=== PATIENT | male | born 1955 | race Caucasian/White ===

== ENCOUNTER 2018-03-01 10:09 | Inpatient (IN) | payer OTHER ==
[2018-03-01] MEDS ORDERED: OCTREOTIDE ACETATE 50 MCG/1 ML - 1 ML VIAL IVPUSH ONE (10:20)
[2018-03-01] MEDS ORDERED: PANTOPRAZOLE SODIUM 40 MG VIAL IVPUSH ONE (10:20)
[2018-03-01] MEDS ORDERED: SODIUM CHLORIDE 0.9% 500 ML INFUS.BAG IV ONE (10:21)
[2018-03-01] MEDS ORDERED: CEFTRIAXONE 1,000 MG in DEXTROSE 5%-WATER - 50 ML IVPB ONE (10:28)
[2018-03-01] MEDS ORDERED: OCTREOTIDE ACETATE 1,200 MCG in DEXTROSE 5%-WATER - 488 ML IVPB SCH (10:30)
--- NOTE | 2018-03-01 10:34 | PDOC ---
History of Present Illness - General Chief Complaint: Vomiting Blood Stated Complaint: VOMITING BLOOD Time Seen by Provider: 03/01/18 10:12 - History of Present Illness Initial Comments: 03/01/18 10:42 62yo lithuanian speaking M hx emphysema, etoh cirrhosis, depression presents to the ED from [facility] with BRB hematemesis x2 since 8am today a/w epigastric abd pain x 2 days. Pain is sharp, does not radiate. Also endorses bleeding in stool, brb in nature x2 since yesterday. +generalized weakness. Denies headache , CP, SOB, fevers/chills, focal weakness/numbness, rash, LE edema, urinary sxs. Pt was admitted to [facility] for etoh cirrhosis and discharged to [place] on 02/13. Not on blood thinners. No etoh intake since 01/15/18. Past History - Past Medical History Allergies/Adverse Reactions: Allergies Allergy/AdvReac Type Severity Reaction Status Date / Time No Known Allergies Allergy Unverified 03/01/18 10:30 Home Medications: Ambulatory Orders Folic Acid - 1 mg PO DAILY 03/01/18 Furosemide 40 mg PO DAILY 03/01/18 Lactulose 20 gm PO TID 03/01/18 Magnesium 800 mg PO TID 03/01/18 Multivitamins [Tab-A-Vit -] 1 tab PO DAILY 03/01/18 Pantoprazole Sodium [Protonix] 40 mg PO DAILY 03/01/18 Pentoxifylline 400 mg PO TID 03/01/18 Potassium Chloride 20 meq PO DAILY 03/01/18 Spironolactone 6 tab PO DAILY 03/01/18 Thiamine HCl 100 mg PO DAILY 03/01/18 Vit B Comp/C/Folic/Iron/Vit E [Vitamin B Complex Tablet] 1 each PO DAILY COPD: No Liver Disease: Yes (cirrhosis of liver) Lung CA: (emphysema) Other medical history: muscle weakness, alcohol abuse - Suicide/Smoking/Psychosocial Hx Smoking History: Unknown if ever smoked Information on smoking cessation initiated: No Hx Alcohol Use: Yes (hx) Drug/Substance Use Hx: No Review of Systems - Review of Systems Comments:: 03/01/18 11:09 GENERAL/CONSTITUTIONAL: No fever or chills. +weakness. HEAD, EYES, EARS, NOSE AND THROAT: No change in vision. No ear pain or discharge. No sore throat. GASTROINTESTINAL: +nausea, vomiting blood, +bloody stool, no diarrhea or constipation. GENITOURINARY: No dysuria, frequency, or change in urination. CARDIOVASCULAR: No chest pain or shortness of breath. RESPIRATORY: No cough, wheezing, or hemoptysis. MUSCULOSKELETAL: No joint or muscle swelling or pain. No neck or back pain. SKIN: No rash NEUROLOGIC: No headache, vertigo, loss of consciousness, or change in strength/ sensation. ENDOCRINE: No increased thirst. No abnormal weight change. HEMATOLOGIC/LYMPHATIC: No anemia, easy bleeding, or history of blood clots. ALLERGIC/IMMUNOLOGIC: No hives or skin allergy. *Physical Exam - Vital Signs Last Vital Signs Temp Pulse Resp BP Pulse Ox 97.9 F 85 17 134/64 100 03/01/18 10:27 03/01/18 10:27 03/01/18 10:27 03/01/18 10:27 03/01/18 10:27 - Physical Exam Comments: 03/01/18 11:10 GENERAL: Awake, alert, and fully oriented to name, date, in no acute distress. Jaundiced, thin, chronically ill appearing HEAD: No signs of trauma EYES: PERRLA, EOMI, +scleral icterus ENT: Oropharynx clear without exudates. Moist mucosa LUNGS: Breath sounds equal, clear to auscultation bilaterally. No wheezes, and no crackles HEART: Regular rate and rhythm, normal S1 and S2, no murmurs, rubs or gallops ABDOMEN: +epigastric ttp, +dullness to percussion No guarding, no rebound. No masses EXTREMITIES: Normal range of motion, no edema. No cords, erythema, or tenderness NEUROLOGICAL: Normal speech, cranial nerves intact, normal strength and sensation b/l SKIN: +jaundice Moderate Sedation - Procedure Monitoring Vital Signs: Procedure Monitoring Vital Signs Temperature 97.9 F 03/01/18 10:27 Pulse Rate 85 03/01/18 10:27 Respiratory Rate 17 03/01/18 10:27 Blood Pressure 134/64 03/01/18 10:27 O2 Sat by Pulse Oximetry (%) 100 03/01/18 10:27 Heart Score/ECG Review #1 03/01/18 11:07 Twelve-lead EKG was performed and reviewed by me. Normal sinus rhythm, rate 79. Normal axis and intervals. No ST elevations or T-wave inversions. ED Treatment Course - LABORATORY CBC & Chemistry Diagram: 03/01/18 14:30 03/01/18 14:30 - RADIOLOGY Radiology Studies Ordered: Category Date Time Status CHEST X-RAY PORTABLE* [RAD] Stat Radiology 03/01/18 10:19 Ordered Medical Decision Making - Critical Care Time Total Critical Care Time (minutes): 90 Critical Care Statement: The care of this patient involved high complexity decision making to prevent further life threatening deterioration of the patient 's condition and/or to evaluate & treat vital organ system(s) failure or risk of failure. - Medical Decision Making 03/01/18 10:32 62yo M with MMP including etoh cirrhosis presents to the ED with bright red hematemesis since 8am this morning. Vitals stable thus far on monitor. Presumed variceal bleed. Pt has 2 IVs, ordered for PPI bolus/gtt, octreotide bolus/gtt, ceftriaxone. Case discussed with Dr. Alanis, pt likely to need endoscopy. Anticipate ICU admission, if rebleed, likely intubate for airway protection. 03/01/18 11:[address] Alanis at the bedside. Guaic done by Dr. Alanis at bedside, guaic positive 03/01/18 11:[address] Alanis for endoscopy. 03/01/18 11:40 INR 2.3, FFP ordered Hgb [address] Chase/Alex to ICU Pt next for endoscopy per Dr. Alanis 03/01/18 11:45 Bili 6, hospitalist paged for admission 03/01/18 12:00 Dr. Kuo/Dr. Pedro accept pt Pt to be transported to endoscopy suite/ICU soon Stable for now, no further hematemesis in ED. *DC/Admit/Observation/Transfer Diagnosis at time of Disposition: Hematemesis, Alcoholic cirrhosis of liver, Hematochezia - Discharge Dispostion Condition at time of disposition: Critical Decision to Admit order: Yes - Referrals - Patient Instructions - Post Discharge Activity - Attestations Physician Attestion: 03/01/18 11:54 I, Dr. Carl Mcfadden MD, attest that this document has been prepared under my direction and personally reviewed by me in its entirety. I further attest, that it accurately reflects all work, treatment, procedures and medical decision -making performed by me.
[2018-03-01] MEDS ORDERED: PANTOPRAZOLE SODIUM 40 MG VIAL ONE ×2 (10:43→10:45)
[2018-03-01] MEDS ORDERED: CEFTRIAXONE 1 GM/50 ML BAG ONE (10:43)
[2018-03-01] MEDS ORDERED: OCTREOTIDE ACETATE 100 MCG/1 ML ONE (10:45)
[2018-03-01] MEDS: PANTOPRAZOLE SODIUM 80 MG in SODIUM CHLORIDE 100 ML IVPB SCH ×2 (11:01→21:22)
[2018-03-01 11:10] LABS: INR 2.32 (0.83-1.09); PROTHROMBIN TIME (PATIENT) 27.6 SEC (9.7-13.0)
[2018-03-01 11:11] LABS: BASO % 0.2 % (0-2.0); EOS % 0.3 % (0-4.5); HEMATOCRIT 27.6 % (35.4-49); HEMOGLOBIN 9.3 GM/dL (11.7-16.9); LYMPH % 15.2 % (8-40); MCH 35.3 pg (25.7-33.7); MCHC 33.7 g/dl (32.0-35.9); MEAN CELL VOLUME 104.8 fl (80-96); MEAN PLT VOLUME 8.3 fl (7.5-11.1); MONO % 12.2 % (3.8-10.2); NEUT % 72.1 % (42.8-82.8); PLATELET COUNT 64 K/MM3 (134-434); RBC 2.63 M/mm3 (4.00-5.60); RDW 18.6 % (11.9-15.9); WHITE BLOOD COUNT 5.4 K/mm3 (4.0-10.0)
[2018-03-01 11:13] LABS: MAGNESIUM 1.9 mg/dL (1.8-2.4)
--- NOTE | 2018-03-01 11:26 | CON.GI ---
Consult Consult Specialty:: Gastroenterology ( covering Dr Saravia) Referred by:: Carl Mcfadden MD Reason for Consultation:: Hematemesis - History of Present Illness Chief Complaint: Vomiting of blood History of Present Illness: 62M developed hematemesis and melena today. He describes seeing hematochezia yesterday. He has alcoholic cirrhosis and was hopsitalized at [facility] after he last drank alcohol in January. He has been at [facility] since then. He denies ever having had any endoscopy or previous GI bleeding. He denies any other medical problems. His nurse and a medical student assigned to the ER served as Pashto interpreters. I informed him on the need for interventional endoscopy to include cautery and rubber band ligation of varices. 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 Place of : Other ([facility]) Home Medications - Allergies Allergies/Adverse Reactions: Allergies Allergy/AdvReac Type Severity Reaction Status Date / Time No Known Allergies Allergy Unverified 03/01/18 10:30 - Home Medications Home Medications: Ambulatory Orders Folic Acid - 1 mg PO DAILY 03/01/18 Furosemide 40 mg PO DAILY 03/01/18 Lactulose 20 gm PO TID 03/01/18 Magnesium 800 mg PO TID 03/01/18 Multivitamins [Tab-A-Vit -] 1 tab PO DAILY 03/01/18 Pantoprazole Sodium [Protonix] 40 mg PO DAILY 03/01/18 Pentoxifylline 400 mg PO TID 03/01/18 Potassium Chloride 20 meq PO DAILY 03/01/18 Spironolactone 6 tab PO DAILY 03/01/18 Thiamine HCl 100 mg PO DAILY 03/01/18 Vit B Comp/C/Folic/Iron/Vit E [Vitamin B Complex Tablet] 1 each PO DAILY Family Disease History - Family Disease History Family Disease History: Other: Father ( of alcoholism) Physical Exam-GI Vital Signs: Vital Signs Temperature 97.9 F 03/01/18 10:27 Pulse Rate 85 03/01/18 10:27 Respiratory Rate 17 03/01/18 10:27 Blood Pressure 134/64 03/01/18 10:27 O2 Sat by Pulse Oximetry (%) 100 03/01/18 10:27 Current Medications Generic Name Dose Route Start Last Admin Trade Name Freq PRN Reason Stop Dose Admin Pantoprazole Sodium 80 mg/ 100 mls @ 10 mls/hr 03/01/18 10:30 03/01/18 11:01 Sodium Chloride IVPB 10 mls/hr Q10H ALINA Administration 8 MG/HR Octreotide Acetate 1,200 mcg/ 500 mls @ 20.83 mls/hr 03/01/18 10:30 Dextrose IVPB ASDIR ALINA 50 MCG/HR Current Medications Generic Name Dose Route Start Last Admin Trade Name Freq PRN Reason Stop Dose Admin Pantoprazole Sodium 80 mg/ 100 mls @ 10 mls/hr 03/01/18 10:30 03/01/18 11:01 Sodium Chloride IVPB 10 mls/hr Q10H ALINA Administration 8 MG/HR Octreotide Acetate 1,200 mcg/ 500 mls @ 20.83 mls/hr 03/01/18 10:30 Dextrose IVPB ASDIR ALINA 50 MCG/HR Constitutional: Yes: Anxious Eyes: Yes: Sclera Icterus HENT: Yes: Normocephalic Neck: Yes: Trachea Midline Cardiovascular: Yes: Tachycardia Respiratory: Yes: CTA Bilaterally Gastrointestinal Inspection: Yes: Distention ...Auscultate: Yes: Normoactive Bowel Sounds, Other (nontender) ...Palpate: Yes: Soft, Other (nontender) ...Rectal Exam: Yes: Guaiac Positive (brown/black strongly guaiac positive stool ) Edema: No Integumentary: Yes: Tattoos (left chest) Neurological: Yes: Alert, Oriented Labs: INR, PTT INR 2.32 (0.83-1.09) H 03/01/18 10:30 Laboratory Tests 03/01/18 03/01/18 10:30 10:30 Hgb 9.3 L Hct 27.6 L Plt Count Pending PT with INR 27.60 H Problem List - Problems (1) Hematemesis Assessment/Plan: Although this consultation was started before his procedure I was not able to complete it until now. After informed consent was obtained using his nurse as my timber treatment plant operator and EGD was performed while intubated. Four large distal esophageal varices with stigmata of recent bleeding were found and all were banded. I explained the findings to Rayray and the need to abstain from any more alcohol intake. I also explained the need to have EGD repeated to band any residual varices. He can followup with me or Dr. Saravia. He expressed that he may want to do at [facility] where my partner, Dr Fang attends the GI clinic. I discussed the case with Dr Chase. Will continue Octreotide and PPI drip. Reglan will be given to manage his postprocedure vomiting. The Hb should be kept around no higher than 8. He will ultimately need a nonselectibe beta ayla to keep portal pressures and the risk of resiodual varices and portal gastropathy bleeding minimal. Code(s): K92.0 - HEMATEMESIS (2) Alcoholic cirrhosis of liver Assessment/Plan: Will order sonogram and AFP to screen for hepatoma and ascites. Given that he was not allowed alcohol for the several weeks that he has been at [facility] DTs should no longer be an issue but he should be watched for agitation and other signs. Code(s): K70.30 - ALCOHOLIC CIRRHOSIS OF LIVER WITHOUT ASCITES (3) COPD (chronic obstructive pulmonary disease) Code(s): J44.9 - CHRONIC OBSTRUCTIVE PULMONARY DISEASE, UNSPECIFIED (4) Hematochezia Code(s): K92.1 - MELENA (5) Alcoholism /alcohol abuse Code(s): F10.20 - ALCOHOL DEPENDENCE, UNCOMPLICATED Assessment/Plan Octreotide and PPI drips FFP Serial CBCs Sonogram and AFP If bleeding persists he will need to be transferred to a tertiary care center for TIPS
[2018-03-01 11:42] LABS: ALBUMIN 2.3 g/dl (3.4-5.0); ALK PHOS 135 U/L (45-117); ANION GAP 10 MMOL/L (8-16); BLOOD UREA NITROGEN 5 mg/dL (7-18); CHLORIDE 98 mmol/L (98-107); CO2 24 mmol/L (21-32); CREATININE 0.7 mg/dL (0.55-1.3); GLUCOSE,RANDOM 110 mg/dL (74-106); POTASSIUM 3.5 mmol/L (3.5-5.1); SGOT/AST 45 U/L (15-37); SGPT/ALT 22 U/L (13-61); SODIUM 132 mmol/L (136-145); TOT PROT 7.3 g/dl (6.4-8.2)
[2018-03-01 12:41] LABS: URINE APPEARANCE CLEAR; URINE BILIRUBIN NEGATIVE (<2.0 mg/dL); URINE COLOR DKYELLOW; URINE GLUCOSE (UA) NEGATIVE (NEGATIVE); URINE KETONE NEGATIVE (NEGATIVE); URINE LEUK ESTERASE NEGATIVE (NEGATIVE); URINE NITRITE NEGATIVE (NEGATIVE); URINE PROTEIN NEGATIVE (NEGATIVE); URINE UROBILINOGEN NEGATIVE mg/dL (0.2-1.0)
--- NOTE | 2018-03-01 12:45 | CONSULT ---
Consultation: REQUESTING PROVIDER: Carl Mcfadden MD CONSULT REQUEST: We have been asked to medically evaluate this patient for GIB. HISTORY OF PRESENT ILLNESS: Patient is a 62 y/o M w/ PMHx EtOH abuse, cirrhosis, emphysema, depression, was admitted to [facility] for alcoholic cirrhosis and discharged to [place] on 02/13, p /w 2 episodes hematemesis since 8am, additionally complains of abdominal pain, generalized weakness, hematochezia since yesterday. Admitted for endoscopic evaluation/therapy of GI bleeding and medical management. REVIEW OF SYSTEMS: As per HPI PHYSICAL EXAMINATION Vital Signs - 24 hr 03/01/18 03/01/18 03/01/18 10:27 12:14 12:17 Temperature 97.9 F 98 F Pulse Rate 85 Pulse Rate [ 79 Apical] Respiratory 17 17 Rate Blood Pressure 134/64 Blood Pressure 151/78 [Right Arm] O2 Sat by Pulse 100 98 97 Oximetry (%) GENERAL: A&Ox3, tremulous, cachectic, diffusely jaundiced, in pain and discomfort HEAD: NC/AT, temporal wasting EYES: PERRLA, EOMI, +scleral icterus EARS, NOSE, THROAT: Ears normal, nares patent, oropharynx clear without exudates. Moist mucous membranes. NECK: +jvd, supple, full ROM LUNGS: CTA b/l HEART: RRR no m/r/g ABDOMEN: bowel sounds distant, distended, firm but not rigid, gross hepatomegaly , no shifting dullness UPPER EXTREMITIES: 2+ pulses, warm, well-perfused. No cyanosis. No clubbing. Cap refill <2 seconds. No peripheral edema. LOWER EXTREMITIES: 2+ pulses, warm, well-perfused. No calf tenderness. No peripheral edema. 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 low-grade asterixis PSYCHIATRIC: Hesitant, withdrawn RECTAL: Pt refused having had multiple rectal exams to this point; refer to GI consult note for findings on presentation Laboratory Results - last 24 hr 03/01/18 03/01/18 03/01/18 10:30 10:30 10:30 RBC 2.63 L Hgb 9.3 L Hct 27.6 L MCV 104.8 H MCH 35.3 H MCHC 33.7 RDW 18.6 H Absolute Neuts (auto) 3.9 Neutrophils % 72.1 Lymphocytes % 15.2 Monocytes % 12.2 H Eosinophils % 0.3 Basophils % 0.2 Nucleated RBC % 0 PT with INR 27.60 H INR 2.32 H PTT (Actin FS) 44.0 H Sodium 132 L Potassium 3.5 Chloride 98 Carbon Dioxide 24 Anion Gap 10 BUN 5 L Creatinine 0.7 Creat Clearance w eGFR > 60 Random Glucose 110 H Calcium 8.0 L Magnesium Total Bilirubin 6.0 H AST 45 H ALT 22 Alkaline Phosphatase 135 H Total Protein 7.3 Albumin 2.3 L Lipase Blood Type Antibody Screen 03/01/18 03/01/18 10:30 10:30 RBC Hgb Hct MCV MCH MCHC RDW Absolute Neuts (auto) Neutrophils % Lymphocytes % Monocytes % Eosinophils % Basophils % Nucleated RBC % PT with INR INR PTT (Actin FS) Sodium Potassium Chloride Carbon Dioxide Anion Gap BUN Creatinine Creat Clearance w eGFR Random Glucose Calcium Magnesium 1.9 Total Bilirubin AST ALT Alkaline Phosphatase Total Protein Albumin Lipase 273 Blood Type O POSITIVE Antibody Screen Negative Active Medications Generic Name Dose Route Start Last Admin Trade Name Freq PRN Reason Stop Dose Admin Pantoprazole Sodium 80 mg/ 100 mls @ 10 mls/hr 03/01/18 10:30 03/01/18 11:01 Sodium Chloride IVPB 10 mls/hr Q10H ALINA Administration 8 MG/HR Octreotide Acetate 1,200 mcg/ 500 mls @ 20.83 mls/hr 03/01/18 10:30 03/01/18 12:00 Dextrose IVPB 20.83 mls/hr ASDIR ALINA Administration 50 MCG/HR ASSESSMENT/PLAN: 62 y/o M w/ PMHx alcoholic cirrhosis, emphysema p/w hematemesis and hematochezia #GIB -H/H 9.3/27.6 on presentation -PT 27.6, PTT 44, INR 2.3 -for urgent endoscopy -on Protonix and Octreotide gtt -1 unit FFP ordered -NPO -trend CBC -remainder as per GI #FEN -no IVF at this time -monitor and replete electrolytes -NPO #PPx -DVT: SCDs, no pharmacologic AC -GI: Protonix #code -full #Dispo: We will continue to follow the patient in the ICU. Thank you for this consultative opportunity. Visit type - Emergency Visit Emergency Visit: Yes Care time: The patient presented to the Emergency Department on the above date and was hospitalized for further evaluation of their emergent condition. - New Patient This patient is new to me today: Yes Date on this admission: 03/01/18 - Critical Care Critical Care patient: Yes Total Critical Care Time (in minutes): 40 Critical Care Statement: The care of this patient involved high complexity decision making to prevent further life threatening deterioration of the patient 's condition and/or to evaluate & treat vital organ system(s) failure or risk of failure.
--- NOTE | 2018-03-01 13:56 | HP ---
CHIEF COMPLAINT:hemetemesis PCP: none, pt says he hasn't been seen by a physician in 4 years HISTORY OF PRESENT ILLNESS: 62 yr old kuwaiti speaking man with ETOH abuse(everday drinker of beer, last drink 4wks ago for past 40yrs), smoker (everday for 40 days) sent directly from [facility] for evaluation of hematemesis. pt says he has been vomiting blood since yesterday afternoon. He was in [facility] for past 4 weeks and was seen at [facility] for hematochezia and hemetemesis several weeks ago. c/o feeling thirsty denies chest pain, abdominal pain, cough, shortness of breath, weight loss, fevers, headache, palpitations, hematuria, hematochezia or melena ER course was notable for: (1) GI evaluation (2) protonix + octreotride drip (3)admitted to ICU Recent Travel: denies PAST MEDICAL HISTORY: chronic substance use of etoh and smoking PAST SURGICAL HISTORY: Social History: [place] hx of smoking Alcohol: 40yr everyday use of etoh Drugs: denies Family History: unknown hx of his parents and siblings. has an 14yr old son, healthy Allergies No Known Allergies Allergy (Unverified 03/01/18 10:30) HOME MEDICATIONS: Home Medications Medication Instructions Recorded Folic Acid - 1 mg PO DAILY 03/01/18 Furosemide 40 mg PO DAILY 03/01/18 Lactulose 20 gm PO TID 03/01/18 Magnesium 800 mg PO TID 03/01/18 Multivitamins [Tab-A-Vit -] 1 tab PO DAILY 03/01/18 Pantoprazole Sodium [Protonix] 40 mg PO DAILY 03/01/18 Pentoxifylline 400 mg PO TID 03/01/18 Potassium Chloride 20 meq PO DAILY 03/01/18 Spironolactone 6 tab PO DAILY 03/01/18 Thiamine HCl 100 mg PO DAILY 03/01/18 Vit B Comp/C/Folic/Iron/Vit E 1 each PO DAILY 03/01/18 [Vitamin B Complex Tablet] REVIEW OF SYSTEMS CONSTITUTIONAL: Absent: fever, chills, diaphoresis, generalized weakness, malaise, loss of appetite, weight change HEENT: Absent: rhinorrhea, nasal congestion, throat pain, throat swelling, difficulty swallowing, mouth swelling, ear pain, eye pain, visual changes CARDIOVASCULAR: Absent: chest pain, syncope, palpitations, irregular heart rate, lightheadedness , peripheral edema RESPIRATORY: Absent: cough, shortness of breath, dyspnea with exertion, orthopnea, wheezing, stridor, hemoptysis GASTROINTESTINAL: Present: abdominal distension, vomiting with blood Absent: abdominal pain,nausea,diarrhea, constipation, melena, hematochezia GENITOURINARY: Absent: dysuria, frequency, urgency, hesitancy, hematuria, flank pain MUSCULOSKELETAL: Absent: myalgia, arthralgia, joint swelling, back pain, neck pain SKIN: Absent: rash, itching, pallor HEMATOLOGIC/IMMUNOLOGIC: Absent: easy bleeding, easy bruising, lymphadenopathy, frequent infections ENDOCRINE: Absent: unexplained weight gain, unexplained weight loss, heat intolerance, cold intolerance NEUROLOGIC: Absent: headache, focal weakness or paresthesias, dizziness, unsteady gait, seizure, PHYSICAL EXAMINATION Vital Signs - 24 hr 03/01/18 03/01/18 03/01/18 10:27 11:54 12:14 Temperature 97.9 F 97.9 F 98 F Pulse Rate 85 81 Pulse Rate [ 79 Apical] Respiratory 17 17 17 Rate Blood Pressure 134/64 114/56 L Blood Pressure 151/78 [Right Arm] O2 Sat by Pulse 100 97 98 Oximetry (%) 03/01/18 12:17 Temperature Pulse Rate Pulse Rate [ Apical] Respiratory Rate Blood Pressure Blood Pressure [Right Arm] O2 Sat by Pulse 97 Oximetry (%) GENERAL: Awake, alert, and fully oriented, in no acute distress. HEAD: Normal with no signs of trauma. EYES: Pupils equal, round and reactive to light, extraocular movements intact, with sclera anicteric, conjunctiva clear. No lid lag. EARS, NOSE, THROAT: Ears normal, nares patent, oropharynx clear without exudates. dry mucous membranes. poor oral hygiene NECK: Normal range of motion, supple without lymphadenopathy, JVD, or masses. LUNGS: Breath sounds equal, clear to auscultation bilaterally. No wheezes, and no crackles. No accessory muscle use. HEART: Regular rate and rhythm, normal S1 and S2 without murmur, rub or gallop. ABDOMEN: Soft, nontender, +distended, +ascitis, normoactive bowel sounds, no guarding, no rebound, no masses. MUSCULOSKELETAL: Normal range of motion at all joints. No bony deformities or tenderness. No CVA tenderness. UPPER EXTREMITIES: 2+ radial pulses, warm, well-perfused. No cyanosis. No clubbing. No peripheral edema. LOWER EXTREMITIES: 2+ DP pulses, warm, well-perfused. No calf tenderness. No peripheral edema. NEUROLOGICAL: Cranial nerves II-XII intact. Normal speech. 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 Good eye contact. Appropriate mood and affect. SKIN: jaundice, Warm, dry, normal turgor, no rashes or lesions noted, normal capillary refill. Laboratory Results - last 24 hr 03/01/18 03/01/18 03/01/18 10:30 10:30 10:30 WBC 5.4 RBC 2.63 L Hgb 9.3 L Hct 27.6 L MCV 104.8 H MCH 35.3 H MCHC 33.7 RDW 18.6 H Plt Count 64 L MPV 8.3 Absolute Neuts (auto) 3.9 Neutrophils % 72.1 Lymphocytes % 15.2 Monocytes % 12.2 H Eosinophils % 0.3 Basophils % 0.2 Nucleated RBC % 0 PT with INR 27.60 H INR 2.32 H PTT (Actin FS) 44.0 H Sodium 132 L Potassium 3.5 Chloride 98 Carbon Dioxide 24 Anion Gap 10 BUN 5 L Creatinine 0.7 Creat Clearance w eGFR > 60 Random Glucose 110 H Calcium 8.0 L Magnesium Total Bilirubin 6.0 H AST 45 H ALT 22 Alkaline Phosphatase 135 H Total Protein 7.3 Albumin 2.3 L Lipase Urine Color Urine Appearance Urine pH Ur Specific [place] Urine Protein Urine Glucose (UA) Urine Ketones Urine Blood Urine Nitrite Urine Bilirubin Urine Urobilinogen Ur Leukocyte Esterase Blood Type Antibody Screen 03/01/18 03/01/18 03/01/18 10:30 10:30 12:00 WBC RBC Hgb Hct MCV MCH MCHC RDW Plt Count MPV Absolute Neuts (auto) Neutrophils % Lymphocytes % Monocytes % Eosinophils % Basophils % Nucleated RBC % PT with INR INR PTT (Actin FS) Sodium Potassium Chloride Carbon Dioxide Anion Gap BUN Creatinine Creat Clearance w eGFR Random Glucose Calcium Magnesium 1.9 Total Bilirubin AST ALT Alkaline Phosphatase Total Protein Albumin Lipase 273 Urine Color Urine Appearance Urine pH Ur Specific [place] Urine Protein Urine Glucose (UA) Urine Ketones Urine Blood Urine Nitrite Urine Bilirubin Urine Urobilinogen Ur Leukocyte Esterase Blood Type O POSITIVE O POSITIVE Antibody Screen Negative 03/01/18 12:17 WBC RBC Hgb Hct MCV MCH MCHC RDW Plt Count MPV Absolute Neuts (auto) Neutrophils % Lymphocytes % Monocytes % Eosinophils % Basophils % Nucleated RBC % PT with INR INR PTT (Actin FS) Sodium Potassium Chloride Carbon Dioxide Anion Gap BUN Creatinine Creat Clearance w eGFR Random Glucose Calcium Magnesium Total Bilirubin AST ALT Alkaline Phosphatase Total Protein Albumin Lipase Urine Color Dkyellow Urine Appearance Clear Urine pH 7.0 Ur Specific [place] 1.008 L Urine Protein Negative Urine Glucose (UA) Negative Urine Ketones Negative Urine Blood Negative Urine Nitrite Negative Urine Bilirubin Negative Urine Urobilinogen Negative Ur Leukocyte Esterase Negative Blood Type Antibody Screen ASSESSMENT/PLAN: 62 yr man with active substance use with ETOH presents with hemetemesis admitted to ICU post-endoscopy for bleeding varices. #Variceal bleeding s/p banding of 4 varices today - from ETOH abuse leading to liver dysfunction - protonix IV drip with reglan as Qtc prolonged - IVF with NS - NPO until stable - to be given 2 units of FFP for elevated INR and acute bleeding - recommendation for beta ayla PPx such as nadolol 20mg po daily at time of delivery #Liver dysfunction with MELD score of 29 and Child-Berger score of 13, class C - r/o hepatitis, likely from etoh use - avoid hepatotoxic medications - likely cause of erythropenia and elevated coagulation studies - trend liver function and monitor coags and for repeat bleeding closely given extent of dysfunction Anemia, macrocytic - multifactorial given undomiciled etoh user; nutritional deficiency, acute blood loss and chronic disease - will likely need folic acid and vit b12 when able to take PO - anemia studies ordered #Subtance use - Etoh - last drink approx 4weeks, low suspicion for withdrawal at this time, however monitor closely - nicotine dependence, defer NRT until stable or pt requests - will need counseling on cessation #DVT - scd's, defer medical ac #diet - npo until stable for oral intake #activity - bed rest until stable Visit type - Emergency Visit Emergency Visit: Yes ED Registration Date: 03/01/18 Care time: The patient presented to the Emergency Department on the above date and was hospitalized for further evaluation of their emergent condition. - New Patient This patient is new to me today: Yes Date on this admission: 03/01/18 - Critical Care Critical Care patient: Yes Total Critical Care Time (in minutes): 45 Critical Care Statement: The care of this patient involved high complexity decision making to prevent further life threatening deterioration of the patient 's condition and/or to evaluate & treat vital organ system(s) failure or risk of failure.
[2018-03-01] MEDS ORDERED: METOCLOPRAMIDE HCL INJECTION 10 MG/2 ML VIAL IVPUSH PRN (14:34)
[2018-03-01 14:47] LABS: HEMATOCRIT 29.7 % (35.4-49); HEMOGLOBIN 10.5 GM/dL (11.7-16.9); MCH 37.1 pg (25.7-33.7); MCHC 35.2 g/dl (32.0-35.9); MEAN CELL VOLUME 105.4 fl (80-96); PLATELET COUNT 73 K/MM3 (134-434); RBC 2.82 M/mm3 (4.00-5.60); RDW 19.3 % (11.9-15.9); WHITE BLOOD COUNT 5.8 K/mm3 (4.0-10.0)
--- NOTE | 2018-03-01 14:52 | PN ---
Progress Note (short form) - Note Progress Note: Patient received from OR Patient actively vomiting fresh red blood which is likely residual from the procedure. about 100ml had general endotracheal anesthesia extubated Discussed with Dr. Magaña. Patient had banding of 4 varices. Will give reglan for vomiting/nausea. aptient has QT prolongation and will need to use zofran judiciously Will give 2 units FFP now for coagulopathy secondary to liver dysfunction will send STAT labs including CBC CMP Mg Phos Ammonia alcohol and acute hepatitis panel will trend CBC ICU care
[2018-03-01] MEDS ORDERED: SODIUM CHLORIDE 1,000 ML IV SCH (15:00)
--- NOTE | 2018-03-01 15:24 | PN ---
Progress Note (short form) - Note Progress Note: GI Procedure Note> Please see attached EGD report in the chart. Four esophageal varices were banded. Continue PPI and octreotide drips. If bleeding persists he will need to be transferred for TIPS procedure. After discharge he will need to be referred for a repeat EGD to rubber band ligate residual varices. Will continue Kefzol prophylaxis. Problem List - Problems (1) Hematemesis Code(s): K92.0 - HEMATEMESIS (2) Alcoholic cirrhosis of liver Code(s): K70.30 - ALCOHOLIC CIRRHOSIS OF LIVER WITHOUT ASCITES (3) COPD (chronic obstructive pulmonary disease) Code(s): J44.9 - CHRONIC OBSTRUCTIVE PULMONARY DISEASE, UNSPECIFIED (4) Hematochezia Code(s): K92.1 - MELENA (5) Alcoholism /alcohol abuse Code(s): F10.20 - ALCOHOL DEPENDENCE, UNCOMPLICATED
[2018-03-01 15:27] LABS: ALBUMIN 2.3 g/dl (3.4-5.0); ALK PHOS 131 U/L (45-117); ANION GAP 11 MMOL/L (8-16); BILIRUBIN,TOTAL 6.1 mg/dL (0.2-1); BLOOD UREA NITROGEN 4 mg/dL (7-18); CALCIUM 7.7 mg/dL (8.5-10.1); CHLORIDE 102 mmol/L (98-107); CO2 22 mmol/L (21-32); CREATININE 0.8 mg/dL (0.55-1.3); GLUCOSE,RANDOM 114 mg/dL (74-106); MAGNESIUM 1.8 mg/dL (1.8-2.4); PHOSPHOROUS 3.2 mg/dL (2.5-4.9); POTASSIUM 3.7 mmol/L (3.5-5.1); SGOT/AST 48 U/L (15-37); SGPT/ALT 22 U/L (13-61); SODIUM 135 mmol/L (136-145); TOT PROT 7.5 g/dl (6.4-8.2)
--- NOTE | 2018-03-01 15:43 | EKG ---
Test Reason : Blood Pressure : / mmHG Vent. Rate : 079 BPM Atrial Rate : 079 BPM P-R Int : 150 ms QRS Dur : 102 ms QT Int : 444 ms P-R-T Axes : 069 080 053 degrees QTc Int : 509 ms NORMAL SINUS RHYTHM PROLONGED QT ABNORMAL ECG WHEN COMPARED WITH ECG OF 10-AUG-2007 08:36, NONSPECIFIC T WAVE ABNORMALITY NO LONGER EVIDENT IN INFERIOR LEADS QT HAS LENGTHENED Confirmed by JAYANT BUTTS, CHITO ([id number]) on 03/01/2018 3:42:40 PM Referred By: Confirmed By:CHITO SABA MD
[2018-03-01] MEDS ORDERED: ALBUTEROL SO4 0.083% IH SOL 2.5 MG/3 ML VIAL.NEB. NEB PRN (15:47)
[2018-03-01 16:28] LABS: LDH 322 U/L (87-246)
[2018-03-01] MEDS: CEFAZOLIN 1 GM/D5W 1 GM/50 ML BAG IVPB SCH (17:37)
--- NOTE | 2018-03-01 19:15 | PN ---
Teaching Attending Note Name of Resident: Tj Kuo ATTENDING PHYSICIAN STATEMENT I saw and evaluated the patient. I reviewed the resident's note and discussed the case with the resident. I agree with the resident's findings and plan as documented. Patient seen and examined after EGD and banding with some post procedure hematemesis. SUBJECTIVE: Feeling better. No abdominal pain/fevers/chills currently. Denies chest pain/palpitations/shortness of breath OBJECTIVE: Afebrile/Hemodynamically Stable. Last Vital Signs Temp Pulse Resp BP Pulse Ox 97.7 F 81 20 140/75 100 03/01/18 18:00 03/01/18 18:00 03/01/18 18:00 03/01/18 18:00 03/01/18 15:00 HEENT - Atraumatic. Blood stained teeth Heart - S1, S2, RRR, soft SM Lungs - clear to auscultation - no crackles/wheeze. Abdomen - soft, mild distension, mild generalized tenderness. Bowel Sounds normal Extremities - Edema++. No calf tenderness. Laboratory Results - last 24 hr 03/01/18 03/01/18 03/01/18 10:30 10:30 10:30 WBC 5.4 RBC 2.63 L Hgb 9.3 L Hct 27.6 L MCV 104.8 H MCH 35.3 H MCHC 33.7 RDW 18.6 H Plt Count 64 L MPV 8.3 Absolute Neuts (auto) 3.9 Neutrophils % 72.1 Lymphocytes % 15.2 Monocytes % 12.2 H Eosinophils % 0.3 Basophils % 0.2 Nucleated RBC % 0 PT with INR 27.60 H INR 2.32 H PTT (Actin FS) 44.0 H Sodium 132 L Potassium 3.5 Chloride 98 Carbon Dioxide 24 Anion Gap 10 BUN 5 L Creatinine 0.7 Creat Clearance w eGFR > 60 Random Glucose 110 H Calcium 8.0 L Phosphorus Magnesium Ferritin Total Bilirubin 6.0 H AST 45 H ALT 22 Alkaline Phosphatase 135 H Ammonia LD Total Total Protein 7.3 Albumin 2.3 L Lipase Vitamin B12 Urine Color Urine Appearance Urine pH Ur Specific [place] Urine Protein Urine Glucose (UA) Urine Ketones Urine Blood Urine Nitrite Urine Bilirubin Urine Urobilinogen Ur Leukocyte Esterase Alcohol, Quantitative Blood Type Antibody Screen 03/01/18 03/01/18 03/01/18 10:30 10:30 12:00 WBC RBC Hgb Hct MCV MCH MCHC RDW Plt Count MPV Absolute Neuts (auto) Neutrophils % Lymphocytes % Monocytes % Eosinophils % Basophils % Nucleated RBC % PT with INR INR PTT (Actin FS) Sodium Potassium Chloride Carbon Dioxide Anion Gap BUN Creatinine Creat Clearance w eGFR Random Glucose Calcium Phosphorus Magnesium 1.9 Ferritin Total Bilirubin AST ALT Alkaline Phosphatase Ammonia LD Total Total Protein Albumin Lipase 273 Vitamin B12 Urine Color Urine Appearance Urine pH Ur Specific [place] Urine Protein Urine Glucose (UA) Urine Ketones Urine Blood Urine Nitrite Urine Bilirubin Urine Urobilinogen Ur Leukocyte Esterase Alcohol, Quantitative Blood Type O POSITIVE O POSITIVE Antibody Screen Negative 03/01/18 03/01/18 03/01/18 12:17 14:30 14:30 WBC RBC Hgb Hct MCV MCH MCHC RDW Plt Count MPV Absolute Neuts (auto) Neutrophils % Lymphocytes % Monocytes % Eosinophils % Basophils % Nucleated RBC % PT with INR INR PTT (Actin FS) Sodium 135 L Potassium 3.7 Chloride 102 Carbon Dioxide 22 Anion Gap 11 BUN 4 L Creatinine 0.8 Creat Clearance w eGFR > 60 Random Glucose 114 H Calcium 7.7 L Phosphorus 3.2 Magnesium 1.8 Ferritin 346.5 Total Bilirubin 6.1 H AST 48 H ALT 22 Alkaline Phosphatase 131 H Ammonia 12.70 LD Total 322 H Total Protein 7.5 Albumin 2.3 L Lipase Vitamin B12 1488 H Urine Color Dkyellow Urine Appearance Clear Urine pH 7.0 Ur Specific [place] 1.008 L Urine Protein Negative Urine Glucose (UA) Negative Urine Ketones Negative Urine Blood Negative Urine Nitrite Negative Urine Bilirubin Negative Urine Urobilinogen Negative Ur Leukocyte Esterase Negative Alcohol, Quantitative < 3.0 Blood Type Antibody Screen 03/01/18 14:30 WBC 5.8 RBC 2.82 L Hgb 10.5 L Hct 29.7 L MCV 105.4 H MCH 37.1 H MCHC 35.2 RDW 19.3 H Plt Count 73 L MPV 9.0 Absolute Neuts (auto) Neutrophils % Lymphocytes % Monocytes % Eosinophils % Basophils % Nucleated RBC % PT with INR INR PTT (Actin FS) Sodium Potassium Chloride Carbon Dioxide Anion Gap BUN Creatinine Creat Clearance w eGFR Random Glucose Calcium Phosphorus Magnesium Ferritin Total Bilirubin AST ALT Alkaline Phosphatase Ammonia LD Total Total Protein Albumin Lipase Vitamin B12 Urine Color Urine Appearance Urine pH Ur Specific [place] Urine Protein Urine Glucose (UA) Urine Ketones Urine Blood Urine Nitrite Urine Bilirubin Urine Urobilinogen Ur Leukocyte Esterase Alcohol, Quantitative Blood Type Antibody Screen Current Medications Generic Name Dose Route Start Last Admin Trade Name Frejeny PRN Reason Stop Dose Admin Albuterol Sulfate 1 amp 03/01/18 15:47 Ventolin 0.083% Nebulizer Soln - NEB QID PRN SHORT OF BREATH/WHEEZING Chlorhexidine Gluconate 1 applic 03/01/18 22:00 Hibiclens For Decolonization - TP HS ALINA Pantoprazole Sodium 80 mg/ 100 mls @ 10 mls/hr 03/01/18 10:30 03/01/18 11:01 Sodium Chloride IVPB 10 mls/hr Q10H ALINA Administration 8 MG/HR Octreotide Acetate 1,200 mcg/ 500 mls @ 20.83 mls/hr 03/01/18 10:30 03/01/18 12:00 Dextrose IVPB 20.83 mls/hr ASDIR ALINA Administration 50 MCG/HR Sodium Chloride 1,000 mls @ 75 mls/hr 03/01/18 15:00 03/01/18 17:37 Normal Saline - IV 75 mls/hr ASDIR ALINA Administration Cefazolin Sodium 1 gm in 50 mls @ 100 mls/hr 03/01/18 18:00 03/01/18 17:37 Ancef 1 Gm Premixed Ivpb - IVPB 100 mls/hr Q8H-IV ALINA Administration Metoclopramide HCl 10 mg 03/01/18 14:34 Reglan Injection - IVPUSH Q6H PRN NAUSEA AND/OR VOMITING Mupirocin 1 applic 03/01/18 22:00 Bactroban Ointment (For Decolonization) - NS 03/06/18 21:59 BID ALINA CXR - Anterior subluxation L humerus. ASSESSMENT AND PLAN: 62 year old male with history of alcohol abuse (last drink apparently in January), active smoker, COPD, Depression, Cirrhosis of Liver, recent stay at nursing facility, transferred from [facility] for evaluation of hematemesis. Patient refers bright red bloody vomitus, several episodes since yesterday, with color becoming darker with successive emesis. He complains of some abdominal discomfort with generalized weakness. No chest pain/palpitations/SOB/lightheadedness/dizziness/visual disturbance. He was started on Protonix and Octreotide drips and underwent EGD with band ligation of 4 varices, with some mild self-limited post-procedure hematemesis. 1. Acute Blood Loss Anemia secondary to Variceal bleeding s/p EGD/Band ligation x 4. Continue Protonix drip. Octreotide drip discontinued due to QTc prolongation. IV fluids NPO Will eventually require BB. IV Cephalosporin prophylaxis. If further bleeding, will need [facility]. 2. Liver Cirrhosis secondary to Alcohol excess with portal hypertension, Ascites , and Esophageal Varices. MELD 29 Abdomen mildly tender. Afebrile, Hemodynamically stable May eventually require Abdominal US and paracentesis. 3. Coagulopathy secondary to Cirrhosis with INR 2.32 Given 2 units FFP prior to EGD. Will monitor PT/aPTT 4. History of Alcohol Abuse - last drink apparently 01/26 No evidence of withdrawal - will monitor. Ativan as per CIWA if any signs of withdrawal. 5. Nicotine Dependence Counselled. 6. Anterior Subluxation L humerus - for further exam and manipulation tomorrow once more stable. DVT Px - SCDs, Autoanticoagulated with elevated INR.
[2018-03-01] MEDS: THIAMINE HCL 200 MG/2 ML VIAL IVPB SCH (19:31)
[2018-03-01] MEDS: MUPIROCIN 2% TOPICAL OINTMENT FOR DECOLONIZATION NS SCH (21:22)
[2018-03-01] MEDS: CHLORHEXIDINE GLUCONATE 4% CLEANSER FOR DECOLONIZATION TP SCH (21:22)
[2018-03-01 22:16] LABS: HEMATOCRIT 25.6 % (35.4-49); MCH 36.9 pg (25.7-33.7); MCHC 35.1 g/dl (32.0-35.9); MEAN CELL VOLUME 105.2 fl (80-96); MEAN PLT VOLUME 8.8 fl (7.5-11.1); PLATELET COUNT 61 K/MM3 (134-434); RBC 2.43 M/mm3 (4.00-5.60); RDW 18.8 % (11.9-15.9); WHITE BLOOD COUNT 3.9 K/mm3 (4.0-10.0)
[2018-03-02] MEDS: CEFAZOLIN 1 GM/D5W 1 GM/50 ML BAG IVPB SCH ×3 (02:42→17:14)
--- NOTE | 2018-03-02 04:37 | PN ---
Physical Exam: ICU team SUBJECTIVE: Patient seen and examined at bed side , no acute events over night , still NPO, denies any more vomiting or nausea, denies any light headedness, or sob,feel the urge to go to the bath room. OBJECTIVE: Vital Signs Period Temp Pulse Resp BP Sys/Mar Pulse Ox Last 24 Hr 97.6 F-98.2 F 79-95 11-20 113-151/45-78 97-100 GENERAL: AAO3 in AND HEAD:NC/AT EYES: PERRL, extraocular movements intact, icteric sclera. ENT: dry MM, poor dentation , NECK: Trachea midline, supple. LUNGS: Breath sounds equal, clear to auscultation bilaterally, no wheezes, no crackles, no accessory muscle use. HEART: sinus tachy , S1, S2 without murmur, rub or gallop. ABDOMEN: Soft, mild difuse tenderness , distended, normoactive bowel sounds, no guarding, no rebound, +3 cm hepatmegaly. EXTREMITIES: 2+ pulses, warm, well-perfused, no edema. NEUROLOGICAL: no focal deficit . Normal speech, PSYCH: Normal mood, normal affect. SKIN: Warm, dry, normal turgor Laboratory Results - last 24 hr 03/01/18 03/01/18 03/01/18 10:30 10:30 10:30 WBC 5.4 RBC 2.63 L Hgb 9.3 L Hct 27.6 L MCV 104.8 H MCH 35.3 H MCHC 33.7 RDW 18.6 H Plt Count 64 L MPV 8.3 Absolute Neuts (auto) 3.9 Neutrophils % 72.1 Lymphocytes % 15.2 Monocytes % 12.2 H Eosinophils % 0.3 Basophils % 0.2 Nucleated RBC % 0 PT with INR 27.60 H INR 2.32 H PTT (Actin FS) 44.0 H Sodium 132 L Potassium 3.5 Chloride 98 Carbon Dioxide 24 Anion Gap 10 BUN 5 L Creatinine 0.7 Creat Clearance w eGFR > 60 Random Glucose 110 H Calcium 8.0 L Phosphorus Magnesium Ferritin Total Bilirubin 6.0 H AST 45 H ALT 22 Alkaline Phosphatase 135 H Ammonia LD Total Total Protein 7.3 Albumin 2.3 L Lipase Vitamin B12 Urine Color Urine Appearance Urine pH Ur Specific Rhame Urine Protein Urine Glucose (UA) Urine Ketones Urine Blood Urine Nitrite Urine Bilirubin Urine Urobilinogen Ur Leukocyte Esterase Alcohol, Quantitative Blood Type Antibody Screen 03/01/18 03/01/18 03/01/18 10:30 10:30 12:00 WBC RBC Hgb Hct MCV MCH MCHC RDW Plt Count MPV Absolute Neuts (auto) Neutrophils % Lymphocytes % Monocytes % Eosinophils % Basophils % Nucleated RBC % PT with INR INR PTT (Actin FS) Sodium Potassium Chloride Carbon Dioxide Anion Gap BUN Creatinine Creat Clearance w eGFR Random Glucose Calcium Phosphorus Magnesium 1.9 Ferritin Total Bilirubin AST ALT Alkaline Phosphatase Ammonia LD Total Total Protein Albumin Lipase 273 Vitamin B12 Urine Color Urine Appearance Urine pH Ur Specific Rhame Urine Protein Urine Glucose (UA) Urine Ketones Urine Blood Urine Nitrite Urine Bilirubin Urine Urobilinogen Ur Leukocyte Esterase Alcohol, Quantitative Blood Type O POSITIVE O POSITIVE Antibody Screen Negative 03/01/18 03/01/18 03/01/18 12:17 14:30 14:30 WBC RBC Hgb Hct MCV MCH MCHC RDW Plt Count MPV Absolute Neuts (auto) Neutrophils % Lymphocytes % Monocytes % Eosinophils % Basophils % Nucleated RBC % PT with INR INR PTT (Actin FS) Sodium 135 L Potassium 3.7 Chloride 102 Carbon Dioxide 22 Anion Gap 11 BUN 4 L Creatinine 0.8 Creat Clearance w eGFR > 60 Random Glucose 114 H Calcium 7.7 L Phosphorus 3.2 Magnesium 1.8 Ferritin 346.5 Total Bilirubin 6.1 H AST 48 H ALT 22 Alkaline Phosphatase 131 H Ammonia 12.70 LD Total 322 H Total Protein 7.5 Albumin 2.3 L Lipase Vitamin B12 1488 H Urine Color Dkyellow Urine Appearance Clear Urine pH 7.0 Ur Specific Rhame 1.008 L Urine Protein Negative Urine Glucose (UA) Negative Urine Ketones Negative Urine Blood Negative Urine Nitrite Negative Urine Bilirubin Negative Urine Urobilinogen Negative Ur Leukocyte Esterase Negative Alcohol, Quantitative < 3.0 Blood Type Antibody Screen 03/01/18 03/01/18 14:30 21:59 WBC 5.8 3.9 L RBC 2.82 L 2.43 L Hgb 10.5 L 9.0 L Hct 29.7 L 25.6 L MCV 105.4 H 105.2 H MCH 37.1 H 36.9 H MCHC 35.2 35.1 RDW 19.3 H 18.8 H Plt Count 73 L 61 L MPV 9.0 8.8 Absolute Neuts (auto) Neutrophils % Lymphocytes % Monocytes % Eosinophils % Basophils % Nucleated RBC % PT with INR INR PTT (Actin FS) Sodium Potassium Chloride Carbon Dioxide Anion Gap BUN Creatinine Creat Clearance w eGFR Random Glucose Calcium Phosphorus Magnesium Ferritin Total Bilirubin AST ALT Alkaline Phosphatase Ammonia LD Total Total Protein Albumin Lipase Vitamin B12 Urine Color Urine Appearance Urine pH Ur Specific Rhame Urine Protein Urine Glucose (UA) Urine Ketones Urine Blood Urine Nitrite Urine Bilirubin Urine Urobilinogen Ur Leukocyte Esterase Alcohol, Quantitative Blood Type Antibody Screen Active Medications Generic Name Dose Route Start Last Admin Trade Name Freq PRN Reason Stop Dose Admin Albuterol Sulfate 1 amp 03/01/18 15:47 Ventolin 0.083% Nebulizer Soln - NEB QID PRN SHORT OF BREATH/WHEEZING Chlorhexidine Gluconate 1 applic 03/01/18 22:00 03/01/18 21:22 Hibiclens For Decolonization - TP 1 applic HS ALINA Administration Pantoprazole Sodium 80 mg/ 100 mls @ 10 mls/hr 03/01/18 10:30 03/01/18 21:22 Sodium Chloride IVPB 10 mls/hr Q10H ALINA Administration 8 MG/HR Octreotide Acetate 1,200 mcg/ 500 mls @ 20.83 mls/hr 03/01/18 10:30 03/01/18 12:00 Dextrose IVPB 20.83 mls/hr ASDIR ALINA Administration 50 MCG/HR Sodium Chloride 1,000 mls @ 75 mls/hr 03/01/18 15:00 03/01/18 17:37 Normal Saline - IV 75 mls/hr ASDIR ALINA Administration Cefazolin Sodium 1 gm in 50 mls @ 100 mls/hr 03/01/18 18:00 03/02/18 02:42 Ancef 1 Gm Premixed Ivpb - IVPB 100 mls/hr Q8H-IV ALINA Administration Metoclopramide HCl 10 mg 03/01/18 14:34 Reglan Injection - IVPUSH Q6H PRN NAUSEA AND/OR VOMITING Mupirocin 1 applic 03/01/18 22:00 03/01/18 21:22 Bactroban Ointment (For Decolonization) - NS 03/06/18 21:59 1 applic BID ALINA Administration Thiamine HCl 200 mg 03/01/18 19:30 03/01/18 19:31 Vitamin B1 Injection - IVPB 200 mg DAILY ALINA Administration CBC, BMP 03/02/18 05:15 03/02/18 05:15 Hepatic Panel Total Bilirubin 5.5 mg/dL (0.2-1) H 03/02/18 05:15 Direct Bilirubin 3.1 mg/dL (0.0-0.2) H 03/02/18 05:15 AST 36 U/L (15-37) 03/02/18 05:15 ALT 19 U/L (13-61) 03/02/18 05:15 Alkaline Phosphatase 103 U/L (45-117) 03/02/18 05:15 Albumin 2.1 g/dl (3.4-5.0) L 03/02/18 05:15 INR, PTT INR 1.89 (0.83-1.09) H 03/02/18 05:15 ASSESSMENT/PLAN: 62 year old male with history of alcohol abuse (last drink apparently in January), active smoker, COPD, Depression, Cirrhosis recent stay at nursing facility, transferred from [facility] for evaluation of hematemesis. Patient refers bright red bloody vomitus, several episodes of hematemesis and hematochezia admitted to ICU for variceal bleed. # Neuro: * AAOx3 in AND # Pulm * CTA * copd no exacerbation # GI /hem - Acute variceal bleed * S/P EGD pod # 1 and 4 rubber bands * on Protonix drip 80/hr and Octreotide GTT 50 ml/hr cut down to 25 per GI * no more vomiting since the procedure , if recurence will need transfer to tertiary facility for TIPS * Diet Clear liquid per GI * 2 large iV pores * Monitor H/H , transfuse if active bleeding or below 7 * S/P 2 FFP * Vit K IV 20 meq * cbc, cmp , lefts , coagulation studies repeat * INR today 1.89 * AAOx3 no tremor os or signs of withdrawal # Anemai macrocytic /thrombocytopenia likely due to liver cirrhosis and alcohol abuse and aculte loss from variceal bleed * H/H 9.1/27.5 , MCV 105 * Thiamin , folic acid * Ativan PRN if signs of withdrawal # Liver cirrhosis , chronic likely due to Alcohol # Coagulopathy 2/2 cirrhosis * monitor AST, ALT * avoid alcohol * US * repeat PT, PTT , INR , lfts # FEN * F: NS @ 100 CC/hr * E: monitor * N: clear liquids # Proph * DVTS: SCDS , no chemical proph * GI: protonix GTT # dispo: monitor in ICU # Code status, full code Visit type - Emergency Visit Emergency Visit: Yes ED Registration Date: 03/01/18 Care time: The patient presented to the Emergency Department on the above date and was hospitalized for further evaluation of their emergent condition. - New Patient This patient is new to me today: Yes Date on this admission: 03/01/18 - Critical Care Critical Care patient: Yes Total Critical Care Time (in minutes): 45 Critical Care Statement: The care of this patient involved high complexity decision making to prevent further life threatening deterioration of the patient 's condition and/or to evaluate & treat vital organ system(s) failure or risk of failure.
[2018-03-02 05:56] LABS: BASO % 0.1 % (0-2.0); HEMATOCRIT 27.5 % (35.4-49); HEMOGLOBIN 9.1 GM/dL (11.7-16.9); LYMPH % 11.7 % (8-40); MCHC 33.2 g/dl (32.0-35.9); MEAN CELL VOLUME 105.5 fl (80-96); MEAN PLT VOLUME 8.2 fl (7.5-11.1); MONO % 6.1 % (3.8-10.2); NEUT % 82.1 % (42.8-82.8); PLATELET COUNT 62 K/MM3 (134-434); RDW 18.6 % (11.9-15.9); WHITE BLOOD COUNT 5.3 K/mm3 (4.0-10.0)
[2018-03-02 06:10] LABS: INR 1.89 (0.83-1.09); PROTHROMBIN TIME (PATIENT) 22.5 SEC (9.7-13.0)
[2018-03-02 06:13] LABS: ACTIVATED PTT 38.2 SECONDS (25.2-36.5)
[2018-03-02 06:29] LABS: BILIRUBIN,DIRECT 3.1 mg/dL (0.0-0.2)
[2018-03-02 06:30] LABS: ALBUMIN 2.1 g/dl (3.4-5.0); ALK PHOS 103 U/L (45-117); ANION GAP 8 MMOL/L (8-16); BILIRUBIN,TOTAL 5.5 mg/dL (0.2-1); BLOOD UREA NITROGEN 7 mg/dL (7-18); CALCIUM 7.7 mg/dL (8.5-10.1); CHLORIDE 102 mmol/L (98-107); CO2 26 mmol/L (21-32); CREATININE 0.7 mg/dL (0.55-1.3); GLUCOSE,RANDOM 143 mg/dL (74-106); MAGNESIUM 1.8 mg/dL (1.8-2.4); PHOSPHOROUS 3.4 mg/dL (2.5-4.9); POTASSIUM 4.3 mmol/L (3.5-5.1); SGOT/AST 36 U/L (15-37); SGPT/ALT 19 U/L (13-61); SODIUM 136 mmol/L (136-145); TOT PROT 6.7 g/dl (6.4-8.2)
[2018-03-02] MEDS: PANTOPRAZOLE SODIUM 80 MG in SODIUM CHLORIDE 100 ML IVPB SCH ×3 (07:00→16:30)
[2018-03-02] MEDS ORDERED: PT OWN MED DRAWER 7, Y5N ONE ×3 (07:40→17:23)
--- NOTE | 2018-03-02 09:01 | PN ---
Progress Note (short form) - Note Progress Note: Anesthesiology Post-op POD#1 s/p EGD with variceal banding under GETA. Pt is awake and alert in ICU. Per RN, no ON or current acute issues. VSS, blood counts stable as well. Pt. has no complaints and no apparent anesthesia-related issues. 62 y.o. man with stable post-procedure course. Continue current management by primary team.
[2018-03-02] MEDS ORDERED: PHYTONADIONE 10 MG/1 ML AMP IVPB ONE (09:30)
--- NOTE | 2018-03-02 09:48 | PN ---
Teaching Attending Note Name of Resident: Jan Washington ATTENDING PHYSICIAN STATEMENT I saw and evaluated the patient. I reviewed the resident's note and discussed the case with the resident. I agree with the resident's findings and plan as documented. SUBJECTIVE: Pt seen and examined in the ICU. No further hematemesis. Remains on protonix and octreotide gtts. H/H has been stable. OBJECTIVE: Vital Signs Period Temp Pulse Resp BP Sys/Mar Pulse Ox Last 24 Hr 97.6 F-98.3 F 72-95 11-20 113-151/45-78 97-100 Intake & Output 02/27/18 02/28/18 03/01/18 03/02/18 23:59 23:59 23:59 23:59 Intake Total 1808.3 720.8 Output Total 400 300 Balance 1408.3 420.8 Weight 59.058 kg Gen: NAD at rest Heart: RRR Lung: decreased breath sounds at the bases Abd: softly distended Ext: no edema CBC, BMP 03/02/18 05:15 03/02/18 05:15 Active Medications Albuterol Sulfate (Ventolin 0.083% Nebulizer Soln -) 1 amp NEB QID PRN PRN Reason: SHORT OF BREATH/WHEEZING Chlorhexidine Gluconate (Hibiclens For Decolonization -) 1 applic TP HS ALINA Last Admin: 03/01/18 21:22 Dose: 1 applic Pantoprazole Sodium 80 mg/ (Sodium Chloride) 100 mls @ 10 mls/hr IVPB Q10H ALINA Last Admin: 03/02/18 07:00 Dose: Not Given Octreotide Acetate 1,200 mcg/ (Dextrose) 500 mls @ 20.83 mls/hr IVPB ASDIR ALINA Last Admin: 03/01/18 12:00 Dose: 20.83 mls/hr Sodium Chloride (Normal Saline -) 1,000 mls @ 75 mls/hr IV ASDIR ALINA Last Admin: 03/01/18 17:37 Dose: 75 mls/hr Cefazolin Sodium (Ancef 1 Gm Premixed Ivpb -) 1 gm in 50 mls @ 100 mls/hr IVPB Q8H-IV ALINA Last Admin: 03/02/18 02:42 Dose: 100 mls/hr Metoclopramide HCl (Reglan Injection -) 10 mg IVPUSH Q6H PRN PRN Reason: NAUSEA AND/OR VOMITING Mupirocin (Bactroban Ointment (For Decolonization) -) 1 applic NS BID [facility] Stop: 03/06/18 21:59 Last Admin: 03/01/18 21:22 Dose: 1 applic Thiamine HCl (Vitamin B1 Injection -) 200 mg IVPB DAILY [facility] Last Admin: 03/01/18 19:31 Dose: 200 mg ASSESSMENT AND PLAN: Upper GI Bleed - Esophageal Variceal Bleed Acute Blood Loss Anemia Alcoholic Liver Cirrhosis Coagulopathy Thrombocytopenia COPD - monitor H/H, coags - transfuse as needed - vitamin K - protonix, octreotide gtts - PO per GI - IVF - empiric antibiotics - DVT prophylaxis - continue ICU monitoring critical care time spent in reviewing chart, evaluating patient and formulating plan 35 min
[2018-03-02] MEDS: MUPIROCIN 2% TOPICAL OINTMENT FOR DECOLONIZATION NS SCH ×2 (10:00→21:57)
[2018-03-02] MEDS: THIAMINE HCL 200 MG/2 ML VIAL IVPB SCH (10:01)
--- NOTE | 2018-03-02 10:25 | PN ---
GI Progress Note Subjective: No melena overnight. Hematemesis has resolved. Mentally alert and appropriate. Has rubber band ligation discomfort. Plts 60K. Bili decreasing - Objective Vital Signs: Vital Signs Temperature 98.1 F 03/02/18 10:00 Pulse Rate 65 03/02/18 10:00 Respiratory Rate 17 03/02/18 10:00 Blood Pressure 126/66 03/02/18 10:00 O2 Sat by Pulse Oximetry (%) 100 03/02/18 08:00 Laboratory Tests 03/01/18 03/02/18 03/02/18 14:30 05:15 05:15 Hgb 9.1 L Plt Count 62 L Total Bilirubin 6.1 H 5.5 H Direct Bilirubin Alkaline Phosphatase 103 Tumor Marker AFP 03/02/18 03/02/18 05:15 05:15 Hgb Plt Count Total Bilirubin Direct Bilirubin 3.1 H Alkaline Phosphatase Tumor Marker AFP Pending Constitutional: Calm Eyes: Yes: Sclera Icterus ...Auscultate: Yes: Normoactive Bowel Sounds ...Palpate: Yes: Soft, Other (nontender) Labs: CBC, BMP 03/02/18 05:15 03/02/18 05:15 INR, PTT INR 1.89 (0.83-1.09) H 03/02/18 05:15 Problem List - Problems (1) Hematemesis Assessment/Plan: Day 1 s/p rubber band ligation of esophageal varices. Will try clear liquids and decrease octreotide drip rate. Continue Kefzol as prophylaxis against bacteremia from rubber band sites Code(s): K92.0 - HEMATEMESIS (2) Alcoholic cirrhosis of liver Assessment/Plan: Jaundice due to alcoholic hepatitis superimposed on cirrhosis. Again discussed the need to absolutely abstain from any further alcohol intake. Await sonogram and AFP. Does not appear encephalopathic Code(s): K70.30 - ALCOHOLIC CIRRHOSIS OF LIVER WITHOUT ASCITES (3) COPD (chronic obstructive pulmonary disease) Code(s): J44.9 - CHRONIC OBSTRUCTIVE PULMONARY DISEASE, UNSPECIFIED (4) Hematochezia Code(s): K92.1 - MELENA (5) Alcoholism /alcohol abuse Code(s): F10.20 - ALCOHOL DEPENDENCE, UNCOMPLICATED
[2018-03-02] MEDS ORDERED: LACTULOSE 20 GM/30 ML UDC (FOR ORAL USE ONLY) PO PRN (10:28)
[2018-03-02] MEDS: OCTREOTIDE ACETATE 1,200 MCG in DEXTROSE 5%-WATER - 488 ML IVPB SCH (11:18)
[2018-03-02] MEDS: PENTOXIFYLLINE 400 MG TABLET.ER PO SCH ×2 (12:03→17:13)
[2018-03-02] MEDS: MAG HYDROX/AL HYDROX/SIMETH 30 ML UNIT-DOSE CUP PO SCH ×3 (12:03→23:45)
[2018-03-02 12:41] LABS: HEMATOCRIT 28.1 % (35.4-49); HEMOGLOBIN 9.2 GM/dL (11.7-16.9); MCHC 32.9 g/dl (32.0-35.9); MEAN CELL VOLUME 106.6 fl (80-96); MEAN PLT VOLUME 8.7 fl (7.5-11.1); PLATELET COUNT 66 K/MM3 (134-434); RBC 2.64 M/mm3 (4.00-5.60); WHITE BLOOD COUNT 8.4 K/mm3 (4.0-10.0)
--- NOTE | 2018-03-02 15:59 | PN ---
Progress Note (short form) - Note Progress Note: SUBJECTIVE Feels well - complains of mild abdominal discomfort. No further hematemesis. No melena. No BMs overnight. No fever/chills. No chest pain/palps/SOB/ lightheadedness. OBJECTIVE Afebrile, Hemodynamically Stable. Last Vital Signs Temp Pulse Resp BP Pulse Ox 97.9 F 74 16 126/62 100 03/02/18 14:00 03/02/18 14:00 03/02/18 14:00 03/02/18 14:00 03/02/18 08:00 HEENT - Atraumatic. Blood stained teeth Heart - S1, S2, RRR, soft SM Lungs - clear to auscultation - no crackles/wheeze. Abdomen - soft, mild distension, mild generalized tenderness. Bowel Sounds normal Extremities - Edema++. No calf tenderness. Laboratory Results - last 24 hr 03/01/18 03/01/18 03/02/18 14:30 21:59 05:15 WBC 3.9 L 5.3 RBC 2.43 L 2.60 L Hgb 9.0 L 9.1 L Hct 25.6 L 27.5 L MCV 105.2 H 105.5 H MCH 36.9 H 35.0 H MCHC 35.1 33.2 RDW 18.8 H 18.6 H Plt Count 61 L 62 L MPV 8.8 8.2 Absolute Neuts (auto) 4.3 Neutrophils % 82.1 Lymphocytes % 11.7 D Monocytes % 6.1 Eosinophils % 0.0 D Basophils % 0.1 Nucleated RBC % 0 Retic Count PT with INR INR PTT (Actin FS) Sodium Potassium Chloride Carbon Dioxide Anion Gap BUN Creatinine Creat Clearance w eGFR Random Glucose Calcium Phosphorus Magnesium Ferritin 346.5 Total Bilirubin Direct Bilirubin AST ALT Alkaline Phosphatase Ammonia LD Total 322 H Total Protein Albumin Vitamin B12 1488 H 03/02/18 03/02/18 03/02/18 05:15 05:15 05:15 WBC RBC Hgb Hct MCV MCH MCHC RDW Plt Count MPV Absolute Neuts (auto) Neutrophils % Lymphocytes % Monocytes % Eosinophils % Basophils % Nucleated RBC % Retic Count 2.00 H PT with INR 22.50 H INR 1.89 H PTT (Actin FS) 38.2 H Sodium 136 Potassium 4.3 Chloride 102 Carbon Dioxide 26 Anion Gap 8 BUN 7 Creatinine 0.7 Creat Clearance w eGFR > 60 Random Glucose 143 H Calcium 7.7 L Phosphorus 3.4 Magnesium 1.8 Ferritin Total Bilirubin 5.5 H Direct Bilirubin AST 36 ALT 19 Alkaline Phosphatase 103 Ammonia LD Total Total Protein 6.7 Albumin 2.1 L Vitamin B12 03/02/18 03/02/18 03/02/18 05:15 05:15 12:00 WBC 8.4 RBC 2.64 L Hgb 9.2 L Hct 28.1 L MCV 106.6 H MCH 35.0 H MCHC 32.9 RDW 19.0 H Plt Count 66 L MPV 8.7 Absolute Neuts (auto) Neutrophils % Lymphocytes % Monocytes % Eosinophils % Basophils % Nucleated RBC % Retic Count PT with INR INR PTT (Actin FS) Sodium Potassium Chloride Carbon Dioxide Anion Gap BUN Creatinine Creat Clearance w eGFR Random Glucose Calcium Phosphorus Magnesium Ferritin 307.2 Total Bilirubin Direct Bilirubin 3.1 H AST ALT Alkaline Phosphatase Ammonia 26.40 LD Total 195 Total Protein Albumin Vitamin B12 Current Medications Generic Name Dose Route Start Last Admin Trade Name Freq PRN Reason Stop Dose Admin Al Hydroxide/Mg Hydroxide 30 ml 03/02/18 11:00 03/02/18 12:03 Mylanta Oral Suspension - PO 30 ml Q6H ALINA Administration Albuterol Sulfate 1 amp 03/01/18 15:47 Ventolin 0.083% Nebulizer Soln - NEB QID PRN SHORT OF BREATH/WHEEZING Chlorhexidine Gluconate 1 applic 03/01/18 22:00 03/01/18 21:22 Hibiclens For Decolonization - TP 1 applic HS ALINA Administration Pantoprazole Sodium 80 mg/ 100 mls @ 10 mls/hr 03/01/18 10:30 03/02/18 11:18 Sodium Chloride IVPB 10 mls/hr Q10H ALINA Administration 8 MG/HR Cefazolin Sodium 1 gm in 50 mls @ 100 mls/hr 03/01/18 18:00 03/02/18 10:00 Ancef 1 Gm Premixed Ivpb - IVPB 100 mls/hr Q8H-IV ALINA Administration Octreotide Acetate 1,200 mcg/ 500 mls @ 10.41 mls/hr 03/02/18 10:26 03/02/18 11:18 Dextrose IVPB 10.41 mls/hr ASDIR ALINA Administration 25 MCG/HR Lactulose 20 gm 03/02/18 10:28 Cephulac (Oral Use) PO TID PRN CONSTIPATION Mupirocin 1 applic 03/01/18 22:00 03/02/18 10:00 Bactroban Ointment (For Decolonization) - NS 03/06/18 21:59 1 applic BID ALINA Administration Pentoxifylline 400 mg 03/02/18 12:00 03/02/18 12:03 Trental - PO 400 mg TIDCM ALINA Administration Spironolactone 25 mg 03/02/18 22:00 Aldactone - PO BID ALINA Thiamine HCl 100 mg 03/03/18 10:00 Vitamin B1 - PO DAILY ALINA ASSESSMENT AND PLAN: 62 year old male with history of alcohol abuse (last drink apparently in January), active smoker, COPD, Depression, Cirrhosis of Liver, recent stay at nursing facility, transferred from [facility] for evaluation of hematemesis. Patient refers bright red bloody vomitus, several episodes since yesterday, with color becoming darker with successive emesis. He also complained of some abdominal discomfort with generalized weakness. No chest pain/palpitations/SOB/lightheadedness/dizziness/visual disturbance. No fever/chills. He was started on Protonix and Octreotide drips and underwent EGD with band ligation of 4 varices, with some mild self-limited post-procedure hematemesis. 1. Acute Blood Loss Anemia secondary to Variceal bleeding s/p EGD/Band ligation x 4. Bleeding appears to have subsided. Continue Protonix/Octreotide drips. Diet advanced to clear liquid. Will eventually require BB. IV Cephalosporin prophylaxis. If further bleeding, [facility] need [facility] as [facility]. 2. Liver Cirrhosis secondary to Alcohol excess with portal hypertension, Ascites , and Esophageal Varices. MELD 29 Abdomen mildly tender. Afebrile, Hemodynamically stable Abdo US consistent with hepatocellular disease and ascites. May require therapeutic tap at some point. AFP pending Aldactone started. No signs of hepatic encephalopathy. 3. Coagulopathy secondary to Cirrhosis with initial INR 2.32, now 1.89 Given 2 units FFP prior to EGD as well as Vitamin K. Will monitor PT/aPTT 4. History of Alcohol Abuse - last drink apparently 01/26 No evidence of withdrawal - will monitor. Ativan as per CIWA if any signs of withdrawal. 5. Nicotine Dependence Counselled. 6. Macrocytic Anemia/Thrombocytopenia sec to Liver Cirrhosis sec to Alcohol excess. H/H/MCV 9.2//106 Plts 66 Alcohol cessation strongly advised Will monitor for any further signs of bleeding. DVT Px - SCDs, Autoanticoagulated with elevated INR. Visit type - Emergency Visit Emergency Visit: Yes ED Registration Date: 03/01/18 Care time: The patient presented to the Emergency Department on the above date and was hospitalized for further evaluation of their emergent condition. - New Patient This patient is new to me today: No - Critical Care Critical Care patient: No - Discharge Referral Referred to [facility] Med [facility] No
[2018-03-02 18:35] LABS: MACROCYTOSIS 2+; PLATELET ESTIMATE DECREASED
[2018-03-02] MEDS: SPIRONOLACTONE 25 MG TABLET (FP) PO SCH (21:56)
[2018-03-02] MEDS: CHLORHEXIDINE GLUCONATE 4% CLEANSER FOR DECOLONIZATION TP SCH (21:59)
[2018-03-03] MEDS: CEFAZOLIN 1 GM/D5W 1 GM/50 ML BAG IVPB SCH ×3 (01:15→17:10)
[2018-03-03] MEDS: PANTOPRAZOLE SODIUM 80 MG in SODIUM CHLORIDE 100 ML IVPB SCH ×4 (03:00→23:40)
[2018-03-03 04:11] LABS: SERUM IRON SATURATION > 91 % (15-55); TOTAL IRON BINDING CAPACITY < 187 ug/dL (250-450); UIBC < 17 ug/dL (111-343)
[2018-03-03] MEDS: MAG HYDROX/AL HYDROX/SIMETH 30 ML UNIT-DOSE CUP PO SCH ×4 (06:26→22:06)
[2018-03-03 06:49] LABS: BASO % 0.1 % (0-2.0); EOS % 0.4 % (0-4.5); HEMATOCRIT 26.4 % (35.4-49); HEMOGLOBIN 8.8 GM/dL (11.7-16.9); LYMPH % 23.9 % (8-40); MCH 35.4 pg (25.7-33.7); MCHC 33.5 g/dl (32.0-35.9); MEAN CELL VOLUME 105.6 fl (80-96); MEAN PLT VOLUME 8.6 fl (7.5-11.1); MONO % 10.8 % (3.8-10.2); NEUT % 64.8 % (42.8-82.8); PLATELET COUNT 61 K/MM3 (134-434); RDW 18.5 % (11.9-15.9); WHITE BLOOD COUNT 7.2 K/mm3 (4.0-10.0)
[2018-03-03 07:03] LABS: INR 2.01 (0.83-1.09); PROTHROMBIN TIME (PATIENT) 23.9 SEC (9.7-13.0)
--- NOTE | 2018-03-03 07:16 | EKG ---
Test Reason : Blood Pressure : / mmHG Vent. Rate : 068 BPM Atrial Rate : 068 BPM P-R Int : 150 ms QRS Dur : 100 ms QT Int : 460 ms P-R-T Axes : 056 060 060 degrees QTc Int : 489 ms NORMAL SINUS RHYTHM PROLONGED QT ABNORMAL ECG WHEN COMPARED WITH ECG OF 01-MAR-2018 10:26, NO SIGNIFICANT CHANGE WAS FOUND Confirmed by JAYANT BUTTS, CHITO ([id number]) on 03/03/2018 7:16:06 AM Referred By: Danna CORLEY Confirmed By:CHITO SABA MD
[2018-03-03 07:26] LABS: ALK PHOS 90 U/L (45-117); ANION GAP 8 MMOL/L (8-16); BILIRUBIN,TOTAL 5.6 mg/dL (0.2-1); BLOOD UREA NITROGEN 6 mg/dL (7-18); CALCIUM 7.7 mg/dL (8.5-10.1); CHLORIDE 100 mmol/L (98-107); CO2 25 mmol/L (21-32); CREATININE 0.6 mg/dL (0.55-1.3); GLUCOSE,RANDOM 102 mg/dL (74-106); POTASSIUM 3.5 mmol/L (3.5-5.1); SGOT/AST 42 U/L (15-37); SGPT/ALT 17 U/L (13-61); SODIUM 133 mmol/L (136-145); TOT PROT 6.4 g/dl (6.4-8.2)
[2018-03-03] MEDS ORDERED: PT OWN MED DRAWER 7, Y5N ONE ×3 (08:43→12:05)
[2018-03-03] MEDS: PENTOXIFYLLINE 400 MG TABLET.ER PO SCH ×3 (08:47→17:10)
[2018-03-03] MEDS ORDERED: POTASSIUM CHLORIDE TABS 20 MEQ TABLET.ER (FP) PO ONE (09:00)
[2018-03-03] MEDS: MUPIROCIN 2% TOPICAL OINTMENT FOR DECOLONIZATION NS SCH ×2 (09:04→22:01)
[2018-03-03] MEDS: SPIRONOLACTONE 25 MG TABLET (FP) PO SCH ×2 (09:04→22:06)
[2018-03-03] MEDS: THIAMINE HCL 100 MG TABLET (FP) PO SCH (09:05)
[2018-03-03] MEDS: OCTREOTIDE ACETATE 1,200 MCG in DEXTROSE 5%-WATER - 488 ML IVPB SCH (10:54)
[2018-03-03 11:04] LABS: PLATELET ESTIMATE DECREASED
--- NOTE | 2018-03-03 11:31 | PN ---
Teaching Attending Note Name of Resident: David Collado ATTENDING PHYSICIAN STATEMENT I saw and evaluated the patient. I reviewed the resident's note and discussed the case with the resident. I agree with the resident's findings and plan as documented. SUBJECTIVE: Pt seen and examined in the ICU. No further bleeding. Some mild abdominal discomfort. Remains on protonix and octreotide gtts. OBJECTIVE: Vital Signs Period Temp Pulse Resp BP Sys/Mar Pulse Ox Last 24 Hr 97.9 F-98.3 F 61-75 7-21 114-135/61-78 100-100 Intake & Output 02/28/18 03/01/18 03/02/18 03/03/18 23:59 23:59 23:59 23:59 Intake Total 1808.3 2299.9 254.7 Output Total 212 161 4544 Balance 1408.3 1549.9 -745.3 Weight 59.058 kg 60.8 kg Gen: NAD at rest Heart: RRR Lung: decreased breath sounds at the bases Abd: soft, nontender Ext: no edema CBC, BMP 03/03/18 05:35 03/03/18 05:35 Active Medications Al Hydroxide/Mg Hydroxide (Mylanta Oral Suspension -) 30 ml PO Q6H ALINA Last Admin: 03/03/18 10:54 Dose: 30 ml Albuterol Sulfate (Ventolin 0.083% Nebulizer Soln -) 1 amp NEB QID PRN PRN Reason: SHORT OF BREATH/WHEEZING Chlorhexidine Gluconate (Hibiclens For Decolonization -) 1 applic TP HS ALINA Last Admin: 03/02/18 21:59 Dose: 1 applic Pantoprazole Sodium 80 mg/ (Sodium Chloride) 100 mls @ 10 mls/hr IVPB Q10H ALINA Last Admin: 03/03/18 03:00 Dose: 10 mls/hr Cefazolin Sodium (Ancef 1 Gm Premixed Ivpb -) 1 gm in 50 mls @ 100 mls/hr IVPB Q8H-IV ALINA Last Admin: 03/03/18 09:04 Dose: 100 mls/hr Octreotide Acetate 1,200 mcg/ (Dextrose) 500 mls @ 10.41 mls/hr IVPB ASDIR ALINA Last Admin: 03/03/18 10:54 Dose: 10.41 mls/hr Lactulose (Cephulac (Oral Use)) 20 gm PO TID PRN PRN Reason: CONSTIPATION Mupirocin (Bactroban Ointment (For Decolonization) -) 1 applic NS BID [facility] Stop: 03/06/18 21:59 Last Admin: 03/03/18 09:04 Dose: 1 applic Pentoxifylline (Trental -) 400 mg PO TIDCM [facility] Last Admin: 03/03/18 08:47 Dose: 400 mg Spironolactone (Aldactone -) 25 mg PO BID [facility] Last Admin: 03/03/18 09:04 Dose: 25 mg Thiamine HCl (Vitamin B1 -) 100 mg PO DAILY [facility] Last Admin: 03/03/18 09:05 Dose: 100 mg ASSESSMENT AND PLAN: Upper GI Bleed - Esophageal Variceal Bleed s/p banding Acute Blood Loss Anemia Alcoholic Liver Cirrhosis Coagulopathy Thrombocytopenia COPD - monitor H/H, coags - transfuse as needed - protonix, octreotide gtts - PO per GI - empiric antibiotics - DVT prophylaxis - can monitor on floor critical care time spent in reviewing chart, evaluating patient and formulating plan 35 min
--- NOTE | 2018-03-03 12:25 | PN ---
Physical Exam: SUBJECTIVE: Patient seen and examined at bedside. No further bleeding, pain improved, jaundice improved. OBJECTIVE: Vital Signs Period Temp Pulse Resp BP Sys/Mar Pulse Ox Last 24 Hr 97.9 F-98.3 F 61-75 7-21 114-135/61-78 100-100 GENERAL: A&Ox3, cachectic, improving jaundice, NAD HEAD: NC/AT, temporal wasting EYES: PERRLA, EOMI, scleral icterus improving ENT: dry MM, poor dentition NECK: +jvd, supple, full ROM LUNGS: CTA b/l HEART: RRR no m/r/g ABDOMEN: bowel sounds distant, distended, mild tenderness diffusely, firm but not rigid, gross hepatomegaly, no shifting dullness EXTREMITIES: 2+ pulses, warm, well-perfused, no edema. 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 SKIN: Warm, dry, normal turgor Laboratory Results - last 24 hr 03/02/18 03/02/18 03/02/18 05:15 05:15 05:15 WBC RBC Hgb Hct MCV MCH MCHC RDW Plt Count MPV Absolute Neuts (auto) Neutrophils % Lymphocytes % Monocytes % Eosinophils % Basophils % Nucleated RBC % Platelet Estimate Decreased Macrocytosis 2+ Cushing Cells 1+ PT with INR INR Sodium Potassium Chloride Carbon Dioxide Anion Gap BUN Creatinine Creat Clearance w eGFR Random Glucose Calcium Phosphorus Magnesium Iron 170 H TIBC < 187 L Iron Saturation > 91 H Total Bilirubin AST ALT Alkaline Phosphatase LD Total 195 Total Protein Albumin 03/02/18 03/03/18 03/03/18 12:00 05:35 05:35 WBC 8.4 7.2 RBC 2.64 L 2.50 L Hgb 9.2 L 8.8 L Hct 28.1 L 26.4 L MCV 106.6 H 105.6 H MCH 35.0 H 35.4 H MCHC 32.9 33.5 RDW 19.0 H 18.5 H Plt Count 66 L 61 L MPV 8.7 8.6 Absolute Neuts (auto) 4.7 Neutrophils % 64.8 D Lymphocytes % 23.9 D Monocytes % 10.8 H Eosinophils % 0.4 D Basophils % 0.1 Nucleated RBC % 0 Platelet Estimate Decreased Macrocytosis Cushing Cells PT with INR 23.90 H INR 2.01 H Sodium Potassium Chloride Carbon Dioxide Anion Gap BUN Creatinine Creat Clearance w eGFR Random Glucose Calcium Phosphorus Magnesium Iron TIBC Iron Saturation Total Bilirubin AST ALT Alkaline Phosphatase LD Total Total Protein Albumin 03/03/18 05:35 WBC RBC Hgb Hct MCV MCH MCHC RDW Plt Count MPV Absolute Neuts (auto) Neutrophils % Lymphocytes % Monocytes % Eosinophils % Basophils % Nucleated RBC % Platelet Estimate Macrocytosis Luann Cells PT with INR INR Sodium 133 L Potassium 3.5 Chloride 100 Carbon Dioxide 25 Anion Gap 8 BUN 6 L Creatinine 0.6 Creat Clearance w eGFR > 60 Random Glucose 102 Calcium 7.7 L Phosphorus 2.0 L Magnesium 2.0 Iron TIBC Iron Saturation Total Bilirubin 5.6 H AST 42 H ALT 17 Alkaline Phosphatase 90 LD Total Total Protein 6.4 Albumin 2.0 L Active Medications Generic Name Dose Route Start Last Admin Trade Name Freq PRN Reason Stop Dose Admin Al Hydroxide/Mg Hydroxide 30 ml 03/02/18 11:00 03/03/18 10:54 Mylanta Oral Suspension - PO 30 ml Q6H ALINA Administration Albuterol Sulfate 1 amp 03/01/18 15:47 Ventolin 0.083% Nebulizer Soln - NEB QID PRN SHORT OF BREATH/WHEEZING Chlorhexidine Gluconate 1 applic 03/01/18 22:00 03/02/18 21:59 Hibiclens For Decolonization - TP 1 applic HS ALINA Administration Pantoprazole Sodium 80 mg/ 100 mls @ 10 mls/hr 03/01/18 10:30 03/03/18 03:00 Sodium Chloride IVPB 10 mls/hr Q10H ALINA Administration 8 MG/HR Cefazolin Sodium 1 gm in 50 mls @ 100 mls/hr 03/01/18 18:00 03/03/18 09:04 Ancef 1 Gm Premixed Ivpb - IVPB 100 mls/hr Q8H-IV ALINA Administration Octreotide Acetate 1,200 mcg/ 500 mls @ 10.41 mls/hr 03/02/18 10:26 03/03/18 10:54 Dextrose IVPB 10.41 mls/hr ASDIR ALINA Administration 25 MCG/HR Lactulose 20 gm 03/02/18 10:28 Cephulac (Oral Use) PO TID PRN CONSTIPATION Mupirocin 1 applic 03/01/18 22:00 03/03/18 09:04 Bactroban Ointment (For Decolonization) - NS 03/06/18 21:59 1 applic BID ALINA Administration Pentoxifylline 400 mg 03/02/18 12:00 03/03/18 08:47 Trental - PO 400 mg TIDCM ALINA Administration Spironolactone 25 mg 03/02/18 22:00 03/03/18 09:04 Aldactone - PO 25 mg BID ALINA Administration Thiamine HCl 100 mg 03/03/18 10:00 03/03/18 09:05 Vitamin B1 - PO 100 mg DAILY ALINA Administration ASSESSMENT/PLAN: 62 y/o M w/ PMHx alcoholic cirrhosis, emphysema p/w hematemesis and hematochezia #GIB -4 esophageal varices appreciated and banded endoscopically -H/H stable -coags elevated, vitamin K given, will trend -cont Protonix and Octreotide gtt -cont clear liquid diet -trend CBC, normal transfusion thresholds -remainder as per GI #cirrhosis -trend CMP -bilirubin downtrending -no signs of hepatic encephalopathy -EtOH abstinence reinforced -macrocytic anemia noted #FEN -no IVF at this time -monitor and replete electrolytes -clear liquid #PPx -DVT: SCDs, no pharmacologic AC -GI: Protonix #code -full #dispo -transfer to med/surg Visit type - Emergency Visit Emergency Visit: No - New Patient This patient is new to me today: No - Critical Care Critical Care patient: Yes Total Critical Care Time (in minutes): 40 Critical Care Statement: The care of this patient involved high complexity decision making to prevent further life threatening deterioration of the patient 's condition and/or to evaluate & treat vital organ system(s) failure or risk of failure.
[2018-03-03 13:17] LABS: INR 1.92 (0.83-1.09); PROTHROMBIN TIME (PATIENT) 22.8 SEC (9.7-13.0)
[2018-03-03 13:20] LABS: ACTIVATED PTT 39.9 SECONDS (25.2-36.5)
--- NOTE | 2018-03-03 13:55 | PN ---
Progress Note (short form) - Note Progress Note: SUBJECTIVE Feels well - still reports mild abdominal discomfort. No further hematemesis. No melena. No BMs overnight. No fever/chills. No chest pain/palps/SOB/ lightheadedness. OBJECTIVE Afebrile, Hemodynamically Stable. Last Vital Signs Temp Pulse Resp BP Pulse Ox 98.0 F 63 13 129/66 100 03/03/18 10:00 03/03/18 12:00 03/03/18 12:00 03/03/18 12:00 03/03/18 08:55 HEENT - Atraumatic. Heart - S1, S2, RRR, soft SM Lungs - clear to auscultation - no crackles/wheeze. Abdomen - soft, mild distension, mild generalized tenderness. Bowel Sounds normal Extremities - Edema+. No calf tenderness. Laboratory Results - last 24 hr 03/02/18 03/02/18 03/03/18 05:15 05:15 05:35 WBC 7.2 RBC 2.50 L Hgb 8.8 L Hct 26.4 L MCV 105.6 H MCH 35.4 H MCHC 33.5 RDW 18.5 H Plt Count 61 L MPV 8.6 Absolute Neuts (auto) 4.7 Neutrophils % 64.8 D Lymphocytes % 23.9 D Monocytes % 10.8 H Eosinophils % 0.4 D Basophils % 0.1 Nucleated RBC % 0 Platelet Estimate Decreased Decreased Macrocytosis 2+ [place] Cells 1+ PT with INR INR PTT (Actin FS) Sodium Potassium Chloride Carbon Dioxide Anion Gap BUN Creatinine Creat Clearance w eGFR Random Glucose Calcium Phosphorus Magnesium Iron 170 H TIBC < 187 L Iron Saturation > 91 H Total Bilirubin AST ALT Alkaline Phosphatase Total Protein Albumin 03/03/18 03/03/18 03/03/18 05:35 05:35 12:50 WBC RBC Hgb Hct MCV MCH MCHC RDW Plt Count MPV Absolute Neuts (auto) Neutrophils % Lymphocytes % Monocytes % Eosinophils % Basophils % Nucleated RBC % Platelet Estimate Macrocytosis Luann Cells PT with INR 23.90 H 22.80 H INR 2.01 H 1.92 H PTT (Actin FS) 39.9 H Sodium 133 L Potassium 3.5 Chloride 100 Carbon Dioxide 25 Anion Gap 8 BUN 6 L Creatinine 0.6 Creat Clearance w eGFR > 60 Random Glucose 102 Calcium 7.7 L Phosphorus 2.0 L Magnesium 2.0 Iron TIBC Iron Saturation Total Bilirubin 5.6 H AST 42 H ALT 17 Alkaline Phosphatase 90 Total Protein 6.4 Albumin 2.0 L Current Medications Generic Name Dose Route Start Last Admin Trade Name Freq PRN Reason Stop Dose Admin Al Hydroxide/Mg Hydroxide 30 ml 03/02/18 11:00 03/03/18 10:54 Mylanta Oral Suspension - PO 30 ml Q6H ALINA Administration Albuterol Sulfate 1 amp 03/01/18 15:47 Ventolin 0.083% Nebulizer Soln - NEB QID PRN SHORT OF BREATH/WHEEZING Chlorhexidine Gluconate 1 applic 03/01/18 22:00 03/02/18 21:59 Hibiclens For Decolonization - TP 1 applic HS ALINA Administration Pantoprazole Sodium 80 mg/ 100 mls @ 10 mls/hr 03/01/18 10:30 03/03/18 12:44 Sodium Chloride IVPB 10 mls/hr Q10H ALINA Administration 8 MG/HR Cefazolin Sodium 1 gm in 50 mls @ 100 mls/hr 03/01/18 18:00 03/03/18 09:04 Ancef 1 Gm Premixed Ivpb - IVPB 100 mls/hr Q8H-IV ALINA Administration Octreotide Acetate 1,200 mcg/ 500 mls @ 10.41 mls/hr 03/02/18 10:26 03/03/18 10:54 Dextrose IVPB 10.41 mls/hr ASDIR ALINA Administration 25 MCG/HR Lactulose 20 gm 03/02/18 10:28 Cephulac (Oral Use) PO TID PRN CONSTIPATION Mupirocin 1 applic 03/01/18 22:00 03/03/18 09:04 Bactroban Ointment (For Decolonization) - NS 03/06/18 21:59 1 applic BID ALINA Administration Pentoxifylline 400 mg 03/02/18 12:00 03/03/18 12:41 Trental - PO 400 mg TIDCM ALINA Administration Spironolactone 25 mg 03/02/18 22:00 03/03/18 09:04 Aldactone - PO 25 mg BID ALINA Administration Thiamine HCl 100 mg 03/03/18 10:00 03/03/18 09:05 Vitamin B1 - PO 100 mg DAILY ALINA Administration ASSESSMENT AND PLAN: 62 year old male with history of alcohol abuse (last drink apparently in January), active smoker, COPD, Depression, Cirrhosis of Liver, recent stay at nursing facility, transferred from [facility] for evaluation of hematemesis. Patient refered 1 day history of bright red bloody vomitus, with color becoming darker with successive emesis. He also complained of some abdominal discomfort with generalized weakness. No chest pain/palpitations/SOB/lightheadedness/dizziness/visual disturbance. No fever/chills. He was started on Protonix and Octreotide drips, evaluated by GI, and underwent EGD with band ligation of 4 varices, with some mild self-limited post-procedure hematemesis. 1. Acute Blood Loss Anemia secondary to Variceal bleeding s/p EGD/Band ligation x 4. Bleeding appears to have subsided - no further hematemesis for 48 hours. Continue Protonix/Octreotide drips (dose reduced due to prolonged QTc). Tolerating clear liquid diet - advancement as per GI. Will eventually require BB. On IV Cephalosporin prophylaxis. If further bleeding, will need [facility] as per GI. Monitor H/H and will transfuse as necessary. 2. Liver Cirrhosis secondary to Alcohol excess with portal hypertension, Ascites , and Esophageal Varices. MELD 29 Abdomen mildly tender. Afebrile, Hemodynamically stable Abdo US consistent with hepatocellular disease and ascites. May require therapeutic tap at some point. AFP and Hepatitis work-up pending Aldactone started. No signs of hepatic encephalopathy. 3. Coagulopathy secondary to Cirrhosis (decreased hepatic synthetic function, Alb 2.0), with initial INR 2.32, now 2 despite 2 units FFP prior to EGD as well as Vitamin K. Will monitor PT/INR 4. History of Alcohol Abuse - last drink apparently 01/26 No evidence of withdrawal - will monitor. Ativan as per CIWA if any signs of withdrawal. 5. Nicotine Dependence Counselled. 6. Macrocytic Anemia/Thrombocytopenia sec to Liver Cirrhosis sec to Alcohol excess. H/H/MCV 8.8/26.4/105.6 Plts 61 Alcohol cessation strongly advised Will monitor for any further signs of bleeding. 7. UCx positive for enterococus <20,000 CFU/ml - asymptomatic. No need for Abx therapy at this time. On IV Cefazolin prophylactically. DVT Px - SCDs, Autoanticoagulated with elevated INR. Visit type - Emergency Visit Emergency Visit: Yes ED Registration Date: 03/01/18 Care time: The patient presented to the Emergency Department on the above date and was hospitalized for further evaluation of their emergent condition. - New Patient This patient is new to me today: No - Critical Care Critical Care patient: No - Discharge Referral Referred to [facility] No
[2018-03-03 14:14] LABS: HEP.C VIRUS AB 0.1 s/co ratio (0.0-0.9)
[2018-03-03 15:18] VITALS: BMI 23.0
--- NOTE | 2018-03-03 16:50 | PN ---
GI Progress Note Subjective: GI NOte: Bleeding appears to have stopped. Not encephalopathic. No pain - Objective Vital Signs: Vital Signs Temperature 98.3 F 03/03/18 14:00 Pulse Rate 65 03/03/18 16:00 Respiratory Rate 13 03/03/18 16:00 Blood Pressure 109/57 L 03/03/18 16:00 O2 Sat by Pulse Oximetry (%) 100 03/03/18 15:03 Laboratory Tests 03/02/18 03/02/18 03/02/18 05:15 05:15 12:00 Hgb 9.2 L Total Bilirubin Direct Bilirubin 3.1 H Tumor Marker AFP Pending 03/03/18 03/03/18 05:35 05:35 Hgb 8.8 L Total Bilirubin 5.6 H Direct Bilirubin Tumor Marker AFP Constitutional: Calm Eyes: Yes: Sclera Icterus ...Auscultate: Yes: Normoactive Bowel Sounds ...Palpate: Yes: Soft, Other (nontender) Labs: CBC, BMP 03/03/18 05:35 03/03/18 05:35 INR, PTT INR 1.92 (0.83-1.09) H 03/03/18 12:50 Assessment/Plan Stop Octreotide Continue PPI drip Full liquids Problem List - Problems (1) Hematemesis Code(s): K92.0 - HEMATEMESIS (2) Alcoholic cirrhosis of liver Code(s): K70.30 - ALCOHOLIC CIRRHOSIS OF LIVER WITHOUT ASCITES (3) COPD (chronic obstructive pulmonary disease) Code(s): J44.9 - CHRONIC OBSTRUCTIVE PULMONARY DISEASE, UNSPECIFIED (4) Hematochezia Code(s): K92.1 - MELENA (5) Alcoholism /alcohol abuse Code(s): F10.20 - ALCOHOL DEPENDENCE, UNCOMPLICATED
[2018-03-03] MEDS: CHLORHEXIDINE GLUCONATE 4% CLEANSER FOR DECOLONIZATION TP SCH (22:01)
[2018-03-04] MEDS: CEFAZOLIN 1 GM/D5W 1 GM/50 ML BAG IVPB SCH ×3 (02:55→17:27)
[2018-03-04 06:15] LABS: BASO % 0.3 % (0-2.0); EOS % 1.2 % (0-4.5); HEMOGLOBIN 8.3 GM/dL (11.7-16.9); LYMPH % 28.8 % (8-40); MCHC 33.1 g/dl (32.0-35.9); MEAN CELL VOLUME 105.7 fl (80-96); MEAN PLT VOLUME 8.4 fl (7.5-11.1); MONO % 10.7 % (3.8-10.2); PLATELET COUNT 55 K/MM3 (134-434); RBC 2.37 M/mm3 (4.00-5.60); RDW 18.1 % (11.9-15.9); WHITE BLOOD COUNT 6.2 K/mm3 (4.0-10.0)
[2018-03-04] MEDS: MAG HYDROX/AL HYDROX/SIMETH 30 ML UNIT-DOSE CUP PO SCH ×4 (06:17→22:37)
[2018-03-04 06:48] LABS: ALK PHOS 87 U/L (45-117); ANION GAP 5 MMOL/L (8-16); BILIRUBIN,TOTAL 5.8 mg/dL (0.2-1); BLOOD UREA NITROGEN 5 mg/dL (7-18); CALCIUM 7.5 mg/dL (8.5-10.1); CHLORIDE 102 mmol/L (98-107); CO2 28 mmol/L (21-32); CREATININE 0.7 mg/dL (0.55-1.3); GLUCOSE,RANDOM 120 mg/dL (74-106); MAGNESIUM 1.8 mg/dL (1.8-2.4); PHOSPHOROUS 1.9 mg/dL (2.5-4.9); POTASSIUM 3.9 mmol/L (3.5-5.1); SGOT/AST 34 U/L (15-37); SGPT/ALT 15 U/L (13-61); SODIUM 134 mmol/L (136-145); TOT PROT 6.1 g/dl (6.4-8.2)
[2018-03-04] MEDS ORDERED: PT OWN MED DRAWER 7, Y5N ONE ×2 (08:11→10:53)
[2018-03-04] MEDS: PENTOXIFYLLINE 400 MG TABLET.ER PO SCH ×3 (08:16→20:15)
[2018-03-04] MEDS ORDERED: NAPH,MB-DB/K PH,MBDB POWDER PACKET PO ONE (08:45)
[2018-03-04] MEDS: PANTOPRAZOLE SODIUM 80 MG in SODIUM CHLORIDE 100 ML IVPB SCH (09:09)
[2018-03-04] MEDS: MUPIROCIN 2% TOPICAL OINTMENT FOR DECOLONIZATION NS SCH ×2 (09:09→21:11)
[2018-03-04] MEDS: THIAMINE HCL 100 MG TABLET (FP) PO SCH (09:09)
--- NOTE | 2018-03-04 10:16 | PN ---
Physical Exam: SUBJECTIVE: Patient seen and examined no acute events had BM this AM no blood, no vomiting , no ch, sob OBJECTIVE: Vital Signs Period Temp Pulse Resp BP Sys/Mar Pulse Ox Last 24 Hr 98.0 F-98.5 F 63-94 13-20 92-129/50-71 97-100 GENERAL: AAO3 in AND HEAD:NC/AT EYES: PERRL, extraocular movements intact, icteric sclera. ENT: dry MM, poor dentation , NECK: Trachea midline, supple. LUNGS: Breath sounds equal, clear to auscultation bilaterally, no wheezes, no crackles, no accessory muscle use. HEART: sinus tachy , S1, S2 without murmur, rub or gallop. ABDOMEN: Soft, mild difuse tenderness , distended, normoactive bowel sounds, no guarding, no rebound, +3 cm hepatmegaly. EXTREMITIES: 2+ pulses, warm, well-perfused, no edema. NEUROLOGICAL: no focal deficit . Normal speech, PSYCH: Normal mood, normal affect. SKIN: Warm, dry, normal turgor Laboratory Results - last 24 hr 03/01/18 03/02/18 03/03/18 14:30 05:15 05:35 WBC RBC Hgb Hct MCV MCH MCHC RDW Plt Count MPV Absolute Neuts (auto) Neutrophils % Lymphocytes % Monocytes % Eosinophils % Basophils % Nucleated RBC % Platelet Estimate Decreased PT with INR INR PTT (Actin FS) Sodium Potassium Chloride Carbon Dioxide Anion Gap BUN Creatinine Creat Clearance w eGFR Random Glucose Calcium Phosphorus Magnesium Total Bilirubin AST ALT Alkaline Phosphatase Total Protein Albumin Tumor Marker AFP 3.1 Hepatitis A IgM Ab Negative Hep Bs Antigen Negative Hep B Core IgM Ab Negative Hepatitis C Antibody 0.1 03/03/18 03/04/18 03/04/18 12:50 05:30 05:30 WBC 6.2 RBC 2.37 L Hgb 8.3 L Hct 25.0 L MCV 105.7 H MCH 35.0 H MCHC 33.1 RDW 18.1 H Plt Count 55 L MPV 8.4 Absolute Neuts (auto) 3.6 Neutrophils % 59.0 Lymphocytes % 28.8 D Monocytes % 10.7 H Eosinophils % 1.2 D Basophils % 0.3 Nucleated RBC % 0 Platelet Estimate PT with INR 22.80 H INR 1.92 H PTT (Actin FS) 39.9 H Sodium 134 L Potassium 3.9 Chloride 102 Carbon Dioxide 28 Anion Gap 5 L BUN 5 L Creatinine 0.7 Creat Clearance w eGFR > 60 Random Glucose 120 H Calcium 7.5 L Phosphorus 1.9 L Magnesium 1.8 Total Bilirubin 5.8 H AST 34 ALT 15 Alkaline Phosphatase 87 Total Protein 6.1 L Albumin 2.0 L Tumor Marker AFP Hepatitis A IgM Ab Hep Bs Antigen Hep B Core IgM Ab Hepatitis C Antibody Active Medications Generic Name Dose Route Start Last Admin Trade Name Freq PRN Reason Stop Dose Admin Al Hydroxide/Mg Hydroxide 30 ml 03/02/18 11:00 03/04/18 06:17 Mylanta Oral Suspension - PO 30 ml Q6H ALINA Administration Albuterol Sulfate 1 amp 03/01/18 15:47 Ventolin 0.083% Nebulizer Soln - NEB QID PRN SHORT OF BREATH/WHEEZING Chlorhexidine Gluconate 1 applic 03/01/18 22:00 03/03/18 22:01 Hibiclens For Decolonization - TP 1 applic HS ALINA Administration Pantoprazole Sodium 80 mg/ 100 mls @ 10 mls/hr 03/01/18 10:30 03/04/18 09:09 Sodium Chloride IVPB 10 mls/hr Q10H ALINA Administration 8 MG/HR Cefazolin Sodium 1 gm in 50 mls @ 100 mls/hr 03/01/18 18:00 03/04/18 09:09 Ancef 1 Gm Premixed Ivpb - IVPB 100 mls/hr Q8H-IV ALINA Administration Lactulose 20 gm 03/02/18 10:28 Cephulac (Oral Use) PO TID PRN CONSTIPATION Mupirocin 1 applic 03/01/18 22:00 03/04/18 09:09 Bactroban Ointment (For Decolonization) - NS 03/06/18 21:59 1 applic BID ALINA Administration Pentoxifylline 400 mg 03/02/18 12:00 03/04/18 08:16 Trental - PO 400 mg TIDCM ALINA Administration Spironolactone 25 mg 03/02/18 22:00 03/03/18 22:06 Aldactone - PO 25 mg BID ALINA Administration Thiamine HCl 100 mg 03/03/18 10:00 03/04/18 09:09 Vitamin B1 - PO 100 mg DAILY ALINA Administration CBC, BMP 03/04/18 05:30 12/25/18 05:30 ASSESSMENT/PLAN: 62 year old male with history of alcohol abuse (last drink apparently in January), active smoker, COPD, Depression, Cirrhosis recent stay at nursing facility, transferred from [facility] for evaluation of hematemesis. Patient refers bright red bloody vomitus, several episodes of hematemesis and hematochezia admitted to ICU for variceal bleed. # Neuro: * AAOx3 in AND # Pulm * CTA * copd no exacerbation # GI /hem - Acute variceal bleed * S/P EGD and 4 rubber bands * on Protonix BID , off Octreotide GTT * no more vomiting since the procedure , if recurence will need transfer to tertiary facility for TIPS * Diet Clear liquid per GI * 2 large iV pores * Monitor H/H , transfuse if active bleeding or below 7 * S/P 2 FFP, vit k * cbc, cmp , lefts , coagulation studies repeat * AAOx3 no tremor os or signs of withdrawal # Anemai macrocytic /thrombocytopenia likely due to liver cirrhosis and alcohol abuse and aculte loss from variceal bleed * H/H 8.06/02 , MCV 105 * Thiamin , * Ativan PRN if signs of withdrawal # Liver cirrhosis , chronic likely due to Alcohol # Coagulopathy 2/2 cirrhosis * monitor AST, ALT * avoid alcohol * US * repeat PT, PTT , INR , lfts # FEN * F: NS @ 75 CC/hr * E: monitor * N: clear liquids # Proph * DVTS: SCDS , no chemical proph * GI: protonix BID # dispo:transfer to med surg # Code status, full code Visit type - Emergency Visit Emergency Visit: Yes ED Registration Date: 03/01/18 Care time: The patient presented to the Emergency Department on the above date and was hospitalized for further evaluation of their emergent condition. - New Patient This patient is new to me today: No - Critical Care Critical Care patient: Yes Total Critical Care Time (in minutes): 45 Critical Care Statement: The care of this patient involved high complexity decision making to prevent further life threatening deterioration of the patient 's condition and/or to evaluate & treat vital organ system(s) failure or risk of failure.
--- NOTE | 2018-03-04 10:29 | PN ---
Teaching Attending Note Name of Resident: Jan Washington ATTENDING PHYSICIAN STATEMENT I saw and evaluated the patient. I reviewed the resident's note and discussed the case with the resident. I agree with the resident's findings and plan as documented. SUBJECTIVE: Pt seen and examined in the ICU. No further bleeding noted. States abdominal pain improved. No shortness of breath or chest pain. OBJECTIVE: Vital Signs Period Temp Pulse Resp BP Sys/Mar Pulse Ox Last 24 Hr 98.0 F-98.5 F 63-94 12-20 92-129/50-71 97-100 Intake & Output 03/01/18 03/02/18 03/03/18 03/04/18 23:59 23:59 23:59 23:59 Intake Total 1808.3 2299.9 1253.7 270 Output Total 476 105 5292 500 Balance 1408.3 1549.9 -1746.3 -230 Weight 59.058 kg 60.781 kg Gen: NAD at rest Heart: RRR Lung: decreased breath sounds at the bases Abd: soft, nontender Ext: no edema CBC, BMP 03/04/18 05:30 03/04/18 05:30 Active Medications Al Hydroxide/Mg Hydroxide (Mylanta Oral Suspension -) 30 ml PO Q6H ALINA Last Admin: 03/04/18 06:17 Dose: 30 ml Albuterol Sulfate (Ventolin 0.083% Nebulizer Soln -) 1 amp NEB QID PRN PRN Reason: SHORT OF BREATH/WHEEZING Chlorhexidine Gluconate (Hibiclens For Decolonization -) 1 applic TP HS ALINA Last Admin: 03/03/18 22:01 Dose: 1 applic Cefazolin Sodium (Ancef 1 Gm Premixed Ivpb -) 1 gm in 50 mls @ 100 mls/hr IVPB Q8H-IV ALINA Last Admin: 03/04/18 09:09 Dose: 100 mls/hr Lactulose (Cephulac (Oral Use)) 20 gm PO TID PRN PRN Reason: CONSTIPATION Mupirocin (Bactroban Ointment (For Decolonization) -) 1 applic NS BID ALINA Stop: 03/06/18 21:59 Last Admin: 03/04/18 09:09 Dose: 1 applic Pantoprazole Sodium (Protonix Iv) 40 mg IVPUSH BID ALINA Pentoxifylline (Trental -) 400 mg PO TIDCM [facility] Last Admin: 03/04/18 08:16 Dose: 400 mg Spironolactone (Aldactone -) 25 mg PO BID [facility] Last Admin: 03/03/18 22:06 Dose: 25 mg Thiamine HCl (Vitamin B1 -) 100 mg PO DAILY [facility] Last Admin: 03/04/18 09:09 Dose: 100 mg ASSESSMENT AND PLAN: Upper GI Bleed - Esophageal Variceal Bleed s/p banding Acute Blood Loss Anemia Alcoholic Liver Cirrhosis Coagulopathy Thrombocytopenia COPD - monitor H/H, coags - transfuse as needed - protonix - PO per GI - empiric antibiotics - DVT prophylaxis - can monitor on floor
[2018-03-04] MEDS: SPIRONOLACTONE 25 MG TABLET (FP) PO SCH ×2 (10:55→21:31)
[2018-03-04] MEDS ORDERED: LACTULOSE 20 GM/30 ML UDC (FOR ORAL USE ONLY) PO PRN (13:01)
[2018-03-04] MEDS ORDERED: ALBUTEROL SO4 0.083% IH SOL 2.5 MG/3 ML VIAL.NEB. NEB PRN (13:01)
--- NOTE | 2018-03-04 13:21 | PN ---
GI Progress Note Subjective: GI NOte: Had a brown BM today. Hb stable. Mentally alert. Hungry. NO pain - Objective Vital Signs: Vital Signs Temperature 98.7 F 03/04/18 10:00 Pulse Rate 64 03/04/18 12:00 Respiratory Rate 10 03/04/18 12:00 Blood Pressure 121/61 03/04/18 12:00 O2 Sat by Pulse Oximetry (%) 100 03/04/18 12:45 Laboratory Tests 03/02/18 03/02/18 03/04/18 05:15 12:00 05:30 WBC 6.2 Hgb 9.2 L 8.3 L Hct 28.1 L 25.0 L Plt Count 55 L BUN Creatinine Total Bilirubin Tumor Marker AFP 3.1 03/04/18 05:30 WBC Hgb Hct Plt Count BUN 5 L Creatinine 0.7 Total Bilirubin 5.8 H Tumor Marker AFP Constitutional: Calm Eyes: Yes: Sclera Icterus ...Auscultate: Yes: Normoactive Bowel Sounds ...Palpate: Yes: Soft, Other (nontender) Labs: CBC, BMP 03/04/18 05:30 03/04/18 05:30 INR, PTT INR 1.92 (0.83-1.09) H 03/03/18 12:50 Assessment/Plan Switch to po PPI Soft diet Trial of nadolol Problem List - Problems (1) Hematemesis Code(s): K92.0 - HEMATEMESIS (2) Alcoholic cirrhosis of liver Code(s): K70.30 - ALCOHOLIC CIRRHOSIS OF LIVER WITHOUT ASCITES (3) COPD (chronic obstructive pulmonary disease) Code(s): J44.9 - CHRONIC OBSTRUCTIVE PULMONARY DISEASE, UNSPECIFIED (4) Hematochezia Code(s): K92.1 - MELENA (5) Alcoholism /alcohol abuse Code(s): F10.20 - ALCOHOL DEPENDENCE, UNCOMPLICATED
--- NOTE | 2018-03-04 21:31 | PN ---
Physical Exam: SUBJECTIVE: Patient seen and examined at bedside. No acute complaints. OBJECTIVE: Vital Signs Period Temp Pulse Resp BP Sys/Mar Pulse Ox Last 24 Hr 98.1 F-98.7 F 64-94 10-20 92-121/50-75 99-100 GENERAL: A&Ox3, no acute distress EYES: PERRLA, EOMI ENT: Moist mucus membranes NECK: No JVD LUNGS: CTA, no wheezes HEART: RRR, no murmurs ABDOMEN: Soft, nontender, BS present MUSCULOSKELETAL: No CVA Tenderness EXTREMITIES: 2+ pulses, no edema. NEUROLOGICAL: Cranial nerves II-XII intact. Laboratory Results - last 24 hr 03/02/18 03/04/18 03/04/18 05:15 05:30 05:30 WBC 6.2 RBC 2.37 L Hgb 8.3 L Hct 25.0 L MCV 105.7 H MCH 35.0 H MCHC 33.1 RDW 18.1 H Plt Count 55 L MPV 8.4 Absolute Neuts (auto) 3.6 Neutrophils % 59.0 Lymphocytes % 28.8 D Monocytes % 10.7 H Eosinophils % 1.2 D Basophils % 0.3 Nucleated RBC % 0 Sodium 134 L Potassium 3.9 Chloride 102 Carbon Dioxide 28 Anion Gap 5 L BUN 5 L Creatinine 0.7 Creat Clearance w eGFR > 60 Random Glucose 120 H Calcium 7.5 L Phosphorus 1.9 L Magnesium 1.8 Total Bilirubin 5.8 H AST 34 ALT 15 Alkaline Phosphatase 87 Total Protein 6.1 L Albumin 2.0 L Tumor Marker AFP 3.1 Active Medications Generic Name Dose Route Start Last Admin Trade Name Freq PRN Reason Stop Dose Admin Al Hydroxide/Mg Hydroxide 30 ml 03/04/18 17:00 03/04/18 17:27 Mylanta Oral Suspension - PO 30 ml Q6H ALINA Administration Albuterol Sulfate 1 amp 03/04/18 13:01 Ventolin 0.083% Nebulizer Soln - NEB QID PRN SHORT OF BREATH/WHEEZING Chlorhexidine Gluconate 1 applic 03/04/18 22:00 03/04/18 21:11 Hibiclens For Decolonization - TP Not Given HS ALINA Cefazolin Sodium 1 gm in 50 mls @ 100 mls/hr 03/04/18 18:00 03/04/18 17:27 Ancef 1 Gm Premixed Ivpb - IVPB 100 mls/hr Q8H-IV ALINA Administration Lactulose 20 gm 03/04/18 13:01 Cephulac (Oral Use) PO TID PRN CONSTIPATION Mupirocin 1 applic 03/04/18 22:00 03/04/18 21:11 Bactroban Ointment (For Decolonization) - NS 03/06/18 21:59 Not Given BID ALINA Nadolol 20 mg 03/05/18 10:00 Corgard - PO DAILY ALINA Pantoprazole Sodium 40 mg 03/04/18 22:00 Protonix Iv IVPUSH BID ALINA Pentoxifylline 400 mg 03/04/18 17:30 03/04/18 20:15 Trental - PO 400 mg TIDCM ALINA Administration Spironolactone 25 mg 03/04/18 22:00 Aldactone - PO BID ALINA Thiamine HCl 100 mg 03/05/18 10:00 Vitamin B1 - PO DAILY ALINA ASSESSMENT/PLAN: 62 year old male with history of alcohol abuse, COPD, Depression, cirrhosis, transferred from [facility] for evaluation of 1 day of hematemesis #Acute Blood Loss Anemia: 2/2 to Variceal bleeding s/p EGD/Band ligation x 4, improving -no further bleeding -continue protonix -sodium controlled diet -continue ancef -tolerating sodium controlled diet -monitor H&H #Liver Cirrhosis: 2/2 alcohol abuse; w/ hypertension, Ascites, and Esophageal Varices -Meld 29 -Abdo US consistent with hepatocellular disease and ascites -AFP/hepatitis -continue aldactone #Coagulopathy secondary to Cirrhosis: -Will monitor PT/INR #Alcohol abuse: last drink apparently 01/26 -no suspicion of withdrawal #Macrocytic Anemia/Thrombocytopenia: 2/2 liver disease -Will monitor for any further signs of bleeding. DVT prophylaxis -SCDs FEN -on Na-controlled diet -no standing fluids -replete lytes as necessary Disposition -Continue to monitor on med-surg Visit type - Emergency Visit Emergency Visit: No - New Patient This patient is new to me today: Yes Date on this admission: 03/05/18 - Critical Care Critical Care patient: No
[2018-03-04] MEDS ORDERED: CHLORHEXIDINE GLUCONATE 4% CLEANSER FOR DECOLONIZATION TP SCH (22:00)
[2018-03-04] MEDS ORDERED: PANTOPRAZOLE SODIUM 40 MG VIAL IVPUSH SCH (22:00)
--- NOTE | 2018-03-05 01:59 | PN ---
Teaching Attending Note Name of Resident: Armando Lockett ATTENDING PHYSICIAN STATEMENT I saw and evaluated the patient. I reviewed the resident's note and discussed the case with the resident. I agree with the resident's findings and plan as documented. SUBJECTIVE: Seen and examined; no new complaints. Reviewed chart. No further omplaints. No signs of bleeding. GI consult reviewed; will trial nadalol and convert PPI to PO. Appreciate specialist input. 10 sys ROS done and negative aside from HPI OBJECTIVE: Vs, labs, imaging reviewed NAD, AAO NT, slightly distended, no tenderness RRR s1/2 no mgr Lungs CTAB with sym exp CN2-12 wnl, no fnd CBC, BMP this AM ASSESSMENT AND PLAN: 1. Acute Blood Loss Anemia secondary to Variceal bleeding s/p EGD/Band ligation x 4. Bleeding appears to have subsided - no further hematemesis for 48 hours. Continue Protonix/Octreotide drips (dose reduced due to prolonged QTc). Tolerating clear liquid diet - advancement as per GI. Will eventually require BB. On IV Cephalosporin prophylaxis. If further bleeding, [facility] need [facility]. Monitor H/H and will transfuse as necessary. *Today he was transferred out of the ICU to med surg and is doing good. Changed IV PPI to PO and started trial of nadalol. Appreciate GI input. Continue to monitor on the medicine service on Med/Surg. 2. Liver Cirrhosis secondary to Alcohol excess with portal hypertension, Ascites , and Esophageal Varices. MELD 29 Abdomen mildly tender. Afebrile, Hemodynamically stable Abdo US consistent with hepatocellular disease and ascites. May require therapeutic tap at some point. AFP and Hepatitis work-up pending Aldactone started. No signs of hepatic encephalopathy. *Followup with GI; tolerating nadalol. distention noted on exam but this is aparently unchanged from prior visits for this patient. m- 3. Coagulopathy secondary to Cirrhosis (decreased hepatic synthetic function, Alb 2.0), with initial INR 2.32, now 2 despite 2 units FFP prior to EGD as well as Vitamin K. Will monitor PT/INR 4. History of Alcohol Abuse - last drink apparently 01/26 No evidence of withdrawal - will monitor. Ativan as per CIWA if any signs of withdrawal. 5. Nicotine Dependence Counselled. 6. Macrocytic Anemia/Thrombocytopenia sec to Liver Cirrhosis sec to Alcohol excess. H/H/MCV 8.8/26.4/105.6 Plts 61 Alcohol cessation strongly advised Will monitor for any further signs of bleeding. 7. UCx positive for enterococus <20,000 CFU/ml - asymptomatic. No need for Abx therapy at this time. On IV Cefazolin prophylactically. Can DC in AM [facility] DVT Px - SCDs, Autoanticoagulated with elevated INR.
[2018-03-05] MEDS: CEFAZOLIN 1 GM/D5W 1 GM/50 ML BAG IVPB SCH ×2 (02:10→10:51)
[2018-03-05] MEDS: MAG HYDROX/AL HYDROX/SIMETH 30 ML UNIT-DOSE CUP PO SCH ×2 (05:58→10:53)
[2018-03-05 07:35] LABS: BASO % 0.4 % (0-2.0); EOS % 1.3 % (0-4.5); HEMATOCRIT 25.9 % (35.4-49); HEMOGLOBIN 8.7 GM/dL (11.7-16.9); LYMPH % 31.8 % (8-40); MCH 35.5 pg (25.7-33.7); MCHC 33.6 g/dl (32.0-35.9); MEAN CELL VOLUME 105.8 fl (80-96); MEAN PLT VOLUME 8.4 fl (7.5-11.1); MONO % 10.7 % (3.8-10.2); NEUT % 55.8 % (42.8-82.8); PLATELET COUNT 57 K/MM3 (134-434); RBC 2.45 M/mm3 (4.00-5.60); RDW 17.7 % (11.9-15.9); WHITE BLOOD COUNT 6.3 K/mm3 (4.0-10.0)
[2018-03-05 08:36] LABS: ALBUMIN 2.2 g/dl (3.4-5.0); ALK PHOS 95 U/L (45-117); ANION GAP 7 MMOL/L (8-16); BILIRUBIN,DIRECT 3.1 mg/dL (0.0-0.2); BLOOD UREA NITROGEN 4 mg/dL (7-18); CALCIUM 7.6 mg/dL (8.5-10.1); CHLORIDE 102 mmol/L (98-107); CO2 26 mmol/L (21-32); CREATININE 0.6 mg/dL (0.55-1.3); GLUCOSE,RANDOM 100 mg/dL (74-106); MAGNESIUM 1.9 mg/dL (1.8-2.4); PHOSPHOROUS 2.3 mg/dL (2.5-4.9); SGOT/AST 34 U/L (15-37); SGPT/ALT 14 U/L (13-61); SODIUM 134 mmol/L (136-145); TOT PROT 6.4 g/dl (6.4-8.2)
[2018-03-05] MEDS ORDERED: PT OWN MED DRAWER 7, Y5N ONE ×2 (09:21→13:18)
[2018-03-05] MEDS: PENTOXIFYLLINE 400 MG TABLET.ER PO SCH ×2 (09:37→13:29)
[2018-03-05] MEDS ORDERED: THIAMINE HCL 100 MG TABLET (FP) PO SCH (10:00)
[2018-03-05] MEDS ORDERED: PANTOPRAZOLE 40 MG TABLET (FP) PO SCH (10:00)
[2018-03-05] MEDS ORDERED: NADOLOL 20 MG TABLET (FP) PO SCH (10:00)
--- NOTE | 2018-03-05 10:31 | PN ---
Progress Note (short form) - Note Progress Note: Transferred to . Tolerating PO intake. No occult bleeding. No CP or SOB. Intake & Output 03/02/18 03/03/18 03/04/18 03/05/18 23:59 23:59 23:59 23:59 Intake Total 2299.9 1253.7 1160 500 Output Total 750 3000 1050 850 Balance 1549.9 -1746.3 110 -350 Weight 134 lb Last Vital Signs Temp Pulse Resp BP Pulse Ox 98.1 F 82 16 113/60 97 03/05/18 09:44 03/05/18 09:44 03/05/18 09:44 03/05/18 09:44 03/05/18 09:00 Active Medications Al Hydroxide/Mg Hydroxide (Mylanta Oral Suspension -) 30 ml PO Q6H [facility] Last Admin: 03/05/18 05:58 Dose: 30 ml Albuterol Sulfate (Ventolin 0.083% Nebulizer Soln -) 1 amp NEB QID PRN PRN Reason: SHORT OF BREATH/WHEEZING Chlorhexidine Gluconate (Hibiclens For Decolonization -) 1 applic TP HS [facility] Last Admin: 03/04/18 21:11 Dose: Not Given Cefazolin Sodium (Ancef 1 Gm Premixed Ivpb -) 1 gm in 50 mls @ 100 mls/hr IVPB Q8H-IV ALINA Last Admin: 03/05/18 02:10 Dose: 100 mls/hr Lactulose (Cephulac (Oral Use)) 20 gm PO TID PRN PRN Reason: CONSTIPATION Mupirocin (Bactroban Ointment (For Decolonization) -) 1 applic NS BID ALINA Stop: 03/06/18 21:59 Last Admin: 03/04/18 21:11 Dose: Not Given Nadolol (Corgard -) 20 mg PO DAILY [facility] Pantoprazole Sodium (Protonix -) 40 mg PO BID [facility] Pentoxifylline (Trental -) 400 mg PO TIDCM [facility] Last Admin: 03/05/18 09:37 Dose: 400 mg Spironolactone (Aldactone -) 25 mg PO BID [facility] Last Admin: 03/04/18 21:31 Dose: 25 mg Thiamine HCl (Vitamin B1 -) 100 mg PO DAILY [facility] Laboratory Results - last 24 hr 03/05/18 03/05/18 03/05/18 06:10 06:10 06:10 WBC 6.3 RBC 2.45 L Hgb 8.7 L Hct 25.9 L MCV 105.8 H MCH 35.5 H MCHC 33.6 RDW 17.7 H MPV 8.4 Absolute Neuts (auto) 3.5 Neutrophils % 55.8 Lymphocytes % 31.8 Monocytes % 10.7 H Eosinophils % 1.3 Basophils % 0.4 Nucleated RBC % 0 Sodium 134 L Potassium 4.0 Chloride 102 Carbon Dioxide 26 Anion Gap 7 L BUN 4 L Creatinine 0.6 Creat Clearance w eGFR > 60 Random Glucose 100 Calcium 7.6 L Phosphorus 2.3 L Magnesium 1.9 Total Bilirubin 6.0 H Direct Bilirubin 3.1 H AST 34 ALT 14 Alkaline Phosphatase 95 Ammonia 36.84 H Total Protein 6.4 Albumin 2.2 L Gen: NAD at rest Heart: RRR Lung: decreased breath sounds at the bases Abd: soft, nontender Ext: no edema Laboratory Results - last 24 hr 03/05/18 03/05/18 03/05/18 06:10 06:10 06:10 WBC 6.3 RBC 2.45 L Hgb 8.7 L Hct 25.9 L MCV 105.8 H MCH 35.5 H MCHC 33.6 RDW 17.7 H MPV 8.4 Absolute Neuts (auto) 3.5 Neutrophils % 55.8 Lymphocytes % 31.8 Monocytes % 10.7 H Eosinophils % 1.3 Basophils % 0.4 Nucleated RBC % 0 Sodium 134 L Potassium 4.0 Chloride 102 Carbon Dioxide 26 Anion Gap 7 L BUN 4 L Creatinine 0.6 Creat Clearance w eGFR > 60 Random Glucose 100 Calcium 7.6 L Phosphorus 2.3 L Magnesium 1.9 Total Bilirubin 6.0 H Direct Bilirubin 3.1 H AST 34 ALT 14 Alkaline Phosphatase 95 Ammonia 36.84 H Total Protein 6.4 Albumin 2.2 L ASSESSMENT AND PLAN: Upper GI Bleed - Esophageal Variceal Bleed s/p banding Acute Blood Loss Anemia Alcoholic Liver Cirrhosis Coagulopathy Thrombocytopenia COPD - Normal transfusion thresholds - PPI - PO per GI - BD TX PRN - No smoking Dr Razo
[2018-03-05 10:50] VITALS: PULSE 81
[2018-03-05 10:51] LABS: ANISOCYTOSIS 1+; MACROCYTOSIS 1+; PLATELET ESTIMATE DECREASED
[2018-03-05] MEDS: SPIRONOLACTONE 25 MG TABLET (FP) PO SCH (10:52)
[2018-03-05] MEDS: MUPIROCIN 2% TOPICAL OINTMENT FOR DECOLONIZATION NS SCH (10:52)
--- NOTE | 2018-03-05 10:57 | PN ---
GI Progress Note Subjective: GI NOte: ( Covering Dr Saravia) Having brown BMs. NO pain or fever following rubber band ligation. Renal function stable on Aldactone so will increase dosage. Tolerating nonselective beta blockade - Objective Vital Signs: Vital Signs Temperature 98.3 F 03/05/18 10:50 Pulse Rate 81 03/05/18 10:50 Respiratory Rate 18 03/05/18 10:50 Blood Pressure 101/63 03/05/18 10:50 O2 Sat by Pulse Oximetry (%) 97 03/05/18 09:00 Laboratory Tests 03/05/18 03/05/18 06:10 06:10 WBC 6.3 Hgb 8.7 L Plt Count Pending BUN 4 L Creatinine 0.6 Total Bilirubin 6.0 H Constitutional: Calm Eyes: Yes: Sclera Icterus ...Auscultate: Yes: Normoactive Bowel Sounds ...Palpate: Yes: Soft, Other (nontender) Labs: CBC, BMP 03/05/18 06:10 03/05/18 06:10 INR, PTT INR 1.92 (0.83-1.09) H 03/03/18 12:50 Assessment/Plan Tolerating Nadolol Increase aldactone dosage Stop Kefzol See problem list Dr Saravia will followup tomorrow Problem List - Problems (1) Hematemesis Assessment/Plan: s/p rubber band ligation of esophageal varices. Will stop Kefzol prophylaxis Code(s): K92.0 - HEMATEMESIS (2) Alcoholic cirrhosis of liver Assessment/Plan: Jaundice due to alcoholic hepatitis superimposed on cirrhosis. Again discussed the need to absolutely abstain from any further alcohol intake. Sonogram reveals ascites but no liver masses. Encephalopathy under control. May consider discharge with followup with Dr Saravia or at [facility] GI clinic with Dr Fang for repeat EGD and banding. Code(s): K70.30 - ALCOHOLIC CIRRHOSIS OF LIVER WITHOUT ASCITES (3) COPD (chronic obstructive pulmonary disease) Code(s): J44.9 - CHRONIC OBSTRUCTIVE PULMONARY DISEASE, UNSPECIFIED (4) Hematochezia Code(s): K92.1 - MELENA (5) Alcoholism /alcohol abuse Code(s): F10.20 - ALCOHOL DEPENDENCE, UNCOMPLICATED
--- NOTE | 2018-03-05 11:03 | PN ---
Physical Exam: SUBJECTIVE: Patient seen and examined OBJECTIVE: Vital Signs Period Temp Pulse Resp BP Sys/Mar Pulse Ox Last 24 Hr 97.8 F-98.3 F 64-82 10-18 101-121/55-75 97-100 GENERAL: The patient is awake, alert, and fully oriented, in no acute distress. HEAD: Normal with no signs of trauma. EYES: PERRL, extraocular movements intact, sclera anicteric, conjunctiva clear. No ptosis. ENT: Ears normal, nares patent, oropharynx clear without exudates, moist mucous membranes. NECK: Trachea midline, full range of motion, supple. LUNGS: Breath sounds equal, clear to auscultation bilaterally, no wheezes, no crackles, no accessory muscle use. HEART: Regular rate and rhythm, S1, S2 without murmur, rub or gallop. ABDOMEN: Soft, nontender, nondistended, normoactive bowel sounds, no guarding, no rebound, no hepatosplenomegaly, no masses. EXTREMITIES: 2+ pulses, warm, well-perfused, no edema. NEUROLOGICAL: Cranial nerves II through XII grossly intact. Normal speech, gait not observed. PSYCH: Normal mood, normal affect. SKIN: Warm, dry, normal turgor, no rashes or lesions noted Laboratory Results - last 24 hr 03/05/18 03/05/18 03/05/18 06:10 06:10 06:10 WBC 6.3 RBC 2.45 L Hgb 8.7 L Hct 25.9 L MCV 105.8 H MCH 35.5 H MCHC 33.6 RDW 17.7 H MPV 8.4 Absolute Neuts (auto) 3.5 Neutrophils % 55.8 Lymphocytes % 31.8 Monocytes % 10.7 H Eosinophils % 1.3 Basophils % 0.4 Nucleated RBC % 0 Sodium 134 L Potassium 4.0 Chloride 102 Carbon Dioxide 26 Anion Gap 7 L BUN 4 L Creatinine 0.6 Creat Clearance w eGFR > 60 Random Glucose 100 Calcium 7.6 L Phosphorus 2.3 L Magnesium 1.9 Total Bilirubin 6.0 H Direct Bilirubin 3.1 H AST 34 ALT 14 Alkaline Phosphatase 95 Ammonia 36.84 H Total Protein 6.4 Albumin 2.2 L Active Medications Generic Name Dose Route Start Last Admin Trade Name Freq PRN Reason Stop Dose Admin Al Hydroxide/Mg Hydroxide 30 ml 03/04/18 17:00 03/05/18 10:53 Mylanta Oral Suspension - PO 30 ml Q6H ALINA Administration Albuterol Sulfate 1 amp 03/04/18 13:01 Ventolin 0.083% Nebulizer Soln - NEB QID PRN SHORT OF BREATH/WHEEZING Chlorhexidine Gluconate 1 applic 03/04/18 22:00 03/04/18 21:11 Hibiclens For Decolonization - TP Not Given HS [facility] Lactulose 20 gm 03/04/18 13:01 Cephulac (Oral Use) PO TID PRN CONSTIPATION Mupirocin 1 applic 03/04/18 22:00 03/05/18 10:52 Bactroban Ointment (For Decolonization) - NS 03/06/18 21:59 Not Given BID ALINA Nadolol 20 mg 03/05/18 10:00 03/05/18 10:52 Corgard - PO Not Given DAILY ALINA Pantoprazole Sodium 40 mg 03/05/18 10:00 03/05/18 10:51 Protonix - PO 40 mg BID ALINA Administration Pentoxifylline 400 mg 03/04/18 17:30 03/05/18 09:37 Trental - PO 400 mg TIDCM ALINA Administration Spironolactone 25 mg 03/05/18 14:00 Aldactone - PO TID ALINA Thiamine HCl 100 mg 03/05/18 10:00 03/05/18 10:51 Vitamin B1 - PO 100 mg DAILY ALINA Administration ASSESSMENT/PLAN:
--- NOTE | 2018-03-05 13:33 | DS ---
Physical Exam: SUBJECTIVE: Patient seen and examined at the bedside. Patient states he is comfortable. wants to go to [facility]. Denies any dark stools. tolerating meals. Wants to abstain from alcohol OBJECTIVE: Discharge to [facility] today Vital Signs Period Temp Pulse Resp BP Sys/Mar Pulse Ox Last 24 Hr 97.8 F-98.3 F 69-82 16-18 101-120/55-75 97-97 PHYSICAL EXAM GENERAL: The patient is awake, alert, and fully oriented, in no acute distress. HEAD: Normal with no signs of trauma. EYES: PERRL, extraocular movements intact, sclera anicteric, conjunctiva clear. ENT: Ears normal, nares patent, oropharynx clear without exudates, moist mucous membranes. NECK: Trachea midline, full range of motion, supple. LUNGS: Breath sounds equal, clear to auscultation bilaterally, no wheezes HEART: Regular rate and rhythm, S1, S2 without murmur, rub or gallop. ABDOMEN: Soft, nontender, mildly distended, + bowel sounds. EXTREMITIES: 2+ pulses, warm, well-perfused, no edema. NEUROLOGICAL: Normal speech, gait not observed. PSYCH: Normal mood, normal affect. SKIN: Warm, dry, normal turgor, no rashes or lesions noted. LABS Laboratory Results - last 24 hr 03/05/18 03/05/18 03/05/18 06:10 06:10 06:10 WBC 6.3 RBC 2.45 L Hgb 8.7 L Hct 25.9 L MCV 105.8 H MCH 35.5 H MCHC 33.6 RDW 17.7 H Plt Count 57 L MPV 8.4 Absolute Neuts (auto) 3.5 Neutrophils % 55.8 Lymphocytes % 31.8 Monocytes % 10.7 H Eosinophils % 1.3 Basophils % 0.4 Nucleated RBC % 0 Hypochromia 0 Platelet Estimate Decreased Poikilocytosis 0 Anisocytosis 1+ Microcytosis 0 Macrocytosis 1+ Schistocytes 1+ Sodium 134 L Potassium 4.0 Chloride 102 Carbon Dioxide 26 Anion Gap 7 L BUN 4 L Creatinine 0.6 Creat Clearance w eGFR > 60 Random Glucose 100 Calcium 7.6 L Phosphorus 2.3 L Magnesium 1.9 Total Bilirubin 6.0 H Direct Bilirubin 3.1 H AST 34 ALT 14 Alkaline Phosphatase 95 Ammonia 36.84 H Total Protein 6.4 Albumin 2.2 L HOSPITAL COURSE: Patient is a 62 year old male with a past medical history of alcohol abuse, paracentesis, COPD, depression, liver cirrhosis. Patient was sent to the ED on 03/01/2018 for alcoholic cirrhosis, hematemesis and hematochezia. On 2017 patient underwent an EGD and four esophageal varicies were banded. Patient was initially admitted to the ICU for protonix, octreotide gtts and downgraded to Med/Surg on 03/04/2018. Problem List: GI: Acute Blood Loss Anemia secondary to varcial bleeding, resolved he is s/p EGd, Four esophageal varices were banded on 03/01/2018 will need to be referred for a repeat EGD to rubber band ligate residual varices as an outpatient. No further signs of bleeding. On Protonix BID to continue as outpatient Tolerating diet. Reports normal brown BMs. Hmg/hct low stable. Monitor in the setting of abstinence of alcohol Platelets @ 57. Expect them to recover in the abstinence of alcohol. Repeat CBC within 3-5 days to monitor. If re-bleeds with need [facility] per GI. Liver cirrhosis. In the setting of alcohol abuse Esophageal Varices s/p EGD, band with band ligation. continue aldactone. Heme: Coagulopathy secondary to alcoholic cirrhosis: Monitor for signs of bleeding. Repeat coags as an outpatient within 3-5 days Follow up with GI outpatient-within one week Macrocytic anemia/thrombocytopenia Monitor labs in the setting of abstinence of alcohol Psyche Alcohol abuse, chronic No signs of withdrawal on exam States last drink was weeks ago, in January 2018. None since. Date of Admission:03/01/18 Date of Discharge: 03/05/18 Minutes to complete discharge: 60 Discharge Summary Reason For Visit: ALCOHOLIC CIRRHOSIS,HEMATEMESIS,HEMATOCHEZIA Current Active Problems Alcoholic cirrhosis of liver (Acute) Alcoholism /alcohol abuse (Acute) COPD (chronic obstructive pulmonary disease) (Acute) Hematemesis (Acute) Hematochezia (Acute) Condition: Improved - Instructions Diet, Activity, Other Instructions: Mr. Alejandro Joshua were admitted to [facility] on 03/01/2018 for alcoholic cirrhosis, hematemesis ( vomiting blood) and hematochezia (blood in your stool). Here are our recommendations: #Hematemesis, resolved Hematochezia, resolved On admission you were found to have a variceal bleeding and you had an EGD with a band ligation No further episodes of bleeding will need to be referred for a repeat EGD to rubber band ligate residual varices. continue medications as ordered in your discharge instructions (noted below) Please have your labs drawn to monitor CBC, electrolytes and coagulation panel within 3-5 days of discharge It is important that you follow up with the GI specialist on discharge, within 1 week. Please call and make an appointment. Their information is enclosed. #Liver Cirrhosis/Ascites, and Esophageal Varices. Abdomen is mildly distended. Had a paracentesis about 1 month ago at [facility]. May eventually need another paracentesis if his abdomen again becomes distended. Please monitor. Patient will need follow up with GI specialist Dr. Fang on discharge. Please have this arranged as he may need repeat EGD and banding. Can see Dr. Fang or Dr. Saravia. #History of Alcohol Abuse No evidence of withdrawal. You must stop drinking alcohol. #Macrocytic Anemia/Thrombocytopenia. hmg/hct stable at 8.7/25.9. Repeat CBC outpatient. Monitor in the setting in the abstinence of alcohol. Repeat CBC and monitor for any signs of bleeding. MEDICATIONS ON DISCHARGE: Aldactone 25mg three times per day - 6am 2pm 6pm Protonix 40mg twice per day - 6a and 6pm Vitamin B1 daily 6am Lactulose 20mg three times per day as needed - 6a 2pm 6pm Albuterol Sulfate 0.083%-1 nebulizer treatment 4 times per day for shortness of breath - as needed Nodolol (Corgard) 20mg daily (for esophageal varicies) at 6am Trental (Pentoxufylline) 400mg three times per day - 6a 2p 6pm Sprionolactone (Aldactone) 25mg three times per day - 6a 2p 6pm Folic acid 1mg daily Furosemide 40mg daily Magnesium 200mg three times per day - 6a 2p 6pm Patient to follow up outpatient with GI within one week of discharge. Elizabeth Mendoza [place] [employer] [phone] [facility] Referrals: Sergio Alcazar MD [Primary Care Provider] - 1 Week Frantz Fang MD [Staff Physician] - 1 Week Disposition: [facility] - Home Medications Comprehensive Discharge Medication List: Ambulatory Orders Folic Acid - 1 mg PO DAILY 03/01/18 Furosemide 40 mg PO DAILY 03/01/18 Lactulose 20 gm PO TID 03/01/18 Magnesium 800 mg PO TID 03/01/18 Multivitamins [Tab-A-Vit -] 1 tab PO DAILY 03/01/18 Pantoprazole Sodium [Protonix] 40 mg PO DAILY 03/01/18 Pentoxifylline 400 mg PO TID 03/01/18 Potassium Chloride 20 meq PO DAILY 03/01/18 Spironolactone 6 tab PO DAILY 03/01/18 Thiamine HCl 100 mg PO DAILY 03/01/18 Vit B Comp/C/Folic/Iron/Vit E [Vitamin B Complex Tablet] 1 each PO DAILY This patient is new to me today: Yes Date on this admission: 03/05/18 Emergency Visit: Yes ED Registration Date: 03/01/18 Care time: The patient presented to the Emergency Department on the above date and was hospitalized for further evaluation of their emergent condition. Critical Care patient: No - Discharge Referral Referred to [facility] No
[2018-03-05] MEDS ORDERED: SPIRONOLACTONE 25 MG TABLET (FP) PO SCH (14:00)
[2018-03-05 14:49] VITALS: BP 102/53; TEMP 98.2
== END 2018-03-05 17:32 | DRG 242 ==
LOC: JER 10:09 → JERBED 11:54 → JICU 12:35 → J5S 03-04 13:35 → J7W 03-05 10:12
PROVIDERS: ADMIT Internal Medicine; ATTEND Nurse Practitioner Family
PROC: 0W3P8ZZ Control Bleeding in Gastrointestinal Tract, Via Natural or Artificial Opening Endoscopic (ICD-10-PCS; 2018-03-01)
PROC: 30233L1 Transfusion of Nonautologous Fresh Plasma into Peripheral Vein, Percutaneous Approach (ICD-10-PCS; 2018-03-01)
PROC: 30233K1 Transfusion of Nonautologous Frozen Plasma into Peripheral Vein, Percutaneous Approach (ICD-10-PCS; 2018-03-01)
PROC: 06L38CZ Occlusion of Esophageal Vein with Extraluminal Device, Via Natural or Artificial Opening Endoscopic (ICD-10-PCS; principal; 2018-03-01 12:00)
DX: I85.01 Esophageal varices with bleeding (principal); F10.20 Alcohol dependence, uncomplicated; F32.9 Major depressive disorder, single episode, unspecified; D62 Acute posthemorrhagic anemia; F17.210 Nicotine dependence, cigarettes, uncomplicated; J44.9 Chronic obstructive pulmonary disease, unspecified; R16.0 Hepatomegaly, not elsewhere classified; D68.9 Coagulation defect, unspecified; D69.6 Thrombocytopenia, unspecified; K70.31 Alcoholic cirrhosis of liver with ascites; K76.6 Portal hypertension; R64 Cachexia; Z68.23 Body mass index [BMI] 23.0-23.9, adult
CPT/HCPCS: 36415; 36430; 71045-TC-FY; 76700-TC; 80048; 80053; 80074; 80076; 80307; 81003; 82105; 82140; 82248; 82607; 82728; 83540; 83550; 83615; 83690; 83735; 84100; 85025; 85027; 85044; 85610; 85730; 86850; 86900; 86901; 87086; 87186; 93005; 93010; 97116-GP; 97161-GP; 99284-25; J7030; P9017

== ENCOUNTER 2018-03-17 16:23 | Emergency (ER) | payer OTHER ==
--- NOTE | 2018-03-17 16:49 | PDOC ---
Rapid Medical Evaluation Time Seen by Provider: 03/17/18 16:47 Medical Evaluation: Allergies Allergy/AdvReac Type Severity Reaction Status Date / Time No Known Allergies Allergy Unverified 03/01/18 10:30 03/17/18 16:48 I have done a brief in-person assessment of this patient. The patient presents with a chief complaint of abscess to right buttocks x 1 week. Seen at Urgent Care, given antibiotics states pain is worse today preventing her from sitting comfortable Pertinent physical exam findings NAD even and unlabored breathing abdomen soft nt I have ordered the following: urine The patient will proceed to the Ed for further evaluation. Discharge Disposition - Referrals Referrals: Sergio Alcazar MD [Primary Care Provider] - - Patient Instructions - Post Discharge Activity
[2018-03-17 17:06] VITALS: BP 119/66; PULSE 81; TEMP 98.4; BMI 25.7
--- NOTE | 2018-03-17 19:06 | PDOC ---
History of Present Illness - General Chief Complaint: Injury Stated Complaint: Injury Time Seen by Provider: 03/17/18 16:47 History Source: Patient, Aws Consultant Used Exam Limitations: Language Barrier - History of Present Illness Initial Comments: 03/17/18 19:01 PT. is a 62 y.o. persian speaking M with recent hospitalization for variceal banding, presents to the ED from [facility] for evaluation of right shoulder fracture. Pt. states that he fell over 3 years ago and has been unable to fix the injury because of his frequent bouts with alcohol abuse. Pt. states that he has constant right arm pain and right elbow pain. Pt. endorses weakness in the right arm and numbness that has been present since his fall. Pt. denies any other complaints at this time. Dr. Negro was consulted in the ED and MRI report from today reviewed. Pt. will need non-emergent right shoulder reconstructive surgery as outpatient. Pt. is stable at this point. Timing/Duration: constant Severity: moderate Modifying Factors: improves with: immobilization, rest Associated Symptoms: denies: denies symptoms Aspirin Received prior to arrival: Yes: no aspirin today Beta Kian Taken at Home(Core Measure): Yes Past History - Travel Traveled outside of the country in the last 30 days: No Close contact w/someone who was outside of country & ill: No - Past Medical History Allergies/Adverse Reactions: Allergies Allergy/AdvReac Type Severity Reaction Status Date / Time No Known Allergies Allergy Unverified 03/01/18 10:30 Home Medications: Ambulatory Orders Folic Acid - 1 mg PO DAILY 03/01/18 Furosemide 40 mg PO DAILY 03/01/18 Magnesium 800 mg PO TID 03/01/18 Multivitamins [Multivit ([facility] Formulary)] 1 tab PO DAILY 03/01/18 Vit B Comp/C/Folic/Iron/Vit E [Vitamin B Complex Tablet] 1 each PO DAILY Albuterol 0.083% Nebulizer Jacqueline [Ventolin 0.083% Nebulizer Soln -] 1 amp NEB QID PRN amp 03/05/18 Lactulose (Oral Use) [Cephulac -] 20 gm PO TID PRN udc 03/05/18 Mag Hydrox/Al Hydrox/Simeth [Mylanta Oral Suspension -] 30 ml PO Q6H cup Nadolol [Corgard -] 20 mg PO DAILY tablet 03/05/18 Pantoprazole Sodium [Protonix -] 40 mg PO BID tablet.ec 03/05/18 Pentoxifylline [Trental -] 400 mg PO TIDCM tablet.er 03/05/18 Spironolactone [Aldactone -] 25 mg PO TID tablet 03/05/18 Thiamine HCl [Vitamin B1 -] 100 mg PO DAILY tablet 03/05/18 COPD: No Liver Disease: Yes (cirrhosis of liver) Lung CA: No (emphysema) - Suicide/Smoking/Psychosocial Hx Smoking History: Never smoked Hx Alcohol Use: Yes (hx) Drug/Substance Use Hx: No Review of Systems - Review of Systems Able to Perform ROS?: Yes Is the patient limited Lao proficient: Yes Constitutional: Yes: Weakness HEENTM: Yes: Symptoms Reported, Difficulty Swallowing (chronic ) Cardiac (ROS): No: Symptoms Reported ABD/GI: Yes: Difficulty Swallowing : No: Burning, Dysuria, Discharge, Frequency, Flank Pain, Hematuria, Incontinence, Pain, Urgency Musculoskeletal: Yes: Back Pain, Joint Pain, Muscle Pain, Muscle Weakness Integumentary: No: Symptoms Reported Neurological: Yes: Numbness, Tingling, Weakness Endocrine: No: Symptoms Reported Hematologic/Lymphatic: No: Symptoms Reported *Physical Exam - Vital Signs Last Vital Signs Temp Pulse Resp BP Pulse Ox 98.4 F 81 18 119/66 98 03/17/18 16:52 03/17/18 16:52 03/17/18 16:52 03/17/18 16:52 03/17/18 18:00 - Physical Exam General Appearance: Yes: Nourished, Disheveled, Mild Distress HEENT: positive: KIRSTIN, Normal ENT Inspection, Normal Voice, Symmetrical, Hearing Grossly Normal. negative: Pharyngeal Erythema, Tonsillar Exudate, Tonsillar Erythema, Nasal Congestion Neck: positive: Trachea midline, Supple. negative: Tender, Lymphadenopathy (R) , Lymphadenopathy (L) Respiratory/Chest: positive: Lungs Clear, Normal Breath Sounds. negative: Respiratory Distress, Accessory Muscle Use, Labored Respiration, Crackles, Rales , Wheezing Cardiovascular: positive: Regular Rhythm, Regular Rate, S1, S2. negative: Edema , JVD, Murmur Vascular Pulses: Dorsalis-Pedis (R): 2+, Doralis-Pedis (L): 2+ Gastrointestinal/Abdominal: positive: Normal Bowel Sounds, Soft. negative: Tender, Protuberent, Guarding, Rebound, Tenderness, Hepatomegaly, Spleenomegaly Rectal Exam: positive: deferred Musculoskeletal: positive: Decreased Range of Motion (unable to lift right arm above parallel from ground ). negative: Normal Inspection, CVA Tenderness Extremity: positive: Normal Capillary Refill, Pedal Edema (trace). negative: Normal Range of Motion (unable to lift right arm above parallel from ground ), Coldness, Swelling, Calf Tenderness Integumentary: positive: Normal Color, Dry, Warm Neurologic: positive: Fully Oriented, Alert, Normal Response, Respond to painful stimul. negative: Motor Strength 5/5 (4/5 on right arm, 5/5 in left arm ) Moderate Sedation - Procedure Monitoring Vital Signs: Procedure Monitoring Vital Signs Temperature 98.4 F 03/17/18 16:52 Pulse Rate 81 03/17/18 16:52 Respiratory Rate 18 03/17/18 16:52 Blood Pressure 119/66 03/17/18 16:52 O2 Sat by Pulse Oximetry (%) 98 03/17/18 18:00 *DC/Admit/Observation/Transfer Diagnosis at time of Disposition: Fracture - Discharge Dispostion Disposition: HOME Condition at time of disposition: Stable Decision to Admit order: No - Referrals Referrals: Sergio Alcazar MD [Primary Care Provider] - Guilherme Negro MD [Staff Physician] - - Patient Instructions Additional Instructions: You came in for evaluation of your right shoulder. We did imaging of your right shoulder and have provided you with a copy of the report. Please follow up with your Orthopedist, Dr. Negro, within 1 week. Please follow up with your Primary Care Physician. Please return to the ER if you are having worsening symptoms including worsening numbness and tingling, shoulder pain or any other concerning symptoms. - Post Discharge Activity
--- NOTE | 2018-03-17 19:14 | PDOC ---
Attending Attestation - HPI HPI: This patient is a 62 year old samoan-speaking male with ETOH abuse & smoker who was BIBA from [facility] for evaluation of chronic right shoulder fracture. Patient states that he fell 3 years ago and have been unable to fix his injury due to his EtOH use. Patient complains of right arm/elbow pain and weakness. Social Hx: chronic EtOH and smoking use. PCP: Sergio Alcazar - Physicial Exam PE: GENERAL: Cachetic, thin. Awake and alert. In no acute distress. HEENT: Normocephalic, atraumatic. PERRLA, EOMI. No conjunctival pallor. Sclerae are non -icteric. NECK: Supple. Full ROM. No lymphadenopathy. CARDIOVASCULAR: Regular rate and rhythm. No murmurs, rubs, or gallops. Distal pulses are 2+ and symmetric. PULMONARY: No evidence of respiratory distress. Lungs clear to auscultation bilaterally. No wheezing, rales or rhonchi. ABDOMINAL: Soft. Non-tender. Non-distended. No rebound or guarding. No organomegaly. Normoactive bowel sounds. MUSCULOSKELETAL Obvious deformity of the right shoulder. Able to raise it forward in front of him but unable to raise above his head. EXTREMITIES: No cyanosis. No clubbing. No edema. No calf tenderness. SKIN: Warm and dry. Normal capillary refill. No rashes. No jaundice. NEUROLOGICAL: Alert, awake, appropriate. No deficits to light touch and temperature in face, upper extremities and lower extremities. No motor deficits in the in face, upper extremities and lower extremities. Normoreflexic in the upper and lower extremities. Normal speech. Toes are downgoing bilaterally. - Medical Decision Making Dr. Negro was consulted in the ED and MRI report from today reviewed. Patient will need outpatient right shoulder reconstructive surgery. MRI of right shoulder: Impression: 1.) Anterior inferior subcoracoid dislocation of the humeral head in relationship to the glenoid with impaction of the humeral head along the anterior glenoid with bone marrow edema of the glenoid consistent with at least a microtrabecular fracture. 2.) Bone marrow edema of the posterior lateral aspect of the scromion which may representa microtrabecular fractureor stress reaction. 3.) Mild tendinosis of the supraspinatus tendon and soft tissue edema of the proximal medial aspect of the supraspinatus muscle which may be due to muscle strain. 4.) Possible biceps tendon tear. 5.) Tear of the anterior labrum. 6.) Subcortical cystic changes of the greater tuberosity and subchondral cysts of the anterior inferior glenoid. Reported By: Alexa Arita MD 03/17/18 1217 <Felicia Pérez - Last Filed: 03/17/18 19:47> - Resident Resident Name: Sammy Garza - ED Attending Attestation I have performed the following: I have examined & evaluated the patient, The case was reviewed & discussed with the resident, I agree w/resident's findings & plan, Exceptions are as noted - HPI HPI: 03/17/18 19:11 62-year-old male presents to the was referred from his [facility] for further evaluation of chronic rt shoulder pain. -he fell 3 years ago and has had limited range of motion of his rt shoulder for 3 years -he had a cxr done here on 03/01/18 when he was admitted for GI bleeding and the shoulder dislocation was noted at that time -he denies any recent trauma - Medical Decision Making 03/17/18 20:20 This case was discussed with orthopedist Dr Negro who was in the emergency department At this time there is no emergent orthopedic surgery to be done for this 3 year old injury. I called [facility] and spoke to the nurse on this pt's floor and explained we were discharging the patient back to the [place] and the shoulder MRI findings that showed chronic shoulder dislocation ,tear of labrum <Maty Whalen - Last Filed: 03/17/18 20:24>
--- NOTE | 2018-03-17 19:43 | PDOC ---
*Physical Exam - Vital Signs Last Vital Signs Temp Pulse Resp BP Pulse Ox 98.4 F 81 18 119/66 98 03/17/18 16:52 03/17/18 16:52 03/17/18 16:52 03/17/18 16:52 03/17/18 18:00 *DC/Admit/Observation/Transfer Diagnosis at time of Disposition: Chronic dislocation of right shoulder Tear of right acetabular labrum Qualifiers: Encounter type: subsequent encounter Qualified Code(s): S73.191D - Other sprain of right hip, subsequent encounter - Discharge Dispostion Disposition: HOME Condition at time of disposition: Stable - Referrals Referrals: Guilherme Negro MD [Staff Physician] - Sergio Alcazar MD [Primary Care Provider] - - Patient Instructions Printed Discharge Instructions: DI for Shoulder Dislocation, Shoulder Labral Tear, DI for Shoulder Tendinopathy Additional Instructions: You came in for evaluation of your right shoulder. We did imaging of your right shoulder and have provided you with a copy of the report. Please follow up with your Orthopedist, Dr. Negro, within 1 week. Please follow up with your Primary Care Physician. Please return to the ER if you are having worsening symptoms including worsening numbness and tingling, shoulder pain or any other concerning symptoms. - Post Discharge Activity
== END 2018-03-17 23:45 | disposition home or self-care (01) ==
LOC: JER 16:23
DX: S42.91XA Fracture of right shoulder girdle, part unspecified, initial encounter for closed fracture (principal); Y93.9 Activity, unspecified; J43.9 Emphysema, unspecified
CPT/HCPCS: 99282-25

== ENCOUNTER 2018-04-11 10:24 | Inpatient (IN) | payer OTHER ==
--- NOTE | 2018-04-11 10:32 | PDOC ---
History of Present Illness - General Chief Complaint: Revisit, Lab Variance Stated Complaint: abnormal labs Time Seen by Provider: 04/11/18 10:32 Past History - Past Medical History Allergies/Adverse Reactions: Allergies Allergy/AdvReac Type Severity Reaction Status Date / Time No Known Allergies Allergy Unverified 03/01/18 10:30 Home Medications: Ambulatory Orders Folic Acid - 1 mg PO DAILY 03/01/18 Furosemide 40 mg PO DAILY 03/01/18 Magnesium 800 mg PO TID 03/01/18 Multivitamins [Multivit ([facility] Formulary)] 1 tab PO DAILY 03/01/18 Vit B Comp/C/Folic/Iron/Vit E [Vitamin B Complex Tablet] 1 each PO DAILY Albuterol 0.083% Nebulizer Jacqueline [Ventolin 0.083% Nebulizer Soln -] 1 amp NEB QID PRN amp 03/05/18 Lactulose (Oral Use) [Cephulac -] 20 gm PO TID PRN udc 03/05/18 Mag Hydrox/Al Hydrox/Simeth [Mylanta Oral Suspension -] 30 ml PO Q6H cup Nadolol [Corgard -] 20 mg PO DAILY tablet 03/05/18 Pantoprazole Sodium [Protonix -] 40 mg PO BID tablet.ec 03/05/18 Pentoxifylline [Trental -] 400 mg PO TIDCM tablet.er 03/05/18 Spironolactone [Aldactone -] 25 mg PO TID tablet 03/05/18 Thiamine HCl [Vitamin B1 -] 100 mg PO DAILY tablet 03/05/18 COPD: No Liver Disease: Yes (cirrhosis of liver) Lung CA: No (emphysema) - Suicide/Smoking/Psychosocial Hx Smoking History: Never smoked Hx Alcohol Use: Yes (hx) Drug/Substance Use Hx: No *DC/Admit/Observation/Transfer - Referrals Referrals: Sergio Alcazar MD [Primary Care Provider] - - Patient Instructions - Post Discharge Activity
[2018-04-11 10:40] VITALS: BMI 23.1
[2018-04-11] MEDS ORDERED: PANTOPRAZOLE SODIUM 40 MG VIAL IVPUSH ONE (10:54)
[2018-04-11] MEDS ORDERED: SODIUM CHLORIDE 0.9% 500 ML INFUS.BAG IV ONE (10:55)
[2018-04-11 11:00] LABS: BASO % 0.6 % (0-2.0); EOS % 1.9 % (0-4.5); HEMATOCRIT 22.2 % (35.4-49); HEMOGLOBIN 7.9 GM/dL (11.7-16.9); LYMPH % 33.1 % (8-40); MCH 37.5 pg (25.7-33.7); MCHC 35.5 g/dl (32.0-35.9); MEAN CELL VOLUME 105.7 fl (80-96); MEAN PLT VOLUME 8.5 fl (7.5-11.1); MONO % 15.9 % (3.8-10.2); NEUT % 48.5 % (42.8-82.8); PLATELET COUNT 91 K/MM3 (134-434); RDW 17.8 % (11.9-15.9); WHITE BLOOD COUNT 6.8 K/mm3 (4.0-10.0)
[2018-04-11] MEDS ORDERED: PANTOPRAZOLE SODIUM 40 MG/100 ML BAG IVPB ONE (11:07)
[2018-04-11 11:17] LABS: INR 1.95 (0.83-1.09); PROTHROMBIN TIME (PATIENT) 23.2 SEC (9.7-13.0)
[2018-04-11 11:27] LABS: ALBUMIN 2.1 g/dl (3.4-5.0); ALK PHOS 122 U/L (45-117); ANION GAP 8 MMOL/L (8-16); BILIRUBIN,TOTAL 5.2 mg/dL (0.2-1); BLOOD UREA NITROGEN 6 mg/dL (7-18); CALCIUM 7.4 mg/dL (8.5-10.1); CHLORIDE 98 mmol/L (98-107); CO2 27 mmol/L (21-32); CREATININE 0.7 mg/dL (0.55-1.3); GLUCOSE,RANDOM 107 mg/dL (74-106); POTASSIUM 3.3 mmol/L (3.5-5.1); SGOT/AST 35 U/L (15-37); SGPT/ALT 13 U/L (13-61); SODIUM 133 mmol/L (136-145); TOT PROT 6.2 g/dl (6.4-8.2)
[2018-04-11] MEDS ORDERED: PANTOPRAZOLE SODIUM 40 MG VIAL ONE (11:31)
[2018-04-11] MEDS: PANTOPRAZOLE SODIUM 80 MG in SODIUM CHLORIDE 100 ML IVPB SCH (11:49)
[2018-04-11 11:57] LABS: ANISOCYTOSIS 1+; MACROCYTOSIS 2+; OVALOCYTE 1+; PLATELET ESTIMATE DECREASED
[2018-04-11] MEDS: OCTREOTIDE ACETATE 1,200 MCG in DEXTROSE 5%-WATER - 488 ML IVPB SCH (12:18)
--- NOTE | 2018-04-11 12:21 | PDOC ---
History of Present Illness - General Chief Complaint: Revisit, Lab Variance Stated Complaint: abnormal labs Time Seen by Provider: 04/11/18 10:32 - History of Present Illness Initial Comments: The patient is a 62M who was sent from [facility] for evaluation of anemia. Reportedly patient's Hgb was 6.5 this morning. Patient initially endorsed 2-3 episodes of bloody vomit today. He reports associated generalized weakness. He denies blood in his stool. Patient also w/ ascites w/ reported tap 5-6 months ago Hx of esophageal varices, cirrhosis Denies recent illness, fevers/chills, HOWARD, vision changes, chest pain, SOB, or changes in sensation/weakness 04/11/18 12:20 Past History - Past Medical History Allergies/Adverse Reactions: Allergies Allergy/AdvReac Type Severity Reaction Status Date / Time No Known Allergies Allergy Unverified 04/11/18 10:36 Home Medications: Ambulatory Orders Folic Acid - 1 mg PO DAILY 03/01/18 Furosemide 40 mg PO DAILY 03/01/18 Magnesium 800 mg PO TID 03/01/18 Multivitamins [Multivit ([facility] Formulary)] 1 tab PO DAILY 03/01/18 Vit B Comp/C/Folic/Iron/Vit E [Vitamin B Complex Tablet] 1 each PO DAILY Albuterol 0.083% Nebulizer Jacqueline [Ventolin 0.083% Nebulizer Soln -] 1 amp NEB QID PRN amp 03/05/18 Lactulose (Oral Use) [Cephulac -] 20 gm PO TID PRN udc 03/05/18 Mag Hydrox/Al Hydrox/Simeth [Mylanta Oral Suspension -] 30 ml PO Q6H cup Nadolol [Corgard -] 20 mg PO DAILY tablet 03/05/18 Pantoprazole Sodium [Protonix -] 40 mg PO BID tablet.ec 03/05/18 Pentoxifylline [Trental -] 400 mg PO TIDCM tablet.er 03/05/18 Spironolactone [Aldactone -] 25 mg PO TID tablet 03/05/18 Thiamine HCl [Vitamin B1 -] 100 mg PO DAILY tablet 03/05/18 COPD: No CHF: No Liver Disease: Yes (cirrhosis of liver) Lung CA: No (emphysema) - Suicide/Smoking/Psychosocial Hx Smoking History: Never smoked Have you smoked in the past 12 months: No Information on smoking cessation initiated: No Hx Alcohol Use: No Drug/Substance Use Hx: No Review of Systems - Review of Systems Able to Perform ROS?: Yes Comments:: GENERAL/CONSTITUTIONAL: No fever or chills HEAD, EYES, EARS, NOSE AND THROAT: No change in vision. No ear pain or discharge. No sore throat CARDIOVASCULAR: No chest pain or shortness of breath RESPIRATORY: Denies cough, hemoptysis GASTROINTESTINAL: +bloody vomit, denies diarrhea or blood in stool GENITOURINARY: No dysuria, frequency, or change in urination MUSCULOSKELETAL: No joint or muscle swelling or pain. No neck or back pain SKIN: No rash NEUROLOGIC: No headache, vertigo, loss of consciousness, or change in strength/ sensation ENDOCRINE: No increased thirst. No abnormal weight change HEMATOLOGIC/LYMPHATIC:+anemia ALLERGIC/IMMUNOLOGIC: No hives or skin allergy 04/12/18 16:46 *Physical Exam - Vital Signs Last Vital Signs Temp Pulse Resp BP Pulse Ox 98.1 F 71 16 110/68 100 04/11/18 10:25 04/11/18 10:25 04/11/18 10:25 04/11/18 10:25 04/11/18 11:11 - Physical Exam Comments: GENERAL: Awake, alert, and fully oriented, in no acute distress HEAD: No signs of trauma, normocephalic, atraumatic EYES: PERRLA, EOMI, sclera icterus, conjunctiva clear ENT: Hearing grossly normal, nares patent, oropharynx clear without exudates. Moist mucosa LUNGS: No distress, speaks full sentences, clear to auscultation bilaterally HEART: Regular rate and rhythm, normal S1 and S2, no murmurs appreciated, peripheral pulses normal and equal bilaterally ABDOMEN: Soft, distended, mild diffuse TTP, normoactive bowel sounds. No guarding, no rebound EXTREMITIES : Normal inspection, Normal range of motion, no edema. No clubbing or cyanosis NEUROLOGICAL: Cranial nerves II through XII grossly intact. Normal speech, normal gait, no focal sensorimotor deficits SKIN: jaundice 04/12/18 16:55 Moderate Sedation - Procedure Monitoring Vital Signs: Procedure Monitoring Vital Signs Temperature 98.1 F 04/11/18 10:25 Pulse Rate 71 02/01/19 10:25 Respiratory Rate 16 04/11/18 10:25 Blood Pressure 110/68 04/11/18 10:25 O2 Sat by Pulse Oximetry (%) 100 04/11/18 11:11 ED Treatment Course - LABORATORY CBC & Chemistry Diagram: 04/12/18 05:25 04/12/18 05:25 - ADDITIONAL ORDERS Additional order review: Laboratory Results 04/11/18 04/11/18 04/11/18 11:00 10:47 10:47 PT with INR 23.20 H INR 1.95 H Sodium 133 L Potassium 3.3 L Chloride 98 Carbon Dioxide 27 Anion Gap 8 BUN 6 L Creatinine 0.7 Creat Clearance w eGFR > 60 Random Glucose 107 H Calcium 7.4 L Total Bilirubin 5.2 H AST 35 ALT 13 Alkaline Phosphatase 122 H Creatine Kinase 36 Troponin I < 0.02 Total Protein 6.2 L Albumin 2.1 L Stool Occult Blood Positive 04/11/18 10:47 RBC 2.10 L MCV 105.7 H MCHC 35.5 RDW 17.8 H MPV 8.5 Neutrophils % 48.5 Lymphocytes % 33.1 Monocytes % 15.9 H Eosinophils % 1.9 Basophils % 0.6 - RADIOLOGY Radiology Studies Ordered: Category Date Time Status CHEST X-RAY PORTABLE* [RAD] Stat Radiology 04/11/18 10:53 Taken - Medications Given in the ED: ED Medications Discontinued Medications Generic Name Dose Route Start Last Admin Trade Name Freq PRN Reason Stop Dose Admin Pantoprazole Sodium 40 mg 04/11/18 10:54 04/11/18 11:10 Protonix Iv IVPUSH 04/11/18 10:55 40 mg ONCE ONE Administration Sodium Chloride 1,000 ml 04/11/18 10:55 04/11/18 11:10 Normal Saline - IV 04/11/18 10:56 1,000 ml ONCE ONE Administration Medical Decision Making - Medical Decision Making The patient is a 62M w/ a history alcoholic ascites, esophageal varices who presents for evaluation of anemia and hematemesis x3 today ED Course CMP, CBC, T/S, UA, UCx ECG CXR Octreotide gtt, Protonix gtt, IVF K 3.3 otherwise lytes wnl Trop I INR 1.95, not on AC No anemia No leukocytosis Dr. Saldana's service made aware of consultation, however he has been in a procedure and will call back once he is finished. Plan for admission for evaluation of GI bleed Dispo: admit 04/11/18 15:02 *DC/Admit/Observation/Transfer Diagnosis at time of Disposition: Alcoholism /alcohol abuse Alcoholic cirrhosis of liver Qualifiers: Ascites presence: with ascites Qualified Code(s): K70.31 - Alcoholic cirrhosis of liver with ascites Hematemesis Qualifiers: Nausea presence: without nausea Qualified Code(s): K92.0 - Hematemesis GI bleed Qualifiers: GI bleed type/associated pathology: unspecified gastrointestinal hemorrhage type Qualified Code(s): K92.2 - Gastrointestinal hemorrhage, unspecified - Discharge Dispostion Condition at time of disposition: Guarded Decision to Admit order: Yes - Referrals - Patient Instructions - Post Discharge Activity
--- NOTE | 2018-04-11 12:26 | PDOC ---
Attending Attestation - Resident Resident Name: Jayden Ortega - HPI HPI: 04/11/18 12:10 Pt presents to the ED after sent in from [place] for decreased hgb. [place] states that his hbg was 6.9 today, down from baseline of 8. Patient is unclear of whether he has had bloody vomit or stool today. He does have a history of chronic liver failure with ascites and jaundice. He states that he has abdominal pain, but that it has been unchanged for 5 months. 04/11/18 12:13 - Physicial Exam PE: 04/11/18 12:26 Agree with resident exam. Patient is jaundiced. He is alert and in no acute distress. He is oriented x 3. Abdomen is distended, but non tender, with no guarding or rebound. - Medical Decision Making 04/11/18 12:27 Pt presents to the ED after sent in from [place] for decreased Hgb. Labs here show Hgb consistent with baseline, but given stool that is positive for occult blood , chronic coagulopathy, and history of variceal bleed, will continue protonix and octreotide drips and admit for serial hgb and possible endoscopy. <Sherly Salguero - Last Filed: 04/11/18 12:10> - ED Attending Attestation I have performed the following: I have examined & evaluated the patient, The case was reviewed & discussed with the resident, I agree w/resident's findings & plan - Medical Decision Making 04/11/18 12:36pm Call placed to Dr. Moreno's office, made aware KESHAV Weston covering cases for admission, resident discussed case. 12:38pm Call placed to Dr. Saldana's office, awaiting call back. 1:54pm Second call placed to Dr. Saldana, made aware he is in a procedure, awaiting call back. <Chevy Preciado - Last Filed: 04/11/18 13:55> Attestations - Attestations 04/11/18 12:37 Documentation prepared by Chevy Preciado, acting as medical grade shoemaker for Sherly Salguero MD. <Chevy Preciado - Last Filed: 04/11/18 13:55>
--- NOTE | 2018-04-11 15:39 | HP ---
Admitting History and Physical - Admission Chief Complaint: low Hg in SNF History of Present Illness: Patient is a 62 y/o male with past medical history of COPD, Cirrhosis, ETOH abuse. Patient presented to [facility] ER from [facility] due to Hg 6.5. Repeat done in ER and Hg 7.9. Patient also reports one episode of vomiting blood. Patient complain of generalized weakness, SOB, and some palpitations. Stool OB positive. CBC ordered stat. Denies rectal bleeding, blood in stool, or further episodes of vomiting. 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 History of Recent Travel: No <Rosa Moffett - Last Filed: 04/11/18 17:48> Home Medications <Rosa Moffett - Last Filed: 04/11/18 17:48> <Paul Moreno - Last Filed: 04/12/18 15:46> - Allergies Allergies/Adverse Reactions: Allergies Allergy/AdvReac Type Severity Reaction Status Date / Time No Known Allergies Allergy Unverified 04/11/18 10:36 - Home Medications Home Medications: Ambulatory Orders Folic Acid - 1 mg PO DAILY 03/01/18 Furosemide 40 mg PO DAILY 03/01/18 Magnesium 800 mg PO TID 03/01/18 Multivitamins [Multivit ([facility] Formulary)] 1 tab PO DAILY 03/01/18 Vit B Comp/C/Folic/Iron/Vit E [Vitamin B Complex Tablet] 1 each PO DAILY Albuterol 0.083% Nebulizer Jacqueline [Ventolin 0.083% Nebulizer Soln -] 1 amp NEB QID PRN amp 03/05/18 Lactulose (Oral Use) [Cephulac -] 20 gm PO TID PRN udc 03/05/18 Mag Hydrox/Al Hydrox/Simeth [Mylanta Oral Suspension -] 30 ml PO Q6H cup Nadolol [Corgard -] 20 mg PO DAILY tablet 03/05/18 Pantoprazole Sodium [Protonix -] 40 mg PO BID tablet.ec 03/05/18 Pentoxifylline [Trental -] 400 mg PO TIDCM tablet.er 03/05/18 Spironolactone [Aldactone -] 25 mg PO TID tablet 03/05/18 Thiamine HCl [Vitamin B1 -] 100 mg PO DAILY tablet 03/05/18 Family Disease History - Family Disease History Family Disease History: Other: Father ( of alcoholism) <Rosa Moffett - Last Filed: 04/11/18 17:48> Review of Systems - Review of Systems Constitutional: reports: Weakness Eyes: reports: No Symptoms HENT: reports: No Symptoms Neck: reports: No Symptoms Cardiovascular: reports: Chest Pain, Palpitations Respiratory: reports: SOB Gastrointestinal: reports: Abdominal Pain, Vomiting Blood Genitourinary: reports: No Symptoms Breasts: reports: No Symptoms Reported Musculoskeletal: reports: Muscle Weakness Neurological: reports: No Symptoms Endocrine: reports: No Symptoms Hematology/Lymphatic: reports: No Symptoms Psychiatric: reports: No Symptoms <Rosa Moffett - Last Filed: 04/11/18 17:48> Physical Examination Vital Signs: Vital Signs Temperature 98.1 F 04/11/18 10:25 Pulse Rate 73 04/11/18 14:54 Respiratory Rate 22 H 04/11/18 14:54 Blood Pressure 96/62 04/11/18 14:54 O2 Sat by Pulse Oximetry (%) 100 04/11/18 14:54 Constitutional: Yes: Calm, Mild Distress Eyes: Yes: PERRL, Other (jaundice conjunctiva) HENT: Yes: Normocephalic Neck: Yes: Supple Cardiovascular: Yes: Regular Rate and Rhythm Respiratory: Yes: Regular, CTA Bilaterally Gastrointestinal: Yes: Soft, Ascites, Tenderness (diffuse) Musculoskeletal: Yes: Muscle Weakness Edema: Yes (L>R) Edema: LLE: 2+, RLE: 1+ Neurological: Yes: Alert, Oriented Psychiatric: Yes: Alert, Oriented Labs: CBC, BMP 04/11/18 10:47 04/11/18 10:47 <Rosa Moffett - Last Filed: 04/11/18 17:48> Vital Signs: Vital Signs Temperature 98.2 F 04/12/18 14:10 Pulse Rate 62 04/12/18 14:10 Respiratory Rate 18 04/12/18 14:10 Blood Pressure 103/56 L 04/12/18 14:10 O2 Sat by Pulse Oximetry (%) 100 04/12/18 09:00 Labs: CBC, BMP 04/12/18 05:25 04/12/18 05:25 <Paul Moreno - Last Filed: 04/12/18 15:46> Imaging - Results Chest X-ray: Report Reviewed <Rosa Moffett - Last Filed: 04/11/18 17:48> Problem List - Problems (1) Alcoholic cirrhosis of liver Assessment/Plan: -alk phosp mildly elev 122 -will continue to monitor LFTs -abdominal US ordered Code(s): K70.30 - ALCOHOLIC CIRRHOSIS OF LIVER WITHOUT ASCITES Qualifiers: Ascites presence: with ascites Qualified Code(s): K70.31 - Alcoholic cirrhosis of liver with ascites (2) GI bleed Assessment/Plan: -GI consult ordered -started on protonix IV and ocreatide IV -monitor H/H daily Code(s): K92.2 - GASTROINTESTINAL HEMORRHAGE, UNSPECIFIED Qualifiers: GI bleed type/associated pathology: unspecified gastrointestinal hemorrhage type Qualified Code(s): K92.2 - Gastrointestinal hemorrhage, unspecified (3) Hematemesis Assessment/Plan: -GI consult -protonix IV and ocreatide IV Code(s): K92.0 - HEMATEMESIS Qualifiers: Nausea presence: without nausea Qualified Code(s): K92.0 - Hematemesis (4) COPD (chronic obstructive pulmonary disease) Assessment/Plan: -pulmonary consult -O2 via NC PRN -keep SpO2 >90% -albuterol neb PRN for SOB Code(s): J44.9 - CHRONIC OBSTRUCTIVE PULMONARY DISEASE, UNSPECIFIED (5) Anemia Assessment/Plan: -will monitor H/H daily -transfuse if Hg <8.0 -stool OB positive -GI consult Code(s): D64.9 - ANEMIA, UNSPECIFIED <Rosa Moffett - Last Filed: 04/11/18 17:48> - Problems (1) Alcoholic cirrhosis of liver Code(s): K70.30 - ALCOHOLIC CIRRHOSIS OF LIVER WITHOUT ASCITES Qualifiers: Ascites presence: with ascites Qualified Code(s): K70.31 - Alcoholic cirrhosis of liver with ascites (2) Alcoholism /alcohol abuse Code(s): F10.20 - ALCOHOL DEPENDENCE, UNCOMPLICATED (3) Anemia Code(s): D64.9 - ANEMIA, UNSPECIFIED (4) GI bleed Code(s): K92.2 - GASTROINTESTINAL HEMORRHAGE, UNSPECIFIED Qualifiers: GI bleed type/associated pathology: unspecified gastrointestinal hemorrhage type Qualified Code(s): K92.2 - Gastrointestinal hemorrhage, unspecified (5) Hematemesis Code(s): K92.0 - HEMATEMESIS Qualifiers: Nausea presence: without nausea Qualified Code(s): K92.0 - Hematemesis (6) COPD (chronic obstructive pulmonary disease) Code(s): J44.9 - CHRONIC OBSTRUCTIVE PULMONARY DISEASE, UNSPECIFIED (7) Hematochezia Code(s): K92.1 - MELENA <Paul Moreno - Last Filed: 04/12/18 15:46> Assessment/Plan AGREE WITH ABOVE PLAN PATIENT SEEN AND EXAMINED <Paul Moreno - Last Filed: 04/12/18 15:46>
[2018-04-11] MEDS ORDERED: ALBUTEROL SO4 0.083% IH SOL 2.5 MG/3 ML VIAL.NEB. NEB PRN (15:55)
[2018-04-11] MEDS ORDERED: LACTULOSE 20 GM/30 ML UDC (FOR ORAL USE ONLY) PO PRN (15:55)
[2018-04-11 16:54] LABS: HEMATOCRIT 22.9 % (35.4-49); MCH 37.6 pg (25.7-33.7); MCHC 35.1 g/dl (32.0-35.9); MEAN CELL VOLUME 107.2 fl (80-96); MEAN PLT VOLUME 8.3 fl (7.5-11.1); PLATELET COUNT 82 K/MM3 (134-434); RBC 2.14 M/mm3 (4.00-5.60); WHITE BLOOD COUNT 6.1 K/mm3 (4.0-10.0)
[2018-04-11 17:26] LABS: ALK PHOS 110 U/L (45-117); ANION GAP 9 MMOL/L (8-16); BLOOD UREA NITROGEN 5 mg/dL (7-18); CALCIUM 7.7 mg/dL (8.5-10.1); CHLORIDE 100 mmol/L (98-107); CO2 26 mmol/L (21-32); CREATININE 0.6 mg/dL (0.55-1.3); GLUCOSE,RANDOM 106 mg/dL (74-106); POTASSIUM 3.5 mmol/L (3.5-5.1); SGOT/AST 36 U/L (15-37); SGPT/ALT 13 U/L (13-61); SODIUM 134 mmol/L (136-145); TOT PROT 6.1 g/dl (6.4-8.2)
[2018-04-11] MEDS: SPIRONOLACTONE 25 MG TABLET (FP) PO SCH (21:23)
[2018-04-11] MEDS ORDERED: MAGNESIUM OXIDE 400 MG TABLET (FP) PO SCH (22:00)
[2018-04-11] MEDS: PENTOXIFYLLINE 400 MG TABLET.ER PO SCH (23:15)
[2018-04-12] MEDS: PANTOPRAZOLE SODIUM 80 MG in SODIUM CHLORIDE 100 ML IVPB SCH ×3 (02:00→21:37)
[2018-04-12] MEDS: SPIRONOLACTONE 25 MG TABLET (FP) PO SCH ×2 (06:38→14:12)
[2018-04-12 08:02] LABS: HEMATOCRIT 20.3 % (35.4-49); MCH 37.1 pg (25.7-33.7); MCHC 34.8 g/dl (32.0-35.9); MEAN CELL VOLUME 106.7 fl (80-96); MEAN PLT VOLUME 9.1 fl (7.5-11.1); PLATELET COUNT 79 K/MM3 (134-434); RDW 18.7 % (11.9-15.9); WHITE BLOOD COUNT 5.9 K/mm3 (4.0-10.0)
[2018-04-12 08:47] LABS: ALBUMIN 1.8 g/dl (3.4-5.0); ALK PHOS 97 U/L (45-117); ANION GAP 10 MMOL/L (8-16); BILIRUBIN,TOTAL 6.6 mg/dL (0.2-1); BLOOD UREA NITROGEN 6 mg/dL (7-18); CALCIUM 7.5 mg/dL (8.5-10.1); CHLORIDE 100 mmol/L (98-107); CO2 23 mmol/L (21-32); CREATININE 0.7 mg/dL (0.55-1.3); GLUCOSE,RANDOM 104 mg/dL (74-106); MAGNESIUM 1.9 mg/dL (1.8-2.4); POTASSIUM 3.5 mmol/L (3.5-5.1); SGOT/AST 33 U/L (15-37); SGPT/ALT 12 U/L (13-61); SODIUM 133 mmol/L (136-145); TOT PROT 5.8 g/dl (6.4-8.2)
[2018-04-12] MEDS: FOLIC ACID 1 MG TABLET (FP) PO SCH (09:50)
[2018-04-12] MEDS: MULTIVITAMINS (DAILY MVI) TABLET (FP) PO SCH (09:50)
[2018-04-12] MEDS: THIAMINE HCL 100 MG TABLET (FP) PO SCH (09:50)
[2018-04-12] MEDS: NADOLOL 40 MG TABLET (FP) PO SCH (09:50)
[2018-04-12] MEDS: PENTOXIFYLLINE 400 MG TABLET.ER PO SCH ×3 (09:51→17:36)
[2018-04-12] MEDS ORDERED: FUROSEMIDE 40 MG TABLET (FP) PO SCH (10:00)
[2018-04-12] MEDS: OCTREOTIDE ACETATE 1,200 MCG in DEXTROSE 5%-WATER - 488 ML IVPB SCH (13:00)
--- NOTE | 2018-04-12 13:13 | CON.PULM ---
Consult Consult Specialty:: PULM/CCM Referred by:: TERRA Reason for Consultation:: COPD - History of Present Illness Chief Complaint: Anemia History of Present Illness: 62 M, COPD, Cirrhosis, and ETOH abuse. Admitted via the ER from [facility] due to Hg 6.5. There is a report of vomiting blood. He does report generalized weakness, SOB, and palpitations. Hemodynamics have remained stable. Non-specific FUNEZ but no CP or overt SOB. 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 History of Recent Travel: No Home Medications - Allergies Allergies/Adverse Reactions: Allergies Allergy/AdvReac Type Severity Reaction Status Date / Time No Known Allergies Allergy Unverified 04/11/18 10:36 - Home Medications Home Medications: Ambulatory Orders Folic Acid - 1 mg PO DAILY 03/01/18 Furosemide 40 mg PO DAILY 03/01/18 Magnesium 800 mg PO TID 03/01/18 Multivitamins [Multivit ([facility] Formulary)] 1 tab PO DAILY 03/01/18 Vit B Comp/C/Folic/Iron/Vit E [Vitamin B Complex Tablet] 1 each PO DAILY Albuterol 0.083% Nebulizer Jacqueline [Ventolin 0.083% Nebulizer Soln -] 1 amp NEB QID PRN amp 03/05/18 Lactulose (Oral Use) [Cephulac -] 20 gm PO TID PRN udc 03/05/18 Mag Hydrox/Al Hydrox/Simeth [Mylanta Oral Suspension -] 30 ml PO Q6H cup Nadolol [Corgard -] 20 mg PO DAILY tablet 03/05/18 Pantoprazole Sodium [Protonix -] 40 mg PO BID tablet.ec 03/05/18 Pentoxifylline [Trental -] 400 mg PO TIDCM tablet.er 03/05/18 Spironolactone [Aldactone -] 25 mg PO TID tablet 03/05/18 Thiamine HCl [Vitamin B1 -] 100 mg PO DAILY tablet 03/05/18 Family Disease History - Family Disease History Family Disease History: Other: Father ( of alcoholism) Review of Systems - Review of Systems Constitutional: denies: Chills, Fever, Night Sweats Eyes: reports: No Symptoms HENT: reports: No Symptoms Neck: reports: No Symptoms Cardiovascular: reports: Shortness of Breath. denies: Chest Pain, Edema, Palpitations Respiratory: reports: Cough, SOB on Exertion, Wheezing. denies: Hemoptysis, PND , Snoring, SOB Gastrointestinal: reports: Nausea, Vomiting, Vomiting Blood Genitourinary: reports: No Symptoms Breasts: reports: No Symptoms Reported Musculoskeletal: reports: No Symptoms Integumentary: reports: No Symptoms Neurological: reports: No Symptoms Endocrine: reports: No Symptoms Hematology/Lymphatic: reports: No Symptoms Psychiatric: reports: No Symptoms Physical Exam Vital Sings: Vital Signs Temperature 98.2 F 04/12/18 09:00 Pulse Rate 71 04/12/18 09:00 Respiratory Rate 18 04/12/18 09:00 Blood Pressure 105/70 04/12/18 09:00 O2 Sat by Pulse Oximetry (%) 100 04/12/18 09:00 Constitutional: Yes: No Distress, Thin Eyes: Yes: Conjunctiva Clear, EOM Intact HENT: Yes: Atraumatic, Normocephalic Neck: Yes: Supple, Trachea Midline Cardiovascular: Yes: Regular Rate and Rhythm Respiratory: Yes: Diminished. No: Accessory Muscle Use, Rales, Rhonchi, SOB, SOB on Exertion, Stridor, Tachypnea, Wheezes ...Inspection: Yes: WNL ...Clubbing: No Gastrointestinal: Yes: Normal Bowel Sounds, Soft Renal/: Yes: WNL Musculoskeletal: Yes: WNL Extremities: Yes: WNL Edema: No Peripheral Pulses WNL: Yes Integumentary: Yes: WNL Neurological: Yes: WNL, Alert, Oriented ...Motor Strength: WNL Psychiatric: Yes: WNL, Alert, Oriented Labs: CBC, BMP 04/12/18 05:25 04/12/18 05:25 Imaging - Results Chest X-ray: Report Reviewed, Image Reviewed Problem List - Problems (1) Alcoholic cirrhosis of liver Code(s): K70.30 - ALCOHOLIC CIRRHOSIS OF LIVER WITHOUT ASCITES Qualifiers: Ascites presence: with ascites Qualified Code(s): K70.31 - Alcoholic cirrhosis of liver with ascites (2) Anemia Code(s): D64.9 - ANEMIA, UNSPECIFIED (3) GI bleed Code(s): K92.2 - GASTROINTESTINAL HEMORRHAGE, UNSPECIFIED Qualifiers: GI bleed type/associated pathology: unspecified gastrointestinal hemorrhage type Qualified Code(s): K92.2 - Gastrointestinal hemorrhage, unspecified (4) COPD (chronic obstructive pulmonary disease) Code(s): J44.9 - CHRONIC OBSTRUCTIVE PULMONARY DISEASE, UNSPECIFIED (5) Chronic dislocation of right shoulder Code(s): M24.411 - RECURRENT DISLOCATION, RIGHT SHOULDER Assessment/Plan COPD is currently stable. No indication for systemic steroids BD TX PRN O2 as needed GI evaluation Normal transfusion thresholds No smoking Thank you. Dr Razo
--- NOTE | 2018-04-12 15:45 | PN ---
Progress Note, Physician Chief Complaint: AWAKE ALERT EVENTS AND NOTES REVIEWED MILD DISTRESS - Current Medication List Current Medications: Active Medications Albuterol Sulfate (Ventolin 0.083% Nebulizer Soln -) 1 amp NEB Q6H PRN PRN Reason: SHORT OF BREATH/WHEEZING Folic Acid (Folic Acid -) 1 mg PO DAILY [facility] Last Admin: 04/12/18 09:50 Dose: 1 mg Furosemide (Lasix -) 40 mg PO DAILY [facility] Last Admin: 04/12/18 09:50 Dose: 40 mg Pantoprazole Sodium 80 mg/ (Sodium Chloride) 100 mls @ 10 mls/hr IVPB Q10H [facility] Last Admin: 04/12/18 13:00 Dose: 10 mls/hr Octreotide Acetate 1,200 mcg/ (Dextrose) 500 mls @ 20.83 mls/hr IVPB ASDIR [facility] Last Admin: 04/12/18 13:00 Dose: 20.83 mls/hr Lactulose (Cephulac (Oral Use)) 20 gm PO TID PRN PRN Reason: CONSTIPATION Magnesium Oxide (Mag-Ox -) 800 mg PO TID [facility] Multivitamins/Minerals/Vitamin C (Tab-A-Vit -) 1 tab PO DAILY [facility] Last Admin: 04/12/18 09:50 Dose: 1 tab Nadolol (Corgard -) 40 mg PO DAILY [facility] Last Admin: 04/12/18 09:50 Dose: 40 mg Pentoxifylline (Trental -) 400 mg PO TIDCM [facility] Last Admin: 04/12/18 12:11 Dose: 400 mg Spironolactone (Aldactone -) 25 mg PO TID [facility] Last Admin: 04/12/18 14:12 Dose: 25 mg Thiamine HCl (Vitamin B1 -) 100 mg PO DAILY [facility] Last Admin: 04/12/18 09:50 Dose: 100 mg - Objective Vital Signs: Vital Signs Temperature 98.2 F 04/12/18 14:10 Pulse Rate 62 04/12/18 14:10 Respiratory Rate 18 04/12/18 14:10 Blood Pressure 103/56 L 04/12/18 14:10 O2 Sat by Pulse Oximetry (%) 100 04/12/18 09:00 Constitutional: Yes: Mild Distress Eyes: Yes: WNL HENT: Yes: WNL Neck: Yes: WNL Cardiovascular: Yes: Regular Rate and Rhythm Respiratory: Yes: WNL Gastrointestinal: Yes: Ascites, Distention Genitourinary: Yes: WNL Musculoskeletal: Yes: Muscle Weakness Extremities: Yes: WNL Edema: No Peripheral Pulses WNL: Yes Integumentary: Yes: WNL Wound/Incision: Yes: Clean/Dry Neurological: Yes: Pre-Existing Deficit ...Motor Strength: LLE, RLE Psychiatric: Yes: WNL Labs: CBC, BMP 04/12/18 05:25 04/12/18 05:25 INR, PTT INR 1.95 (0.83-1.09) H 04/11/18 10:47 Problem List - Problems (1) Alcoholic cirrhosis of liver Code(s): K70.30 - ALCOHOLIC CIRRHOSIS OF LIVER WITHOUT ASCITES Qualifiers: Ascites presence: with ascites Qualified Code(s): K70.31 - Alcoholic cirrhosis of liver with ascites (2) Alcoholism /alcohol abuse Code(s): F10.20 - ALCOHOL DEPENDENCE, UNCOMPLICATED (3) Anemia Code(s): D64.9 - ANEMIA, UNSPECIFIED (4) GI bleed Code(s): K92.2 - GASTROINTESTINAL HEMORRHAGE, UNSPECIFIED Qualifiers: GI bleed type/associated pathology: unspecified gastrointestinal hemorrhage type Qualified Code(s): K92.2 - Gastrointestinal hemorrhage, unspecified (5) Hematemesis Code(s): K92.0 - HEMATEMESIS Qualifiers: Nausea presence: without nausea Qualified Code(s): K92.0 - Hematemesis (6) COPD (chronic obstructive pulmonary disease) Code(s): J44.9 - CHRONIC OBSTRUCTIVE PULMONARY DISEASE, UNSPECIFIED (7) Hematochezia Code(s): K92.1 - MELENA Assessment/Plan IV OCTREOTIDE IV PROTONIX NPO GI EVAL TRANSFUSE PRBC CHECKING LABS DVT PROPHYLAXIS
--- NOTE | 2018-04-12 16:21 | CON.GI ---
Consult Consult Specialty:: GI Referred by:: Dr Moreno - History of Present Illness History of Present Illness: Covering for Dr Magaña 62 y/o male with Alcoholic cirrhosis, s/p rubber band ligation of varices 2017 (by Dr Magaña) was admitted because of severe anemia. His hgb was 6. The patient is poor informant. He could not remeber if he had episodes of melena while in the [place]. There were no reports of melena nor rectal bleeding during his hospital stay. He is receiving IV sandostatin. He also complains of mild confusion and insomnia despite being on Lactulose. He has abdominal pain and distention. 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 History of Recent Travel: No Home Medications - Allergies Allergies/Adverse Reactions: Allergies Allergy/AdvReac Type Severity Reaction Status Date / Time No Known Allergies Allergy Unverified 04/11/18 10:36 - Home Medications Home Medications: Ambulatory Orders Folic Acid - 1 mg PO DAILY 03/01/18 Furosemide 40 mg PO DAILY 03/01/18 Magnesium 800 mg PO TID 03/01/18 Multivitamins [Multivit ([facility] Formulary)] 1 tab PO DAILY 03/01/18 Vit B Comp/C/Folic/Iron/Vit E [Vitamin B Complex Tablet] 1 each PO DAILY Albuterol 0.083% Nebulizer Jacqueline [Ventolin 0.083% Nebulizer Soln -] 1 amp NEB QID PRN amp 03/05/18 Lactulose (Oral Use) [Cephulac -] 20 gm PO TID PRN udc 03/05/18 Mag Hydrox/Al Hydrox/Simeth [Mylanta Oral Suspension -] 30 ml PO Q6H cup Nadolol [Corgard -] 20 mg PO DAILY tablet 03/05/18 Pantoprazole Sodium [Protonix -] 40 mg PO BID tablet.ec 03/05/18 Pentoxifylline [Trental -] 400 mg PO TIDCM tablet.er 03/05/18 Spironolactone [Aldactone -] 25 mg PO TID tablet 03/05/18 Thiamine HCl [Vitamin B1 -] 100 mg PO DAILY tablet 03/05/18 Family Disease History - Family Disease History Family Disease History: Other: Father ( of alcoholism) Review of Systems - Review of Systems Constitutional: denies: Fever, Night Sweats HENT: denies: Difficult Swallowing Neck: denies: Decreased ROM Cardiovascular: denies: Chest Pain Respiratory: denies: SOB Gastrointestinal: denies: Abdominal Pain, Diarrhea, Dysphagia, Indigestion, Melena, Rectal Bleeding, Vomiting, Vomiting Blood Physical Exam-GI Vital Signs: Vital Signs Temperature 98.2 F 04/12/18 14:10 Pulse Rate 62 04/12/18 14:10 Respiratory Rate 18 04/12/18 14:10 Blood Pressure 103/56 L 04/12/18 14:10 O2 Sat by Pulse Oximetry (%) 100 04/12/18 09:00 Constitutional: Yes: Well Nourished Eyes: Yes: Conjunctiva Clear HENT: Yes: Atraumatic Neck: Yes: Supple Cardiovascular: Yes: Regular Rate and Rhythm Respiratory: Yes: CTA Bilaterally Gastrointestinal Inspection: Yes: Ascites, Distention ...Palpate: Yes: Soft. No: Firm/Rigid, Guarding, Hepatomegaly, Mass, Pulsatile Mass, Splenomegaly, Tenderness, Tenderness, Epigastium Labs: CBC, BMP 04/12/18 05:25 04/12/18 05:25 INR, PTT INR 1.95 (0.83-1.09) H 04/11/18 10:47 CBCD WBC 5.9 K/mm3 (4.0-10.0) 04/12/18 05:25 RBC 1.90 M/mm3 (4.00-5.60) L 04/12/18 05:25 Hgb 7.0 GM/dL (11.7-16.9) L 04/12/18 05:25 Hct 20.3 % (35.4-49) L 04/12/18 05:25 MCV 106.7 fl (80-96) H 04/12/18 05:25 MCHC 34.8 g/dl (32.0-35.9) 04/12/18 05:25 RDW 18.7 % (11.9-15.9) H 04/12/18 05:25 Plt Count 79 K/MM3 (134-434) L 04/12/18 05:25 MPV 9.1 fl (7.5-11.1) 04/12/18 05:25 CMP Sodium 133 mmol/L (136-145) L 04/12/18 05:25 Potassium 3.5 mmol/L (3.5-5.1) 04/12/18 05:25 Chloride 100 mmol/L (98-107) 04/12/18 05:25 Carbon Dioxide 23 mmol/L (21-32) 04/12/18 05:25 Anion Gap 10 MMOL/L (8-16) 04/12/18 05:25 BUN 6 mg/dL (7-18) L 04/12/18 05:25 Creatinine 0.7 mg/dL (0.55-1.3) 04/12/18 05:25 Creat Clearance w eGFR > 60 (>60) 04/12/18 05:25 Calcium 7.5 mg/dL (8.5-10.1) L 04/12/18 05:25 Total Bilirubin 6.6 mg/dL (0.2-1) H 04/12/18 05:25 AST 33 U/L (15-37) 04/12/18 05:25 ALT 12 U/L (13-61) L 04/12/18 05:25 Alkaline Phosphatase 97 U/L (45-117) 04/12/18 05:25 Total Protein 5.8 g/dl (6.4-8.2) L 04/12/18 05:25 Albumin 1.8 g/dl (3.4-5.0) L 04/12/18 05:25 Home Medications Medication Instructions Recorded Folic Acid - 1 mg PO DAILY 03/01/18 Furosemide 40 mg PO DAILY 03/01/18 Magnesium 800 mg PO TID 03/01/18 Multivitamins [Multivit ([facility] 1 tab PO DAILY 03/01/18 Formulary)] Vit B Comp/C/Folic/Iron/Vit E 1 each PO DAILY 03/01/18 [Vitamin B Complex Tablet] Albuterol 0.083% Nebulizer Jacqueline 1 amp NEB QID PRN amp 03/05/18 [Ventolin 0.083% Nebulizer Soln -] Lactulose (Oral Use) [Cephulac -] 20 gm PO TID PRN udc 03/05/18 Mag Hydrox/Al Hydrox/Simeth 30 ml PO Q6H cup 03/05/18 [Mylanta Oral Suspension -] Nadolol [Corgard -] 20 mg PO DAILY tablet 03/05/18 Pantoprazole Sodium [Protonix -] 40 mg PO BID tablet.ec 03/05/18 Pentoxifylline [Trental -] 400 mg PO TIDCM tablet.er 03/05/18 Spironolactone [Aldactone -] 25 mg PO TID tablet 03/05/18 Thiamine HCl [Vitamin B1 -] 100 mg PO DAILY tablet 03/05/18 Problem List - Problems (1) Alcoholic cirrhosis of liver Assessment/Plan: r. continue Pentoxyfylline 400mg daily AFP levels every 4 mos and abdominal ultrasound very 6 mos to screen for Hepatoma Code(s): K70.30 - ALCOHOLIC CIRRHOSIS OF LIVER WITHOUT ASCITES Qualifiers: Ascites presence: with ascites Qualified Code(s): K70.31 - Alcoholic cirrhosis of liver with ascites (2) GI bleed Assessment/Plan: occult gi bleeding R> continue IV sandostatin for another 24 hours advance diet as there is no evidence of active bleeding at this time Code(s): K92.2 - GASTROINTESTINAL HEMORRHAGE, UNSPECIFIED Qualifiers: GI bleed type/associated pathology: unspecified gastrointestinal hemorrhage type Qualified Code(s): K92.2 - Gastrointestinal hemorrhage, unspecified (3) Hepatic encephalopathy Assessment/Plan: mild R> Xifaxan 500mg bid Code(s): K72.90 - HEPATIC FAILURE, UNSPECIFIED WITHOUT COMA (4) Ascites Assessment/Plan: tense ascitis R> consider diagnostic and therapeutic paracentesis with IR IV albumin and Lasix as ordered increase Aldactone to 100mg daily Code(s): R18.8 - OTHER ASCITES
--- NOTE | 2018-04-12 16:47 | EKG ---
Test Reason : Blood Pressure : / mmHG Vent. Rate : 070 BPM Atrial Rate : 070 BPM P-R Int : 106 ms QRS Dur : 102 ms QT Int : 474 ms P-R-T Axes : -19 035 040 degrees QTc Int : 511 ms POOR DATA QUALITY, INTERPRETATION MAY BE ADVERSELY AFFECTED SINUS RHYTHM WITH SHORT MI PROLONGED QT ABNORMAL ECG WHEN COMPARED WITH ECG OF 02-MAR-2018 08:31, MI INTERVAL HAS DECREASED Confirmed by Kristal Guzman ([id number]) on 04/12/2018 4:47:42 PM Referred By: Confirmed By:Kristal Guzman
[2018-04-12] MEDS ORDERED: FUROSEMIDE 40 MG/4 ML INJECTABLE VIAL IVPUSH SCH (17:00)
[2018-04-12] MEDS ORDERED: ALBUMIN HUMAN 25% 12.5 GM/50 ML VIAL IVPB SCH (17:00)
[2018-04-12] MEDS ORDERED: MAGNESIUM SULF 50% (8.12 MEQ/2 ML-1 GM VIAL) IVPB ONE (19:45)
[2018-04-12] MEDS: RIFAXIMIN 550 MG TABLET (UD) PO SCH (21:35)
[2018-04-13] MEDS: FUROSEMIDE 40 MG/4 ML INJECTABLE VIAL IVPUSH SCH ×2 (06:10→17:23)
[2018-04-13 07:47] LABS: HEMOGLOBIN 9.6 GM/dL (11.7-16.9); MCH 35.6 pg (25.7-33.7); MCHC 35.4 g/dl (32.0-35.9); MEAN CELL VOLUME 100.6 fl (80-96); MEAN PLT VOLUME 8.4 fl (7.5-11.1); PLATELET COUNT 72 K/MM3 (134-434); RBC 2.69 M/mm3 (4.00-5.60); RDW 21.3 % (11.9-15.9); WHITE BLOOD COUNT 6.2 K/mm3 (4.0-10.0)
[2018-04-13 08:09] LABS: CARCINOEMBRYONIC ANTIGEN 6.2 ng/mL (0.0-4.7)
[2018-04-13 08:20] LABS: ALBUMIN 2.2 g/dl (3.4-5.0); ALK PHOS 90 U/L (45-117); ANION GAP 10 MMOL/L (8-16); BILIRUBIN,TOTAL 10.1 mg/dL (0.2-1); BLOOD UREA NITROGEN 4 mg/dL (7-18); CALCIUM 7.5 mg/dL (8.5-10.1); CHLORIDE 97 mmol/L (98-107); CO2 26 mmol/L (21-32); CREATININE 0.7 mg/dL (0.55-1.3); GLUCOSE,RANDOM 104 mg/dL (74-106); POTASSIUM 3.2 mmol/L (3.5-5.1); SGOT/AST 31 U/L (15-37); SGPT/ALT 12 U/L (13-61); SODIUM 133 mmol/L (136-145)
[2018-04-13] MEDS: PANTOPRAZOLE SODIUM 80 MG in SODIUM CHLORIDE 100 ML IVPB SCH (08:46)
[2018-04-13] MEDS ORDERED: PT OWN MED DRAWER 7, Y5N ONE (09:25)
[2018-04-13] MEDS: FOLIC ACID 1 MG TABLET (FP) PO SCH (09:43)
[2018-04-13] MEDS: RIFAXIMIN 550 MG TABLET (UD) PO SCH (09:43)
[2018-04-13] MEDS: THIAMINE HCL 100 MG TABLET (FP) PO SCH (09:45)
[2018-04-13] MEDS: PENTOXIFYLLINE 400 MG TABLET.ER PO SCH ×3 (09:46→17:23)
[2018-04-13] MEDS: MULTIVITAMINS (DAILY MVI) TABLET (FP) PO SCH (09:46)
[2018-04-13] MEDS: NADOLOL 40 MG TABLET (FP) PO SCH (09:47)
[2018-04-13] MEDS ORDERED: SPIRONOLACTONE 25 MG TABLET (FP) PO SCH (10:00)
[2018-04-13] MEDS ORDERED: POTASSIUM CHLORIDE TABS 10 MEQ TABLET.ER (FP) PO SCH (11:15)
--- NOTE | 2018-04-13 11:22 | DS ---
Physical Examination Vital Signs: Vital Signs Temperature 98.0 F 04/13/18 06:15 Pulse Rate 60 04/13/18 06:15 Respiratory Rate 18 04/13/18 06:15 Blood Pressure 103/54 L 04/13/18 06:15 O2 Sat by Pulse Oximetry (%) 100 04/12/18 21:00 Findings/Remarks: PATIENT WITH ELEVATED TOTAL BILI WILL NEED TO TRANSFERRED TO A TERTIARY CENTER FOR LIVER TRANSPLANT WORKUP AND PARACENTESIS Constitutional: Yes: Mild Distress Cardiovascular: Yes: Regular Rate and Rhythm Respiratory: Yes: Diminished Gastrointestinal: Yes: Ascites, Distention Renal/: Yes: Other Edema: Yes Labs: CBC, BMP 04/13/18 05:50 04/13/18 05:50 Discharge Summary Reason For Visit: GASTROINTESTINAL HEMORRHAGE/ALCOHOLIC CIRRHOSIS Current Active Problems Alcoholic cirrhosis of liver (Acute) Alcoholism /alcohol abuse (Acute) Anemia (Acute) Ascites (Acute) GI bleed (Acute) Hematemesis (Acute) Hepatic encephalopathy (Acute) Procedures: [facility] Course: TRANSFUSED [facility], LABS ELECTROLYTES REPLETED, WILL NEED TERTIARY WORKUP WITH TOTAL BILIRUBIN >10.0 WILL NEED PARACENTESIS Condition: Guarded - Instructions Referrals: Sergio Alcazar MD [Primary Care Provider] - Disposition: TRANSFER ACUTE CARE/OTHER HOSP - Home Medications Comprehensive Discharge Medication List: Ambulatory Orders Folic Acid - 1 mg PO DAILY 03/01/18 Furosemide 40 mg PO DAILY 03/01/18 Magnesium 800 mg PO TID 03/01/18 Multivitamins [Multivit ([facility] Formulary)] 1 tab PO DAILY 03/01/18 Vit B Comp/C/Folic/Iron/Vit E [Vitamin B Complex Tablet] 1 each PO DAILY Albuterol 0.083% Nebulizer Jacqueline [Ventolin 0.083% Nebulizer Soln -] 1 amp NEB QID PRN amp 03/05/18 Lactulose (Oral Use) [Cephulac -] 20 gm PO TID PRN udc 03/05/18 Mag Hydrox/Al Hydrox/Simeth [Mylanta Oral Suspension -] 30 ml PO Q6H cup Nadolol [Corgard -] 20 mg PO DAILY tablet 03/05/18 Pantoprazole Sodium [Protonix -] 40 mg PO BID tablet.ec 03/05/18 Pentoxifylline [Trental -] 400 mg PO TIDCM tablet.er 03/05/18 Spironolactone [Aldactone -] 25 mg PO TID tablet 03/05/18 Thiamine HCl [Vitamin B1 -] 100 mg PO DAILY tablet 03/05/18
--- NOTE | 2018-04-13 12:08 | PN ---
Progress Note (short form) - Note Progress Note: No acute events overnight. Breathing is stable. Intake & Output 04/10/18 04/11/18 04/12/18 04/13/18 23:59 23:59 23:59 23:59 Intake Total 124 824 750 Output Total 1100 Balance 124 -276 750 Weight 135 lb 136 lb 134 lb 12.8 oz Last Vital Signs Temp Pulse Resp BP Pulse Ox 98.0 F 60 18 103/54 L 100 04/13/18 06:15 04/13/18 06:15 04/13/18 06:15 04/13/18 06:15 04/12/18 21:00 Active Medications Albumin Human (Albumin Human 25%) 12.5 gm IVPB Q12H [facility] Stop: 04/14/18 17:31 Albuterol Sulfate (Ventolin 0.083% Nebulizer Soln -) 1 amp NEB Q6H PRN PRN Reason: SHORT OF BREATH/WHEEZING Folic Acid (Folic Acid -) 1 mg PO DAILY [facility] Last Admin: 04/13/18 09:43 Dose: 1 mg Furosemide (Lasix Injection -) 40 mg IVPUSH Q12H ALINA Stop: 04/14/18 18:01 Last Admin: 04/13/18 06:10 Dose: 40 mg Pantoprazole Sodium 80 mg/ (Sodium Chloride) 100 mls @ 10 mls/hr IVPB Q10H [facility] Last Admin: 04/13/18 08:46 Dose: 10 mls/hr Octreotide Acetate 1,200 mcg/ (Dextrose) 500 mls @ 20.83 mls/hr IVPB ASDIR [facility] Last Admin: 04/12/18 13:00 Dose: 20.83 mls/hr Lactulose (Cephulac (Oral Use)) 20 gm PO TID PRN PRN Reason: CONSTIPATION Magnesium Oxide (Mag-Ox -) 800 mg PO TID [facility] Multivitamins/Minerals/Vitamin C (Tab-A-Vit -) 1 tab PO DAILY [facility] Last Admin: 04/13/18 09:46 Dose: 1 tab Nadolol (Corgard -) 40 mg PO DAILY [facility] Last Admin: 04/13/18 09:47 Dose: 40 mg Pentoxifylline (Trental -) 400 mg PO TIDCM [facility] Last Admin: 04/13/18 09:46 Dose: 400 mg Potassium Chloride (K-Dur -) 20 meq PO DAILY [facility] Rifaximin (Xifaxan -) 550 mg PO BID [facility] Last Admin: 04/13/18 09:43 Dose: 550 mg Spironolactone (Aldactone -) 100 mg PO DAILY [facility] Last Admin: 04/13/18 09:45 Dose: 100 mg Thiamine HCl (Vitamin B1 -) 100 mg PO DAILY [facility] Last Admin: 04/13/18 09:45 Dose: 100 mg Constitutional: Yes: No Distress, Thin Eyes: Yes: Conjunctiva Clear, EOM Intact HENT: Yes: Atraumatic, Normocephalic Neck: Yes: Supple, Trachea Midline Cardiovascular: Yes: Regular Rate and Rhythm Respiratory: Yes: Diminished. No: Accessory Muscle Use, Rales, Rhonchi, SOB, SOB on Exertion, Stridor, Tachypnea, Wheezes ...Inspection: Yes: WNL ...Clubbing: No Gastrointestinal: Yes: Normal Bowel Sounds, Soft Renal/: Yes: WNL Musculoskeletal: Yes: WNL Extremities: Yes: WNL Edema: No Peripheral Pulses WNL: Yes Integumentary: Yes: WNL Neurological: Yes: WNL, Alert, Oriented ...Motor Strength: WNL Psychiatric: Yes: WNL, Alert, Oriented Labs: Laboratory Results - last 24 hr 04/11/18 04/11/18 04/13/18 10:47 16:40 05:50 WBC 6.2 RBC 2.69 L Hgb 9.6 L Hct 27.0 L D MCV 100.6 H MCH 35.6 H MCHC 35.4 RDW 21.3 H Plt Count 72 L MPV 8.4 Sodium Potassium Chloride Carbon Dioxide Anion Gap BUN Creatinine Creat Clearance w eGFR Random Glucose Calcium Total Bilirubin AST ALT Alkaline Phosphatase Total Protein Albumin Tumor Marker AFP 3.6 Carcinoembryonic Ag 6.2 H CA 19-9 Antigen 58 H Blood Type O POSITIVE Antibody Screen Negative Crossmatch See Detail 04/13/18 05:50 WBC RBC Hgb Hct MCV MCH MCHC RDW Plt Count MPV Sodium 133 L Potassium 3.2 L Chloride 97 L Carbon Dioxide 26 Anion Gap 10 BUN 4 L Creatinine 0.7 Creat Clearance w eGFR > 60 Random Glucose 104 Calcium 7.5 L Total Bilirubin 10.1 H AST 31 ALT 12 L Alkaline Phosphatase 90 Total Protein 6.0 L Albumin 2.2 L Tumor Marker AFP Carcinoembryonic Ag CA 19-9 Antigen Blood Type Antibody Screen Crossmatch Problem List - Problems (1) Alcoholic cirrhosis of liver Code(s): K70.30 - ALCOHOLIC CIRRHOSIS OF LIVER WITHOUT ASCITES Qualifiers: Ascites presence: with ascites Qualified Code(s): K70.31 - Alcoholic cirrhosis of liver with ascites (2) Anemia Code(s): D64.9 - ANEMIA, UNSPECIFIED (3) GI bleed Code(s): K92.2 - GASTROINTESTINAL HEMORRHAGE, UNSPECIFIED Qualifiers: GI bleed type/associated pathology: unspecified gastrointestinal hemorrhage type Qualified Code(s): K92.2 - Gastrointestinal hemorrhage, unspecified (4) COPD (chronic obstructive pulmonary disease) Code(s): J44.9 - CHRONIC OBSTRUCTIVE PULMONARY DISEASE, UNSPECIFIED (5) Chronic dislocation of right shoulder Code(s): M24.411 - RECURRENT DISLOCATION, RIGHT SHOULDER Assessment/Plan COPD is currently stable. No indication for systemic steroids BD TX PRN O2 as needed No smoking D/C planning Dr Razo Problem List - Problems (1) Alcoholic cirrhosis of liver Code(s): K70.30 - ALCOHOLIC CIRRHOSIS OF LIVER WITHOUT ASCITES Qualifiers: Ascites presence: with ascites Qualified Code(s): K70.31 - Alcoholic cirrhosis of liver with ascites (2) Anemia Code(s): D64.9 - ANEMIA, UNSPECIFIED (3) GI bleed Code(s): K92.2 - GASTROINTESTINAL HEMORRHAGE, UNSPECIFIED Qualifiers: GI bleed type/associated pathology: unspecified gastrointestinal hemorrhage type Qualified Code(s): K92.2 - Gastrointestinal hemorrhage, unspecified (4) COPD (chronic obstructive pulmonary disease) Code(s): J44.9 - CHRONIC OBSTRUCTIVE PULMONARY DISEASE, UNSPECIFIED (5) Chronic dislocation of right shoulder Code(s): M24.411 - RECURRENT DISLOCATION, RIGHT SHOULDER
--- NOTE | 2018-04-13 14:15 | PN ---
GI Progress Note Subjective: coverage for Dr Magaña patient was noted to have worsening Total bilirubin and is accepted for transfer to [facility]. Dr Moreno made arrangements secondary to subacute hepatic failure. No gi bleeding overnight - Objective Vital Signs: Vital Signs Temperature 97.9 F 04/13/18 09:00 Pulse Rate 61 04/13/18 09:00 Respiratory Rate 18 04/13/18 09:00 Blood Pressure 100/53 L 04/13/18 09:00 O2 Sat by Pulse Oximetry (%) 100 04/13/18 09:00 Constitutional: Well Nourished Eyes: Yes: Conjunctiva Clear HENT: Yes: Atraumatic Neck: Yes: Trachea Midline Cardiovascular: Yes: Regular Rate and Rhythm Respiratory: Yes: CTA Bilaterally Gastrointestinal Inspection: Yes: Ascites, Distention ...Palpate: Yes: Hepatomegaly, Soft. No: Firm/Rigid, Guarding, Mass, Pulsatile Mass, Splenomegaly Labs: CBC, BMP 04/13/18 05:50 04/13/18 05:50 INR, PTT INR 1.95 (0.83-1.09) H 04/11/18 10:47 Problem List - Problems (1) Alcoholic cirrhosis of liver Assessment/Plan: associated with subacute hepatic failure,on pentoxyphylline R> transferred to [facility] for further evaluation and management Code(s): K70.30 - ALCOHOLIC CIRRHOSIS OF LIVER WITHOUT ASCITES Qualifiers: Ascites presence: with ascites Qualified Code(s): K70.31 - Alcoholic cirrhosis of liver with ascites (2) GI bleed Code(s): K92.2 - GASTROINTESTINAL HEMORRHAGE, UNSPECIFIED Qualifiers: GI bleed type/associated pathology: unspecified gastrointestinal hemorrhage type Qualified Code(s): K92.2 - Gastrointestinal hemorrhage, unspecified (3) Hepatic encephalopathy Assessment/Plan: stable Code(s): K72.90 - HEPATIC FAILURE, UNSPECIFIED WITHOUT COMA (4) Ascites Code(s): R18.8 - OTHER ASCITES
[2018-04-13 14:24] VITALS: TEMP 98.2
[2018-04-13] MEDS: OCTREOTIDE ACETATE 1,200 MCG in DEXTROSE 5%-WATER - 488 ML IVPB SCH (14:30)
[2018-04-13] MEDS ORDERED: ALBUMIN HUMAN 25% 12.5 GM/50 ML VIAL IVPB SCH (17:30)
[2018-04-13 20:30] VITALS: BP 98/50; PULSE 60
== END 2018-04-13 18:24 | disposition short-term general hospital (02) | DRG 253 ==
LOC: JER 10:24 → JERBED 12:35 → J4W 18:15
PROVIDERS: ADMIT Family Medicine; ATTEND Family Medicine
PROC: 30233N1 Transfusion of Nonautologous Red Blood Cells into Peripheral Vein, Percutaneous Approach (ICD-10-PCS; principal; 2018-04-12)
DX: K92.2 Gastrointestinal hemorrhage, unspecified (principal); D64.9 Anemia, unspecified; K72.00 Acute and subacute hepatic failure without coma; K70.31 Alcoholic cirrhosis of liver with ascites; K92.0 Hematemesis; J44.9 Chronic obstructive pulmonary disease, unspecified; F10.20 Alcohol dependence, uncomplicated; K92.1 Melena
CPT/HCPCS: 36415; 36430; 71045-TC-FY; 76700-TC; 80053; 82105; 82140; 82272; 82378; 82550; 82962; 83735; 84484; 85025; 85027; 85610; 86301; 86850; 86900; 86901; 86922; 93005; 93010; 99285-25; P9038; P9047; P9058

== ENCOUNTER 2018-06-23 07:41 | Day surgery (SDC) | payer OTHER ==
[2018-06-19 18:26] VITALS: BMI 23.1
[2018-06-23 08:03] LABS: BASO % 0.4 % (0-2.0); EOS % 3.5 % (0-4.5); HEMATOCRIT 24.6 % (35.4-49); HEMOGLOBIN 8.5 GM/dL (11.7-16.9); LYMPH % 28.2 % (8-40); MCH 34.1 pg (25.7-33.7); MCHC 34.5 g/dl (32.0-35.9); MEAN CELL VOLUME 98.9 fl (80-96); MEAN PLT VOLUME 7.7 fl (7.5-11.1); MONO % 20.7 % (3.8-10.2); NEUT % 47.2 % (42.8-82.8); PLATELET COUNT 116 K/MM3 (134-434); RBC 2.48 M/mm3 (4.00-5.60); RDW 19.6 % (11.9-15.9); WHITE BLOOD COUNT 5.3 K/mm3 (4.0-10.0)
[2018-06-23 08:28] LABS: INR 1.95 (0.83-1.09); PROTHROMBIN TIME (PATIENT) 23.2 SEC (9.7-13.0)
[2018-06-23 12:05] VITALS: PULSE 84; TEMP 98.1
[2018-06-23 12:28] LABS: ALBUMIN 0.3 g/dl (3.4-5.0)
[2018-06-23 12:30] VITALS: BP 136/72
[2018-06-23 13:04] LABS: PERITONEAL RBC 530 /mm3
[2018-06-23 14:01] LABS: PERITONEAL FLUID LYMPHOCYTE 57 %; PERITONEAL FLUID MACROPHAGE 1 %; PERITONEAL FLUID MONOCYTE 35 %; PERITONEAL FLUID NEUTROPHIL 7 %
[2018-06-23 14:45] LABS: ANISOCYTOSIS 1+; MACROCYTOSIS 1+; OVALOCYTE 1+; PLATELET ESTIMATE DECREASED
--- NOTE | 2018-06-25 17:38 | PATH ---
Cytology Non-Gynecological Report Patient Name: XIMENA SAHU [facility]. Rec. #: [id number] /Age/Gender: 1955 (Age: 62) / M Account: [id number] Location: RADIOLOGY INTER Taken: 06/23/2018 Received: 06/23/2018 Reported: 06/25/2018 Physicians: Corey Awan M.D. Specimen(s) Received A: ABDOMINAL FLUID B: ABDOMINAL FLUID Clinical History Ascites Final Diagnosis A-B. ABDOMINAL FLUID, PARACENTESIS: SATISFACTORY FOR EVALUATION. NO MALIGNANT CELLS IDENTIFIED. MESOTHELIAL CELLS AND LYMPHOCYTES PRESENT. Comment: Recommend correlation with clinical findings and follow up as clinically indicated. Electronically Signed Priscilla Coker M.D. Gross Description A. Approximately 50 cc of yellow fluid received fixed in 50% alcohol. One cytofunnel prepared and Pap stained. One cellblock prepared. B. Approximately 2000 cc of yellow fluid received fresh. One cytofunnel prepared and Pap stained. One cellblock prepared.
[2018-06-27 14:09] LABS: IMIPRAMINE NONE -DETECTED
== END 2018-06-23 12:30 ==
LOC: JRADIR 07:41
PROVIDERS: ATTEND Nurse Practitioner
PROC: 0W9G3ZX Drainage of Peritoneal Cavity, Percutaneous Approach, Diagnostic (ICD-10-PCS; principal; 2018-06-23)
PROC: BW40ZZZ Ultrasonography of Abdomen (ICD-10-PCS; 2018-06-23)
DX: R18.8 Other ascites (principal)
CPT/HCPCS: 36415; 76942-TC; 82040; 82150; 85025; 85610; 87070; 87075; 87102; 87116; 87205; 87206; 87210; 88108; 88305-TC; 89051; G0480

== ENCOUNTER 2018-07-11 10:12 | Inpatient (IN) | payer OTHER ==
[2018-07-11] MEDS ORDERED: PANTOPRAZOLE SODIUM 40 MG VIAL IVPUSH ONE (10:34)
[2018-07-11] MEDS ORDERED: PANTOPRAZOLE SODIUM 80 MG/200 ML BAG IVPB ONE (11:05)
[2018-07-11 11:08] LABS: BASO % 0.6 % (0-2.0); EOS % 4.4 % (0-4.5); HEMATOCRIT 25.3 % (35.4-49); HEMOGLOBIN 8.5 GM/dL (11.7-16.9); LYMPH % 18.5 % (8-40); MCH 34.5 pg (25.7-33.7); MCHC 33.5 g/dl (32.0-35.9); MEAN CELL VOLUME 103.2 fl (80-96); MEAN PLT VOLUME 7.6 fl (7.5-11.1); MONO % 17.9 % (3.8-10.2); NEUT % 58.6 % (42.8-82.8); PLATELET COUNT 108 K/MM3 (134-434); RBC 2.46 M/mm3 (4.00-5.60); RDW 18.2 % (11.9-15.9); WHITE BLOOD COUNT 4.7 K/mm3 (4.0-10.0)
--- NOTE | 2018-07-11 11:29 | PDOC ---
History of Present Illness - General Chief Complaint: Edema Stated Complaint: ABD PAIN Time Seen by Provider: 07/11/18 10:18 History Source: Patient, Care Home Records Exam Limitations: Other (poor historian) - History of Present Illness Initial Comments: 07/11/18 11:24 *Pt is a poor historian Pt is a 62yo M with PMH of Alcoholic Cirrhosis, Ascites, GI bleed, Emphysema BIBA from [facility] for weight gain, lower extremity edema. Pt is complaining of abdominal pain. Pt also states that he has been having on and off vomiting with nausea that is bloody and occasional bloody bowel movements. Also endorses occasional sob, occasional chest pain, occasional headaches. Denies fever, chills, dysuria, hematuria, syncope. Per [place], pt has gained about 30lb over the course of 1 month. Pt gets paracentesis every so often and last one was done 06/23/18 in which 7L was taken out. PMD: Joel Alcazar PMH: paracentesis Meds: see med rec Allergies: nkda Past History - Past Medical History Allergies/Adverse Reactions: Allergies Allergy/AdvReac Type Severity Reaction Status Date / Time No Known Allergies Allergy Unverified 07/11/18 10:22 Home Medications: Ambulatory Orders Vit B Comp/C/Folic/Iron/Vit E [Vitamin B Complex Tablet] 1 each PO DAILY Albuterol 0.083% Nebulizer Jacqueline [Ventolin 0.083% Nebulizer Soln -] 1 amp NEB QID PRN amp 03/05/18 Nadolol [Corgard -] 20 mg PO DAILY tablet 03/05/18 Pantoprazole Sodium [Protonix -] 40 mg PO BID tablet.ec 03/05/18 Spironolactone [Aldactone -] 25 mg PO TID tablet 03/05/18 Folic Acid - 1 mg PO DAILY tablet 04/13/18 Furosemide [Lasix -] 40 mg PO DAILY tablet 04/13/18 Multivitamins [Multivit ([facility] Formulary)] 1 tab PO DAILY tab 04/13/18 Pentoxifylline [Trental -] 400 mg PO TIDCM tablet.er 04/13/18 Rifaximin [Xifaxan -] 550 mg PO BID tablet 04/13/18 Thiamine HCl [Vitamin B1 -] 100 mg PO DAILY tablet 04/13/18 Lactulose (Oral Use) [Cephulac -] 30 gm PO QID PRN 06/23/18 Mag Hydrox/Al Hydrox/Simeth [Mylanta Oral Suspension -] 30 ml PO PRN 06/23/18 Anemia: No Asthma: No Cancer: No Cardiac Disorders: No COPD: Yes (emphysema) CHF: No GI Disorders: (esophageal varices) HTN: Yes Liver Disease: Yes (cirrhosis of liver) Lung CA: No (emphysema) - Suicide/Smoking/Psychosocial Hx Smoking History: Former smoker Have you smoked in the past 12 months: No Information on smoking cessation initiated: No Hx Alcohol Use: No Drug/Substance Use Hx: No Substance Use Type: Alcohol Hx Substance Use Treatment: No Review of Systems - Review of Systems Constitutional: Yes: See HPI. No: Chills, Fever HEENTM: No: Symptoms Reported Respiratory: Yes: Cough, Shortness of Breath. No: Hemoptysis Cardiac (ROS): Yes: Chest Pain, Lightheadedness. No: Palpitations, Syncope ABD/GI: Yes: See HPI, Diarrhea, Nausea, Rectal Bleeding, Vomiting, Abdominal cramping. No: Constipated : No: Burning, Dysuria, Flank Pain Musculoskeletal: No: Symptoms Reported Integumentary: No: Symptoms Reported Neurological: Yes: Headache. No: Numbness, Paresthesia, Tingling, Tremors, Weakness *Physical Exam - Vital Signs Last Vital Signs Temp Pulse Resp BP Pulse Ox 98 F 78 20 148/85 99 07/11/18 10:22 07/11/18 10:55 07/11/18 10:07/11/18 10:22 07/11/18 10:55 - Physical Exam General Appearance: Yes: Nourished, Appropriately Dressed, Mild Distress HEENT: positive: EOMI, KIRSTIN, Scleral Icterus (R), Scleral Icterus (L), Other ( dry mucosa). negative: Photophobia, Tonsillar Exudate Neck: positive: Trachea midline, Supple. negative: Lymphadenopathy (R), Lymphadenopathy (L) Respiratory/Chest: positive: Lungs Clear, Normal Breath Sounds. negative: Labored Respiration, Crackles Cardiovascular: positive: Regular Rhythm, Regular Rate, S1, S2. negative: Edema , JVD, Murmur Vascular Pulses: Carotid (R): 2+, Carotid (L): 2+, Dorsalis-Pedis (R): 1+, Doralis-Pedis (L): 1+ Gastrointestinal/Abdominal: positive: Normal Bowel Sounds, Protuberent, Distended, Other (tense. caput medusa). negative: Guarding, Rebound, Hernia Musculoskeletal: negative: CVA Tenderness Extremity: positive: Normal Capillary Refill, Pedal Edema (2+ to knees), Swelling. negative: Calf Tenderness Integumentary: positive: Dry, Warm, Jaundice Neurologic: positive: director of pulmonary unit II-XII NML intact, Alert, Normal Mood/Affect, Normal Response, Motor Strength 5/5. negative: Fully Oriented (AOx2) ED Treatment Course - LABORATORY CBC & Chemistry Diagram: 07/11/18 10:50 07/11/18 10:50 - ADDITIONAL ORDERS Additional order review: 07/11/18 10:50 RBC 2.46 L MCV 103.2 H MCHC 33.5 RDW 18.2 H MPV 7.6 Neutrophils % 58.6 D Lymphocytes % 18.5 D Monocytes % 17.9 H Eosinophils % 4.4 Basophils % 0.6 - RADIOLOGY Radiology Studies Ordered: Category Date Time Status CHEST X-RAY PORTABLE* [RAD] Stat Radiology 07/11/18 10:39 Ordered - Medications Given in the ED: ED Medications Discontinued Medications Generic Name Dose Route Start Last Admin Trade Name Freq PRN Reason Stop Dose Admin Pantoprazole Sodium 80 mg 07/11/18 10:34 07/11/18 11:22 Protonix Iv IVPUSH 07/11/18 10:35 80 mg ONCE ONE Administration Medical Decision Making - Medical Decision Making 07/11/18 12:57 Pt is a 62yo M with PMH of Alcoholic Cirrhosis, Ascites, GI bleed, Emphysema BIBA from [facility] for weight gain, lower extremity edema. Pt is complaining of abdominal pain. Pt also states that he has been having on and off vomiting with nausea that is bloody and occasional bloody bowel movements. Also endorses occasional sob, occasional chest pain, occasional headaches. Denies fever, chills, dysuria, hematuria, syncope. Per [place], pt has gained about 30lb over the course of 1 month. Pt gets paracentesis every so often and last one was done 06/23/18 in which 7L was taken out. Vitals: wnl PE: distended, tense abdomen with caput medusa, lungs cta. bilateral pitting edema to calf. Ddx includes but not limited to hepatorenal syndrome, ascites, chf, intraperitoneal bleed, aaa, sbo, perforation, ,hepatic encephalopathy most likely ascites due to cirrhosis -labs, ammonia (pt appears more confused than usual). Pt has capacity to make decisions. refusing rectal exam, states that he had one this morning and it is painful. -ekg -cxr pocus showed intraperitioneal fluid. labs at baseline (hgb, cr, trop) spoke to Dr. Shen Alcazar who states pt would need another paracentesis. endorsed to Dr. De Luna group. Admitted for ascites. *DC/Admit/Observation/Transfer Diagnosis at time of Disposition: Alcoholic cirrhosis of liver Qualifiers: Ascites presence: with ascites Qualified Code(s): K70.31 - Alcoholic cirrhosis of liver with ascites Ascites Qualifiers: Ascites type: due to alcoholic cirrhosis Qualified Code(s): K70.31 - Alcoholic cirrhosis of liver with ascites - Discharge Dispostion Condition at time of disposition: Good - Referrals - Patient Instructions - Post Discharge Activity
[2018-07-11 11:46] LABS: ALBUMIN 1.6 g/dl (3.4-5.0); ALK PHOS 155 U/L (45-117); ANION GAP 6 MMOL/L (8-16); BILIRUBIN,TOTAL 4.3 mg/dL (0.2-1); BLOOD UREA NITROGEN 5 mg/dL (7-18); CALCIUM 7.5 mg/dL (8.5-10.1); CHLORIDE 100 mmol/L (98-107); CO2 23 mmol/L (21-32); CREATININE 0.6 mg/dL (0.55-1.3); GLUCOSE,RANDOM 109 mg/dL (74-106); POTASSIUM 3.3 mmol/L (3.5-5.1); SGOT/AST 36 U/L (15-37); SGPT/ALT 15 U/L (13-61); SODIUM 129 mmol/L (136-145); TOT PROT 6.4 g/dl (6.4-8.2)
[2018-07-11 11:47] LABS: LIPASE 135 U/L (73-393)
--- NOTE | 2018-07-11 12:22 | PDOC ---
Documentation entered by Shaina Isaac SCRIBE, acting as scribe for Sherly Salguero MD. Sherly Salguero MD: This documentation has been prepared by the Marlin kuo Daisy, SCRIBE, under my direction and personally reviewed by me in its entirety. I confirm that the documentation accurately reflects all work, treatment, procedures, and medical decision making performed by me. Attending Attestation - Resident Resident Name: Sa Subhaira - ED Attending Attestation I have performed the following: I have examined & evaluated the patient, The case was reviewed & discussed with the resident, I agree w/resident's findings & plan - HPI HPI: 07/11/18 11:06 The patient is a 62M with a PMH of esophgeal varices and cirrhosis who was sent from [facility] for evaluation of distended abdomen and fever. Patient presented on 06/23/18 with large symptomatic ascites and had a paracentesis done , successfully removing 7000cc of fluid. Denies recent illness, HOWARD, vision changes, chest pain, SOB, or changes in sensation/weakness. Allergies: NKDA Social Hx: EtOH abuse. Denies drug or cigarette use. Surgeries: Denies - Physicial Exam PE: 07/11/18 11:19 ADULT EXAM GENERAL: Awake, alert and in mild distress. ABDOMEN:(+) Abdomen is distended, tense but no tenderness. EXTREMITIES: (+) Legs with 2+ pitting edema to the knees. No clubbing or cyanosis. No cords, erythema, or tenderness NEUROLOGICAL: (+) Oriented x3, but appears slightly confused SKIN: Warm, Dry, normal turgor, no rashes or lesions noted. - Medical Decision Making 07/11/18 12:17 Patient seen and examined by me. Agree with resident history and physical, assesmment and plan. Pt presents to the ED after sent in from [facility] for increasing abdominal girth and increased fluid retention in his legs. Long standing history of chronic liver failure with chronic jaundice and ascites. Last paracentesis by Dr. Goldstein in June with 7 L drained. No abdominal tenderness suggestive of SBP. Will check labs and admit to medicine for continued management at paracentesis by IR. 07/11/18 13:[address] Lorenzo for admission. 07/11/18 14:[address] Lorenzo for admission.
--- NOTE | 2018-07-11 15:02 | HP ---
Admitting History and Physical - Primary Care Physician PCP: Sergio Alcazar E - Admission Chief Complaint: sent in for distended abdomen History of Present Illness: Pt is a 62yo M with PMH of Alcoholic Cirrhosis, Ascites, GI bleed, Emphysema BIBA from [facility] for weight gain, lower extremity edema. Pt is complaining of abdominal pain. Pt also states that he has been having on and off vomiting with nausea that is bloody and occasional bloody bowel movements. Also endorses occasional sob, occasional chest pain, occasional headaches. Denies fever, chills, dysuria, hematuria, syncope. Per [place], pt has gained about 30lb over the course of 1 month. Patient last paracentesis was done 06/23/18 in which 7L was taken out. 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 History of Recent Travel: No Home Medications - Allergies Allergies/Adverse Reactions: Allergies Allergy/AdvReac Type Severity Reaction Status Date / Time No Known Allergies Allergy Unverified 07/11/18 10:22 - Home Medications Home Medications: Ambulatory Orders Vit B Comp/C/Folic/Iron/Vit E [Vitamin B Complex Tablet] 1 each PO DAILY Albuterol 0.083% Nebulizer Jacqueline [Ventolin 0.083% Nebulizer Soln -] 1 amp NEB QID PRN amp 03/05/18 Nadolol [Corgard -] 20 mg PO DAILY tablet 03/05/18 Pantoprazole Sodium [Protonix -] 40 mg PO BID tablet.ec 03/05/18 Spironolactone [Aldactone -] 25 mg PO TID tablet 03/05/18 Folic Acid - 1 mg PO DAILY tablet 04/13/18 Furosemide [Lasix -] 40 mg PO DAILY tablet 04/13/18 Multivitamins [Multivit ([facility] Formul[facility])] 1 tab PO DAILY tab 04/13/18 Pentoxifylline [Trental -] 400 mg PO TIDCM tablet.er 04/13/18 Rifaximin [Xifaxan -] 550 mg PO BID tablet 04/13/18 Thiamine HCl [Vitamin B1 -] 100 mg PO DAILY tablet 04/13/18 Lactulose (Oral Use) [Cephulac -] 30 gm PO QID PRN 06/23/18 Mag Hydrox/Al Hydrox/Simeth [Mylanta Oral Suspension -] 30 ml PO PRN 06/23/18 Family Disease History - Family Disease History Family Disease History: Other: Father ( of alcoholism) Review of Systems - Review of Systems Gastrointestinal: reports: Abdominal Pain Physical Examination Vital Signs: Vital Signs Temperature 98 F 07/11/18 10:22 Pulse Rate 78 07/11/18 10:55 Respiratory Rate 20 07/11/18 10:22 Blood Pressure 148/85 07/11/18 10:22 O2 Sat by Pulse Oximetry (%) 99 07/11/18 10:55 Constitutional: Yes: Mild Distress Cardiovascular: Yes: Regular Rate and Rhythm, S1, S2 Respiratory: Yes: CTA Bilaterally Gastrointestinal: Yes: Ascites, Distention Edema: Yes Edema: LLE: 2+, RLE: 2+ Neurological: Yes: Alert, Oriented Labs: CBC, BMP 07/11/18 10:50 07/11/18 10:50 Problem List - Problems (1) Ascites Assessment/Plan: IR for paracentesis ultrasoundof abodmen lasix iv bid, gi consult renal consult Code(s): R18.8 - OTHER ASCITES (2) GI bleed Assessment/Plan: NPO- bloody emesis iv ppi octreotide gi consult last esopphageal varices banding was in february trend h/h Code(s): K92.2 - GASTROINTESTINAL HEMORRHAGE, UNSPECIFIED Qualifiers: GI bleed type/associated pathology: unspecified gastrointestinal hemorrhage type Qualified Code(s): K92.2 - Gastrointestinal hemorrhage, unspecified (3) Alcoholic cirrhosis of liver Assessment/Plan: gi consult trend ammonia npo for now once cleared by GI will restart rifaximin and lactulose and aldactone Code(s): K70.30 - ALCOHOLIC CIRRHOSIS OF LIVER WITHOUT ASCITES Qualifiers: Ascites presence: with ascites Qualified Code(s): K70.31 - Alcoholic cirrhosis of liver with ascites
[2018-07-11] MEDS ORDERED: FUROSEMIDE 40 MG/4 ML INJECTABLE VIAL IVPUSH ONE ×2 (15:20→20:45)
[2018-07-11] MEDS ORDERED: ALBUMIN HUMAN 25% 12.5 GM/50 ML VIAL IVPB ONE (16:45)
--- NOTE | 2018-07-11 17:04 | CONSULT ---
Consult Consult Specialty:: Nephrology Reason for Consultation:: hyponatremia - History of Present Illness Chief Complaint: sent in for ascites History of Present Illness: Pt is a 62 year old female with pmhx of alcoholic cirrhosis, ascites, GI bleed and emphysema who was sent in for fluid overload. He complains of increased ascites. He denies shortness of breath. He denies history of CKD. He has had about a 30 pound weight gain in the last month. His last paracentesis was on and he had about 7 liters removed. He was found to be hyponatremic and I was called to evaluate him. He could not quantify the amount of water he drinking daiy. 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 History of Recent Travel: No Home Medications - Allergies Allergies/Adverse Reactions: Allergies Allergy/AdvReac Type Severity Reaction Status Date / Time No Known Allergies Allergy Unverified 07/11/18 10:22 - Home Medications Home Medications: Ambulatory Orders Vit B Comp/C/Folic/Iron/Vit E [Vitamin B Complex Tablet] 1 each PO DAILY Albuterol 0.083% Nebulizer Jacqueline [Ventolin 0.083% Nebulizer Soln -] 1 amp NEB QID PRN amp 03/05/18 Nadolol [Corgard -] 20 mg PO DAILY tablet 03/05/18 Pantoprazole Sodium [Protonix -] 40 mg PO BID tablet.ec 03/05/18 Spironolactone [Aldactone -] 25 mg PO TID tablet 03/05/18 Folic Acid - 1 mg PO DAILY tablet 04/13/18 Furosemide [Lasix -] 40 mg PO DAILY tablet 04/13/18 Multivitamins [Multivit ([facility] Formul[facility])] 1 tab PO DAILY tab 04/13/18 Pentoxifylline [Trental -] 400 mg PO TIDCM tablet.er 04/13/18 Rifaximin [Xifaxan -] 550 mg PO BID tablet 04/13/18 Thiamine HCl [Vitamin B1 -] 100 mg PO DAILY tablet 04/13/18 Lactulose (Oral Use) [Cephulac -] 30 gm PO QID PRN 06/23/18 Mag Hydrox/Al Hydrox/Simeth [Mylanta Oral Suspension -] 30 ml PO PRN 06/23/18 Family Disease History - Family Disease History Family Disease History: Other: Father ( of alcoholism) Review of Systems - Review of Systems Constitutional: reports: Malaise Eyes: reports: No Symptoms, Floaters HENT: reports: No Symptoms Neck: reports: No Symptoms Cardiovascular: reports: Edema, Shortness of Breath Respiratory: reports: SOB on Exertion Gastrointestinal: reports: Other (ascites) Genitourinary: reports: No Symptoms Musculoskeletal: reports: No Symptoms Neurological: reports: No Symptoms Endocrine: reports: No Symptoms Hematology/Lymphatic: reports: No Symptoms Psychiatric: reports: No Symptoms Physical Exam Vital Signs: Vital Signs Temperature 98.0 F 07/11/18 16:35 Pulse Rate 74 07/11/18 16:35 Respiratory Rate 18 07/11/18 16:35 Blood Pressure 133/76 07/11/18 16:35 O2 Sat by Pulse Oximetry (%) 95 07/11/18 15:11 Constitutional: Yes: Calm Eyes: Yes: Conjunctiva Clear HENT: Yes: Atraumatic Cardiovascular: Yes: S1, S2 Respiratory: Yes: CTA Bilaterally Gastrointestinal: Yes: Ascites, Distention Renal/: Yes: WNL Edema: Yes Edema: LLE: 1+, RLE: 1+ Neurological: Yes: Oriented Psychiatric: Yes: Oriented Labs: CBC, BMP 07/11/18 10:50 07/11/18 10:50 Laboratory Tests 07/11/18 07/11/18 10:50 10:50 Hgb 8.5 L Sodium 129 L Potassium 3.3 L Creatinine 0.6 Imaging - Results Ultrasound: Report Reviewed Problem List - Problems (1) Hyponatremia Code(s): E87.1 - HYPO-OSMOLALITY AND HYPONATREMIA (2) Alcoholic cirrhosis of liver Code(s): K70.30 - ALCOHOLIC CIRRHOSIS OF LIVER WITHOUT ASCITES Qualifiers: Ascites presence: with ascites Qualified Code(s): K70.31 - Alcoholic cirrhosis of liver with ascites (3) Ascites Code(s): R18.8 - OTHER ASCITES Assessment/Plan Current Medications Generic Name Dose Route Start Last Admin Trade Name Zenon PRN Reason Stop Dose Admin Furosemide 40 mg 07/12/18 06:00 Lasix Injection - IVPUSH BID@0600,1400 ALINA Potassium Chloride 10 meq in 100 mls @ 100 mls/hr 07/11/18 15:30 Potassium Chloride 10 Meq Premix Ivpb - IVPB 07/11/18 18:29 Q60M ALINA Pantoprazole Sodium 80 mg/ 100 mls @ 10 mls/hr 07/11/18 15:30 Sodium Chloride IVPB Q10H ALINA 8 MG/HR Octreotide Acetate 1,200 mcg/ 500 mls @ 20.83 mls/hr 07/11/18 15:30 Dextrose IVPB ASDIR ALINA 50 MCG/HR Impression 1. hyponatremia 2. hypokalemia 3. liver cirrhosis 4. fluid overload 5. ascites Plan - GI for paracentesis - discussed with medical team - replace potassium - check urine and serum osm - check urine sodium - cont diuretics, pt fluid overloaded - check mag level - add aldactone
[2018-07-11] MEDS: PANTOPRAZOLE SODIUM 80 MG in SODIUM CHLORIDE 100 ML IVPB SCH (20:51)
[2018-07-11] MEDS: KCL 10 MEQ IVPB 10 MEQ/100 ML INFUS.BAG IVPB SCH ×2 (22:25→23:42)
[2018-07-12] MEDS: KCL 10 MEQ IVPB 10 MEQ/100 ML INFUS.BAG IVPB SCH ×4 (00:42→21:00)
[2018-07-12] MEDS: OCTREOTIDE ACETATE 1,200 MCG in DEXTROSE 5%-WATER - 488 ML IVPB SCH ×2 (02:39→16:28)
[2018-07-12] MEDS: PANTOPRAZOLE SODIUM 80 MG in SODIUM CHLORIDE 100 ML IVPB SCH ×5 (02:39→23:19)
[2018-07-12] MEDS ORDERED: FUROSEMIDE 40 MG/4 ML INJECTABLE VIAL IVPUSH SCH (06:00)
[2018-07-12 08:07] LABS: HEMATOCRIT 24.6 % (35.4-49); HEMOGLOBIN 8.4 GM/dL (11.7-16.9); MCH 34.9 pg (25.7-33.7); MCHC 34.3 g/dl (32.0-35.9); MEAN CELL VOLUME 101.7 fl (80-96); MEAN PLT VOLUME 7.8 fl (7.5-11.1); PLATELET COUNT 108 K/MM3 (134-434); RBC 2.42 M/mm3 (4.00-5.60); RDW 18.3 % (11.9-15.9); WHITE BLOOD COUNT 4.2 K/mm3 (4.0-10.0)
[2018-07-12 08:20] LABS: INR 1.99 (0.83-1.09); PROTHROMBIN TIME (PATIENT) 23.7 SEC (9.7-13.0)
[2018-07-12 08:29] LABS: ALBUMIN 1.9 g/dl (3.4-5.0); ALK PHOS 108 U/L (45-117); ANION GAP 8 MMOL/L (8-16); BILIRUBIN,TOTAL 6.7 mg/dL (0.2-1); BLOOD UREA NITROGEN 6 mg/dL (7-18); CALCIUM 7.9 mg/dL (8.5-10.1); CHLORIDE 100 mmol/L (98-107); CO2 24 mmol/L (21-32); CREATININE 0.7 mg/dL (0.55-1.3); GLUCOSE,RANDOM 72 mg/dL (74-106); MAGNESIUM 1.5 mg/dL (1.8-2.4); PHOSPHOROUS 4.1 mg/dL (2.5-4.9); POTASSIUM 3.2 mmol/L (3.5-5.1); SGOT/AST 29 U/L (15-37); SGPT/ALT 14 U/L (13-61); SODIUM 132 mmol/L (136-145); TOT PROT 6.2 g/dl (6.4-8.2)
--- NOTE | 2018-07-12 08:29 | EKG ---
Test Reason : Blood Pressure : / mmHG Vent. Rate : 078 BPM Atrial Rate : 078 BPM P-R Int : 192 ms QRS Dur : 088 ms QT Int : 414 ms P-R-T Axes : 000 051 049 degrees QTc Int : 471 ms POOR DATA QUALITY, INTERPRETATION MAY BE ADVERSELY AFFECTED NORMAL SINUS RHYTHM NORMAL ECG WHEN COMPARED WITH ECG OF 11-APR-2018 10:59, NO SIGNIFICANT CHANGE WAS FOUND Confirmed by TORIE BUTTS, MIGUELINA ([id number]) on 07/12/2018 8:28:51 AM Referred By: Confirmed By:MIGUELINA VOGT MD
[2018-07-12 08:59] LABS: PH,URINE 7.5 (5.0-8.0); URINE APPEARANCE Clear; URINE BILIRUBIN Negative (NEGATIVE); URINE COLOR Yellow; URINE GLUCOSE (UA) Negative (NEGATIVE); URINE KETONE Negative (NEGATIVE); URINE LEUK ESTERASE Negative (NEGATIVE); URINE NITRITE Negative (NEGATIVE); URINE PROTEIN Negative (NEGATIVE); URINE UROBILINOGEN 0.2 mg/dL (0.2-1.0)
[2018-07-12] MEDS ORDERED: SPIRONOLACTONE 25 MG TABLET (FP) PO SCH ×2 (10:00→16:07)
--- NOTE | 2018-07-12 12:45 | PN ---
Progress Note, Physician - Current Medication List Current Medications: Active Medications Furosemide (Lasix Injection -) 40 mg IVPUSH BID@0600,1400 [facility] Last Admin: 07/12/18 05:43 Dose: 40 mg Pantoprazole Sodium 80 mg/ (Sodium Chloride) 100 mls @ 10 mls/hr IVPB Q10H [facility] Last Admin: 07/12/18 11:31 Dose: Not Given Octreotide Acetate 1,200 mcg/ (Dextrose) 500 mls @ 20.83 mls/hr IVPB ASDIR [facility] Last Admin: 07/12/18 02:39 Dose: 20.83 mls/hr Spironolactone (Aldactone -) 25 mg PO DAILY [facility] Last Admin: 07/12/18 11:30 Dose: 25 mg - Objective Vital Signs: Vital Signs Temperature 98 F 07/12/18 11:37 Pulse Rate 79 07/12/18 11:37 Respiratory Rate 18 07/12/18 11:37 Blood Pressure 118/71 07/12/18 11:37 O2 Sat by Pulse Oximetry (%) 95 07/11/18 21:00 Cardiovascular: Yes: S1, S2 Respiratory: Yes: Regular, CTA Bilaterally Gastrointestinal: Yes: Normal Bowel Sounds, Soft, Ascites, Distention Labs: CBC, BMP 07/12/18 06:00 07/12/18 06:00 INR, PTT INR 1.99 (0.83-1.09) H 07/12/18 06:00 Assessment/Plan - Problems (1) Ascites Assessment/Plan: IR for paracentesis ultrasound of abdomen Increase lasix 60 iv bid, gi consult renal consult Code(s): R18.8 - OTHER ASCITES (2) GI bleed Assessment/Plan: NPO- bloody emesis iv ppi octreotide gi consult last esopphageal varices banding was in February trend h/h Code(s): K92.2 - GASTROINTESTINAL HEMORRHAGE, UNSPECIFIED Qualifiers: GI bleed type/associated pathology: unspecified gastrointestinal hemorrhage type Qualified Code(s): K92.2 - Gastrointestinal hemorrhage, unspecified (3) Alcoholic cirrhosis of liver Assessment/Plan: gi consult trend ammonia npo for now once cleared by GI will restart rifaximin and lactulose and aldactone Code(s): K70.30 - ALCOHOLIC CIRRHOSIS OF LIVER WITHOUT ASCITES Qualifiers: Ascites presence: with ascites Qualified Code(s): K70.31 - Alcoholic cirrhosis of liver with ascites
--- NOTE | 2018-07-12 15:52 | PN.GI ---
GI Progress Note Subjective: Patient recently discharged. He was admitted because of uncontrolled ascitis secondary to alcoholic cirrhosis and severe hyponatremia. He denies melena, rectal bleeding and weight loss - Objective Vital Signs: Vital Signs Temperature 98 F 07/12/18 11:37 Pulse Rate 79 07/12/18 11:37 Respiratory Rate 18 07/12/18 11:37 Blood Pressure 118/71 07/12/18 11:37 O2 Sat by Pulse Oximetry (%) 95 07/11/18 21:00 Constitutional: Well Nourished Eyes: Yes: Sclera Icterus HENT: Yes: Atraumatic Neck: Yes: Supple Cardiovascular: Yes: Regular Rate and Rhythm Respiratory: Yes: CTA Bilaterally Gastrointestinal Inspection: Yes: Ascites ...Palpate: Yes: Soft. No: Firm/Rigid, Hepatomegaly, Mass, Pulsatile Mass, Splenomegaly, Tenderness ...Percussion: Yes: Tympanitic Labs: CBC, BMP 07/12/18 06:00 07/12/18 06:00 INR, PTT INR 1.99 (0.83-1.09) H 07/12/18 06:00 Problem List - Problems (1) Alcoholic cirrhosis of liver Assessment/Plan: R> continue Nadolol Xifaxan 550mg bid Code(s): K70.30 - ALCOHOLIC CIRRHOSIS OF LIVER WITHOUT ASCITES Qualifiers: Ascites presence: with ascites Qualified Code(s): K70.31 - Alcoholic cirrhosis of liver with ascites (2) Ascites Code(s): R18.8 - OTHER ASCITES Qualifiers: Ascites type: due to alcoholic cirrhosis Qualified Code(s): K70.31 - Alcoholic cirrhosis of liver with ascites (3) Hyponatremia Code(s): E87.1 - HYPO-OSMOLALITY AND HYPONATREMIA (4) Anemia Assessment/Plan: near baseline R> sandostatin for 48 hours resume Nadolol Code(s): D64.9 - ANEMIA, UNSPECIFIED
[2018-07-12] MEDS ORDERED: POTASSIUM CHLORIDE ORAL LIQUID 20 MEQ/15 ML PO ONE (16:05)
--- NOTE | 2018-07-12 16:05 | PN ---
Progress Note, Physician History of Present Illness: Pt seen and examined at bedside. He denies shortness of breath. - Current Medication List Current Medications: Active Medications Albumin Human (Albumin Human 25%) 12.5 gm IVPB Q30M [facility] Stop: 07/14/18 16:31 Furosemide (Lasix Injection -) 60 mg IVPUSH BID@0600,1400 ALINA Pantoprazole Sodium 80 mg/ (Sodium Chloride) 100 mls @ 10 mls/hr IVPB Q10H [facility] Last Admin: 07/12/18 14:30 Dose: 10 mls/hr Octreotide Acetate 1,200 mcg/ (Dextrose) 500 mls @ 20.83 mls/hr IVPB ASDIR [facility] Last Admin: 07/12/18 02:39 Dose: 20.83 mls/hr Nadolol (Corgard -) 20 mg PO DAILY [facility]INA Rifaximin (Xifaxan -) 550 mg PO BID ALINA Spironolactone (Aldactone -) 25 mg PO DAILY [facility] Last Admin: 07/12/18 11:30 Dose: 25 mg - Objective Vital Signs: Vital Signs Temperature 97.9 F 07/12/18 14:45 Pulse Rate 84 07/12/18 14:45 Respiratory Rate 18 07/12/18 14:45 Blood Pressure 104/63 07/12/18 14:45 O2 Sat by Pulse Oximetry (%) 95 07/11/18 21:00 Constitutional: Yes: Calm HENT: Yes: Atraumatic Cardiovascular: Yes: S1, S2 Respiratory: Yes: CTA Bilaterally Gastrointestinal: Yes: Ascites, Distention Genitourinary: Yes: WNL Musculoskeletal: Yes: WNL Edema: No Neurological: Yes: Oriented Psychiatric: Yes: Oriented Labs: CBC, BMP 07/12/18 06:00 07/12/18 06:00 INR, PTT INR 1.99 (0.83-1.09) H 07/12/18 06:00 Problem List - Problems (1) Hyponatremia Code(s): E87.1 - HYPO-OSMOLALITY AND HYPONATREMIA (2) Alcoholic cirrhosis of liver Code(s): K70.30 - ALCOHOLIC CIRRHOSIS OF LIVER WITHOUT ASCITES Qualifiers: Ascites presence: with ascites Qualified Code(s): K70.31 - Alcoholic cirrhosis of liver with ascites (3) Ascites Code(s): R18.8 - OTHER ASCITES Qualifiers: Ascites type: due to alcoholic cirrhosis Qualified Code(s): K70.31 - Alcoholic cirrhosis of liver with ascites Assessment/Plan Current Medications Generic Name Dose Route Start Last Admin Trade Name Zenon PRN Reason Stop Dose Admin Albumin Human 12.5 gm 07/14/18 15:00 Albumin Human 25% IVPB 07/14/18 16:31 Q30M ALINA Furosemide 60 mg 07/12/18 12:46 Lasix Injection - IVPUSH BID@0600,1400 ALINA Pantoprazole Sodium 80 mg/ 100 mls @ 10 mls/hr 07/11/18 15:30 07/12/18 14:30 Sodium Chloride IVPB 10 mls/hr Q10H ALINA Administration 8 MG/HR Octreotide Acetate 1,200 mcg/ 500 mls @ 20.83 mls/hr 07/11/18 15:30 07/12/18 02:39 Dextrose IVPB 20.83 mls/hr ASDIR ALINA Administration 50 MCG/HR Nadolol 20 mg 07/12/18 16:00 Corgard - PO DAILY ALINA Rifaximin 550 mg 07/12/18 22:00 Xifaxan - PO BID ALINA Spironolactone 25 mg 07/12/18 10:00 07/12/18 11:30 Aldactone - PO 25 mg DAILY ALINA Administration Impression 1. hyponatremia 2. hypokalemia 3. liver cirrhosis 4. fluid overload 5. ascites 6. hypokalemia Plan - replace lytes - will give addional potassium - cont lasix as he is overloaded - GI for paracentesis - cont aldactone
[2018-07-12] MEDS ORDERED: MAGNESIUM SULF 50% (8.12 MEQ/2 ML-1 GM VIAL) IVPB ONE (16:06)
[2018-07-12] MEDS: FUROSEMIDE 40 MG/4 ML INJECTABLE VIAL IVPUSH SCH (16:27)
[2018-07-12] MEDS ORDERED: PENTOXIFYLLINE 400 MG TABLET.ER PO SCH (17:30)
[2018-07-12] MEDS: NADOLOL 20 MG TABLET (FP) PO SCH (18:37)
[2018-07-12] MEDS: RIFAXIMIN 550 MG TABLET (UD) PO SCH (23:04)
[2018-07-13] MEDS: PANTOPRAZOLE SODIUM 80 MG in SODIUM CHLORIDE 100 ML IVPB SCH ×2 (02:48→06:36)
[2018-07-13] MEDS: OCTREOTIDE ACETATE 1,200 MCG in DEXTROSE 5%-WATER - 488 ML IVPB SCH ×2 (02:48→17:42)
[2018-07-13] MEDS: FUROSEMIDE 40 MG/4 ML INJECTABLE VIAL IVPUSH SCH ×3 (06:23→23:42)
[2018-07-13 08:12] LABS: BASO % 0.5 % (0-2.0); EOS % 4.6 % (0-4.5); HEMATOCRIT 22.4 % (35.4-49); HEMOGLOBIN 7.7 GM/dL (11.7-16.9); LYMPH % 32.9 % (8-40); MCH 35.2 pg (25.7-33.7); MCHC 34.5 g/dl (32.0-35.9); MEAN PLT VOLUME 7.7 fl (7.5-11.1); MONO % 20.1 % (3.8-10.2); NEUT % 41.9 % (42.8-82.8); PLATELET COUNT 108 K/MM3 (134-434); RDW 18.4 % (11.9-15.9); WHITE BLOOD COUNT 4.6 K/mm3 (4.0-10.0)
[2018-07-13 08:38] LABS: ALBUMIN 1.8 g/dl (3.4-5.0); ALK PHOS 92 U/L (45-117); ANION GAP 8 MMOL/L (8-16); BILIRUBIN,TOTAL 5.8 mg/dL (0.2-1); BLOOD UREA NITROGEN 10 mg/dL (7-18); CALCIUM 7.6 mg/dL (8.5-10.1); CHLORIDE 99 mmol/L (98-107); CO2 25 mmol/L (21-32); CREATININE 1.1 mg/dL (0.55-1.3); GLUCOSE,RANDOM 129 mg/dL (74-106); POTASSIUM 3.9 mmol/L (3.5-5.1); SGOT/AST 26 U/L (15-37); SGPT/ALT 10 U/L (13-61); SODIUM 132 mmol/L (136-145); TOT PROT 5.8 g/dl (6.4-8.2)
[2018-07-13 10:09] LABS: SERUM IRON SATURATION 83 % (15-55); TOTAL IRON BINDING CAPACITY 164 ug/dL (250-450); UIBC 28 ug/dL (111-343)
[2018-07-13] MEDS ORDERED: PT OWN MED DRAWER 7, Y5N ONE (10:09)
[2018-07-13] MEDS: RIFAXIMIN 550 MG TABLET (UD) PO SCH ×2 (10:12→22:33)
[2018-07-13] MEDS: NADOLOL 20 MG TABLET (FP) PO SCH (10:12)
[2018-07-13] MEDS ORDERED: FUROSEMIDE 40 MG/4 ML INJECTABLE VIAL IVPUSH SCH (11:00)
[2018-07-13] MEDS: ALBUMIN HUMAN 25% 12.5 GM/50 ML VIAL IVPB SCH ×2 (12:01→22:51)
[2018-07-13 12:43] LABS: ANISOCYTOSIS 1+; MACROCYTOSIS 1+; OVALOCYTE 1+; PLATELET ESTIMATE DECREASED
--- NOTE | 2018-07-13 15:59 | PN ---
Progress Note, Physician - Current Medication List Current Medications: Active Medications Albumin Human (Albumin Human 25%) 12.5 gm IVPB Q12H [facility] Stop: 07/14/18 11:01 Last Admin: 07/13/18 12:01 Dose: 12.5 gm Albumin Human (Albumin Human 25%) 37.5 gm IVPB ONCE ONE Stop: 07/13/18 10:46 Furosemide (Lasix Injection -) 40 mg IVPUSH Q12H [facility] Stop: 07/14/18 11:31 Last Admin: 07/13/18 12:50 Dose: 40 mg Octreotide Acetate 1,200 mcg/ (Dextrose) 500 mls @ 20.83 mls/hr IVPB ASDIR [facility] Last Admin: 07/13/18 02:48 Dose: 20.83 mls/hr Nadolol (Corgard -) 20 mg PO DAILY [facility] Last Admin: 07/13/18 10:12 Dose: 20 mg Pantoprazole Sodium (Protonix -) 40 mg PO BID [facility] Rifaximin (Xifaxan -) 550 mg PO BID [facility] Last Admin: 07/13/18 10:12 Dose: 550 mg Spironolactone (Aldactone -) 100 mg PO DAILY [facility] - Objective Vital Signs: Vital Signs Temperature 98.6 F 07/13/18 14:46 Pulse Rate 68 07/13/18 14:46 Respiratory Rate 18 07/13/18 14:46 Blood Pressure 115/58 L 07/13/18 14:46 O2 Sat by Pulse Oximetry (%) 95 07/12/18 21:00 Cardiovascular: Yes: S1, S2 Respiratory: Yes: On Nasal O2 Gastrointestinal: Yes: Normal Bowel Sounds, Ascites, Distention Edema: Yes Labs: CBC, BMP 07/13/18 07:20 07/13/18 07:20 INR, PTT INR 1.99 (0.83-1.09) H 07/12/18 06:00 Assessment/Plan - Problems (1) Ascites Assessment/Plan: IR for paracentesis in am ultrasound of abdomen Increase lasix 60 iv bid, gi consult renal consult Code(s): R18.8 - OTHER ASCITES (2) GI bleed Assessment/Plan: NPO- bloody emesis iv ppi octreotide gi consult last esopphageal varices banding was in February trend h/h Code(s): K92.2 - GASTROINTESTINAL HEMORRHAGE, UNSPECIFIED Qualifiers: GI bleed type/associated pathology: unspecified gastrointestinal hemorrhage type Qualified Code(s): K92.2 - Gastrointestinal hemorrhage, unspecified (3) Alcoholic cirrhosis of liver Assessment/Plan: gi consult trend ammonia npo for now once cleared by GI will restart rifaximin and lactulose and aldactone Code(s): K70.30 - ALCOHOLIC CIRRHOSIS OF LIVER WITHOUT ASCITES Qualifiers: Ascites presence: with ascites Qualified Code(s): K70.31 - Alcoholic cirrhosis of liver with ascites (4) Anemia Assessment/Plan: gi on case prbc follow up
--- NOTE | 2018-07-13 16:49 | PN ---
Progress Note, Physician History of Present Illness: Pt seen and examined at bedside. He is awake and alert. He does not feel that his abdomen is any better. - Current Medication List Current Medications: Active Medications Albumin Human (Albumin Human 25%) 12.5 gm IVPB Q12H [facility] Stop: 07/14/18 11:01 Last Admin: 07/13/18 12:01 Dose: 12.5 gm Albumin Human (Albumin Human 25%) 37.5 gm IVPB ONCE ONE Stop: 07/13/18 10:46 Furosemide (Lasix Injection -) 40 mg IVPUSH Q12H [facility] Stop: 07/14/18 11:31 Last Admin: 07/13/18 12:50 Dose: 40 mg Octreotide Acetate 1,200 mcg/ (Dextrose) 500 mls @ 20.83 mls/hr IVPB ASDIR [facility] Last Admin: 07/13/18 02:48 Dose: 20.83 mls/hr Nadolol (Corgard -) 20 mg PO DAILY [facility] Last Admin: 07/13/18 10:12 Dose: 20 mg Pantoprazole Sodium (Protonix -) 40 mg PO BID [facility] Rifaximin (Xifaxan -) 550 mg PO BID [facility] Last Admin: 07/13/18 10:12 Dose: 550 mg Spironolactone (Aldactone -) 100 mg PO DAILY [facility] - Objective Vital Signs: Vital Signs Temperature 98.6 F 07/13/18 14:46 Pulse Rate 68 07/13/18 14:46 Respiratory Rate 18 07/13/18 14:46 Blood Pressure 115/58 L 07/13/18 14:46 O2 Sat by Pulse Oximetry (%) 97 07/13/18 09:00 Constitutional: Yes: Calm Eyes: Yes: Sclera Icterus HENT: Yes: Atraumatic Cardiovascular: Yes: S1, S2 Respiratory: Yes: CTA Bilaterally Gastrointestinal: Yes: Ascites, Distention Genitourinary: Yes: WNL Musculoskeletal: Yes: WNL Edema: No Integumentary: Yes: WNL Neurological: Yes: Oriented Psychiatric: Yes: Oriented Labs: CBC, BMP 07/13/18 07:20 07/13/18 07:20 INR, PTT INR 1.99 (0.83-1.09) H 07/12/18 06:00 Problem List - Problems (1) Hyponatremia Code(s): E87.1 - HYPO-OSMOLALITY AND HYPONATREMIA (2) Alcoholic cirrhosis of liver Code(s): K70.30 - ALCOHOLIC CIRRHOSIS OF LIVER WITHOUT ASCITES Qualifiers: Ascites presence: with ascites Qualified Code(s): K70.31 - Alcoholic cirrhosis of liver with ascites (3) Ascites Code(s): R18.8 - OTHER ASCITES Qualifiers: Ascites type: due to alcoholic cirrhosis Qualified Code(s): K70.31 - Alcoholic cirrhosis of liver with ascites Assessment/Plan Current Medications Generic Name Dose Route Start Last Admin Trade Name Freq PRN Reason Stop Dose Admin Albumin Human 12.5 gm 07/13/18 11:00 07/13/18 12:01 Albumin Human 25% IVPB 07/14/18 11:01 12.5 gm Q12H ALINA Administration Albumin Human 37.5 gm 07/13/18 10:45 Albumin Human 25% IVPB 07/13/18 10:46 ONCE ONE Furosemide 40 mg 07/13/18 11:30 07/13/18 12:50 Lasix Injection - IVPUSH 07/14/18 11:31 40 mg Q12H ALINA Administration Octreotide Acetate 1,200 mcg/ 500 mls @ 20.83 mls/hr 07/11/18 15:30 07/13/18 02:48 Dextrose IVPB 20.83 mls/hr ASDIR [facility]INA Administration 50 MCG/HR Nadolol 20 mg 07/12/18 16:00 07/13/18 10:12 Corgard - PO 20 mg DAILY ALINA Administration Pantoprazole Sodium 40 mg 07/13/18 22:00 Protonix - PO BID ALINA Rifaximin 550 mg 07/12/18 22:00 07/13/18 10:12 Xifaxan - PO 550 mg BID ALINA Administration Spironolactone 100 mg 07/13/18 10:22 Aldactone - PO DAILY [facility]INA Impression 1. hyponatremia 2. hypokalemia 3. liver cirrhosis 4. fluid overload 5. ascites 6. hypokalemia Plan - renal function is worse - hold diuretics tomorrow morning - will need paracentesis - give albumin with paracentesis - ascites not improving - monitor sodium - restrict free water
[2018-07-13] MEDS ORDERED: ALBUMIN HUMAN 25% 12.5 GM/50 ML VIAL IVPB ONE (22:30)
[2018-07-13] MEDS: PANTOPRAZOLE 40 MG TABLET (FP) PO SCH (22:33)
[2018-07-14] MEDS: OCTREOTIDE ACETATE 1,200 MCG in DEXTROSE 5%-WATER - 488 ML IVPB SCH ×2 (02:57→17:47)
[2018-07-14 07:53] LABS: BASO % 0.6 % (0-2.0); EOS % 3.8 % (0-4.5); HEMATOCRIT 27.2 % (35.4-49); HEMOGLOBIN 9.4 GM/dL (11.7-16.9); LYMPH % 37.3 % (8-40); MCH 33.9 pg (25.7-33.7); MCHC 34.6 g/dl (32.0-35.9); MEAN PLT VOLUME 7.8 fl (7.5-11.1); MONO % 21.7 % (3.8-10.2); NEUT % 36.6 % (42.8-82.8); PLATELET COUNT 106 K/MM3 (134-434); RBC 2.77 M/mm3 (4.00-5.60); RDW 19.6 % (11.9-15.9); WHITE BLOOD COUNT 5.5 K/mm3 (4.0-10.0)
[2018-07-14 07:55] LABS: ALK PHOS 83 U/L (45-117); ANION GAP 9 MMOL/L (8-16); BILIRUBIN,TOTAL 7.1 mg/dL (0.2-1); BLOOD UREA NITROGEN 8 mg/dL (7-18); CHLORIDE 95 mmol/L (98-107); CO2 28 mmol/L (21-32); CREATININE 0.9 mg/dL (0.55-1.3); GLUCOSE,RANDOM 109 mg/dL (74-106); SGOT/AST 27 U/L (15-37); SGPT/ALT 9 U/L (13-61); SODIUM 132 mmol/L (136-145)
--- NOTE | 2018-07-14 09:35 | PN.GI ---
GI Progress Note Subjective: Patient complains of abdominal pain with nausea and vomiting. States having intermittent episodes of melena, Hg currently 9.4. - Objective Vital Signs: Vital Signs Temperature 98.5 F 07/14/18 06:00 Pulse Rate 65 07/14/18 06:00 Respiratory Rate 20 07/14/18 06:00 Blood Pressure 111/69 07/14/18 06:00 O2 Sat by Pulse Oximetry (%) 98 07/13/18 21:00 Constitutional: No Distress, Calm Eyes: Yes: Conjunctiva Clear HENT: Yes: Atraumatic Cardiovascular: Yes: Regular Rate and Rhythm Respiratory: Yes: Regular, Diminished Gastrointestinal Inspection: Yes: Ascites. No: WNL, Distention, Hernia, Scars, Other ...Auscultate: Yes: Hypoactive Bowel Sounds. No: Normoactive Bowel Sounds, Hyperactive Bowel Sounds, No Bowel Sounds, Other ...Palpate: Yes: Soft. No: Firm/Rigid, Guarding, Hepatomegaly, Mass, Pulsatile Mass, Splenomegaly, Tenderness, Tenderness, Epigastium, Tenderness, Rebound, Other ...Percussion: Yes: Tympanitic. No: Dullness, Fluid Wave, Other Neurological: Yes: Alert, Oriented Psychiatric: Yes: Alert, Oriented Labs: CBC, BMP 07/14/18 06:30 07/14/18 06:30 INR, PTT INR 1.99 (0.83-1.09) H 07/12/18 06:00 Active Medications Generic Name Dose Route Start Last Admin Trade Name Freq PRN Reason Stop Dose Admin Albumin Human 12.5 gm 07/13/18 11:00 07/13/18 22:51 Albumin Human 25% IVPB 07/14/18 11:01 12.5 gm Q12H ALINA Administration Albumin Human 37.5 gm 07/13/18 22:30 Albumin Human 25% IVPB 07/13/18 22:31 ONCE ONE Furosemide 40 mg 07/13/18 11:30 07/13/18 23:42 Lasix Injection - IVPUSH 07/14/18 11:31 40 mg Q12H ALINA Administration Octreotide Acetate 1,200 mcg/ 500 mls @ 20.83 mls/hr 07/11/18 15:30 07/14/18 02:57 Dextrose IVPB 20.83 mls/hr ASDIR ALINA Administration 50 MCG/HR Nadolol 20 mg 07/12/18 16:00 07/13/18 10:12 Corgard - PO 20 mg DAILY ALINA Administration Pantoprazole Sodium 40 mg 07/13/18 22:00 07/13/18 22:33 Protonix - PO 40 mg BID ALINA Administration Rifaximin 550 mg 07/12/18 22:00 07/13/18 22:33 Xifaxan - PO 550 mg BID ALINA Administration Spironolactone 100 mg 07/13/18 10:22 Aldactone - PO DAILY [facility] Problem List - Problems (1) Alcoholic cirrhosis of liver Assessment/Plan: R> continue Nadolol Xifaxan 550mg bid Code(s): K70.30 - ALCOHOLIC CIRRHOSIS OF LIVER WITHOUT ASCITES Qualifiers: Ascites presence: with ascites Qualified Code(s): K70.31 - Alcoholic cirrhosis of liver with ascites (2) Ascites Code(s): R18.8 - OTHER ASCITES Qualifiers: Ascites type: due to alcoholic cirrhosis Qualified Code(s): K70.31 - Alcoholic cirrhosis of liver with ascites (3) Hyponatremia Code(s): E87.1 - HYPO-OSMOLALITY AND HYPONATREMIA (4) Anemia Assessment/Plan: R> sandostatin for 48 hours resume Nadolol Hg 10.3 Code(s): D64.9 - ANEMIA, UNSPECIFIED (5) Melena Assessment/Plan: R>Stool OB x 3 Code(s): K92.1 - MELENA
[2018-07-14] MEDS: RIFAXIMIN 550 MG TABLET (UD) PO SCH ×2 (10:55→21:49)
[2018-07-14] MEDS: PANTOPRAZOLE 40 MG TABLET (FP) PO SCH ×2 (10:55→21:49)
[2018-07-14] MEDS: NADOLOL 20 MG TABLET (FP) PO SCH (10:55)
[2018-07-14 11:05] LABS: INR 2.07 (0.83-1.09); PROTHROMBIN TIME (PATIENT) 24.6 SEC (9.7-13.0)
[2018-07-14] MEDS ORDERED: ALBUMIN HUMAN 25% 12.5 GM/50 ML VIAL IVPB ONE ×2 (11:15→15:00)
[2018-07-14] MEDS ORDERED: POTASSIUM CHLORIDE TABS 20 MEQ TABLET.ER (FP) PO ONE (11:15)
[2018-07-14] MEDS: ALBUMIN HUMAN 25% 12.5 GM/50 ML VIAL IVPB SCH (11:54)
[2018-07-14] MEDS: FUROSEMIDE 40 MG/4 ML INJECTABLE VIAL IVPUSH SCH (12:29)
[2018-07-14] MEDS ORDERED: MAGNESIUM SULF 50% (8.12 MEQ/2 ML-1 GM VIAL) IVPB ONE (13:00)
--- NOTE | 2018-07-14 13:36 | PN ---
Progress Note, Physician Chief Complaint: patient seen and examined cannot get paracentesis today bc INR 2.07 - Current Medication List Current Medications: Active Medications Octreotide Acetate 1,200 mcg/ (Dextrose) 500 mls @ 20.83 mls/hr IVPB ASDIR [facility] Last Admin: 07/14/18 02:57 Dose: 20.83 mls/hr Nadolol (Corgard -) 20 mg PO DAILY [facility] Last Admin: 07/14/18 10:55 Dose: 20 mg Pantoprazole Sodium (Protonix -) 40 mg PO BID [facility] Last Admin: 07/14/18 10:55 Dose: 40 mg Rifaximin (Xifaxan -) 550 mg PO BID [facility] Last Admin: 07/14/18 10:55 Dose: 550 mg Spironolactone (Aldactone -) 100 mg PO DAILY [facility] - Objective Vital Signs: Vital Signs Temperature 98.2 F 07/14/18 10:52 Pulse Rate 67 07/14/18 10:52 Respiratory Rate 18 07/14/18 10:52 Blood Pressure 123/66 07/14/18 10:52 O2 Sat by Pulse Oximetry (%) 98 07/13/18 21:00 Constitutional: Yes: Calm Cardiovascular: Yes: Regular Rate and Rhythm, S1, S2 Respiratory: Yes: CTA Bilaterally Gastrointestinal: Yes: Ascites, Distention Edema: Yes Neurological: Yes: Alert, Oriented Labs: CBC, BMP 07/14/18 06:30 07/14/18 06:30 INR, PTT INR 2.07 (0.83-1.09) H 07/14/18 10:15 Problem List - Problems (1) Ascites Assessment/Plan: IR for paracentesis tmw 2 ffp at 6:00am and the albumin and repeat INR at 9:00am Code(s): R18.8 - OTHER ASCITES Qualifiers: Ascites type: due to alcoholic cirrhosis Qualified Code(s): K70.31 - Alcoholic cirrhosis of liver with ascites (2) GI bleed Assessment/Plan: liquid diet stop octreotide today ppi trend h/h = s/p prbc Code(s): K92.2 - GASTROINTESTINAL HEMORRHAGE, UNSPECIFIED Qualifiers: GI bleed type/associated pathology: unspecified gastrointestinal hemorrhage type Qualified Code(s): K92.2 - Gastrointestinal hemorrhage, unspecified (3) Alcoholic cirrhosis of liver Assessment/Plan: gi consult noted rifamixin nadolol aldactone Code(s): K70.30 - ALCOHOLIC CIRRHOSIS OF LIVER WITHOUT ASCITES Qualifiers: Ascites presence: with ascites Qualified Code(s): K70.31 - Alcoholic cirrhosis of liver with ascites Assessment/Plan 2 untis FFP in AM at 6:00 then repeat INR for paracentesis INR < 1.7
[2018-07-14] MEDS ORDERED: ALBUMIN HUMAN 25% 12.5 GM/50 ML VIAL IVPB SCH (15:00)
[2018-07-14 15:30] LABS: ANISOCYTOSIS 1+; MACROCYTOSIS 1+
[2018-07-14 15:31] LABS: OVALOCYTE 1+; PLATELET ESTIMATE ADEQUATE
--- NOTE | 2018-07-14 17:42 | PN ---
Progress Note, Physician History of Present Illness: Pt seen and examined at bedside. He is awake and alert. His did not go for paracentesis. - Current Medication List Current Medications: Active Medications Octreotide Acetate 1,200 mcg/ (Dextrose) 500 mls @ 20.83 mls/hr IVPB ASDIR [facility], [facility] Last Admin: 07/14/18 02:57 Dose: 20.83 mls/hr Nadolol (Corgard -) 20 mg PO DAILY [facility] Last Admin: 07/14/18 10:55 Dose: 20 mg Pantoprazole Sodium (Protonix -) 40 mg PO BID [facility] Last Admin: 07/14/18 10:55 Dose: 40 mg Rifaximin (Xifaxan -) 550 mg PO BID [facility] Last Admin: 07/14/18 10:55 Dose: 550 mg Spironolactone (Aldactone -) 100 mg PO DAILY [facility] - Objective Vital Signs: Vital Signs Temperature 98 F 07/14/18 15:27 Pulse Rate 65 07/14/18 15:27 Respiratory Rate 17 07/14/18 15:27 Blood Pressure 119/76 07/14/18 15:27 O2 Sat by Pulse Oximetry (%) 97 07/14/18 10:52 Constitutional: Yes: Calm Eyes: Yes: Sclera Icterus HENT: Yes: Atraumatic Cardiovascular: Yes: S1, S2 Respiratory: Yes: On Nasal O2 Gastrointestinal: Yes: Soft, Abdomen, Obese, Ascites Genitourinary: Yes: WNL Musculoskeletal: Yes: WNL Edema: LLE: Trace, RLE: Trace Neurological: Yes: Oriented Psychiatric: Yes: Oriented Labs: CBC, BMP 07/14/18 06:30 07/14/18 06:30 INR, PTT INR 2.07 (0.83-1.09) H 07/14/18 10:15 Problem List - Problems (1) Hyponatremia Code(s): E87.1 - HYPO-OSMOLALITY AND HYPONATREMIA (2) Alcoholic cirrhosis of liver Code(s): K70.30 - ALCOHOLIC CIRRHOSIS OF LIVER WITHOUT ASCITES Qualifiers: Ascites presence: with ascites Qualified Code(s): K70.31 - Alcoholic cirrhosis of liver with ascites (3) Ascites Code(s): R18.8 - OTHER ASCITES Qualifiers: Ascites type: due to alcoholic cirrhosis Qualified Code(s): K70.31 - Alcoholic cirrhosis of liver with ascites Assessment/Plan Current Medicat Current Medications Generic Name Dose Route Start Last Admin Trade Name Zenon PRN Reason Stop Dose Admin Octreotide Acetate 1,200 mcg/ 500 mls @ 20.83 mls/hr 07/11/18 15:30 07/14/18 02:57 Dextrose IVPB 20.83 mls/hr ASDIR ALINA Administration 50 MCG/HR Nadolol 20 mg 07/12/18 16:00 07/14/18 10:55 Corgard - PO 20 mg DAILY [facility] Administration Pantoprazole Sodium 40 mg 07/13/18 22:00 07/14/18 10:55 Protonix - PO 40 mg BID [facility] Administration Rifaximin 550 mg 07/12/18 22:00 07/14/18 10:55 Xifaxan - PO 550 mg BID [facility] Administration Spironolactone 100 mg 07/13/18 10:22 Aldactone - PO DAILY [facility] Impression 1. hyponatremia 2. hypokalemia 3. liver cirrhosis 4. fluid overload 5. ascites 6. hypokalemia Plan - replace mag and potassium - cont spironolactone - lasix on hold as he is hypokalemic - monitor lytes - monitor coags
[2018-07-15] MEDS: OCTREOTIDE ACETATE 1,200 MCG in DEXTROSE 5%-WATER - 488 ML IVPB SCH (07:01)
[2018-07-15 07:45] LABS: BASO % 0.4 % (0-2.0); EOS % 3.3 % (0-4.5); HEMATOCRIT 24.8 % (35.4-49); HEMOGLOBIN 8.7 GM/dL (11.7-16.9); MCH 34.3 pg (25.7-33.7); MEAN CELL VOLUME 97.8 fl (80-96); MEAN PLT VOLUME 7.7 fl (7.5-11.1); MONO % 22.1 % (3.8-10.2); NEUT % 38.2 % (42.8-82.8); PLATELET COUNT 91 K/MM3 (134-434); RBC 2.53 M/mm3 (4.00-5.60); RDW 19.4 % (11.9-15.9); WHITE BLOOD COUNT 5.3 K/mm3 (4.0-10.0)
[2018-07-15 07:56] LABS: INR 1.59 (0.83-1.09); PROTHROMBIN TIME (PATIENT) 18.9 SEC (9.7-13.0)
[2018-07-15 08:46] LABS: ALBUMIN 2.1 g/dl (3.4-5.0); ALK PHOS 78 U/L (45-117); ANION GAP 7 MMOL/L (8-16); BILIRUBIN,TOTAL 5.4 mg/dL (0.2-1); BLOOD UREA NITROGEN 5 mg/dL (7-18); CALCIUM 7.7 mg/dL (8.5-10.1); CHLORIDE 94 mmol/L (98-107); CO2 29 mmol/L (21-32); CREATININE 0.7 mg/dL (0.55-1.3); GLUCOSE,RANDOM 100 mg/dL (74-106); POTASSIUM 3.4 mmol/L (3.5-5.1); SGOT/AST 23 U/L (15-37); SGPT/ALT 12 U/L (13-61); SODIUM 131 mmol/L (136-145); TOT PROT 5.7 g/dl (6.4-8.2)
--- NOTE | 2018-07-15 08:53 | PN.GI ---
GI Progress Note Subjective: Patient complain of abdominal pain and intermittent episodes of melena, denies nausea, vomiting, diarrhea, rectal bleeding. Patient is scheduled for paracentesis today, unable to have done yesterday due to elevated INR. - Objective Vital Signs: Vital Signs Temperature 99.3 F 07/15/18 05:57 Pulse Rate 70 07/15/18 05:57 Respiratory Rate 18 07/15/18 05:57 Blood Pressure 108/68 07/15/18 05:57 O2 Sat by Pulse Oximetry (%) 100 07/14/18 21:00 Constitutional: No Distress, Calm Eyes: Yes: Conjunctiva Clear HENT: Yes: Atraumatic Cardiovascular: Yes: Regular Rate and Rhythm Respiratory: Yes: Regular, CTA Bilaterally Gastrointestinal Inspection: Yes: Ascites. No: WNL, Distention, Hernia, Scars, Other ...Auscultate: Yes: Normoactive Bowel Sounds. No: Hyperactive Bowel Sounds, Hypoactive Bowel Sounds, No Bowel Sounds, Other ...Palpate: Yes: Soft, Tenderness (diffuse). No: Firm/Rigid, Guarding, Hepatomegaly, Mass, Pulsatile Mass, Splenomegaly, Tenderness, Epigastium, Tenderness, Rebound, Other ...Percussion: Yes: Tympanitic. No: Dullness, Fluid Wave, Other Neurological: Yes: Alert, Oriented Psychiatric: Yes: Alert, Oriented Labs: CBC, BMP 07/15/18 06:45 07/15/18 06:45 INR, PTT INR 1.59 (0.83-1.09) H 07/15/18 06:45 Active Medications Generic Name Dose Route Start Last Admin Trade Name Freq PRN Reason Stop Dose Admin Octreotide Acetate 1,200 mcg/ 500 mls @ 20.83 mls/hr 07/11/18 15:30 07/15/18 07:01 Dextrose IVPB 20.83 mls/hr ASDIR ALINA Administration 50 MCG/HR Nadolol 20 mg 07/12/18 16:00 07/14/18 10:55 Corgard - PO 20 mg DAILY [facility] Administration Pantoprazole Sodium 40 mg 07/13/18 22:00 07/14/18 21:49 Protonix - PO 40 mg BID ALINA Administration Rifaximin 550 mg 07/12/18 22:00 07/14/18 21:49 Xifaxan - PO 550 mg BID [facility] Administration Spironolactone 100 mg 07/13/18 10:22 Aldactone - PO DAILY [facility] Problem List - Problems (1) Alcoholic cirrhosis of liver Assessment/Plan: R> continue Nadolol and Xifaxan 550mg bid Code(s): K70.30 - ALCOHOLIC CIRRHOSIS OF LIVER WITHOUT ASCITES Qualifiers: Ascites presence: with ascites Qualified Code(s): K70.31 - Alcoholic cirrhosis of liver with ascites (2) Ascites Code(s): R18.8 - OTHER ASCITES Qualifiers: Ascites type: due to alcoholic cirrhosis Qualified Code(s): K70.31 - Alcoholic cirrhosis of liver with ascites (3) Hyponatremia Code(s): E87.1 - HYPO-OSMOLALITY AND HYPONATREMIA (4) Anemia Assessment/Plan: R> sandostatin for 48 hours resume Nadolol Hg 8.7 Code(s): D64.9 - ANEMIA, UNSPECIFIED (5) Melena Assessment/Plan: R>Stool OB x 3 Code(s): K92.1 - MELENA
--- NOTE | 2018-07-15 11:21 | PN ---
Progress Note, Physician Chief Complaint: Ascitis GI bleed Alcoholic liver cirrhosis History of Present Illness: NAD received FFP going for paracentesis today - Current Medication List Current Medications: Active Medications Octreotide Acetate 1,200 mcg/ (Dextrose) 500 mls @ 20.83 mls/hr IVPB ASDIR [facility] Last Admin: 07/15/18 07:01 Dose: 20.83 mls/hr Nadolol (Corgard -) 20 mg PO DAILY [facility] Last Admin: 07/14/18 10:55 Dose: 20 mg Pantoprazole Sodium (Protonix -) 40 mg PO BID [facility] Last Admin: 07/14/18 21:49 Dose: 40 mg Rifaximin (Xifaxan -) 550 mg PO BID [facility] Last Admin: 07/14/18 21:49 Dose: 550 mg Spironolactone (Aldactone -) 100 mg PO DAILY [facility] - Objective Vital Signs: Vital Signs Temperature 98.9 F 07/15/18 09:00 Pulse Rate 73 07/15/18 09:00 Respiratory Rate 18 07/15/18 09:00 Blood Pressure 118/68 07/15/18 09:00 O2 Sat by Pulse Oximetry (%) 100 07/14/18 21:00 Constitutional: Yes: No Distress, Calm, Cachectic Cardiovascular: Yes: Regular Rate and Rhythm Respiratory: Yes: Regular Gastrointestinal: Yes: Ascites Genitourinary: Yes: WNL Musculoskeletal: Yes: Muscle Weakness Extremities: Yes: WNL Edema: No Peripheral Pulses WNL: Yes Neurological: Yes: Alert, Oriented Psychiatric: Yes: Alert, Oriented Labs: CBC, BMP 07/15/18 06:45 07/15/18 06:45 INR, PTT INR 1.59 (0.83-1.09) H 07/15/18 06:45 Problem List - Problems (1) Hypokalemia Assessment/Plan: -nephrology on board -replace K+ -cont spironolactone -lasix on hold as he is hypokalemic Code(s): E87.6 - HYPOKALEMIA (2) Alcoholic cirrhosis of liver Assessment/Plan: -Seen by GI -On Rifaxamin Code(s): K70.30 - ALCOHOLIC CIRRHOSIS OF LIVER WITHOUT ASCITES Qualifiers: Ascites presence: with ascites Qualified Code(s): K70.31 - Alcoholic cirrhosis of liver with ascites (3) Anemia Assessment/Plan: 2/2 to liver cirrhosis -Occult positive in 04/2018 -H/H stable -Monitor trend Code(s): D64.9 - ANEMIA, UNSPECIFIED (4) Ascites Assessment/Plan: -2/2 to liver cirrhosis -going for paracentesis today -received FFP today Code(s): R18.8 - OTHER ASCITES Qualifiers: Ascites type: due to alcoholic cirrhosis Qualified Code(s): K70.31 - Alcoholic cirrhosis of liver with ascites (5) Hyponatremia Assessment/Plan: -limit free water to 1 L Code(s): E87.1 - HYPO-OSMOLALITY AND HYPONATREMIA (6) Melena Code(s): K92.1 - MELENA Assessment/Plan See problem list Physical therapy
[2018-07-15] MEDS ORDERED: POTASSIUM CHLORIDE TABS 20 MEQ TABLET.ER (FP) PO ONE (11:45)
[2018-07-15 12:39] LABS: ANISOCYTOSIS 1+; MACROCYTOSIS 1+; OVALOCYTE 1+; PLATELET ESTIMATE DECREASED
[2018-07-15] MEDS: PANTOPRAZOLE 40 MG TABLET (FP) PO SCH ×2 (14:10→22:42)
[2018-07-15] MEDS: RIFAXIMIN 550 MG TABLET (UD) PO SCH ×2 (14:11→22:42)
[2018-07-15] MEDS: NADOLOL 20 MG TABLET (FP) PO SCH (14:16)
--- NOTE | 2018-07-15 16:42 | PN ---
Progress Note, Physician History of Present Illness: Pt seen and examined at bedside. He is awake and alert. He had paracentesis. - Current Medication List Current Medications: Active Medications Nadolol (Corgard -) 20 mg PO DAILY [facility] Last Admin: 07/15/18 14:16 Dose: Not Given Pantoprazole Sodium (Protonix -) 40 mg PO BID [facility] Last Admin: 07/15/18 14:10 Dose: 40 mg Rifaximin (Xifaxan -) 550 mg PO BID [facility] Last Admin: 07/15/18 14:11 Dose: 550 mg Spironolactone (Aldactone -) 100 mg PO DAILY [facility] - Objective Vital Signs: Vital Signs Temperature 98.2 F 07/15/18 14:02 Pulse Rate 66 07/15/18 14:03 Respiratory Rate 18 07/15/18 14:02 Blood Pressure 114/63 07/15/18 14:03 O2 Sat by Pulse Oximetry (%) 100 07/15/18 09:00 Constitutional: Yes: Calm Eyes: Yes: Sclera Icterus HENT: Yes: Atraumatic Neck: Yes: Supple Cardiovascular: Yes: S1, S2 Respiratory: Yes: CTA Bilaterally Gastrointestinal: Yes: Ascites Genitourinary: Yes: WNL Musculoskeletal: Yes: WNL Edema: No Neurological: Yes: Oriented Psychiatric: Yes: Oriented Labs: CBC, BMP 07/15/18 06:45 07/15/18 06:45 INR, PTT INR 1.59 (0.83-1.09) H 07/15/18 06:45 Problem List - Problems (1) Hyponatremia Code(s): E87.1 - HYPO-OSMOLALITY AND HYPONATREMIA (2) Alcoholic cirrhosis of liver Code(s): K70.30 - ALCOHOLIC CIRRHOSIS OF LIVER WITHOUT ASCITES Qualifiers: Ascites presence: with ascites Qualified Code(s): K70.31 - Alcoholic cirrhosis of liver with ascites (3) Ascites Code(s): R18.8 - OTHER ASCITES Qualifiers: Ascites type: due to alcoholic cirrhosis Qualified Code(s): K70.31 - Alcoholic cirrhosis of liver with ascites Assessment/Plan Current Medications Generic Name Dose Route Start Last Admin Trade Name Freq PRN Reason Stop Dose Admin Nadolol 20 mg 07/12/18 16:00 07/15/18 14:16 Corgard - PO Not Given DAILY [facility] Pantoprazole Sodium 40 mg 07/13/18 22:00 07/15/18 14:10 Protonix - PO 40 mg BID [facility] Administration Rifaximin 550 mg 07/12/18 22:00 07/15/18 14:11 Xifaxan - PO 550 mg BID [facility] Administration Spironolactone 100 mg 07/13/18 10:22 Aldactone - PO DAILY [facility] Impression 1. hyponatremia 2. hypokalemia 3. liver cirrhosis 4. fluid overload 5. ascites 6. hypokalemia Plan - cont aldactone - replace potassium - monitor lytes - repeat labs in am
[2018-07-16 07:35] LABS: ALBUMIN 1.9 g/dl (3.4-5.0); ALK PHOS 76 U/L (45-117); ANION GAP 4 MMOL/L (8-16); BILIRUBIN,TOTAL 5.5 mg/dL (0.2-1); BLOOD UREA NITROGEN 5 mg/dL (7-18); CALCIUM 7.4 mg/dL (8.5-10.1); CHLORIDE 100 mmol/L (98-107); CO2 29 mmol/L (21-32); CREATININE 0.6 mg/dL (0.55-1.3); GLUCOSE,RANDOM 85 mg/dL (74-106); POTASSIUM 3.9 mmol/L (3.5-5.1); SGOT/AST 21 U/L (15-37); SGPT/ALT 9 U/L (13-61); SODIUM 133 mmol/L (136-145); TOT PROT 5.4 g/dl (6.4-8.2)
[2018-07-16 07:42] LABS: BASO % 0.6 % (0-2.0); EOS % 2.8 % (0-4.5); HEMATOCRIT 25.5 % (35.4-49); HEMOGLOBIN 8.8 GM/dL (11.7-16.9); LYMPH % 38.2 % (8-40); MCH 34.5 pg (25.7-33.7); MCHC 34.6 g/dl (32.0-35.9); MEAN CELL VOLUME 99.7 fl (80-96); MEAN PLT VOLUME 7.6 fl (7.5-11.1); MONO % 17.3 % (3.8-10.2); NEUT % 41.1 % (42.8-82.8); PLATELET COUNT 85 K/MM3 (134-434); RBC 2.56 M/mm3 (4.00-5.60); WHITE BLOOD COUNT 5.1 K/mm3 (4.0-10.0)
--- NOTE | 2018-07-16 08:09 | PN.GI ---
GI Progress Note Subjective: Patient s/p Paracentesis yesterday. On examination abdomen less distended and no pedal edema noted. Complain of abdominal pain accomapnied with nausea. Denies diarrhea, constipation, blood in stool. - Objective Vital Signs: Vital Signs Temperature 98.6 F 07/16/18 06:00 Pulse Rate 69 07/16/18 06:00 Respiratory Rate 18 07/16/18 06:00 Blood Pressure 91/51 L 07/16/18 06:00 O2 Sat by Pulse Oximetry (%) 98 07/15/18 21:00 Constitutional: No Distress, Calm HENT: Yes: Atraumatic Cardiovascular: Yes: Regular Rate and Rhythm Respiratory: Yes: Regular, CTA Bilaterally Gastrointestinal Inspection: Yes: Ascites. No: WNL, Distention, Hernia, Scars, Other ...Auscultate: Yes: Normoactive Bowel Sounds. No: Hyperactive Bowel Sounds, Hypoactive Bowel Sounds, No Bowel Sounds, Other ...Palpate: Yes: Soft, Tenderness (diffuse). No: Firm/Rigid, Guarding, Hepatomegaly, Mass, Pulsatile Mass, Splenomegaly, Tenderness, Epigastium, Tenderness, Rebound, Other ...Percussion: Yes: Tympanitic. No: Dullness, Fluid Wave, Other Neurological: Yes: Alert, Oriented Psychiatric: Yes: Alert, Oriented Labs: CBC, BMP 07/16/18 06:00 07/16/18 06:00 INR, PTT INR 1.59 (0.83-1.09) H 07/15/18 06:45 Active Medications Generic Name Dose Route Start Last Admin Trade Name Freq PRN Reason Stop Dose Admin Nadolol 20 mg 07/12/18 16:00 07/15/18 14:16 Corgard - PO Not Given DAILY [facility]INA Pantoprazole Sodium 40 mg 07/13/18 22:00 07/15/18 22:42 Protonix - PO 40 mg BID [facility] Administration Rifaximin 550 mg 07/12/18 22:00 07/15/18 22:42 Xifaxan - PO 550 mg BID [facility] Administration Spironolactone 100 mg 07/13/18 10:22 Aldactone - PO DAILY [facility] Problem List - Problems (1) Alcoholic cirrhosis of liver Assessment/Plan: R> continue Nadolol and Xifaxan 550mg bid >s/p paracentesis Code(s): K70.30 - ALCOHOLIC CIRRHOSIS OF LIVER WITHOUT ASCITES Qualifiers: Ascites presence: with ascites Qualified Code(s): K70.31 - Alcoholic cirrhosis of liver with ascites (2) Ascites Code(s): R18.8 - OTHER ASCITES Qualifiers: Ascites type: due to alcoholic cirrhosis Qualified Code(s): K70.31 - Alcoholic cirrhosis of liver with ascites (3) Hyponatremia Code(s): E87.1 - HYPO-OSMOLALITY AND HYPONATREMIA (4) Anemia Assessment/Plan: resume Nadolol Hg 8.8 transfuse for Hg <8.0 Code(s): D64.9 - ANEMIA, UNSPECIFIED (5) Melena Assessment/Plan: R>Stool OB x 3 Code(s): K92.1 - MELENA
[2018-07-16] MEDS: PANTOPRAZOLE 40 MG TABLET (FP) PO SCH ×2 (10:56→21:32)
[2018-07-16] MEDS: NADOLOL 20 MG TABLET (FP) PO SCH (10:57)
[2018-07-16] MEDS: SPIRONOLACTONE 25 MG TABLET (FP) PO SCH (10:57)
[2018-07-16] MEDS: RIFAXIMIN 550 MG TABLET (UD) PO SCH ×2 (10:57→21:32)
--- NOTE | 2018-07-16 12:14 | DS ---
Physical Examination Vital Signs: Vital Signs Temperature 99.3 F 07/16/18 10:00 Pulse Rate 71 07/16/18 10:00 Respiratory Rate 18 07/16/18 10:00 Blood Pressure 99/52 L 07/16/18 10:00 O2 Sat by Pulse Oximetry (%) 98 07/15/18 21:00 Findings/Remarks: Pt is a 62yo M with PMH of Alcoholic Cirrhosis, Ascites, GI bleed, Emphysema BIBA from [facility] for weight gain, lower extremity edema. Pt is complaining of abdominal pain. Pt also states that he has been having on and off vomiting with nausea that is bloody and occasional bloody bowel movements. Also endorses occasional sob, occasional chest pain, occasional headaches. Denies fever, chills, dysuria, hematuria, syncope. Per MD, pt has gained about 30lb over the course of 1 month. Pt gets paracentesis every so often and last one was done 06/23/18 in which 7L was taken out. Constitutional: Yes: No Distress, Calm, Cachectic Cardiovascular: Yes: Regular Rate and Rhythm Respiratory: Yes: Regular Gastrointestinal: Yes: Soft, Ascites, Hypoactive Bowel Sounds, Tenderness ( diffuse) Musculoskeletal: Yes: WNL Extremities: Yes: WNL Edema: No Peripheral Pulses WNL: Yes Neurological: Yes: Alert, Oriented Psychiatric: Yes: Alert, Oriented Labs: CBC, BMP 07/16/18 06:00 07/16/18 06:00 Discharge Summary Reason For Visit: ASCITES,ALCOLIC CIRRHOSIS Current Active Problems Alcoholic cirrhosis of liver (Acute) Anemia (Acute) Ascites (Acute) Hypokalemia (Acute) Hyponatremia (Acute) Melena (Acute) Hospital Course: Laboratory Last Values WBC 5.1 K/mm3 (4.0-10.0) 07/16/18 06:00 RBC 2.56 M/mm3 (4.00-5.60) L 07/16/18 06:00 Hgb 8.8 GM/dL (11.7-16.9) L 07/16/18 06:00 Hct 25.5 % (35.4-49) L 07/16/18 06:00 MCV 99.7 fl (80-96) H 07/16/18 06:00 MCH 34.5 pg (25.7-33.7) H 07/16/18 06:00 MCHC 34.6 g/dl (32.0-35.9) 07/16/18 06:00 RDW 19.0 % (11.9-15.9) H 07/16/18 06:00 Plt Count 85 K/MM3 (134-434) L 07/16/18 06:00 MPV 7.6 fl (7.5-11.1) 07/16/18 06:00 Absolute Neuts (auto) 2.1 K/mm3 (1.5-8.0) 07/16/18 06:00 Total Counted 100 07/15/18 06:45 Neutrophils % 41.1 % (42.8-82.8) L 07/16/18 06:00 Neutrophils % (Manual) 42.0 % (42.8-82.8) L 07/15/18 06:45 Band Neutrophils % 0.0 % 07/13/18 07:20 Lymphocytes % 38.2 % (8-40) 07/16/18 06:00 Lymphocytes % (Manual) 24.0 % (8-40) 07/15/18 06:45 Monocytes % 17.3 % (3.8-10.2) H 07/16/18 06:00 Monocytes % (Manual) 30 % (3.8-10.2) H 07/15/18 06:45 Eosinophils % 2.8 % (0-4.5) 07/16/18 06:00 Eosinophils % (Manual) 3.0 % (0-4.5) 07/15/18 06:45 Basophils % 0.6 % (0-2.0) 07/16/18 06:00 Basophils % (Manual) 1.0 % (0-2.0) 07/15/18 06:45 Myelocytes % (Man) 0 % (0-2) 07/13/18 07:20 Promyelocytes % (Man) 0 % (0-2) 07/13/18 07:20 Blast Cells % (Manual) 0 % (0-0) 07/13/18 07:20 Nucleated RBC % 0 % (0-0) 07/16/18 06:00 Metamyelocytes 0 % (0-2) 07/13/18 07:20 Hypochromia 0 07/13/18 07:20 Platelet Estimate Decreased 07/15/18 06:45 Platelet Comment Smear reviewed 07/15/18 06:45 Polychromasia 0 07/13/18 07:20 Poikilocytosis 0 07/13/18 07:20 Anisocytosis 1+ 07/15/18 06:45 Microcytosis 0 07/13/18 07:20 Macrocytosis 1+ 07/15/18 06:45 Ovalocytes 1+ 07/15/18 06:45 PT with INR 18.90 SEC (9.7-13.0) H 07/15/18 06:45 INR 1.59 (0.83-1.09) H 07/15/18 06:45 PTT (Actin FS) 41.0 SECONDS (25.2-36.5) H 07/12/18 06:00 Sodium 133 mmol/L (136-145) L 07/16/18 06:00 Potassium 3.9 mmol/L (3.5-5.1) 07/16/18 06:00 Chloride 100 mmol/L (98-107) 07/16/18 06:00 Carbon Dioxide 29 mmol/L (21-32) 07/16/18 06:00 Anion Gap 4 MMOL/L (8-16) L 07/16/18 06:00 BUN 5 mg/dL (7-18) L 07/16/18 06:00 Creatinine 0.6 mg/dL (0.55-1.3) 07/16/18 06:00 Creat Clearance w eGFR 136.52 (>60) 07/16/18 06:00 Random Glucose 85 mg/dL (74-106) 07/16/18 06:00 Serum Osmolality 268 mosm/kg (278-305) L 07/12/18 06:00 Lactic Acid 2.0 mmol/L (0.4-2.0) 07/11/18 11:00 Calcium 7.4 mg/dL (8.5-10.1) L 07/16/18 06:00 Phosphorus 4.1 mg/dL (2.5-4.9) 07/12/18 06:00 Magnesium 2.0 mg/dL (1.8-2.4) 07/15/18 06:45 Iron 136 ug/dL (38-169) 07/12/18 06:00 TIBC 164 ug/dL (250-450) L 07/12/18 06:00 Iron Saturation 83 % (15-55) H 07/12/18 06:00 Ferritin 261.6 ng/ml (8-388) 07/12/18 06:00 Total Bilirubin 5.5 mg/dL (0.2-1) H 07/16/18 06:00 Direct Bilirubin 2.1 mg/dL (0.0-0.2) H 07/11/18 10:50 AST 21 U/L (15-37) 07/16/18 06:00 ALT 9 U/L (13-61) L 07/16/18 06:00 Alkaline Phosphatase 76 U/L (45-117) 07/16/18 06:00 Ammonia 46.40 umol/L (11-32) H 07/12/18 06:00 Troponin I < 0.02 ng/ml (0.00-0.05) 07/11/18 10:50 Total Protein 5.4 g/dl (6.4-8.2) L 07/16/18 06:00 Albumin 1.9 g/dl (3.4-5.0) L 07/16/18 06:00 Lipase 135 U/L (73-393) 07/11/18 10:50 Urine Color Yellow 07/12/18 05:26 Urine Appearance Clear 07/12/18 05:26 Urine pH 7.5 (5.0-8.0) 07/12/18 05:26 Ur Specific [place] 1.015 (1.010-1.035) 07/12/18 05:26 Urine Protein Negative (NEGATIVE) 07/12/18 05:26 Urine Glucose (UA) Negative (NEGATIVE) 07/12/18 05:26 Urine Ketones Negative (NEGATIVE) 07/12/18 05:26 Urine Blood Negative (NEGATIVE) 07/12/18 05:26 Urine Nitrite Negative (NEGATIVE) 07/12/18 05:26 Urine Bilirubin Negative (NEGATIVE) 07/12/18 05:26 Urine Urobilinogen 0.2 mg/dL (0.2-1.0) 07/12/18 05:26 Ur Leukocyte Esterase Negative (NEGATIVE) 07/12/18 05:26 Urine WBC (Auto) No Result Required. 07/12/18 05:26 Urine RBC (Auto) No Result Required. 07/12/18 05:26 Urine Casts (Auto) No Result Required. 07/12/18 05:26 U Pathogenic Cast Auto No Result Required. 07/12/18 05:26 U Epithel Cells (Auto) No Result Required. 07/12/18 05:26 U Sm Round Cell (Auto) No Result Required. 07/12/18 05:26 Urine Crystals (Auto) No Result Required. 07/12/18 05:26 Urine Bacteria (Auto) No Result Required. 07/12/18 05:26 Urine Osmolality 228 mosm/kg (300-900) L 07/12/18 05:26 Ur Random Sodium 95 MMOL/L (40-220) 07/12/18 05:26 Ur Random Potassium 17.0 MMOL/L (25-125) L 07/12/18 05:26 Ur Random Chloride 113 MMOL/L (110-250) 07/12/18 05:26 Blood Type O POSITIVE 07/14/18 12:27 Antibody Screen Negative 07/14/18 12:27 Crossmatch See Detail 07/11/18 10:50 Vital Signs Temp 99.3 F 07/16/18 10:00 Pulse 71 07/16/18 10:00 Resp 18 07/16/18 10:00 BP 99/52 L 07/16/18 10:00 Pulse Ox 98 07/15/18 21:00 Intake & Output 07/15/18 07/16/18 07/16/18 23:59 11:59 23:59 Intake Total 400 30 Output Total 900 250 Balance -500 -220 Weight 52.362 kg Intake: Oral 400 30 Output: Urine 900 250 Void 900 250 Other: Voiding Method Urinal Urinal # Unmeasured Voids Void 1 1 Bowel Movement No No # Bowel Movements 1 Weight Measurement Method Standing Scale Condition: Stable - Instructions Disposition: [facility] - Home Medications Comprehensive Discharge Medication List: Ambulatory Orders Vit B Comp/C/Folic/Iron/Vit E [Vitamin B Complex Tablet] 1 each PO DAILY Albuterol 0.083% Nebulizer Jacqueline [Ventolin 0.083% Nebulizer Soln -] 1 amp NEB QID PRN amp 03/05/18 Nadolol [Corgard -] 20 mg PO DAILY tablet 03/05/18 Pantoprazole Sodium [Protonix -] 40 mg PO BID tablet.ec 03/05/18 Spironolactone [Aldactone -] 25 mg PO TID tablet 03/05/18 Folic Acid - 1 mg PO DAILY tablet 04/13/18 Furosemide [Lasix -] 40 mg PO DAILY tablet 04/13/18 Multivitamins [Multivit ([facility] Form[facility])] 1 tab PO DAILY tab 04/13/18 Pentoxifylline [Trental -] 400 mg PO TIDCM tablet.er 04/13/18 Rifaximin [Xifaxan -] 550 mg PO BID tablet 04/13/18 Thiamine HCl [Vitamin B1 -] 100 mg PO DAILY tablet 04/13/18 Lactulose (Oral Use) [Cephulac -] 30 gm PO QID PRN 06/23/18 Mag Hydrox/Al Hydrox/Simeth [Mylanta Oral Suspension -] 30 ml PO PRN 06/23/18 Spironolactone [Aldactone -] 100 mg PO DAILY #30 tablet 07/16/18
--- NOTE | 2018-07-16 13:10 | PN ---
Progress Note, Physician History of Present Illness: Pt seen and examined at bedside. He is awake and alert. He denies shortness of breath. - Current Medication List Current Medications: Active Medications Nadolol (Corgard -) 20 mg PO DAILY [facility] Last Admin: 07/16/18 10:57 Dose: 20 mg Pantoprazole Sodium (Protonix -) 40 mg PO BID [facility] Last Admin: 07/16/18 10:56 Dose: 40 mg Rifaximin (Xifaxan -) 550 mg PO BID [facility] Last Admin: 07/16/18 10:57 Dose: 550 mg Spironolactone (Aldactone -) 100 mg PO DAILY [facility] Last Admin: 07/16/18 10:57 Dose: 100 mg - Objective Vital Signs: Vital Signs Temperature 99.3 F 07/16/18 10:00 Pulse Rate 71 07/16/18 10:00 Respiratory Rate 18 07/16/18 10:00 Blood Pressure 99/52 L 07/16/18 10:00 O2 Sat by Pulse Oximetry (%) 98 07/15/18 21:00 Constitutional: Yes: Calm Eyes: Yes: Sclera Icterus HENT: Yes: Atraumatic Neck: Yes: Supple Cardiovascular: Yes: S1, S2 Respiratory: Yes: CTA Bilaterally Gastrointestinal: Yes: Soft, Ascites Genitourinary: Yes: WNL Musculoskeletal: Yes: WNL Edema: No Neurological: Yes: Oriented Psychiatric: Yes: Oriented Labs: CBC, BMP 07/16/18 06:00 07/16/18 06:00 INR, PTT INR 1.59 (0.83-1.09) H 07/15/18 06:45 Problem List - Problems (1) Hyponatremia Code(s): E87.1 - HYPO-OSMOLALITY AND HYPONATREMIA (2) Alcoholic cirrhosis of liver Code(s): K70.30 - ALCOHOLIC CIRRHOSIS OF LIVER WITHOUT ASCITES Qualifiers: Ascites presence: with ascites Qualified Code(s): K70.31 - Alcoholic cirrhosis of liver with ascites (3) Ascites Code(s): R18.8 - OTHER ASCITES Qualifiers: Ascites type: due to alcoholic cirrhosis Qualified Code(s): K70.31 - Alcoholic cirrhosis of liver with ascites Assessment/Plan Current Medications Generic Name Dose Route Start Last Admin Trade Name Freq PRN Reason Stop Dose Admin Nadolol 20 mg 07/12/18 16:00 07/16/18 10:57 Corgard - PO 20 mg DAILY [facility] Administration Pantoprazole Sodium 40 mg 07/13/18 22:00 07/16/18 10:56 Protonix - PO 40 mg BID [facility] Administration Rifaximin 550 mg 07/12/18 22:00 07/16/18 10:57 Xifaxan - PO 550 mg BID [facility] Administration Spironolactone 100 mg 07/13/18 10:22 07/16/18 10:57 Aldactone - PO 100 mg DAILY [facility] Administration Impression 1. hyponatremia 2. hypokalemia 3. liver cirrhosis 4. fluid overload 5. ascites Plan - cont with spironolactone - monitor lytes - sodium improving - discussed with medical team - will need close GI follow up after discharge
--- NOTE | 2018-07-17 07:24 | PN.GI ---
GI Progress Note Subjective: Patient complain of abdominal pain, denies nausea, vomiting, diarrhea. After paracentesis weight 115lb, this morning weight noted 116lb. No lower extremity edema noted - Objective Vital Signs: Vital Signs Temperature 98.5 F 07/16/18 21:30 Pulse Rate 81 07/16/18 21:30 Respiratory Rate 18 07/16/18 21:30 Blood Pressure 99/69 07/16/18 21:30 O2 Sat by Pulse Oximetry (%) 98 07/16/18 21:00 Constitutional: No Distress, Calm Eyes: Yes: Conjunctiva Clear HENT: Yes: Atraumatic Cardiovascular: Yes: Regular Rate and Rhythm Respiratory: Yes: Regular, CTA Bilaterally Gastrointestinal Inspection: Yes: Ascites. No: WNL, Distention, Hernia, Scars, Other ...Auscultate: Yes: Normoactive Bowel Sounds. No: Hyperactive Bowel Sounds, Hypoactive Bowel Sounds, No Bowel Sounds, Other ...Palpate: Yes: Soft, Tenderness (diffuse). No: Firm/Rigid, Guarding, Hepatomegaly, Mass, Pulsatile Mass, Splenomegaly, Tenderness, Epigastium, Tenderness, Rebound, Other ...Percussion: Yes: Tympanitic. No: Dullness, Fluid Wave, Other Neurological: Yes: Alert, Oriented Psychiatric: Yes: Alert, Oriented Labs: CBC, BMP 07/16/18 06:00 07/16/18 06:00 INR, PTT INR 1.59 (0.83-1.09) H 07/15/18 06:45 Active Medications Generic Name Dose Route Start Last Admin Trade Name Freq PRN Reason Stop Dose Admin Nadolol 20 mg 07/12/18 16:00 07/16/18 10:57 Corgard - PO 20 mg DAILY ALINA Administration Pantoprazole Sodium 40 mg 07/13/18 22:00 07/16/18 21:32 Protonix - PO 40 mg BID ALINA Administration Rifaximin 550 mg 07/12/18 22:00 07/16/18 21:32 Xifaxan - PO 550 mg BID ALINA Administration Spironolactone 100 mg 07/13/18 10:22 07/16/18 10:57 Aldactone - PO 100 mg DAILY ALINA Administration Problem List - Problems (1) Alcoholic cirrhosis of liver Assessment/Plan: R> continue Nadolol and Xifaxan 550mg bid >s/p paracentesis Code(s): K70.30 - ALCOHOLIC CIRRHOSIS OF LIVER WITHOUT ASCITES Qualifiers: Ascites presence: with ascites Qualified Code(s): K70.31 - Alcoholic cirrhosis of liver with ascites (2) Ascites Assessment/Plan: -continue Spironolactone daily -add Lasix 40mg daily to regimen Code(s): R18.8 - OTHER ASCITES Qualifiers: Ascites type: due to alcoholic cirrhosis Qualified Code(s): K70.31 - Alcoholic cirrhosis of liver with ascites (3) Hyponatremia Code(s): E87.1 - HYPO-OSMOLALITY AND HYPONATREMIA (4) Anemia Assessment/Plan: resume Nadolol Hg 8.8 transfuse for Hg <8.0 Code(s): D64.9 - ANEMIA, UNSPECIFIED (5) Melena Assessment/Plan: R>Stool OB x 3 Code(s): K92.1 - MELENA
[2018-07-17] MEDS: RIFAXIMIN 550 MG TABLET (UD) PO SCH ×2 (10:04→21:37)
[2018-07-17] MEDS: SPIRONOLACTONE 25 MG TABLET (FP) PO SCH (10:06)
[2018-07-17] MEDS: PANTOPRAZOLE 40 MG TABLET (FP) PO SCH ×2 (10:06→21:37)
[2018-07-17] MEDS: NADOLOL 20 MG TABLET (FP) PO SCH (10:06)
--- NOTE | 2018-07-17 15:03 | PN ---
Progress Note, Physician History of Present Illness: Pt seen and examined at bedside. He is awake and alert. He denies shortness of breath. - Current Medication List Current Medications: Active Medications Furosemide (Lasix -) 40 mg PO DAILY [facility] Nadolol (Corgard -) 20 mg PO DAILY [facility] Last Admin: 07/17/18 10:06 Dose: 20 mg Pantoprazole Sodium (Protonix -) 40 mg PO BID [facility] Last Admin: 07/17/18 10:06 Dose: 40 mg Rifaximin (Xifaxan -) 550 mg PO BID [facility] Last Admin: 07/17/18 10:04 Dose: 550 mg Spironolactone (Aldactone -) 100 mg PO DAILY [facility] Last Admin: 07/17/18 10:06 Dose: 100 mg - Objective Vital Signs: Vital Signs Temperature 98.5 F 07/17/18 10:00 Pulse Rate 78 07/17/18 10:00 Respiratory Rate 18 07/17/18 10:00 Blood Pressure 100/56 L 07/17/18 10:00 O2 Sat by Pulse Oximetry (%) 98 07/17/18 09:00 Constitutional: Yes: Calm Eyes: Yes: Sclera Icterus HENT: Yes: Normocephalic Cardiovascular: Yes: S1, S2 Respiratory: Yes: CTA Bilaterally Gastrointestinal: Yes: Ascites Genitourinary: Yes: WNL Musculoskeletal: Yes: WNL Extremities: Yes: WNL Edema: No Neurological: Yes: Oriented Psychiatric: Yes: Oriented Labs: CBC, BMP 07/16/18 06:00 07/16/18 06:00 INR, PTT INR 1.59 (0.83-1.09) H 07/15/18 06:45 Problem List - Problems (1) Hyponatremia Code(s): E87.1 - HYPO-OSMOLALITY AND HYPONATREMIA (2) Alcoholic cirrhosis of liver Code(s): K70.30 - ALCOHOLIC CIRRHOSIS OF LIVER WITHOUT ASCITES Qualifiers: Ascites presence: with ascites Qualified Code(s): K70.31 - Alcoholic cirrhosis of liver with ascites (3) Ascites Code(s): R18.8 - OTHER ASCITES Qualifiers: Ascites type: due to alcoholic cirrhosis Qualified Code(s): K70.31 - Alcoholic cirrhosis of liver with ascites Assessment/Plan Current Medications Generic Name Dose Route Start Last Admin Trade Name Freq PRN Reason Stop Dose Admin Furosemide 40 mg 07/18/18 10:00 Lasix - PO DAILY ALINA Nadolol 20 mg 07/12/18 16:00 07/17/18 10:06 Corgard - PO 20 mg DAILY ALINA Administration Pantoprazole Sodium 40 mg 07/13/18 22:00 07/17/18 10:06 Protonix - PO 40 mg BID ALINA Administration Rifaximin 550 mg 07/12/18 22:00 07/17/18 10:04 Xifaxan - PO 550 mg BID ALINA Administration Spironolactone 100 mg 07/13/18 10:22 07/17/18 10:06 Aldactone - PO 100 mg DAILY ALINA Administration Impression 1. hyponatremia 2. hypokalemia 3. liver cirrhosis 4. fluid overload 5. ascites Plan - cont lasix and spironolactone - monitor lytes - monitor sodium - monitor potassium closely while on lasix - will need close GI follow up after discharge
--- NOTE | 2018-07-17 15:07 | PN ---
Progress Note, Physician Chief Complaint: patient seen in bed no distress s/p paracentesis - Current Medication List Current Medications: Active Medications Furosemide (Lasix -) 40 mg PO DAILY [facility] Nadolol (Corgard -) 20 mg PO DAILY [facility] Last Admin: 07/17/18 10:06 Dose: 20 mg Pantoprazole Sodium (Protonix -) 40 mg PO BID [facility] Last Admin: 07/17/18 10:06 Dose: 40 mg Rifaximin (Xifaxan -) 550 mg PO BID [facility] Last Admin: 07/17/18 10:04 Dose: 550 mg Spironolactone (Aldactone -) 100 mg PO DAILY [facility] Last Admin: 07/17/18 10:06 Dose: 100 mg - Objective Vital Signs: Vital Signs Temperature 98.5 F 07/17/18 10:00 Pulse Rate 78 07/17/18 10:00 Respiratory Rate 18 07/17/18 10:00 Blood Pressure 100/56 L 07/17/18 10:00 O2 Sat by Pulse Oximetry (%) 98 07/17/18 09:00 Constitutional: Yes: Calm, Thin Cardiovascular: Yes: Regular Rate and Rhythm, S1, S2 Respiratory: Yes: CTA Bilaterally Gastrointestinal: Yes: Normal Bowel Sounds, Soft Edema: No Neurological: Yes: Alert Labs: CBC, BMP 07/16/18 06:00 07/16/18 06:00 INR, PTT INR 1.59 (0.83-1.09) H 07/15/18 06:45 Problem List - Problems (1) Ascites Assessment/Plan: sP paracentesis lasix 40mg and aldactone Code(s): R18.8 - OTHER ASCITES Qualifiers: Ascites type: due to alcoholic cirrhosis Qualified Code(s): K70.31 - Alcoholic cirrhosis of liver with ascites (2) GI bleed Assessment/Plan: trend h/h = s/p prbc Code(s): K92.2 - GASTROINTESTINAL HEMORRHAGE, UNSPECIFIED Qualifiers: GI bleed type/associated pathology: unspecified gastrointestinal hemorrhage type Qualified Code(s): K92.2 - Gastrointestinal hemorrhage, unspecified (3) Alcoholic cirrhosis of liver Assessment/Plan: gi consult noted rifamixin nadolol aldactone Code(s): K70.30 - ALCOHOLIC CIRRHOSIS OF LIVER WITHOUT ASCITES Qualifiers: Ascites presence: with ascites Qualified Code(s): K70.31 - Alcoholic cirrhosis of liver with ascites
[2018-07-17] MEDS: ACETAMINOPHEN 325 MG TABLET (FP) PO PRN (17:59)
[2018-07-18] MEDS ORDERED: FUROSEMIDE 40 MG TABLET (FP) PO SCH (10:00)
[2018-07-18] MEDS: NADOLOL 20 MG TABLET (FP) PO SCH (10:02)
[2018-07-18] MEDS: RIFAXIMIN 550 MG TABLET (UD) PO SCH (10:02)
[2018-07-18] MEDS: PANTOPRAZOLE 40 MG TABLET (FP) PO SCH (10:02)
[2018-07-18] MEDS: SPIRONOLACTONE 25 MG TABLET (FP) PO SCH (10:02)
[2018-07-18] MEDS: ACETAMINOPHEN 325 MG TABLET (FP) PO PRN (10:02)
--- NOTE | 2018-07-18 15:44 | PN ---
Progress Note, Physician History of Present Illness: Pt seen and examined at bedside. He is awake and appears comfortable. He complains of ascites. - Current Medication List Current Medications: Active Medications Acetaminophen (Tylenol -) 650 mg PO Q6H PRN PRN Reason: PAIN LEVEL 6-10 Last Admin: 07/18/18 10:02 Dose: 650 mg Furosemide (Lasix -) 40 mg PO DAILY [facility] Last Admin: 07/18/18 10:02 Dose: 40 mg Nadolol (Corgard -) 20 mg PO DAILY [facility] Last Admin: 07/18/18 10:02 Dose: 20 mg Pantoprazole Sodium (Protonix -) 40 mg PO BID [facility] Last Admin: 07/18/18 10:02 Dose: 40 mg Rifaximin (Xifaxan -) 550 mg PO BID [facility] Last Admin: 07/18/18 10:02 Dose: 550 mg Spironolactone (Aldactone -) 100 mg PO DAILY [facility] Last Admin: 07/18/18 10:02 Dose: 100 mg - Objective Vital Signs: Vital Signs Temperature 98.0 F 07/18/18 14:06 Pulse Rate 63 07/18/18 14:06 Respiratory Rate 18 07/18/18 14:06 Blood Pressure 108/52 L 07/18/18 14:06 O2 Sat by Pulse Oximetry (%) 99 07/18/18 09:00 Constitutional: Yes: Calm Eyes: Yes: Sclera Icterus HENT: Yes: Atraumatic Neck: Yes: Supple Cardiovascular: Yes: S1, S2 Respiratory: Yes: CTA Bilaterally Gastrointestinal: Yes: Ascites Genitourinary: Yes: WNL Musculoskeletal: Yes: WNL Edema: No Neurological: Yes: Oriented Psychiatric: Yes: Oriented Labs: CBC, BMP 07/16/18 06:00 07/16/18 06:00 INR, PTT INR 1.59 (0.83-1.09) H 07/15/18 06:45 Problem List - Problems (1) Hyponatremia Code(s): E87.1 - HYPO-OSMOLALITY AND HYPONATREMIA (2) Alcoholic cirrhosis of liver Code(s): K70.30 - ALCOHOLIC CIRRHOSIS OF LIVER WITHOUT ASCITES Qualifiers: Ascites presence: with ascites Qualified Code(s): K70.31 - Alcoholic cirrhosis of liver with ascites (3) Ascites Code(s): R18.8 - OTHER ASCITES Qualifiers: Ascites type: due to alcoholic cirrhosis Qualified Code(s): K70.31 - Alcoholic cirrhosis of liver with ascites Assessment/Plan Current Medications Generic Name Dose Route Start Last Admin Trade Name Zenon PRN Reason Stop Dose Admin Acetaminophen 650 mg 07/17/18 15:48 07/18/18 10:02 Tylenol - PO 650 mg Q6H PRN Administration PAIN LEVEL 6-10 Furosemide 40 mg 07/18/18 10:00 07/18/18 10:02 Lasix - PO 40 mg DAILY ALINA Administration Nadolol 20 mg 07/12/18 16:00 07/18/18 10:02 Corgard - PO 20 mg DAILY ALINA Administration Pantoprazole Sodium 40 mg 07/13/18 22:00 07/18/18 10:02 Protonix - PO 40 mg BID ALINA Administration Rifaximin 550 mg 07/12/18 22:00 07/18/18 10:02 Xifaxan - PO 550 mg BID ALINA Administration Spironolactone 100 mg 07/13/18 10:22 07/18/18 10:02 Aldactone - PO 100 mg DAILY ALINA Administration Impression 1. hyponatremia 2. hypokalemia 3. liver cirrhosis 4. fluid overload 5. ascites Plan - check bmp - cont diuretics - GI follow up - monitor potassium closely while on lasix
[2018-07-18 16:06] VITALS: BMI 16.7
--- NOTE | 2018-07-18 16:46 | DS ---
Physical Examination Vital Signs: Vital Signs Temperature 98.0 F 07/18/18 14:06 Pulse Rate 63 07/18/18 14:06 Respiratory Rate 18 07/18/18 14:06 Blood Pressure 108/52 L 07/18/18 14:06 O2 Sat by Pulse Oximetry (%) 99 07/18/18 09:00 Findings/Remarks: Pt is a 62yo M with PMH of Alcoholic Cirrhosis, Ascites, GI bleed, Emphysema BIBA from [facility] for weight gain, lower extremity edema. Pt is complaining of abdominal pain. Pt also states that he has been having on and off vomiting with nausea that is bloody and occasional bloody bowel movements. Also endorses occasional sob, occasional chest pain, occasional headaches. Denies fever, chills, dysuria, hematuria, syncope. Per CA, pt has gained about 30lb over the course of 1 month. Pt gets paracentesis every so often and last one was done 06/23/18 in which 7L was taken out. Constitutional: Yes: No Distress, Calm Eyes: Yes: Conjunctiva Clear HENT: Yes: Atraumatic Cardiovascular: Yes: Regular Rate and Rhythm Respiratory: Yes: Regular, CTA Bilaterally Gastrointestinal: Yes: Normal Bowel Sounds, Soft, Ascites Musculoskeletal: Yes: Muscle Weakness Extremities: Yes: WNL Edema: No Neurological: Yes: Alert, Pre-Existing Deficit Psychiatric: Yes: Alert Labs: CBC, BMP 07/16/18 06:00 07/16/18 06:00 Discharge Summary Reason For Visit: ASCITES,ALCOLIC CIRRHOSIS Current Active Problems Alcoholic cirrhosis of liver (Acute) Anemia (Acute) Ascites (Acute) Hypokalemia (Acute) Hyponatremia (Acute) Melena (Acute) Hospital Course: see progress notes Laboratory Tests 07/11/18 07/11/18 07/11/18 10:50 10:50 10:50 WBC 4.7 RBC 2.46 L Hgb 8.5 L Hct 25.3 L MCV 103.2 H MCH 34.5 H MCHC 33.5 RDW 18.2 H Plt Count 108 L MPV 7.6 Absolute Neuts (auto) 2.7 Total Counted Neutrophils % 58.6 D Neutrophils % (Manual) Band Neutrophils % Lymphocytes % 18.5 D Lymphocytes % (Manual) Monocytes % 17.9 H Monocytes % (Manual) Eosinophils % 4.4 Eosinophils % (Manual) Basophils % 0.6 Basophils % (Manual) Myelocytes % (Man) Promyelocytes % (Man) Blast Cells % (Manual) Nucleated RBC % 0 Metamyelocytes Hypochromia Platelet Estimate Platelet Comment Polychromasia Poikilocytosis Anisocytosis Microcytosis Macrocytosis Ovalocytes PT with INR INR PTT (Actin FS) 38.6 H Sodium Potassium Chloride Carbon Dioxide Anion Gap BUN Creatinine Creat Clearance w eGFR Random Glucose Serum Osmolality Lactic Acid Calcium Phosphorus Magnesium Iron TIBC Iron Saturation Ferritin Total Bilirubin Direct Bilirubin AST ALT Alkaline Phosphatase Ammonia Troponin I Total Protein Albumin Lipase Urine Color Urine Appearance Urine pH Ur Specific [place] Urine Protein Urine Glucose (UA) Urine Ketones Urine Blood Urine Nitrite Urine Bilirubin Urine Urobilinogen Ur Leukocyte Esterase Urine WBC (Auto) Urine RBC (Auto) Urine Casts (Auto) U Pathogenic Cast Auto U Epithel Cells (Auto) U Sm Round Cell (Auto) Urine Crystals (Auto) Urine Bacteria (Auto) Urine Osmolality Ur Random Sodium Ur Random Potassium Ur Random Chloride Blood Type O POSITIVE Antibody Screen Negative Crossmatch See Detail 07/11/18 07/11/18 07/11/18 10:50 10:50 10:50 WBC RBC Hgb Hct MCV MCH MCHC RDW Plt Count MPV Absolute Neuts (auto) Total Counted Neutrophils % Neutrophils % (Manual) Band Neutrophils % Lymphocytes % Lymphocytes % (Manual) Monocytes % Monocytes % (Manual) Eosinophils % Eosinophils % (Manual) Basophils % Basophils % (Manual) Myelocytes % (Man) Promyelocytes % (Man) Blast Cells % (Manual) Nucleated RBC % Metamyelocytes Hypochromia Platelet Estimate Platelet Comment Polychromasia Poikilocytosis Anisocytosis Microcytosis Macrocytosis Ovalocytes PT with INR INR PTT (Actin FS) Sodium 129 L Potassium 3.3 L Chloride 100 Carbon Dioxide 23 Anion Gap 6 L BUN 5 L Creatinine 0.6 Creat Clearance w eGFR 136.97 Random Glucose 109 H Serum Osmolality Lactic Acid Calcium 7.5 L Phosphorus Magnesium Iron TIBC Iron Saturation Ferritin Total Bilirubin 4.3 H Direct Bilirubin 2.1 H AST 36 ALT 15 Alkaline Phosphatase 155 H Ammonia Troponin I < 0.02 Total Protein 6.4 Albumin 1.6 L Lipase 135 Urine Color Urine Appearance Urine pH Ur Specific Am[place] Urine Protein Urine Glucose (UA) Urine Ketones Urine Blood Urine Nitrite Urine Bilirubin Urine Urobilinogen Ur Leukocyte Esterase Urine WBC (Auto) Urine RBC (Auto) Urine Casts (Auto) U Pathogenic Cast Auto U Epithel Cells (Auto) U Sm Round Cell (Auto) Urine Crystals (Auto) Urine Bacteria (Auto) Urine Osmolality Ur Random Sodium Ur Random Potassium Ur Random Chloride Blood Type Antibody Screen Crossmatch 07/11/18 07/11/18 07/12/18 11:00 11:04 05:26 WBC RBC Hgb Hct MCV MCH MCHC RDW Plt Count MPV Absolute Neuts (auto) Total Counted Neutrophils % Neutrophils % (Manual) Band Neutrophils % Lymphocytes % Lymphocytes % (Manual) Monocytes % Monocytes % (Manual) Eosinophils % Eosinophils % (Manual) Basophils % Basophils % (Manual) Myelocytes % (Man) Promyelocytes % (Man) Blast Cells % (Manual) Nucleated RBC % Metamyelocytes Hypochromia Platelet Estimate Platelet Comment Polychromasia Poikilocytosis Anisocytosis Microcytosis Macrocytosis Ovalocytes PT with INR INR PTT (Actin FS) Sodium Potassium Chloride Carbon Dioxide Anion Gap BUN Creatinine Creat Clearance w eGFR Random Glucose Serum Osmolality Lactic Acid 2.0 Calcium Phosphorus Magnesium Iron TIBC Iron Saturation Ferritin Total Bilirubin Direct Bilirubin AST ALT Alkaline Phosphatase Ammonia 36.40 H Troponin I Total Protein Albumin Lipase Urine Color Yellow Urine Appearance Clear Urine pH 7.5 Ur Specific Am[place] 1.015 Urine Protein Negative Urine Glucose (UA) Negative Urine Ketones Negative Urine Blood Negative Urine Nitrite Negative Urine Bilirubin Negative Urine Urobilinogen 0.2 Ur Leukocyte Esterase Negative Urine WBC (Auto) No Result Required. Urine RBC (Auto) No Result Required. Urine Casts (Auto) No Result Required. U Pathogenic Cast Auto No Result Required. U Epithel Cells (Auto) No Result Required. U Sm Round Cell (Auto) No Result Required. Urine Crystals (Auto) No Result Required. Urine Bacteria (Auto) No Result Required. Urine Osmolality Ur Random Sodium Ur Random Potassium Ur Random Chloride Blood Type Antibody Screen Crossmatch 07/12/18 07/12/18 07/12/18 05:26 05:26 06:00 WBC 4.2 RBC 2.42 L Hgb 8.4 L Hct 24.6 L MCV 101.7 H MCH 34.9 H MCHC 34.3 RDW 18.3 H Plt Count 108 L MPV 7.8 Absolute Neuts (auto) Total Counted Neutrophils % Neutrophils % (Manual) Band Neutrophils % Lymphocytes % Lymphocytes % (Manual) Monocytes % Monocytes % (Manual) Eosinophils % Eosinophils % (Manual) Basophils % Basophils % (Manual) Myelocytes % (Man) Promyelocytes % (Man) Blast Cells % (Manual) Nucleated RBC % Metamyelocytes Hypochromia Platelet Estimate Platelet Comment Polychromasia Poikilocytosis Anisocytosis Microcytosis Macrocytosis Ovalocytes PT with INR INR PTT (Actin FS) Sodium Potassium Chloride Carbon Dioxide Anion Gap BUN Creatinine Creat Clearance w eGFR Random Glucose Serum Osmolality Lactic Acid Calcium Phosphorus Magnesium Iron TIBC Iron Saturation Ferritin Total Bilirubin Direct Bilirubin AST ALT Alkaline Phosphatase Ammonia Troponin I Total Protein Albumin Lipase Urine Color Urine Appearance Urine pH Ur Specific [place] Urine Protein Urine Glucose (UA) Urine Ketones Urine Blood Urine Nitrite Urine Bilirubin Urine Urobilinogen Ur Leukocyte Esterase Urine WBC (Auto) Urine RBC (Auto) Urine Casts (Auto) U Pathogenic Cast Auto U Epithel Cells (Auto) U Sm Round Cell (Auto) Urine Crystals (Auto) Urine Bacteria (Auto) Urine Osmolality 228 L Ur Random Sodium 95 Ur Random Potassium 17.0 L Ur Random Chloride 113 Blood Type Antibody Screen Crossmatch 07/12/18 07/12/18 07/12/18 06:00 06:00 06:00 WBC RBC Hgb Hct MCV MCH MCHC RDW Plt Count MPV Absolute Neuts (auto) Total Counted Neutrophils % Neutrophils % (Manual) Band Neutrophils % Lymphocytes % Lymphocytes % (Manual) Monocytes % Monocytes % (Manual) Eosinophils % Eosinophils % (Manual) Basophils % Basophils % (Manual) Myelocytes % (Man) Promyelocytes % (Man) Blast Cells % (Manual) Nucleated RBC % Metamyelocytes Hypochromia Platelet Estimate Platelet Comment Polychromasia Poikilocytosis Anisocytosis Microcytosis Macrocytosis Ovalocytes PT with INR 23.70 H INR 1.99 H PTT (Actin FS) 41.0 H Sodium 132 L Potassium 3.2 L Chloride 100 Carbon Dioxide 24 Anion Gap 8 BUN 6 L Creatinine 0.7 Creat Clearance w eGFR 114.65 Random Glucose 72 L Serum Osmolality Lactic Acid Calcium 7.9 L Phosphorus 4.1 Magnesium 1.5 L Iron 136 TIBC 164 L Iron Saturation 83 H Ferritin 261.6 Total Bilirubin 6.7 H Direct Bilirubin AST 29 ALT 14 Alkaline Phosphatase 108 Ammonia Troponin I Total Protein 6.2 L Albumin 1.9 L Lipase Urine Color Urine Appearance Urine pH Ur Specific [place] Urine Protein Urine Glucose (UA) Urine Ketones Urine Blood Urine Nitrite Urine Bilirubin Urine Urobilinogen Ur Leukocyte Esterase Urine WBC (Auto) Urine RBC (Auto) Urine Casts (Auto) U Pathogenic Cast Auto U Epithel Cells (Auto) U Sm Round Cell (Auto) Urine Crystals (Auto) Urine Bacteria (Auto) Urine Osmolality Ur Random Sodium Ur Random Potassium Ur Random Chloride Blood Type Antibody Screen Crossmatch 07/12/18 07/12/18 07/13/18 06:00 06:00 07:20 WBC 4.6 RBC 2.20 L Hgb 7.7 L Hct 22.4 L MCV 102.0 H MCH 35.2 H MCHC 34.5 RDW 18.4 H Plt Count 108 L MPV 7.7 Absolute Neuts (auto) 1.9 Total Counted Neutrophils % 41.9 L D Neutrophils % (Manual) 50.5 Band Neutrophils % 0.0 Lymphocytes % 32.9 D Lymphocytes % (Manual) 27.2 D Monocytes % 20.1 H Monocytes % (Manual) 19 H Eosinophils % 4.6 H Eosinophils % (Manual) 1.9 Basophils % 0.5 Basophils % (Manual) 1.0 D Myelocytes % (Man) 0 Promyelocytes % (Man) 0 Blast Cells % (Manual) 0 Nucleated RBC % 0 Metamyelocytes 0 Hypochromia 0 Platelet Estimate Decreased Platelet Comment Polychromasia 0 Poikilocytosis 0 Anisocytosis 1+ Microcytosis 0 Macrocytosis 1+ Ovalocytes 1+ PT with INR INR PTT (Actin FS) Sodium Potassium Chloride Carbon Dioxide Anion Gap BUN Creatinine Creat Clearance w eGFR Random Glucose Serum Osmolality 268 L Lactic Acid Calcium Phosphorus Magnesium Iron TIBC Iron Saturation Ferritin Total Bilirubin Direct Bilirubin AST ALT Alkaline Phosphatase Ammonia 46.40 H Troponin I Total Protein Albumin Lipase Urine Color Urine Appearance Urine pH Ur Specific [place] Urine Protein Urine Glucose (UA) Urine Ketones Urine Blood Urine Nitrite Urine Bilirubin Urine Urobilinogen Ur Leukocyte Esterase Urine WBC (Auto) Urine RBC (Auto) Urine Casts (Auto) U Pathogenic Cast Auto U Epithel Cells (Auto) U Sm Round Cell (Auto) Urine Crystals (Auto) Urine Bacteria (Auto) Urine Osmolality Ur Random Sodium Ur Random Potassium Ur Random Chloride Blood Type Antibody Screen Crossmatch 07/13/18 07/14/18 07/14/18 07:20 06:30 06:30 WBC 5.5 RBC 2.77 L Hgb 9.4 L Hct 27.2 L D MCV 98.0 H MCH 33.9 H MCHC 34.6 RDW 19.6 H Plt Count 106 L MPV 7.8 Absolute Neuts (auto) 2.0 Total Counted 100 Neutrophils % 36.6 L Neutrophils % (Manual) 52.0 Band Neutrophils % Lymphocytes % 37.3 Lymphocytes % (Manual) 25.0 Monocytes % 21.7 H Monocytes % (Manual) 20 H Eosinophils % 3.8 Eosinophils % (Manual) 2.0 Basophils % 0.6 Basophils % (Manual) Myelocytes % (Man) Promyelocytes % (Man) Blast Cells % (Manual) Nucleated RBC % 0 Metamyelocytes Hypochromia Platelet Estimate Adequate Platelet Comment Polychromasia Poikilocytosis Anisocytosis 1+ Microcytosis Macrocytosis 1+ Ovalocytes 1+ PT with INR INR PTT (Actin FS) Sodium 132 L 132 L Potassium 3.9 3.0 L Chloride 99 95 L Carbon Dioxide 25 28 Anion Gap 8 9 BUN 10 8 Creatinine 1.1 0.9 Creat Clearance w eGFR 68.05 85.50 Random Glucose 129 H 109 H Serum Osmolality Lactic Acid Calcium 7.6 L 8.0 L Phosphorus Magnesium Iron TIBC Iron Saturation Ferritin Total Bilirubin 5.8 H 7.1 H Direct Bilirubin AST 26 27 ALT 10 L 9 L Alkaline Phosphatase 92 83 Ammonia Troponin I Total Protein 5.8 L 6.0 L Albumin 1.8 L 2.0 L Lipase Urine Color Urine Appearance Urine pH Ur Specific [place] Urine Protein Urine Glucose (UA) Urine Ketones Urine Blood Urine Nitrite Urine Bilirubin Urine Urobilinogen Ur Leukocyte Esterase Urine WBC (Auto) Urine RBC (Auto) Urine Casts (Auto) U Pathogenic Cast Auto U Epithel Cells (Auto) U Sm Round Cell (Auto) Urine Crystals (Auto) Urine Bacteria (Auto) Urine Osmolality Ur Random Sodium Ur Random Potassium Ur Random Chloride Blood Type Antibody Screen Crossmatch 07/14/18 07/14/18 07/14/18 10:15 10:15 12:27 WBC RBC Hgb Hct MCV MCH MCHC RDW Plt Count MPV Absolute Neuts (auto) Total Counted Neutrophils % Neutrophils % (Manual) Band Neutrophils % Lymphocytes % Lymphocytes % (Manual) Monocytes % Monocytes % (Manual) Eosinophils % Eosinophils % (Manual) Basophils % Basophils % (Manual) Myelocytes % (Man) Promyelocytes % (Man) Blast Cells % (Manual) Nucleated RBC % Metamyelocytes Hypochromia Platelet Estimate Platelet Comment Polychromasia Poikilocytosis Anisocytosis Microcytosis Macrocytosis Ovalocytes PT with INR 24.60 H INR 2.07 H PTT (Actin FS) Sodium Potassium Chloride Carbon Dioxide Anion Gap BUN Creatinine Creat Clearance w eGFR Random Glucose Serum Osmolality Lactic Acid Calcium Phosphorus Magnesium 1.6 L Iron TIBC Iron Saturation Ferritin Total Bilirubin Direct Bilirubin AST ALT Alkaline Phosphatase Ammonia Troponin I Total Protein Albumin Lipase Urine Color Urine Appearance Urine pH Ur Specific [place] Urine Protein Urine Glucose (UA) Urine Ketones Urine Blood Urine Nitrite Urine Bilirubin Urine Urobilinogen Ur Leukocyte Esterase Urine WBC (Auto) Urine RBC (Auto) Urine Casts (Auto) U Pathogenic Cast Auto U Epithel Cells (Auto) U Sm Round Cell (Auto) Urine Crystals (Auto) Urine Bacteria (Auto) Urine Osmolality Ur Random Sodium Ur Random Potassium Ur Random Chloride Blood Type O POSITIVE Antibody Screen Negative Crossmatch 07/15/18 07/15/18 07/15/18 06:45 06:45 06:45 WBC 5.3 RBC 2.53 L Hgb 8.7 L Hct 24.8 L MCV 97.8 H MCH 34.3 H MCHC 35.0 RDW 19.4 H Plt Count 91 L MPV 7.7 Absolute Neuts (auto) 2.0 Total Counted 100 Neutrophils % 38.2 L Neutrophils % (Manual) 42.0 L Band Neutrophils % Lymphocytes % 36.0 Lymphocytes % (Manual) 24.0 Monocytes % 22.1 H Monocytes % (Manual) 30 H Eosinophils % 3.3 Eosinophils % (Manual) 3.0 Basophils % 0.4 Basophils % (Manual) 1.0 Myelocytes % (Man) Promyelocytes % (Man) Blast Cells % (Manual) Nucleated RBC % 0 Metamyelocytes Hypochromia Platelet Estimate Decreased Platelet Comment Smear reviewed Polychromasia Poikilocytosis Anisocytosis 1+ Microcytosis Macrocytosis 1+ Ovalocytes 1+ PT with INR 18.90 H INR 1.59 H PTT (Actin FS) Sodium 131 L Potassium 3.4 L Chloride 94 L Carbon Dioxide 29 Anion Gap 7 L BUN 5 L Creatinine 0.7 Creat Clearance w eGFR 114.27 Random Glucose 100 Serum Osmolality Lactic Acid Calcium 7.7 L Phosphorus Magnesium 2.0 Iron TIBC Iron Saturation Ferritin Total Bilirubin 5.4 H Direct Bilirubin AST 23 ALT 12 L Alkaline Phosphatase 78 Ammonia Troponin I Total Protein 5.7 L Albumin 2.1 L Lipase Urine Color Urine Appearance Urine pH Ur Specific [place] Urine Protein Urine Glucose (UA) Urine Ketones Urine Blood Urine Nitrite Urine Bilirubin Urine Urobilinogen Ur Leukocyte Esterase Urine WBC (Auto) Urine RBC (Auto) Urine Casts (Auto) U Pathogenic Cast Auto U Epithel Cells (Auto) U Sm Round Cell (Auto) Urine Crystals (Auto) Urine Bacteria (Auto) Urine Osmolality Ur Random Sodium Ur Random Potassium Ur Random Chloride Blood Type Antibody Screen Crossmatch 07/16/18 07/16/18 06:00 06:00 WBC 5.1 RBC 2.56 L Hgb 8.8 L Hct 25.5 L MCV 99.7 H MCH 34.5 H MCHC 34.6 RDW 19.0 H Plt Count 85 L MPV 7.6 Absolute Neuts (auto) 2.1 Total Counted Neutrophils % 41.1 L Neutrophils % (Manual) Band Neutrophils % Lymphocytes % 38.2 Lymphocytes % (Manual) Monocytes % 17.3 H Monocytes % (Manual) Eosinophils % 2.8 Eosinophils % (Manual) Basophils % 0.6 Basophils % (Manual) Myelocytes % (Man) Promyelocytes % (Man) Blast Cells % (Manual) Nucleated RBC % 0 Metamyelocytes Hypochromia Platelet Estimate Platelet Comment Polychromasia Poikilocytosis Anisocytosis Microcytosis Macrocytosis Ovalocytes PT with INR INR PTT (Actin FS) Sodium 133 L Potassium 3.9 Chloride 100 Carbon Dioxide 29 Anion Gap 4 L BUN 5 L Creatinine 0.6 Creat Clearance w eGFR 136.52 Random Glucose 85 Serum Osmolality Lactic Acid Calcium 7.4 L Phosphorus Magnesium Iron TIBC Iron Saturation Ferritin Total Bilirubin 5.5 H Direct Bilirubin AST 21 ALT 9 L Alkaline Phosphatase 76 Ammonia Troponin I Total Protein 5.4 L Albumin 1.9 L Lipase Urine Color Urine Appearance Urine pH Ur Specific [place] Urine Protein Urine Glucose (UA) Urine Ketones Urine Blood Urine Nitrite Urine Bilirubin Urine Urobilinogen Ur Leukocyte Esterase Urine WBC (Auto) Urine RBC (Auto) Urine Casts (Auto) U Pathogenic Cast Auto U Epithel Cells (Auto) U Sm Round Cell (Auto) Urine Crystals (Auto) Urine Bacteria (Auto) Urine Osmolality Ur Random Sodium Ur Random Potassium Ur Random Chloride Blood Type Antibody Screen Crossmatch Active Medications Generic Name Dose Route Start Last Admin Trade Name Freq PRN Reason Stop Dose Admin Acetaminophen 650 mg 07/17/18 15:48 07/18/18 10:02 Tylenol - PO 650 mg Q6H PRN Administration PAIN LEVEL 6-10 Furosemide 40 mg 07/18/18 10:00 07/18/18 10:02 Lasix - PO 40 mg DAILY ALINA Administration Nadolol 20 mg 07/12/18 16:00 07/18/18 10:02 Corgard - PO 20 mg DAILY ALINA Administration Pantoprazole Sodium 40 mg 07/13/18 22:00 07/18/18 10:02 Protonix - PO 40 mg BID ALINA Administration Rifaximin 550 mg 07/12/18 22:00 07/18/18 10:02 Xifaxan - PO 550 mg BID ALINA Administration Spironolactone 100 mg 07/13/18 10:22 07/18/18 10:02 Aldactone - PO 100 mg DAILY ALINA Administration Condition: Stable - Instructions Disposition: HALF-WAY FACILITY - Home Medications Comprehensive Discharge Medication List: Ambulatory Orders Vit B Comp/C/Folic/Iron/Vit E [Vitamin B Complex Tablet] 1 each PO DAILY Albuterol 0.083% Nebulizer Jacqueline [Ventolin 0.083% Nebulizer Soln -] 1 amp NEB QID PRN amp 03/05/18 Nadolol [Corgard -] 20 mg PO DAILY tablet 03/05/18 Pantoprazole Sodium [Protonix -] 40 mg PO BID tablet.ec 03/05/18 Spironolactone [Aldactone -] 25mg PO TID tablet 03/05/18 Folic Acid - 1 mg PO DAILY tablet 04/13/18 Furosemide [Lasix -] 40 mg PO DAILY tablet 04/13/18 Multivitamins [Multivit (RH Formulary)] 1 tab PO DAILY tab 04/13/18 Pentoxifylline [Trental -] 400 mg PO TIDCM tablet.er 04/13/18 Rifaximin [Xifaxan -] 550 mg PO BID tablet 04/13/18 Thiamine HCl [Vitamin B1 -] 100 mg PO DAILY tablet 04/13/18 Lactulose (Oral Use) [Cephulac -] 30 gm PO QID PRN 06/23/18 Mag Hydrox/Al Hydrox/Simeth [Mylanta Oral Suspension -] 30 ml PO PRN 06/23/18 Spironolactone [Aldactone -] 100 mg PO DAILY #30 tablet 07/16/18
[2018-07-18 21:22] VITALS: BP 86/49; PULSE 62; TEMP 98.6
== END 2018-07-18 21:59 | DRG 264 ==
LOC: JER 10:12 → JERBED 14:18 → OBSVTOIN 15:45 → J5S 16:26
PROVIDERS: ADMIT Family Medicine; ATTEND Family Medicine
PROC: 30233N1 Transfusion of Nonautologous Red Blood Cells into Peripheral Vein, Percutaneous Approach (ICD-10-PCS; 2018-07-13)
PROC: 30233L1 Transfusion of Nonautologous Fresh Plasma into Peripheral Vein, Percutaneous Approach (ICD-10-PCS; 2018-07-14)
PROC: 30233K1 Transfusion of Nonautologous Frozen Plasma into Peripheral Vein, Percutaneous Approach (ICD-10-PCS; 2018-07-14)
PROC: 0W9G3ZX Drainage of Peritoneal Cavity, Percutaneous Approach, Diagnostic (ICD-10-PCS; principal; 2018-07-15)
DX: K70.31 Alcoholic cirrhosis of liver with ascites (principal); R64 Cachexia; J43.9 Emphysema, unspecified; E87.70 Fluid overload, unspecified; K92.2 Gastrointestinal hemorrhage, unspecified; E87.1 Hypo-osmolality and hyponatremia; D64.9 Anemia, unspecified; I85.10 Secondary esophageal varices without bleeding; Z87.891 Personal history of nicotine dependence; F10.20 Alcohol dependence, uncomplicated; E87.6 Hypokalemia; Z68.1 Body mass index [BMI] 19.9 or less, adult
CPT/HCPCS: 36415; 36430; 36511; 71045-TC-FY; 76700-TC; 76942-TC; 80053; 81003; 82140; 82248; 82436; 82728; 83540; 83550; 83605; 83690; 83735; 83930; 83935; 84100; 84133; 84300; 84484; 85025; 85027; 85610; 85730; 86850; 86900; 86901; 86922; 93005; 93010; 93970-TC; 97116-GP; 97161-GP; 99285-25; G0378; P9017; P9038; P9047; P9058

== ENCOUNTER 2019-01-04 01:10 | Emergency (ER) | payer OTHER ==
[2019-01-04 01:24] VITALS: TEMP 98.1; BMI 23.3
--- NOTE | 2019-01-04 01:48 | PDOC ---
Attending Attestation - Resident Resident Name: Constantino Feng - ED Attending Attestation I have performed the following: I have examined & evaluated the patient, The case was reviewed & discussed with the resident, I agree w/resident's findings & plan - HPI HPI: 01/04/19 02:26 Pt is an acloholic with cirrhosis. He lives at [facility] 01/04/19 02:26 Pt was sent to the ER for abdominal pain; nonspecific complaints; here pt has no complaints. - Physicial Exam PE: 01/04/19 04:55 Abdomen minimally tender. No flank pain Legs No edema extremities normal Heart and lungs clear Afebrile. Agree with resident exam - Medical Decision Making 01/04/19 05:35 Pt has normal labs; stool filled FUA abdomen but no air fluid levels; and no extreme gas. Pt is stable to go back to the [place]. He has constipation.
--- NOTE | 2019-01-04 02:09 | PDOC ---
History of Present Illness - General Chief Complaint: Pain, Acute Stated Complaint: ABD PAIN Time Seen by Provider: 01/04/19 01:47 - History of Present Illness Initial Comments: Rayray Allen is a 63yo man with a PMH of alcoholic cirrhosis, COPD, irritable bowel, HTN, GERD who presents from [facility] with report of abdominal pain. He states it is worst in the RLQ. Mr Allen states that the pain has been present for one month. He does not know if he has tried anything to improve the pain. He denies any fevers or change in bowel movements but states that he vomited earlier today. Per SNF paperwork, there is no report of recent fever, vomiting, or diarrhea. Past History - Past Medical History Allergies/Adverse Reactions: Allergies Allergy/AdvReac Type Severity Reaction Status Date / Time No Known Allergies Allergy Unverified 01/04/19 01:23 Home Medications: Ambulatory Orders Vit B Comp/C/Folic/Iron/Vit E [Vitamin B Complex Tablet] 1 each PO DAILY Albuterol 0.083% Nebulizer Jacqueline [Ventolin 0.083% Nebulizer Soln -] 1 amp NEB QID PRN amp 03/05/18 Nadolol [Corgard -] 20 mg PO DAILY tablet 03/05/18 Pantoprazole Sodium [Protonix -] 40 mg PO BID tablet.ec 03/05/18 Spironolactone [Aldactone -] 25 mg PO TID tablet 03/05/18 Folic Acid - 1 mg PO DAILY tablet 04/13/18 Furosemide [Lasix -] 40 mg PO DAILY tablet 04/13/18 Multivitamins [Multivit ([facility] Formulary)] 1 tab PO DAILY tab 04/13/18 Pentoxifylline [Trental -] 400 mg PO TIDCM tablet.er 04/13/18 Rifaximin [Xifaxan -] 550 mg PO BID tablet 04/13/18 Thiamine HCl [Vitamin B1 -] 100 mg PO DAILY tablet 04/13/18 Lactulose (Oral Use) [Cephulac -] 30 gm PO QID PRN 06/23/18 Mag Hydrox/Al Hydrox/Simeth [Mylanta Oral Suspension -] 30 ml PO PRN 06/23/18 Spironolactone [Aldactone -] 100 mg PO DAILY #30 tablet 07/16/18 Anemia: No Asthma: No Cancer: No Cardiac Disorders: No CVA: No COPD: Yes (emphysema) CHF: No Dementia: No Diabetes: No GI Disorders: (esophageal varices) Disorders: No HTN: Yes Liver Disease: Yes (cirrhosis of liver) Seizures: No Thyroid Disease: No Lung CA: No (emphysema) - Surgical History Abdominal Surgery: No Appendectomy: No Cardiac Surgery: No Cholecystectomy: No Lung Surgery: No Neurologic Surgery: No - Psycho Social/Smoking Cessation Hx Smoking History: Never smoked Have you smoked in the past 12 months: No Information on smoking cessation initiated: No Hx Alcohol Use: No Drug/Substance Use Hx: No Substance Use Type: Alcohol Hx Substance Use Treatment: No Review of Systems - Review of Systems Comments:: General: No fevers, no chills, no weight or appetite change, no malaise HEENT: No changes in vision, no changes in hearing, no congestion, no sore throat CV: No chest pain, no palpitations, no LE edema Pulm: No SOB, no cough, no wheezing GI: See HPI : No frequency, no urgency, no dysuria Musc: No back pain, no joint swelling, no recent injury Skin: No rash, no lesions, no erythema Endo: No excessive thirst, no heat/cold intolerance Heme: No unusual bruising or bleeding, no swollen glands Neuro: No syncope, no numbness/tingling, no focal weakness Vasc: No claudication Psych: No recent change in mood, no SI or HI *Physical Exam - Vital Signs Last Vital Signs Temp Pulse Resp BP Pulse Ox 98.1 F 57 L 20 124/62 100 01/04/19 01:23 01/04/19 01:23 01/04/19 01:23 01/04/19 01:23 01/04/19 01:23 - Physical Exam Comments: General: In no acute distress, sleeping comfortably HEENT: Atraumatic, very poor dentition, MMM, +scleral icterus, PERRL, EOMI Cards: RRR, no murmur appreciated Pulm: Comfortable on room air, clear to auscultation bilaterally Abd: Soft, nondistended, no fluid wave. No focal TTP, generalized discomfort with abdominal exam Ext: Atraumatic. No LE edema. Moves all extremities. WWP Skin: Normal color, no rashes or lesions Neuro: Awake, alert, CN grossly intact, normal speech, motor/sensory grossly intact and symmetric Psych: Mood appropriate to situation ED Treatment Course - LABORATORY CBC & Chemistry Diagram: 01/04/19 02:36 01/04/19 02:36 Medical Decision Making - Medical Decision Making 01/04/19 02:05 Rayray Allen is a 63yo man with a PMH of alcoholic cirrhosis, COPD, irritable bowel, HTN, GERD who presents from [facility] with report of abdominal pain. He is unable to provide much additional information but reports vomiting today. He states his pain has been present for a month. - Broad differential. No focal tenderness on abdominal exam, no ascites, no fever or other vitals abnormalities. May be intra-abdominal infection including gastroenteritis, diverticulitis, colitis, appendicitis, cholecystitis, gastritis , pancreatitis, constipation. No indication for SBP as pt does not appear to have ascites currently - Per chart review, has been seen previous with abdominal pain. Current pain may be chronic - CBC, CMP, mag, UA, UCx to evaluate for abnormalities. May need imaging 01/04/19 03:34 - Labs completed. No concerning abnormalities appreciated. Mag, potassium slightly low. Will replete - Flat and upright abd xray to evaluate for abnormalities - Pt now denying any notable symptoms - Plan to d/c back to SNF if xrays are not concerning. 01/04/19 05:35 - Abd xrays notable for significant stool burden but no acute abnormalities - Pain most likely secondary to constipation. Pt is already taking lactulose, protonix, mylanta. Will recommend follow up with outpatient GI. Discussed with Dr Charly Canales PGY2 Discharge - Discharge Information Problems reviewed: Yes Clinical Impression/Diagnosis: Abdominal pain Qualifiers: Abdominal location: unspecified location Qualified Code(s): R10.9 - Unspecified abdominal pain Condition: Stable Disposition: HOME - Admission No - Follow up/Referral Referrals: Sergio Alcazar MD [Primary Care Provider] - Tj Saldana MD [Staff Physician] - - Patient Discharge Instructions Patient Printed Discharge Instructions: DI for Abdominal Pain-Adult Additional Instructions: Discharge Instructions; You were seen in the emergency department for abdominal pain. Your blood tests showed low magnesium and potassium levels, and you were given supplements. You had an abdominal xray that showed a large amount of stool, likely representing constipation. This may be the source of your pain. Continue to take all of your regular medications as prescribed. Follow up with your GI doctor within the next week. Seek immediate care for any worsening symptoms, inability to eat, severe constipation, or any other medical emergency. - Post Discharge Activity
[2019-01-04 02:47] LABS: BASO % 0.1 % (0-2.0); EOS % 0.1 % (0-4.5); HEMATOCRIT 30.3 % (35.4-49); HEMOGLOBIN 10.1 GM/dL (11.7-16.9); LYMPH % 10.8 % (8-40); MCH 32.2 pg (25.7-33.7); MCHC 33.3 g/dl (32.0-35.9); MEAN CELL VOLUME 96.7 fl (80-96); MEAN PLT VOLUME 8.1 fl (7.5-11.1); MONO % 7.8 % (3.8-10.2); NEUT % 81.2 % (42.8-82.8); PH,URINE 6.5 (5.0-8.0); PLATELET COUNT 97 K/MM3 (134-434); RBC 3.13 M/mm3 (4.00-5.60); RDW 15.3 % (11.9-15.9); URINE APPEARANCE CLEAR; URINE BILIRUBIN NEGATIVE (NEGATIVE); URINE COLOR DK YELLOW; URINE GLUCOSE (UA) NEGATIVE (NEGATIVE); URINE KETONE NEGATIVE (NEGATIVE); URINE LEUK ESTERASE NEGATIVE (NEGATIVE); URINE NITRITE NEGATIVE (NEGATIVE); URINE PROTEIN NEGATIVE (NEGATIVE); URINE UROBILINOGEN 0.2 mg/dL (0.2-1.0); WHITE BLOOD COUNT 7.8 K/mm3 (4.0-10.0)
[2019-01-04 03:22] LABS: BILIRUBIN,TOTAL 3.6 mg/dL (0.2-1); BLOOD UREA NITROGEN 7.2 mg/dL (7-18); CALCIUM 9.1 mg/dL (8.5-10.1); CREATININE 0.9 mg/dL (0.55-1.3); POTASSIUM 3.4 mmol/L (3.5-5.1)
[2019-01-04 03:29] LABS: MAGNESIUM 1.7 mg/dL (1.8-2.4); PHOSPHOROUS 2.7 mg/dL (2.5-4.9)
[2019-01-04] MEDS ORDERED: MAGNESIUM SULF 50% (8.12 MEQ/2 ML-1 GM VIAL) IVPB ONE (04:37)
[2019-01-04] MEDS ORDERED: POTASSIUM CHLORIDE TABS 20 MEQ TABLET.ER (FP) PO ONE ×2 (04:40→04:47)
[2019-01-04] MEDS ORDERED: MAGNESIUM 1GM/D5W - 1 GM/100 ML IVPB IVPB ONE (04:47)
[2019-01-04] MEDS ORDERED: POLYETHYLENE GLYCOL 3350 119 GM BTL PO ONE (05:36)
[2019-01-04 06:15] VITALS: BP 128/69; PULSE 68
== END 2019-01-04 06:53 ==
LOC: JER 01:10
PROC: 3E033GC Introduction of Other Therapeutic Substance into Peripheral Vein, Percutaneous Approach (ICD-10-PCS; principal; 2019-01-04)
DX: K59.00 Constipation, unspecified (principal); R10.9 Unspecified abdominal pain; E87.6 Hypokalemia; I10 Essential (primary) hypertension; K21.9 Gastro-esophageal reflux disease without esophagitis; J43.8 Other emphysema; K70.30 Alcoholic cirrhosis of liver without ascites
CPT/HCPCS: 36415; 74019-TC-FY; 80053; 81003; 83690; 83735; 84100; 85025; 87086; 96374; 99283-25

== ENCOUNTER → 2019-04-13 | Day surgery (SDC) | payer OTHER ==
[2019-04-13 10:33] LABS: BASO % 0.7 % (0-2.0); EOS % 5.3 % (0-4.5); HEMATOCRIT 30.2 % (35.4-49); HEMOGLOBIN 10.2 GM/dL (11.7-16.9); MCH 32.7 pg (25.7-33.7); MCHC 33.8 g/dl (32.0-35.9); MEAN CELL VOLUME 96.6 fl (80-96); MEAN PLT VOLUME 8.1 fl (7.5-11.1); MONO % 13.2 % (3.8-10.2); NEUT % 58.8 % (42.8-82.8); PLATELET COUNT 141 K/MM3 (134-434); RBC 3.12 M/mm3 (4.00-5.60); RDW 16.8 % (11.9-15.9); WHITE BLOOD COUNT 4.7 K/mm3 (4.0-10.0)
[2019-04-13 10:48] LABS: INR 1.94 (0.83-1.09); PROTHROMBIN TIME (PATIENT) 23.1 SEC (9.7-13.0)
== END | disposition home or self-care (01) ==
LOC: JRADIR 09:46
PROVIDERS: ATTEND Physician Assistant
PROC: 0W9G3ZZ Drainage of Peritoneal Cavity, Percutaneous Approach (ICD-10-PCS; principal; 2019-04-13)
PROC: BW40ZZZ Ultrasonography of Abdomen (ICD-10-PCS; 2019-04-13)
DX: R18.8 Other ascites (principal)
CPT/HCPCS: 36415; 76942-TC; 85025; 85610

== ENCOUNTER 2019-04-29 10:04 | Inpatient (IN) | payer OTHER ==
[2019-04-29] MEDS ORDERED: morphine CARPU-JECT 4 MG/1 ML DISP.SYRIN IVPUSH ONE (10:53)
--- NOTE | 2019-04-29 11:00 | PDOC ---
Documentation entered by Leena Torres SCRIBE, acting as scribe for Tammy Blood MD. Tammy Blood MD: This documentation has been prepared by the Brian kuo Adrianna, SCRIBE, under my direction and personally reviewed by me in its entirety. I confirm that the documentation accurately reflects all work, treatment, procedures, and medical decision making performed by me. History of Present Illness - General Chief Complaint: Pain Stated Complaint: ABD PAIN Time Seen by Provider: 04/29/19 10:32 History Source: Patient, Detention Records, Old Records - History of Present Illness Initial Comments: Rayray Allen is a 63yo man with a PMH of alcoholic cirrhosis, ascites, esophageal varices, thrombocytopenia, COPD, irritable bowel, HTN, GERD who presents BIBEMS from [facility] with report of abdominal pain and abdominal distension. History is obtained from [place] records. Patient complained of diffuse abdominal pain, and was found to be distended. He had increased abdominal girth overnight, with a 6.2 lb weight gain in 24 hours. His last paracentesis was April 13, and 6 liters of ascitic fluid was removed. Allergies: None Past Medical History: alcoholic cirrhosis, COPD, irritable bowel, HTN, GERD Social history: [facility] resident. No tobacco, ETOH or drug use. Surgical history: None reported Meds: Noncompliant with medications, and has refused medications at the [place] facility in the past. as documented in EMR PMD: Dr. Moreno ROS: GENERAL/CONSTITUTIONAL: No fever or chills. No weakness. no sweats. HEAD, EYES, EARS, NOSE AND THROAT: No headache, no dizziness. CARDIOVASCULAR: No chest pain or palpitations, syncope. +peripheral edema. RESPIRATORY: No SOB, cough GASTROINTESTINAL +Diffuse abdominal pain and distention. +Increased abdominal girth with overnight 5lb weight gain. No nausea/vomiting. No diarrhea or constipation. GENITOURINARY: No hematuria, dysuria, frequency, urgency or other changes. MUSCULOSKELETAL: No joint or muscle swelling or pain. No decreased range of motion. No neck or back pain. SKIN: No rash or changes in skin color or lesions. No wounds. NEUROLOGIC: alert No headache, dizziness, loss of consciousness, or change in strength/sensation. HEMATOLOGIC/LYMPHATIC: No anemia, or history of blood clots. + easy bruising/ bleeding ALLERGIC/IMMUNOLOGIC: No allergies PSYCH: no anxiety/depression All other systems reviewed and negative, or as documented in HPI. Physical Exam: General: uncomfortable appearing. HEENT: NCAT, PERRL, EOMI, clear conjunctiva, anicteric, moist mucous membranes , clear oropharynx, no oral lesions.. Neck: neck supple, FROM Resp: CTAB, normal and even respirations, no respiratory distress CVS: +tachycardic, no murmurs, 2+ peripheral pulses throughout, +peripheral edema Abdomen: +diffuse abdominal tenderness to palpation. +protuberant belly +tense ascites with fluid waves. Back: nontender, normal inspection and ROM MSK: JACOBS x4, ROM intact. No clubbing or cyanosis. normal bulk and tone. Extremities: 4+ pitting edema of the bilateral lower extremities. no calf tenderness Neuro: alert, oriented appropriately Skin: warm and well perfused, cap refill <2 sec, normal color 04/29/19 12:06 04/30/19 09:46 Past History - Past Medical History Allergies/Adverse Reactions: Allergies Allergy/AdvReac Type Severity Reaction Status Date / Time No Known Allergies Allergy Unverified 01/04/19 01:23 Home Medications: Ambulatory Orders Vit B Comp/C/Folic/Iron/Vit E [Vitamin B Complex Tablet] 1 each PO DAILY Albuterol 0.083% Nebulizer Jacqueline [Ventolin 0.083% Nebulizer Soln -] 1 amp NEB QID PRN amp 03/05/18 Nadolol [Corgard -] 20 mg PO DAILY tablet 03/05/18 Pantoprazole Sodium [Protonix -] 40 mg PO BID tablet.ec 03/05/18 Spironolactone [Aldactone -] 25 mg PO TID tablet 03/05/18 Folic Acid - 1 mg PO DAILY tablet 04/13/18 Furosemide [Lasix -] 40 mg PO DAILY tablet 04/13/18 Multivitamins [Multivit ([facility] Formulary)] 1 tab PO DAILY tab 04/13/18 Pentoxifylline [Trental -] 400 mg PO TIDCM tablet.er 04/13/18 Rifaximin [Xifaxan -] 550 mg PO BID tablet 04/13/18 Thiamine HCl [Vitamin B1 -] 100 mg PO DAILY tablet 04/13/18 Lactulose (Oral Use) [Cephulac -] 30 gm PO QID PRN 06/23/18 Mag Hydrox/Al Hydrox/Simeth [Mylanta Oral Suspension -] 30 ml PO PRN 06/23/18 Spironolactone [Aldactone -] 100 mg PO DAILY #30 tablet 07/16/18 Anemia: No Asthma: No Cancer: No Cardiac Disorders: No CVA: No COPD: Yes (emphysema) CHF: No Dementia: No Diabetes: No GI Disorders: (esophageal varices) Disorders: No HTN: Yes Liver Disease: Yes (cirrhosis of liver) Seizures: No Thyroid Disease: No Lung CA: No (emphysema) - Surgical History Abdominal Surgery: No Appendectomy: No Cardiac Surgery: No Cholecystectomy: No Lung Surgery: No Neurologic Surgery: No - Immunization History Td Vaccination: Yes TDAP Vaccination: Yes Immunization Up to Date: Yes - Psycho Social/Smoking Cessation Hx Smoking History: Never smoked Have you smoked in the past 12 months: No Information on smoking cessation initiated: No Hx Alcohol Use: No Drug/Substance Use Hx: No Substance Use Type: Alcohol Hx Substance Use Treatment: No *Physical Exam - Vital Signs Last Vital Signs Temp Pulse Resp BP Pulse Ox 97.9 F 100 H 19 150/99 99 04/29/19 10:39 04/29/19 10:39 04/29/19 10:39 04/29/19 10:39 04/29/19 10:39 Heart Score/ECG Review #1 ECG reviewed & interpreted by me at: 10:35 General ECG Interpretation: Sinus Rhythm, Normal Intervals 04/29/19 10:58 EKG sinus tachycardia at 100 bpm, no interval abnormalities, narrow QRS, ST and T wave segments and morphology normal. Nonspecific T wave abnormalities ED Treatment Course - LABORATORY CBC & Chemistry Diagram: 04/30/19 07:45 04/30/19 07:45 Medical Decision Making - Medical Decision Making 04/29/19 10:59 Vital Signs Temp Pulse Resp BP Pulse Ox 97.9 F 100 H 19 150/99 99 04/29/19 10:39 04/29/19 10:39 04/29/19 10:39 04/29/19 10:39 04/29/19 10:39 VS reviewed. afebrile, tachy noted but also pain. ddx. infection, ascites, portal hypertension, SBP, pancreatitis, hepatitis, dehydration, anemia, infection, UTI, pna. 04/29/19 11:41 WBCount is noted to be normal, acute on chronic anemia, potassium is mildly low patient is already on spironolactone will replete. LFTs are at baseline, lipase is normal no evidence of pancreatitis. lactic acidosis elevated 3.4, likely related to cirrhosis and problem with clearing lactic. does not appear septic or toxic previously seen by Dr Saldana, called out to GI for cs 04/29/19 12:06 spoke with IR attg today, Dr Grayson, for IR guided therapeutic and dx paracentesis (last done 04/13/19 at OSH), with 6L removed previously ordered for procedure, paracentesis labs including cell ct/diff, TP, glucose, cultures, LDH, G stain, amylase. pt is fluid overloaded and will benefit from therapeutic paracentesis now, hold lasix for now. 04/29/19 13:35 - spoke with Dr Saldana - recommended the appropriate labs/peritoneal fluid testing. albumin 12.5mg x3 with the tap, preferably before, pt is over in IR currently for sono guided dx/therapeutic paracentesis. will order to maintain hemodynamics given his hypoalbumin state/cirrhotic liver disease. admitting to Dr Moreno service for ascites, abdominal pain. s/o to KESHAV Navarrete 04/30/19 09:47 04/30/19 09:48 04/30/19 09:48 Discharge - Discharge Information Problems reviewed: Yes Clinical Impression/Diagnosis: Ascites of liver Condition: Guarded - Admission Yes - Follow up/Referral - Patient Discharge Instructions - Post Discharge Activity
[2019-04-29] MEDS ORDERED: morphine SULFATE 4 MG/ML VIAL ONE (11:07)
[2019-04-29 11:34] LABS: BASO % 0.6 % (0-2.0); EOS % 7.2 % (0-4.5); HEMATOCRIT 27.8 % (35.4-49); HEMOGLOBIN 9.4 GM/dL (11.7-16.9); LYMPH % 20.8 % (8-40); MCH 32.5 pg (25.7-33.7); MCHC 33.9 g/dl (32.0-35.9); MEAN CELL VOLUME 96.1 fl (80-96); MEAN PLT VOLUME 8.5 fl (7.5-11.1); MONO % 14.3 % (3.8-10.2); NEUT % 57.1 % (42.8-82.8); PLATELET COUNT 134 K/MM3 (134-434); RDW 16.9 % (11.9-15.9); WHITE BLOOD COUNT 4.9 K/mm3 (4.0-10.0)
[2019-04-29 11:37] LABS: ALBUMIN 1.9 g/dl (3.4-5.0); BILIRUBIN,DIRECT 1.3 mg/dL (0.0-0.2); BILIRUBIN,TOTAL 2.3 mg/dL (0.2-1); BLOOD UREA NITROGEN 6.4 mg/dL (7-18); CALCIUM 7.2 mg/dL (8.5-10.1); CREATININE 0.7 mg/dL (0.55-1.3); POTASSIUM 3.3 mmol/L (3.5-5.1); TOT PROT 5.8 g/dl (6.4-8.2)
[2019-04-29 11:48] LABS: INR 1.9 (0.83-1.09); PROTHROMBIN TIME (PATIENT) 22.6 SEC (9.7-13.0)
[2019-04-29 11:51] LABS: ACTIVATED PTT 41.3 SECONDS (25.2-36.5)
[2019-04-29] MEDS ORDERED: ALBUMIN HUMAN 25% 12.5 GM/50 ML VIAL IVPB SCH (13:45)
--- NOTE | 2019-04-29 15:05 | HP ---
Admitting History and Physical - Admission Chief Complaint: weight gain overnight History of Present Illness: 63 year old male with PMH alcoholic cirrhosis, copd/emphysema, ibs, htn , hyponatremia, gerd preesnts to the ED from [facility] for 6.2 lb weight gain overnight. staff at the care home also reported his abd girth to grow. he reports he came with ABD pain, but received morphine and went to IR for paracentesis, and feels better. he denies chest pains, pressure, n/v/d. of note he was recently tapped Apr 13, 2019 for 3.5 L via IR. History Source: Patient, Medical Record, Transfer Record Limitations to Obtaining History: No Limitations - Past Medical History Cardiovascular: Yes: HTN Pulmonary: Yes: COPD Gastrointestinal: Yes: Ascites, Irritable Bowel Disease Hepatobiliary: Yes: Cirrhosis (Alcoholic) Heme/Onc: Yes: Anemia Psych: Yes: Addictions (alcoholism) - Past Surgical History Past Surgical History: Yes: None - Smoking History Smoking history: Never smoked Have you smoked in the past 12 months: No - Alcohol/Substance Use Hx Alcohol Use: No - Social History Usual Living Arrangement: Yes: Group Home ADL: Support Services 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 History of Recent Travel: No Home Medications - Allergies Allergies/Adverse Reactions: Allergies Allergy/AdvReac Type Severity Reaction Status Date / Time No Known Allergies Allergy Unverified 01/04/19 01:23 - Home Medications Home Medications: Ambulatory Orders Vit B Comp/C/Folic/Iron/Vit E [Vitamin B Complex Tablet] 1 each PO DAILY Albuterol 0.083% Nebulizer Jacqueline [Ventolin 0.083% Nebulizer Soln -] 1 amp NEB QID PRN amp 03/05/18 Nadolol [Corgard -] 20 mg PO DAILY tablet 03/05/18 Pantoprazole Sodium [Protonix -] 40 mg PO BID tablet.ec 03/05/18 Spironolactone [Aldactone -] 25 mg PO TID tablet 03/05/18 Folic Acid - 1 mg PO DAILY tablet 04/13/18 Furosemide [Lasix -] 40 mg PO DAILY tablet 04/13/18 Multivitamins [Multivit ([facility] Formulary)] 1 tab PO DAILY tab 04/13/18 Pentoxifylline [Trental -] 400 mg PO TIDCM tablet.er 04/13/18 Rifaximin [Xifaxan -] 550 mg PO BID tablet 04/13/18 Thiamine HCl [Vitamin B1 -] 100 mg PO DAILY tablet 04/13/18 Lactulose (Oral Use) [Cephulac -] 30 gm PO QID PRN 06/23/18 Mag Hydrox/Al Hydrox/Simeth [Mylanta Oral Suspension -] 30 ml PO PRN 06/23/18 Spironolactone [Aldactone -] 100 mg PO DAILY #30 tablet 07/16/18 Family Medical History Family History: Unable to Obtain Review of Systems - Review of Systems Constitutional: reports: No Symptoms Eyes: reports: No Symptoms HENT: reports: No Symptoms Neck: reports: No Symptoms Cardiovascular: reports: Edema, Shortness of Breath Respiratory: reports: SOB Gastrointestinal: reports: Other (distention) Musculoskeletal: reports: No Symptoms Physical Examination Vital Signs: Vital Signs Temperature 97.9 F 04/29/19 10:39 Pulse Rate 100 H 04/29/19 10:39 Respiratory Rate 04/29/19 10:39 Blood Pressure 150/99 04/29/19 10:39 O2 Sat by Pulse Oximetry (%) 99 04/29/19 10:39 Constitutional: Yes: Calm HENT: Yes: Atraumatic, Normocephalic Neck: Yes: Supple Cardiovascular: Yes: Tachycardia Respiratory: Yes: CTA Bilaterally Gastrointestinal: Yes: Normal Bowel Sounds, Ascites, Distention Edema: LLE: 2+, RLE: 2+ Wound/Incision: Yes: Clean/Dry, Dressing Dry and Intact (right abd IR site) Neurological: Yes: Alert Labs: CBC, BMP 04/29/19 11:02 04/29/19 11:02 Problem List - Problems (1) Alcoholic cirrhosis of liver Assessment/Plan: GI consult IR for paracentesis fluid cultures pending restart spironolactone, rifampin, nadolol trend ammonia, increase lactulose as needed lactic acid elevation r/t cirrhosis- recheck later tonight 2gm sodium controlled diet, 2 L FR monitor serum NA Problems reviewed: Yes Code(s): K70.30 - ALCOHOLIC CIRRHOSIS OF LIVER WITHOUT ASCITES Qualifiers: Ascites presence: with ascites Qualified Code(s): K70.31 - Alcoholic cirrhosis of liver with ascites (2) HTN (hypertension) Assessment/Plan: continue home medications tomorrow if BP permits Problems reviewed: Yes Code(s): I10 - ESSENTIAL (PRIMARY) HYPERTENSION (3) GERD (gastroesophageal reflux disease) Assessment/Plan: continue ppi Problems reviewed: Yes Code(s): K21.9 - GASTRO-ESOPHAGEAL REFLUX DISEASE WITHOUT ESOPHAGITIS (4) Anemia Assessment/Plan: H & H noted check iron profile check stool occult Problems reviewed: Yes Code(s): D64.9 - ANEMIA, UNSPECIFIED (5) COPD (chronic obstructive pulmonary disease) Assessment/Plan: continue neb tx incentive spirometer Problems reviewed: Yes Code(s): J44.9 - CHRONIC OBSTRUCTIVE PULMONARY DISEASE, UNSPECIFIED (6) Hepatic encephalopathy Assessment/Plan: ammonia high, restart lactulose titrate lactulose as needed monitor mental status Problems reviewed: Yes Code(s): K72.90 - HEPATIC FAILURE, UNSPECIFIED WITHOUT COMA (7) Hypokalemia Assessment/Plan: k 3.3, replete po on K sparing diuretic check mag level- replete if warranted Problems reviewed: Yes Code(s): E87.6 - HYPOKALEMIA
[2019-04-29] MEDS ORDERED: LACTULOSE 20 GM/30 ML UDC (FOR ORAL USE ONLY) PO PRN (15:19)
[2019-04-29] MEDS ORDERED: ALBUTEROL SO4 0.083% IH SOL 2.5 MG/3 ML VIAL.NEB. NEB PRN (15:19)
[2019-04-29] MEDS ORDERED: MAG HYDROX/AL HYDROX/SIMETH 30 ML UNIT-DOSE CUP PO PRN (15:30)
[2019-04-29] MEDS ORDERED: POTASSIUM CHLORIDE TABS 20 MEQ TABLET.ER (FP) PO ONE (15:37)
[2019-04-29 17:45] LABS: MAGNESIUM 1.5 mg/dL (1.8-2.4)
[2019-04-29] MEDS: PENTOXIFYLLINE 400 MG TABLET.ER PO SCH (17:46)
[2019-04-29] MEDS: RIFAXIMIN 550 MG TABLET (UD) PO SCH (21:20)
[2019-04-29] MEDS: PANTOPRAZOLE 40 MG TABLET PO SCH (21:20)
[2019-04-30 08:28] LABS: BASO % 0.6 % (0-2.0); EOS % 11.1 % (0-4.5); HEMATOCRIT 28.1 % (35.4-49); HEMOGLOBIN 9.6 GM/dL (11.7-16.9); LYMPH % 21.5 % (8-40); MCH 32.6 pg (25.7-33.7); MEAN CELL VOLUME 95.9 fl (80-96); MEAN PLT VOLUME 7.9 fl (7.5-11.1); MONO % 12.7 % (3.8-10.2); NEUT % 54.1 % (42.8-82.8); PLATELET COUNT 120 K/MM3 (134-434); RBC 2.94 M/mm3 (4.00-5.60); RDW 16.5 % (11.9-15.9); WHITE BLOOD COUNT 5.1 K/mm3 (4.0-10.0)
[2019-04-30 08:45] LABS: INR 1.99 (0.83-1.09); PROTHROMBIN TIME (PATIENT) 23.7 SEC (9.7-13.0)
[2019-04-30] MEDS ORDERED: PT OWN MED DRAWER 7, Y5N ONE (08:46)
[2019-04-30] MEDS: PENTOXIFYLLINE 400 MG TABLET.ER PO SCH (08:47)
[2019-04-30 09:03] LABS: ALBUMIN 1.7 g/dl (3.4-5.0); BILIRUBIN,TOTAL 3.4 mg/dL (0.2-1); BLOOD UREA NITROGEN 6.6 mg/dL (7-18); CALCIUM 7.5 mg/dL (8.5-10.1); CREATININE 0.6 mg/dL (0.55-1.3); TOT PROT 5.1 g/dl (6.4-8.2)
--- NOTE | 2019-04-30 09:09 | CON.GI ---
Consult Consult Specialty:: GI coverage for Dr Magaña Referred by:: Dr Blood Reason for Consultation:: Ascites - History of Present Illness History of Present Illness: Patient is a 63 y/o male with past medical history of Alcoholic Cirrhosis, COPD/ Emphysema, IBS, HTN, Hyponatremia, GERD. Consult was placed for ascites. Patient was sent from [facility] for 6.2lb weight gain overnight. Patient has history of Alcoholic Cirrhosis and recently had paracentesis wth IR on 04/13/19 which removed 3.5L of fluid. Patient complains of abdominal pain, denies nausea, vomiting, diarrhea, constipation, or melena. When he arrived to ER yesterday he underwent paracentesis with IR and 6500cc of fluid was removed. On admission labs show elevated ammonia level 39.3 but after receiving lactulose showing downtrend to 30.6. 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 History of Recent Travel: No Home Medications - Allergies Allergies/Adverse Reactions: Allergies Allergy/AdvReac Type Severity Reaction Status Date / Time No Known Allergies Allergy Unverified 01/04/19 01:23 - Home Medications Home Medications: Ambulatory Orders Vit B Comp/C/Folic/Iron/Vit E [Vitamin B Complex Tablet] 1 each PO DAILY Albuterol 0.083% Nebulizer Jacqueline [Ventolin 0.083% Nebulizer Soln -] 1 amp NEB QID PRN amp 03/05/18 Nadolol [Corgard -] 20 mg PO DAILY tablet 03/05/18 Pantoprazole Sodium [Protonix -] 40 mg PO BID tablet.ec 03/05/18 Spironolactone [Aldactone -] 25 mg PO TID tablet 03/05/18 Folic Acid - 1 mg PO DAILY tablet 04/13/18 Furosemide [Lasix -] 40 mg PO DAILY tablet 04/13/18 Multivitamins [Multivit ([facility] Formulary)] 1 tab PO DAILY tab 04/13/18 Pentoxifylline [Trental -] 400 mg PO TIDCM tablet.er 04/13/18 Rifaximin [Xifaxan -] 550 mg PO BID tablet 04/13/18 Thiamine HCl [Vitamin B1 -] 100 mg PO DAILY tablet 04/13/18 Lactulose (Oral Use) [Cephulac -] 30 gm PO QID PRN 06/23/18 Mag Hydrox/Al Hydrox/Simeth [Mylanta Oral Suspension -] 30 ml PO PRN 06/23/18 Spironolactone [Aldactone -] 100 mg PO DAILY #30 tablet 07/16/18 Review of Systems - Review of Systems Constitutional: reports: No Symptoms Eyes: reports: No Symptoms HENT: reports: No Symptoms Neck: reports: No Symptoms Cardiovascular: reports: Shortness of Breath Respiratory: reports: SOB Gastrointestinal: reports: Abdominal Pain Genitourinary: reports: No Symptoms Breasts: reports: No Symptoms Reported Musculoskeletal: reports: No Symptoms Integumentary: reports: No Symptoms Neurological: reports: No Symptoms Endocrine: reports: No Symptoms Hematology/Lymphatic: reports: No Symptoms Psychiatric: reports: No Symptoms Physical Exam-GI Vital Signs: Vital Signs Temperature 98.3 F 04/30/19 06:00 Pulse Rate 101 H 04/30/19 06:00 Respiratory Rate 20 04/30/19 06:00 Blood Pressure 130/80 04/30/19 06:00 O2 Sat by Pulse Oximetry (%) 99 04/29/19 21:00 Constitutional: Yes: No Distress, Calm Eyes: Yes: Other (jaundice conjunctive) HENT: Yes: Atraumatic Cardiovascular: Yes: Tachycardia Respiratory: Yes: Regular, CTA Bilaterally Gastrointestinal Inspection: Yes: WNL, Ascites ...Auscultate: Yes: Normoactive Bowel Sounds. No: Hyperactive Bowel Sounds, Hypoactive Bowel Sounds, No Bowel Sounds, Other ...Palpate: Yes: Soft, Tenderness (lower abdomen). No: Firm/Rigid, Guarding, Hepatomegaly, Mass, Pulsatile Mass, Splenomegaly, Tenderness, Epigastium, Tenderness, Rebound, Other ...Percussion: Yes: Other (high tympany) Neurological: Yes: Alert Psychiatric: Yes: Alert Labs: CBC, BMP 04/30/19 07:45 04/30/19 07:45 INR, PTT INR 1.99 (0.83-1.09) H 04/30/19 07:45 Problem List - Problems (1) Ascites of liver Assessment/Plan: Daily weights s/p paracentesis with IR and 6500cc fluid removed discontinue Trental, start on Furosemide 40mg daily Sprinolactone 100mg daily Total bilirubin improved Dr Magaña will resume care in am Code(s): R18.8 - OTHER ASCITES (2) Alcoholic cirrhosis of liver Assessment/Plan: Nadolo 20mg dailyl, Xifaxin 550mg tid Lactulose 30mg HS Code(s): K70.30 - ALCOHOLIC CIRRHOSIS OF LIVER WITHOUT ASCITES Qualifiers: Ascites presence: with ascites Qualified Code(s): K70.31 - Alcoholic cirrhosis of liver with ascites (3) Hepatic encephalopathy Assessment/Plan: Xifaxin Lactulose 30mg HS Code(s): K72.90 - HEPATIC FAILURE, UNSPECIFIED WITHOUT COMA
[2019-04-30] MEDS: SPIRONOLACTONE 25 MG TABLET (FP) PO SCH (09:40)
[2019-04-30] MEDS: MULTIVITAMINS (DAILY MVI) TABLET (FP) PO SCH (09:41)
[2019-04-30] MEDS: VITAMIN B COMP W-C 1 EA TABLET PO SCH (09:41)
[2019-04-30] MEDS: NADOLOL 20 MG TABLET (FP) PO SCH (09:41)
[2019-04-30] MEDS: THIAMINE HCL 100 MG TABLET (FP) PO SCH (09:41)
[2019-04-30] MEDS: FOLIC ACID 1 MG TABLET (FP) PO SCH (09:41)
[2019-04-30] MEDS: PANTOPRAZOLE 40 MG TABLET PO SCH ×2 (09:41→21:57)
[2019-04-30] MEDS: RIFAXIMIN 550 MG TABLET (UD) PO SCH ×2 (09:41→21:57)
[2019-04-30] MEDS ORDERED: [UNRECOGNIZED DRUG - OTHER] PO SCH (10:00)
[2019-04-30] MEDS ORDERED: VIT B COMP PO SCH (10:00)
[2019-04-30] MEDS ORDERED: VIT E PO SCH (10:00)
[2019-04-30] MEDS ORDERED: FOLIC PO SCH (10:00)
[2019-04-30] MEDS ORDERED: IRON PO SCH (10:00)
[2019-04-30] MEDS: FUROSEMIDE 40 MG TABLET (FP) PO SCH (11:54)
--- NOTE | 2019-04-30 14:16 | EKG ---
Test Reason : Blood Pressure : / mmHG Vent. Rate : 100 BPM Atrial Rate : 187 BPM P-R Int : 000 ms QRS Dur : 090 ms QT Int : 394 ms P-R-T Axes : 000 044 049 degrees QTc Int : 508 ms SINUS RHYTHM CANNOT RULE OUT ANTERIOR INFARCT , AGE UNDETERMINED PROLONGED QT ABNORMAL ECG Confirmed by ANTIONETTE MUNOZ MD ([id number]) on 04/30/2019 2:16:36 PM Referred By: Confirmed By:ANTIONETTE MUNOZ MD
--- NOTE | 2019-04-30 14:53 | PN ---
Progress Note, Physician Chief Complaint: ascites 6.2 lb weight gain at [facility] IR for tap 04/29/2019 removed 6.5 L today he has abd pain History of Present Illness: 63 year old male with PMH alcoholic cirrhosis., copd, ibs, htn, hyponatremia, gerd presents from [facility] for increased abd girth. - Current Medication List Current Medications: Active Medications Al Hydroxide/Mg Hydroxide (Mylanta Oral Suspension -) 30 ml PO PRN PRN PRN Reason: INDIGESTION Albuterol Sulfate (Ventolin 0.083% Nebulizer Soln -) 1 amp NEB Q6H PRN PRN Reason: SHORT OF BREATH/WHEEZING Folic Acid (Folic Acid -) 1 mg PO DAILY [facility] Last Admin: 04/30/19 09:41 Dose: 1 mg Furosemide (Lasix -) 40 mg PO DAILY [facility] Last Admin: 04/30/19 11:54 Dose: 40 mg Lactulose (Cephulac (Oral Use)) 30 gm PO [facility] Multivit/Ca Carb/B Cmplx/FA/Prenat (Nephro-Chris -) 1 tablet PO DAILY [facility] Last Admin: 04/30/19 09:41 Dose: 1 tablet Multivitamins/Minerals/Vitamin C (Tab-A-Vit -) 1 tab PO DAILY [facility] Last Admin: 04/30/19 09:41 Dose: 1 tab Nadolol (Corgard -) 20 mg PO DAILY [facility] Last Admin: 04/30/19 09:41 Dose: 20 mg Pantoprazole Sodium (Protonix -) 40 mg PO BID [facility] Last Admin: 04/30/19 09:41 Dose: 40 mg Rifaximin (Xifaxan -) 550 mg PO BID [facility] Last Admin: 04/30/19 09:41 Dose: 550 mg Spironolactone (Aldactone -) 100 mg PO DAILY [facility] Last Admin: 04/30/19 09:40 Dose: Not Given Thiamine HCl (Vitamin B1 -) 100 mg PO DAILY [facility] Last Admin: 04/30/19 09:41 Dose: 100 mg - Objective Vital Signs: Vital Signs Temperature 98.0 F 04/30/19 09:39 Pulse Rate 101 H 04/30/19 09:39 Respiratory Rate 20 04/30/19 09:39 Blood Pressure 113/71 04/30/19 09:39 O2 Sat by Pulse Oximetry (%) 99 04/29/19 21:00 Constitutional: Yes: Mild Distress HENT: Yes: Atraumatic, Normocephalic Neck: Yes: Supple Cardiovascular: Yes: Tachycardia Respiratory: Yes: Regular Gastrointestinal: Yes: Ascites, Distention Genitourinary: Yes: WNL Edema: LLE: 2+, RLE: 2+ Integumentary: Yes: WNL Wound/Incision: Yes: Other (incision to right abd from IR) Neurological: Yes: Alert Labs: CBC, BMP 04/30/19 07:45 04/30/19 07:45 INR, PTT INR 1.99 (0.83-1.09) H 04/30/19 07:45 Problem List - Problems (1) Alcoholic cirrhosis of liver Assessment/Plan: GI consult appreciated IR for paracentesis done yesterday removed 6.5 liters fluid cultures pending spironolactone, rifampin, nadolol, GI added furosemide trend ammonia, increase lactulose as needed lactic acid elevation r/t cirrhosis 2gm sodium controlled diet, 2 L FR monitor serum NA Code(s): K70.30 - ALCOHOLIC CIRRHOSIS OF LIVER WITHOUT ASCITES Qualifiers: Ascites presence: with ascites Qualified Code(s): K70.31 - Alcoholic cirrhosis of liver with ascites (2) HTN (hypertension) Assessment/Plan: continue home medications tomorrow if BP permits Code(s): I10 - ESSENTIAL (PRIMARY) HYPERTENSION (3) GERD (gastroesophageal reflux disease) Assessment/Plan: continue ppi Code(s): K21.9 - GASTRO-ESOPHAGEAL REFLUX DISEASE WITHOUT ESOPHAGITIS (4) Anemia Assessment/Plan: H & H noted check iron profile- low, venofer check stool occult Code(s): D64.9 - ANEMIA, UNSPECIFIED (5) COPD (chronic obstructive pulmonary disease) Assessment/Plan: continue neb tx incentive spirometer Code(s): J44.9 - CHRONIC OBSTRUCTIVE PULMONARY DISEASE, UNSPECIFIED (6) Hepatic encephalopathy Assessment/Plan: ammonia high, restart lactulose titrate lactulose as needed monitor mental status Code(s): K72.90 - HEPATIC FAILURE, UNSPECIFIED WITHOUT COMA (7) Hypokalemia Assessment/Plan: k 4 on K sparing diuretic check mag level- replete IV Code(s): E87.6 - HYPOKALEMIA
[2019-04-30] MEDS ORDERED: MAGNESIUM SULF 50% (8.12 MEQ/2 ML-1 GM VIAL) IVPB ONE (16:15)
[2019-04-30] MEDS ORDERED: IRON SUCROSE INJECTION 100 MG in SODIUM CHLORIDE 95 ML IVPB ONE (17:00)
[2019-04-30] MEDS: oxyCODONE HCL 5 MG TABLET PO PRN (20:51)
[2019-04-30] MEDS: LACTULOSE 20 GM/30 ML UDC (FOR ORAL USE ONLY) PO SCH (21:56)
[2019-05-01] MEDS: oxyCODONE HCL 5 MG TABLET PO PRN (03:00)
[2019-05-01 08:13] LABS: BASO % 0.6 % (0-2.0); EOS % 12.8 % (0-4.5); HEMATOCRIT 27.2 % (35.4-49); HEMOGLOBIN 9.2 GM/dL (11.7-16.9); LYMPH % 28.5 % (8-40); MCH 32.3 pg (25.7-33.7); MEAN CELL VOLUME 94.9 fl (80-96); MEAN PLT VOLUME 8.4 fl (7.5-11.1); MONO % 14.5 % (3.8-10.2); NEUT % 43.6 % (42.8-82.8); PLATELET COUNT 124 K/MM3 (134-434); RBC 2.86 M/mm3 (4.00-5.60); RDW 16.4 % (11.9-15.9); WHITE BLOOD COUNT 5.8 K/mm3 (4.0-10.0)
[2019-05-01 08:46] LABS: ALBUMIN 1.5 g/dl (3.4-5.0); BILIRUBIN,TOTAL 2.5 mg/dL (0.2-1); BLOOD UREA NITROGEN 7.3 mg/dL (7-18); CALCIUM 7.2 mg/dL (8.5-10.1); CREATININE 0.6 mg/dL (0.55-1.3); POTASSIUM 3.2 mmol/L (3.5-5.1); TOT PROT 4.7 g/dl (6.4-8.2)
[2019-05-01] MEDS: NADOLOL 20 MG TABLET (FP) PO SCH (10:20)
[2019-05-01] MEDS: RIFAXIMIN 550 MG TABLET (UD) PO SCH ×2 (10:21→21:47)
[2019-05-01] MEDS: THIAMINE HCL 100 MG TABLET (FP) PO SCH (10:21)
[2019-05-01] MEDS: PANTOPRAZOLE 40 MG TABLET PO SCH ×2 (10:21→21:47)
[2019-05-01] MEDS: MULTIVITAMINS (DAILY MVI) TABLET (FP) PO SCH (10:21)
[2019-05-01] MEDS: SPIRONOLACTONE 25 MG TABLET (FP) PO SCH (10:22)
[2019-05-01] MEDS: FOLIC ACID 1 MG TABLET (FP) PO SCH (10:22)
[2019-05-01] MEDS: VITAMIN B COMP W-C 1 EA TABLET PO SCH (10:22)
[2019-05-01] MEDS: FUROSEMIDE 40 MG TABLET (FP) PO SCH (10:22)
[2019-05-01] MEDS ORDERED: LACTULOSE 20 GM/30 ML UDC (FOR ORAL USE ONLY) PO ONE (15:19)
[2019-05-01] MEDS ORDERED: POTASSIUM CHLORIDE TABS 20 MEQ TABLET.ER (FP) PO ONE (15:23)
--- NOTE | 2019-05-01 15:24 | PN ---
Progress Note, Physician Chief Complaint: ascites 6.2 lb weight gain at retirement IR for tap 04/29/2019 removed 6.5 L today he has abd pain, weight leveled off, ammonia high History of Present Illness: 63 year old male with PMH alcoholic cirrhosis., copd, ibs, htn, hyponatremia, gerd presents from [facility] for increased abd girth. - Current Medication List Current Medications: Active Medications Al Hydroxide/Mg Hydroxide (Mylanta Oral Suspension -) 30 ml PO PRN PRN PRN Reason: INDIGESTION Albuterol Sulfate (Ventolin 0.083% Nebulizer Soln -) 1 amp NEB Q6H PRN PRN Reason: SHORT OF BREATH/WHEEZING Folic Acid (Folic Acid -) 1 mg PO DAILY [facility] Last Admin: 05/01/19 10:22 Dose: 1 mg Furosemide (Lasix -) 40 mg PO DAILY [facility] Last Admin: 05/01/19 10:22 Dose: 40 mg Lactulose (Cephulac (Oral Use)) 30 gm PO [facility] Last Admin: 04/30/19 21:56 Dose: 30 gm Multivit/Ca Carb/B Cmplx/FA/Prenat (Nephro-Chris -) 1 tablet PO DAILY [facility] Last Admin: 05/01/19 10:22 Dose: 1 tablet Multivitamins/Minerals/Vitamin C (Tab-A-Vit -) 1 tab PO DAILY [facility] Last Admin: 05/01/19 10:21 Dose: 1 tab Nadolol (Corgard -) 20 mg PO DAILY [facility] Last Admin: 05/01/19 10:20 Dose: 20 mg Oxycodone HCl (Roxicodone -) 5 mg PO Q4H PRN PRN Reason: PAIN LEVEL 7 - 10 Last Admin: 05/01/19 03:00 Dose: 5 mg Pantoprazole Sodium (Protonix -) 40 mg PO BID [facility] Last Admin: 05/01/19 10:21 Dose: 40 mg Rifaximin (Xifaxan -) 550 mg PO BID [facility] Last Admin: 05/01/19 10:21 Dose: 550 mg Spironolactone (Aldactone -) 100 mg PO DAILY [facility] Last Admin: 05/01/19 10:22 Dose: Not Given Thiamine HCl (Vitamin B1 -) 100 mg PO DAILY [facility] Last Admin: 05/01/19 10:21 Dose: 100 mg - Objective Vital Signs: Vital Signs Temperature 98.0 F 05/01/19 11:00 Pulse Rate 70 05/01/19 11:00 Respiratory Rate 05/01/19 11:00 Blood Pressure 110/70 05/01/19 11:00 O2 Sat by Pulse Oximetry (%) 99 04/29/19 21:00 HENT: Yes: Atraumatic, Normocephalic Neck: Yes: Supple Cardiovascular: Yes: Regular Rate and Rhythm Respiratory: Yes: Regular, CTA Bilaterally Gastrointestinal: Yes: Distention, Palpable Mass Edema: LLE: 1+, RLE: 1+ Integumentary: Yes: WNL Neurological: Yes: Alert, Oriented Labs: CBC, BMP 05/01/19 07:05 05/01/19 07:05 INR, PTT INR 1.99 (0.83-1.09) H 04/30/19 07:45 Problem List - Problems (1) Alcoholic cirrhosis of liver Assessment/Plan: GI consult appreciated IR for paracentesis done saturday removed 6.5 liters fluid cultures pending??? spironolactone, rifampin, nadolol, GI added furosemide trend ammonia, increase lactulose as needed lactic acid elevation r/t cirrhosis 2gm sodium controlled diet, 2 L FR monitor serum NA Code(s): K70.30 - ALCOHOLIC CIRRHOSIS OF LIVER WITHOUT ASCITES Qualifiers: Ascites presence: with ascites Qualified Code(s): K70.31 - Alcoholic cirrhosis of liver with ascites (2) HTN (hypertension) Assessment/Plan: continue home medications tomorrow if BP permits Code(s): I10 - ESSENTIAL (PRIMARY) HYPERTENSION (3) GERD (gastroesophageal reflux disease) Assessment/Plan: continue ppi Code(s): K21.9 - GASTRO-ESOPHAGEAL REFLUX DISEASE WITHOUT ESOPHAGITIS (4) Anemia Assessment/Plan: H & H noted check iron profile- low, venofer check stool occult Code(s): D64.9 - ANEMIA, UNSPECIFIED (5) COPD (chronic obstructive pulmonary disease) Assessment/Plan: continue neb tx incentive spirometer Code(s): J44.9 - CHRONIC OBSTRUCTIVE PULMONARY DISEASE, UNSPECIFIED (6) Hepatic encephalopathy Assessment/Plan: ammonia high, restart lactulose titrate lactulose as needed monitor mental status Code(s): K72.90 - HEPATIC FAILURE, UNSPECIFIED WITHOUT COMA (7) Hypokalemia Assessment/Plan: k 3.2 on K sparing diuretic check mag level albumin low Code(s): E87.6 - HYPOKALEMIA
[2019-05-01] MEDS: ALBUMIN HUMAN 25% 12.5 GM/50 ML VIAL IVPB SCH ×6 (16:44→18:32)
[2019-05-01] MEDS: ACETAMINOPHEN 325 MG TABLET (FP) PO PRN (20:47)
[2019-05-01] MEDS: LACTULOSE 20 GM/30 ML UDC (FOR ORAL USE ONLY) PO SCH (21:48)
[2019-05-02 08:36] LABS: BASO % 0.3 % (0-2.0); EOS % 9.3 % (0-4.5); HEMATOCRIT 24.9 % (35.4-49); HEMOGLOBIN 8.6 GM/dL (11.7-16.9); MCH 32.7 pg (25.7-33.7); MCHC 34.5 g/dl (32.0-35.9); MEAN PLT VOLUME 8.6 fl (7.5-11.1); MONO % 14.2 % (3.8-10.2); NEUT % 45.2 % (42.8-82.8); PLATELET COUNT 109 K/MM3 (134-434); RBC 2.62 M/mm3 (4.00-5.60); WHITE BLOOD COUNT 5.8 K/mm3 (4.0-10.0)
[2019-05-02 09:12] LABS: BILIRUBIN,TOTAL 2.6 mg/dL (0.2-1); BLOOD UREA NITROGEN 6.5 mg/dL (7-18); CALCIUM 7.7 mg/dL (8.5-10.1); CREATININE 0.7 mg/dL (0.55-1.3); MAGNESIUM 1.8 mg/dL (1.8-2.4); POTASSIUM 3.2 mmol/L (3.5-5.1)
[2019-05-02] MEDS ORDERED: POTASSIUM CHLORIDE ORAL LIQUID 20 MEQ/15 ML PO ONE (09:23)
--- NOTE | 2019-05-02 09:24 | PN ---
Progress Note, Physician Chief Complaint: Liver Cirrhosis Ascites History of Present Illness: Previous notes and events reviewed awake and alert NAD denies abdominal pain S/p Paracentesis on admission with 6.5L removed repeat Abdominal US done - Current Medication List Current Medications: Active Medications Acetaminophen (Tylenol -) 650 mg PO Q4H PRN PRN Reason: FEVER Last Admin: 05/01/19 20:47 Dose: 650 mg Al Hydroxide/Mg Hydroxide (Mylanta Oral Suspension -) 30 ml PO PRN PRN PRN Reason: INDIGESTION Albuterol Sulfate (Ventolin 0.083% Nebulizer Soln -) 1 amp NEB Q6H PRN PRN Reason: SHORT OF BREATH/WHEEZING Folic Acid (Folic Acid -) 1 mg PO DAILY [facility] Last Admin: 05/01/19 10:22 Dose: 1 mg Furosemide (Lasix -) 40 mg PO DAILY [facility] Last Admin: 05/01/19 10:22 Dose: 40 mg Lactulose (Cephulac (Oral Use)) 30 gm PO [facility] Last Admin: 05/01/19 21:48 Dose: 30 gm Multivit/Ca Carb/B Cmplx/FA/Prenat (Nephro-Chris -) 1 tablet PO DAILY [facility] Last Admin: 05/01/19 10:22 Dose: 1 tablet Multivitamins/Minerals/Vitamin C (Tab-A-Vit -) 1 tab PO DAILY [facility] Last Admin: 05/01/19 10:21 Dose: 1 tab Nadolol (Corgard -) 20 mg PO DAILY [facility] Last Admin: 05/01/19 10:20 Dose: 20 mg Oxycodone HCl (Roxicodone -) 5 mg PO Q4H PRN PRN Reason: PAIN LEVEL 7 - 10 Last Admin: 05/01/19 03:00 Dose: 5 mg Pantoprazole Sodium (Protonix -) 40 mg PO BID [facility] Last Admin: 05/01/19 21:47 Dose: 40 mg Potassium Chloride (Potassium Chloride Oral Liquid) 40 meq PO ONCE ONE Stop: 05/02/19 09:24 Rifaximin (Xifaxan -) 550 mg PO BID [facility] Last Admin: 05/01/19 21:47 Dose: 550 mg Spironolactone (Aldactone -) 100 mg PO DAILY [facility] Last Admin: 05/01/19 10:22 Dose: Not Given Thiamine HCl (Vitamin B1 -) 100 mg PO DAILY [facility] Last Admin: 05/01/19 10:21 Dose: 100 mg - Objective Vital Signs: Vital Signs Temperature 98 F 05/02/19 05:00 Pulse Rate 76 05/02/19 05:00 Respiratory Rate 20 05/02/19 05:00 Blood Pressure 113/64 05/02/19 05:00 O2 Sat by Pulse Oximetry (%) 99 04/29/19 21:00 Constitutional: Yes: No Distress, Calm Eyes: Yes: Sclera Icterus HENT: Yes: Atraumatic Cardiovascular: Yes: Regular Rate and Rhythm Respiratory: Yes: Regular, Diminished Gastrointestinal: Yes: Normal Bowel Sounds, Soft, Ascites Musculoskeletal: Yes: Muscle Weakness Extremities: Yes: WNL Edema: Yes Edema: LLE: 2+, RLE: 1+ Neurological: Yes: Alert Psychiatric: Yes: Alert Labs: CBC, BMP 05/02/19 07:25 05/02/19 07:25 INR, PTT INR 1.99 (0.83-1.09) H 04/30/19 07:45 Problem List - Problems (1) Ascites of liver Assessment/Plan: GI on board s/p Paracentesis on admission 6.5L removed Abdominal US shows large amount of ascites is seen within upper and lower quadrants bilaterally consult IR for possible repeat paracentesis daily weights 1L fluid restriction Code(s): R18.8 - OTHER ASCITES (2) GERD (gastroesophageal reflux disease) Assessment/Plan: Pantoprazole BID Code(s): K21.9 - GASTRO-ESOPHAGEAL REFLUX DISEASE WITHOUT ESOPHAGITIS (3) HTN (hypertension) Assessment/Plan: monitor BP Nadolol, Spironolactone Code(s): I10 - ESSENTIAL (PRIMARY) HYPERTENSION (4) Alcoholic cirrhosis of liver Assessment/Plan: GI on board s/p Paracentesis on admission 6.5L removed Abdominal US shows large amount of ascites is seen within upper and lower quadrants bilaterally consult IR for possible repeat paracentesis Nadolol, Spironolactone, Furosemide Xifaxin BID Lactulose HS Ammonia level 53.30 Code(s): K70.30 - ALCOHOLIC CIRRHOSIS OF LIVER WITHOUT ASCITES Qualifiers: Ascites presence: with ascites Qualified Code(s): K70.31 - Alcoholic cirrhosis of liver with ascites (5) Anemia Assessment/Plan: Hg 8.6 monitor Hg daily transfuse for Hg <7.0 to avoid fluid overload Stool OB Anemia profile Code(s): D64.9 - ANEMIA, UNSPECIFIED (6) COPD (chronic obstructive pulmonary disease) Assessment/Plan: Bronchodilators keep SpO2 >90% O2 via NC prn for SOB Code(s): J44.9 - CHRONIC OBSTRUCTIVE PULMONARY DISEASE, UNSPECIFIED (7) Hypokalemia Assessment/Plan: K 3.2 KCl 40mEq po x 1 dose monitor electrolyte daily and replete as needed Code(s): E87.6 - HYPOKALEMIA Assessment/Plan see problem list
[2019-05-02] MEDS: SPIRONOLACTONE 25 MG TABLET (FP) PO SCH (09:36)
[2019-05-02] MEDS: FOLIC ACID 1 MG TABLET (FP) PO SCH (09:47)
[2019-05-02] MEDS: MULTIVITAMINS (DAILY MVI) TABLET (FP) PO SCH (09:47)
[2019-05-02] MEDS: PANTOPRAZOLE 40 MG TABLET PO SCH ×2 (09:47→22:37)
[2019-05-02] MEDS: NADOLOL 20 MG TABLET (FP) PO SCH (09:47)
[2019-05-02] MEDS: RIFAXIMIN 550 MG TABLET (UD) PO SCH ×2 (09:47→22:37)
[2019-05-02] MEDS: FUROSEMIDE 40 MG TABLET (FP) PO SCH (09:47)
[2019-05-02] MEDS: VITAMIN B COMP W-C 1 EA TABLET PO SCH (09:47)
[2019-05-02] MEDS: THIAMINE HCL 100 MG TABLET (FP) PO SCH (09:47)
[2019-05-02] MEDS: LACTULOSE 20 GM/30 ML UDC (FOR ORAL USE ONLY) PO SCH ×2 (22:37→22:43)
[2019-05-03] MEDS: oxyCODONE HCL 5 MG TABLET PO PRN (08:13)
[2019-05-03 08:52] LABS: HEMATOCRIT 27.3 % (35.4-49); HEMOGLOBIN 9.3 GM/dL (11.7-16.9); MCH 32.5 pg (25.7-33.7); MEAN CELL VOLUME 95.7 fl (80-96); MEAN PLT VOLUME 8.3 fl (7.5-11.1); PLATELET COUNT 114 K/MM3 (134-434); RBC 2.86 M/mm3 (4.00-5.60); RDW 16.3 % (11.9-15.9); WHITE BLOOD COUNT 5.2 K/mm3 (4.0-10.0)
[2019-05-03] MEDS: SPIRONOLACTONE 25 MG TABLET (FP) PO SCH (09:16)
[2019-05-03] MEDS: RIFAXIMIN 550 MG TABLET (UD) PO SCH ×2 (09:16→21:43)
[2019-05-03] MEDS: NADOLOL 20 MG TABLET (FP) PO SCH (09:16)
[2019-05-03] MEDS: VITAMIN B COMP W-C 1 EA TABLET PO SCH (09:16)
[2019-05-03] MEDS: FUROSEMIDE 40 MG TABLET (FP) PO SCH (09:16)
[2019-05-03] MEDS: THIAMINE HCL 100 MG TABLET (FP) PO SCH (09:16)
[2019-05-03] MEDS: FOLIC ACID 1 MG TABLET (FP) PO SCH (09:16)
[2019-05-03 09:17] LABS: BILIRUBIN,TOTAL 2.6 mg/dL (0.2-1); CALCIUM 7.4 mg/dL (8.5-10.1); CREATININE 0.6 mg/dL (0.55-1.3); POTASSIUM 3.9 mmol/L (3.5-5.1); TOT PROT 5.4 g/dl (6.4-8.2)
[2019-05-03] MEDS: MULTIVITAMINS (DAILY MVI) TABLET (FP) PO SCH (09:17)
[2019-05-03] MEDS: PANTOPRAZOLE 40 MG TABLET PO SCH ×2 (09:17→21:43)
--- NOTE | 2019-05-03 10:57 | PN ---
Progress Note, Physician Chief Complaint: Liver Cirrhosis Ascites History of Present Illness: Previous notes and events reviewed awake and alert NAD intermittent episodes of abdominal pain denies chest pain or dizziness S/p Paracentesis on admission with 6.5L removed repeat Abdominal US done - Current Medication List Current Medications: Active Medications Acetaminophen (Tylenol -) 650 mg PO Q4H PRN PRN Reason: FEVER Last Admin: 05/01/19 20:47 Dose: 650 mg Al Hydroxide/Mg Hydroxide (Mylanta Oral Suspension -) 30 ml PO PRN PRN PRN Reason: INDIGESTION Albuterol Sulfate (Ventolin 0.083% Nebulizer Soln -) 1 amp NEB Q6H PRN PRN Reason: SHORT OF BREATH/WHEEZING Folic Acid (Folic Acid -) 1 mg PO DAILY [facility] Last Admin: 05/03/19 09:16 Dose: 1 mg Furosemide (Lasix -) 40 mg PO DAILY [facility] Last Admin: 05/03/19 09:16 Dose: 40 mg Lactulose (Cephulac (Oral Use)) 30 gm PO [facility] Last Admin: 05/02/19 22:43 Dose: Not Given Multivit/Ca Carb/B Cmplx/FA/Prenat (Nephro-Chris -) 1 tablet PO DAILY [facility] Last Admin: 05/03/19 09:16 Dose: 1 tablet Multivitamins/Minerals/Vitamin C (Tab-A-Vit -) 1 tab PO DAILY [facility] Last Admin: 05/03/19 09:17 Dose: 1 tab Nadolol (Corgard -) 20 mg PO DAILY [facility] Last Admin: 05/03/19 09:16 Dose: 20 mg Oxycodone HCl (Roxicodone -) 5 mg PO Q4H PRN PRN Reason: PAIN LEVEL 7 - 10 Last Admin: 05/03/19 08:13 Dose: 5 mg Pantoprazole Sodium (Protonix -) 40 mg PO BID [facility] Last Admin: 05/03/19 09:17 Dose: 40 mg Rifaximin (Xifaxan -) 550 mg PO BID [facility] Last Admin: 05/03/19 09:16 Dose: 550 mg Spironolactone (Aldactone -) 100 mg PO DAILY [facility] Last Admin: 05/03/19 09:16 Dose: 100 mg Thiamine HCl (Vitamin B1 -) 100 mg PO DAILY [facility] Last Admin: 05/03/19 09:16 Dose: 100 mg - Objective Vital Signs: Vital Signs Temperature 98.1 F 05/03/19 10:00 Pulse Rate 90 05/03/19 10:00 Respiratory Rate 05/03/19 10:00 Blood Pressure 122/70 05/03/19 10:00 O2 Sat by Pulse Oximetry (%) 96 05/03/19 09:00 Constitutional: Yes: No Distress, Calm, Cachectic Eyes: Yes: Conjunctiva Clear, Sclera Icterus HENT: Yes: Atraumatic Cardiovascular: Yes: Regular Rate and Rhythm Respiratory: Yes: Regular, Diminished Gastrointestinal: Yes: Normal Bowel Sounds, Ascites Genitourinary: Yes: Incontinence Musculoskeletal: Yes: Muscle Weakness Extremities: Yes: WNL Edema: Yes Edema: LLE: Trace, RLE: Trace Neurological: Yes: Alert Psychiatric: Yes: Alert Labs: CBC, BMP 05/03/19 07:30 05/03/19 07:30 INR, PTT INR 1.99 (0.83-1.09) H 04/30/19 07:45 Microbiology 04/29/19 16:20 Blood - Peripheral Venous Blood Culture - Preliminary NO GROWTH OBTAINED AFTER 72 HOURS, INCUBATION TO CONTINUE FOR 2 DAYS. 04/29/19 16:45 Blood - Peripheral Venous Blood Culture - Preliminary NO GROWTH OBTAINED AFTER 72 HOURS, INCUBATION TO CONTINUE FOR 2 DAYS. Problem List - Problems (1) Ascites of liver Assessment/Plan: GI on board s/p Paracentesis on admission 6.5L removed Abdominal US shows large amount of ascites is seen within upper and lower quadrants bilaterally consult IR for repeat paracentesis daily weights 1L fluid restriction Code(s): R18.8 - OTHER ASCITES (2) GERD (gastroesophageal reflux disease) Assessment/Plan: Pantoprazole BID Code(s): K21.9 - GASTRO-ESOPHAGEAL REFLUX DISEASE WITHOUT ESOPHAGITIS (3) HTN (hypertension) Assessment/Plan: monitor BP Nadolol, Spironolactone Code(s): I10 - ESSENTIAL (PRIMARY) HYPERTENSION (4) Alcoholic cirrhosis of liver Assessment/Plan: GI on board s/p Paracentesis on admission 6.5L removed Abdominal US shows large amount of ascites is seen within upper and lower quadrants bilaterally consult IR for possible repeat paracentesis Nadolol, Spironolactone, Furosemide Xifaxin BID Lactulose HS Ammonia level 53.30 Code(s): K70.30 - ALCOHOLIC CIRRHOSIS OF LIVER WITHOUT ASCITES Qualifiers: Ascites presence: with ascites Qualified Code(s): K70.31 - Alcoholic cirrhosis of liver with ascites (5) Anemia Assessment/Plan: Hg 9.3 monitor Hg daily transfuse for Hg <7.0 to avoid fluid overload Stool OB Anemia profile shows normal Iron, low TIBC Code(s): D64.9 - ANEMIA, UNSPECIFIED (6) COPD (chronic obstructive pulmonary disease) Assessment/Plan: Bronchodilators keep SpO2 >90% O2 via NC prn for SOB Code(s): J44.9 - CHRONIC OBSTRUCTIVE PULMONARY DISEASE, UNSPECIFIED (7) Hypokalemia Assessment/Plan: K 3.9 resolved KCl 40mEq po x 1 dose monitor electrolyte daily and replete as needed Code(s): E87.6 - HYPOKALEMIA Assessment/Plan see problem list discharge back to SNF after repeat paracentesis
[2019-05-03] MEDS: LACTULOSE 20 GM/30 ML UDC (FOR ORAL USE ONLY) PO SCH (21:43)
[2019-05-03] MEDS: ACETAMINOPHEN 325 MG TABLET (FP) PO PRN (21:48)
[2019-05-04 08:06] LABS: HEMOGLOBIN 9.5 GM/dL (11.7-16.9); MCH 32.6 pg (25.7-33.7); MCHC 33.8 g/dl (32.0-35.9); MEAN CELL VOLUME 96.5 fl (80-96); MEAN PLT VOLUME 8.9 fl (7.5-11.1); PLATELET COUNT 123 K/MM3 (134-434); RDW 16.4 % (11.9-15.9); WHITE BLOOD COUNT 5.7 K/mm3 (4.0-10.0)
[2019-05-04 08:30] LABS: BILIRUBIN,TOTAL 2.4 mg/dL (0.2-1); BLOOD UREA NITROGEN 8.6 mg/dL (7-18); CREATININE 0.7 mg/dL (0.55-1.3); POTASSIUM 3.8 mmol/L (3.5-5.1); TOT PROT 5.4 g/dl (6.4-8.2)
[2019-05-04] MEDS: PANTOPRAZOLE 40 MG TABLET PO SCH ×2 (09:59→22:10)
[2019-05-04] MEDS: NADOLOL 20 MG TABLET (FP) PO SCH (09:59)
[2019-05-04] MEDS: THIAMINE HCL 100 MG TABLET (FP) PO SCH (09:59)
[2019-05-04] MEDS: FOLIC ACID 1 MG TABLET (FP) PO SCH (09:59)
[2019-05-04] MEDS: MULTIVITAMINS (DAILY MVI) TABLET (FP) PO SCH (09:59)
[2019-05-04] MEDS: RIFAXIMIN 550 MG TABLET (UD) PO SCH ×2 (09:59→22:09)
[2019-05-04] MEDS: VITAMIN B COMP W-C 1 EA TABLET PO SCH (09:59)
[2019-05-04] MEDS: SPIRONOLACTONE 25 MG TABLET (FP) PO SCH (09:59)
[2019-05-04] MEDS: FUROSEMIDE 40 MG TABLET (FP) PO SCH (09:59)
--- NOTE | 2019-05-04 15:02 | PN ---
Progress Note, Physician Chief Complaint: ascites 6.2 lb weight gain at custodial IR for tap 04/29/2019 removed 6.5 L IR for tap today 05/04/2019 removed 7 L albumin ordered History of Present Illness: 63 year old male with PMH alcoholic cirrhosis., copd, ibs, htn, hyponatremia, gerd presents from [facility] for increased abd girth. - Current Medication List Current Medications: Active Medications Acetaminophen (Tylenol -) 650 mg PO Q4H PRN PRN Reason: FEVER Last Admin: 05/03/19 21:48 Dose: 650 mg Al Hydroxide/Mg Hydroxide (Mylanta Oral Suspension -) 30 ml PO PRN PRN PRN Reason: INDIGESTION Albuterol Sulfate (Ventolin 0.083% Nebulizer Soln -) 1 amp NEB Q6H PRN PRN Reason: SHORT OF BREATH/WHEEZING Folic Acid (Folic Acid -) 1 mg PO DAILY [facility] Last Admin: 05/04/19 09:59 Dose: 1 mg Furosemide (Lasix -) 40 mg PO DAILY [facility] Last Admin: 05/04/19 09:59 Dose: 40 mg Lactulose (Cephulac (Oral Use)) 30 gm PO HS [facility] Last Admin: 05/03/19 21:43 Dose: Not Given Multivit/Ca Carb/B Cmplx/FA/Prenat (Nephro-Chris -) 1 tablet PO DAILY [facility] Last Admin: 05/04/19 09:59 Dose: 1 tablet Multivitamins/Minerals/Vitamin C (Tab-A-Vit -) 1 tab PO DAILY [facility] Last Admin: 05/04/19 09:59 Dose: 1 tab Nadolol (Corgard -) 20 mg PO DAILY [facility] Last Admin: 05/04/19 09:59 Dose: 20 mg Pantoprazole Sodium (Protonix -) 40 mg PO BID [facility] Last Admin: 05/04/19 09:59 Dose: 40 mg Rifaximin (Xifaxan -) 550 mg PO BID [facility] Last Admin: 05/04/19 09:59 Dose: 550 mg Spironolactone (Aldactone -) 100 mg PO DAILY [facility] Last Admin: 05/04/19 09:59 Dose: 100 mg Thiamine HCl (Vitamin B1 -) 100 mg PO DAILY [facility] Last Admin: 05/04/19 09:59 Dose: 100 mg - Objective Vital Signs: Vital Signs Temperature 98.3 F 02/24/20 14:57 Pulse Rate 82 05/04/19 14:57 Respiratory Rate 18 05/04/19 14:57 Blood Pressure 106/61 05/04/19 14:57 O2 Sat by Pulse Oximetry (%) 96 05/04/19 09:00 Constitutional: Yes: No Distress HENT: Yes: Atraumatic, Normocephalic Neck: Yes: Supple Cardiovascular: Yes: Regular Rate and Rhythm Respiratory: Yes: Regular, CTA Bilaterally Gastrointestinal: Yes: Normal Bowel Sounds, Distention Genitourinary: Yes: WNL Edema: LLE: 1+, RLE: 1+ Wound/Incision: Yes: Clean/Dry Neurological: Yes: Alert Labs: CBC, BMP 05/04/19 07:20 05/04/19 07:20 INR, PTT INR 1.99 (0.83-1.09) H 04/30/19 07:45 Problem List - Problems (1) Alcoholic cirrhosis of liver Assessment/Plan: GI consult appreciated IR for paracentesis done on admission removed 6.5 liters fluid cultures pending??? not sent spironolactone, rifampin, nadolol, GI added furosemide trend ammonia, increase lactulose as needed lactic acid elevation r/t cirrhosis 2gm sodium controlled diet, 2 L FR monitor serum NA repeat tap done today took off 7 L weight from 131 am, 120 lb after procedure IV albumin ordered dc planning Code(s): K70.30 - ALCOHOLIC CIRRHOSIS OF LIVER WITHOUT ASCITES Qualifiers: Ascites presence: with ascites Qualified Code(s): K70.31 - Alcoholic cirrhosis of liver with ascites (2) HTN (hypertension) Assessment/Plan: continue home medications tomorrow if BP permits Code(s): I10 - ESSENTIAL (PRIMARY) HYPERTENSION (3) GERD (gastroesophageal reflux disease) Assessment/Plan: continue ppi Code(s): K21.9 - GASTRO-ESOPHAGEAL REFLUX DISEASE WITHOUT ESOPHAGITIS (4) Anemia Assessment/Plan: H & H noted check iron profile- low, venofer check stool occult Code(s): D64.9 - ANEMIA, UNSPECIFIED (5) COPD (chronic obstructive pulmonary disease) Assessment/Plan: continue neb tx incentive spirometer Code(s): J44.9 - CHRONIC OBSTRUCTIVE PULMONARY DISEASE, UNSPECIFIED (6) Hepatic encephalopathy Assessment/Plan: ammonia level decreased yesterday, recheck. on lactulose titrate lactulose as needed monitor mental status Code(s): K72.90 - HEPATIC FAILURE, UNSPECIFIED WITHOUT COMA (7) Hypokalemia Assessment/Plan: k 3.8 on K sparing diuretic check mag level in am albumin low Code(s): E87.6 - HYPOKALEMIA
[2019-05-04] MEDS: ALBUMIN HUMAN 25% 12.5 GM/50 ML VIAL IVPB SCH ×3 (16:50→17:01)
[2019-05-04] MEDS: LACTULOSE 20 GM/30 ML UDC (FOR ORAL USE ONLY) PO SCH (22:09)
[2019-05-05 08:35] LABS: BASO % 0.6 % (0-2.0); EOS % 6.4 % (0-4.5); HEMATOCRIT 28.5 % (35.4-49); HEMOGLOBIN 9.5 GM/dL (11.7-16.9); LYMPH % 29.5 % (8-40); MCHC 33.3 g/dl (32.0-35.9); MEAN PLT VOLUME 8.3 fl (7.5-11.1); MONO % 13.1 % (3.8-10.2); NEUT % 50.4 % (42.8-82.8); PLATELET COUNT 114 K/MM3 (134-434); RBC 2.97 M/mm3 (4.00-5.60); RDW 16.7 % (11.9-15.9); WHITE BLOOD COUNT 4.6 K/mm3 (4.0-10.0)
[2019-05-05 08:56] LABS: ALBUMIN 2.4 g/dl (3.4-5.0); BILIRUBIN,TOTAL 1.9 mg/dL (0.2-1); BLOOD UREA NITROGEN 8.4 mg/dL (7-18); CALCIUM 7.9 mg/dL (8.5-10.1); CREATININE 0.7 mg/dL (0.55-1.3); MAGNESIUM 1.6 mg/dL (1.8-2.4); POTASSIUM 3.7 mmol/L (3.5-5.1); TOT PROT 5.6 g/dl (6.4-8.2)
[2019-05-05] MEDS: PANTOPRAZOLE 40 MG TABLET PO SCH ×2 (09:26→21:37)
[2019-05-05] MEDS: VITAMIN B COMP W-C 1 EA TABLET PO SCH (09:26)
[2019-05-05] MEDS: THIAMINE HCL 100 MG TABLET (FP) PO SCH (09:26)
[2019-05-05] MEDS: SPIRONOLACTONE 25 MG TABLET (FP) PO SCH (09:26)
[2019-05-05] MEDS: FUROSEMIDE 40 MG TABLET (FP) PO SCH (09:26)
[2019-05-05] MEDS: NADOLOL 20 MG TABLET (FP) PO SCH (09:26)
[2019-05-05] MEDS: RIFAXIMIN 550 MG TABLET (UD) PO SCH ×2 (09:26→21:37)
[2019-05-05] MEDS: MULTIVITAMINS (DAILY MVI) TABLET (FP) PO SCH (09:26)
[2019-05-05] MEDS: FOLIC ACID 1 MG TABLET (FP) PO SCH (09:26)
[2019-05-05] MEDS: ACETAMINOPHEN 325 MG TABLET (FP) PO PRN (09:31)
[2019-05-05] MEDS ORDERED: LACTULOSE 20 GM/30 ML UDC (FOR ORAL USE ONLY) PO PRN (13:53)
--- NOTE | 2019-05-05 15:10 | PN ---
Progress Note, Physician Chief Complaint: ascites 6.2 lb weight gain at custodial IR for tap 04/29/2019 removed 6.5 L IR for tap 05/04/2019 removed 7 L albumin ordered in 12/18 pain today ammonia >80 History of Present Illness: 63 year old male with PMH alcoholic cirrhosis., copd, ibs, htn, hyponatremia, gerd presents from [facility] for increased abd girth. - Current Medication List Current Medications: Active Medications Acetaminophen (Tylenol -) 650 mg PO Q4H PRN PRN Reason: FEVER Last Admin: 05/05/19 09:31 Dose: 650 mg Al Hydroxide/Mg Hydroxide (Mylanta Oral Suspension -) 30 ml PO PRN PRN PRN Reason: INDIGESTION Folic Acid (Folic Acid -) 1 mg PO DAILY [facility] Last Admin: 05/05/19 09:26 Dose: 1 mg Furosemide (Lasix -) 40 mg PO DAILY [facility] Last Admin: 05/05/19 09:26 Dose: 40 mg Lactulose (Cephulac (Oral Use)) 20 gm PO TID PRN PRN Reason: CONSTIPATION Multivit/Ca Carb/B Cmplx/FA/Prenat (Nephro-Chris -) 1 tablet PO DAILY [facility] Last Admin: 05/05/19 09:26 Dose: 1 tablet Multivitamins/Minerals/Vitamin C (Tab-A-Vit -) 1 tab PO DAILY [facility] Last Admin: 05/05/19 09:26 Dose: 1 tab Nadolol (Corgard -) 20 mg PO DAILY [facility] Last Admin: 05/05/19 09:26 Dose: 20 mg Pantoprazole Sodium (Protonix -) 40 mg PO BID [facility] Last Admin: 05/05/19 09:26 Dose: 40 mg Rifaximin (Xifaxan -) 550 mg PO BID [facility] Last Admin: 05/05/19 09:26 Dose: 550 mg Spironolactone (Aldactone -) 100 mg PO DAILY [facility] Last Admin: 05/05/19 09:26 Dose: 100 mg Thiamine HCl (Vitamin B1 -) 100 mg PO DAILY [facility] Last Admin: 05/05/19 09:26 Dose: 100 mg - Objective Vital Signs: Vital Signs Temperature 98.3 F 05/05/19 13:54 Pulse Rate 73 05/05/19 13:54 Respiratory Rate 18 02/25/20 13:54 Blood Pressure 101/51 L 05/05/19 13:54 O2 Sat by Pulse Oximetry (%) 96 05/05/19 09:00 Constitutional: Yes: Mild Distress HENT: Yes: Atraumatic, Normocephalic Neck: Yes: Supple Cardiovascular: Yes: Regular Rate and Rhythm Respiratory: Yes: CTA Bilaterally Gastrointestinal: Yes: Normal Bowel Sounds, Ascites, Distention Genitourinary: Yes: WNL Edema: LLE: 1+, RLE: 1+ Wound/Incision: Yes: Clean/Dry Neurological: Yes: Alert Labs: CBC, BMP 05/05/19 07:50 05/05/19 07:50 INR, PTT INR 1.99 (0.83-1.09) H 04/30/19 07:45 Problem List - Problems (1) Alcoholic cirrhosis of liver Assessment/Plan: GI consult appreciated IR for paracentesis done on admission removed 6.5 liters fluid cultures pending??? not sent spironolactone, rifampin, nadolol, GI added furosemide trend ammonia, increase lactulose as needed lactic acid elevation r/t cirrhosis 2gm sodium controlled diet, 2 L FR monitor serum NA repeat tap done 05/04/2019 took off 7 L IV albumin ordered gained 8 lbs overnight? Code(s): K70.30 - ALCOHOLIC CIRRHOSIS OF LIVER WITHOUT ASCITES Qualifiers: Ascites presence: with ascites Qualified Code(s): K70.31 - Alcoholic cirrhosis of liver with ascites (2) HTN (hypertension) Assessment/Plan: continue home medications tomorrow if BP permits Code(s): I10 - ESSENTIAL (PRIMARY) HYPERTENSION (3) GERD (gastroesophageal reflux disease) Assessment/Plan: continue ppi Code(s): K21.9 - GASTRO-ESOPHAGEAL REFLUX DISEASE WITHOUT ESOPHAGITIS (4) Anemia Assessment/Plan: H & H noted check iron profile- low, venofer check stool occult Code(s): D64.9 - ANEMIA, UNSPECIFIED (5) COPD (chronic obstructive pulmonary disease) Assessment/Plan: continue neb tx incentive spirometer Code(s): J44.9 - CHRONIC OBSTRUCTIVE PULMONARY DISEASE, UNSPECIFIED (6) Hepatic encephalopathy Assessment/Plan: ammonia level >8, increase lactulose monitor mental status Code(s): K72.90 - HEPATIC FAILURE, UNSPECIFIED WITHOUT COMA (7) Hypokalemia Assessment/Plan: k 3.7 on K sparing diuretic mag 1.6, give 2 grams albumin low Code(s): E87.6 - HYPOKALEMIA
[2019-05-05] MEDS ORDERED: MAGNESIUM SULF 50% (8.12 MEQ/2 ML-1 GM VIAL) IVPB ONE (15:15)
[2019-05-06 08:33] LABS: BASO % 0.5 % (0-2.0); EOS % 8.2 % (0-4.5); HEMATOCRIT 27.7 % (35.4-49); HEMOGLOBIN 9.2 GM/dL (11.7-16.9); LYMPH % 35.9 % (8-40); MCH 32.1 pg (25.7-33.7); MCHC 33.3 g/dl (32.0-35.9); MEAN CELL VOLUME 96.2 fl (80-96); MEAN PLT VOLUME 8.4 fl (7.5-11.1); MONO % 11.4 % (3.8-10.2); PLATELET COUNT 112 K/MM3 (134-434); RBC 2.88 M/mm3 (4.00-5.60); RDW 16.8 % (11.9-15.9); WHITE BLOOD COUNT 4.9 K/mm3 (4.0-10.0)
[2019-05-06 08:40] LABS: ALBUMIN 2.2 g/dl (3.4-5.0); BILIRUBIN,TOTAL 1.9 mg/dL (0.2-1); BLOOD UREA NITROGEN 7.5 mg/dL (7-18); CALCIUM 7.8 mg/dL (8.5-10.1); CREATININE 0.7 mg/dL (0.55-1.3); POTASSIUM 3.6 mmol/L (3.5-5.1); TOT PROT 5.1 g/dl (6.4-8.2)
[2019-05-06] MEDS: FOLIC ACID 1 MG TABLET (FP) PO SCH (10:03)
[2019-05-06] MEDS: RIFAXIMIN 550 MG TABLET (UD) PO SCH ×2 (10:03→21:02)
[2019-05-06] MEDS: THIAMINE HCL 100 MG TABLET (FP) PO SCH (10:03)
[2019-05-06] MEDS: MULTIVITAMINS (DAILY MVI) TABLET (FP) PO SCH (10:03)
[2019-05-06] MEDS: SPIRONOLACTONE 25 MG TABLET (FP) PO SCH (10:03)
[2019-05-06] MEDS: PANTOPRAZOLE 40 MG TABLET PO SCH ×2 (10:03→21:02)
[2019-05-06] MEDS: NADOLOL 20 MG TABLET (FP) PO SCH (10:03)
[2019-05-06] MEDS: FUROSEMIDE 40 MG TABLET (FP) PO SCH (10:03)
[2019-05-06] MEDS: VITAMIN B COMP W-C 1 EA TABLET PO SCH (10:03)
--- NOTE | 2019-05-06 12:02 | PN.GI ---
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 With tense ascites, no SOB or labored breathing. Somnolent but not overtly confused. - Objective Vital Signs: Vital Signs Temperature 98.1 F 05/06/19 09:25 Pulse Rate 67 05/06/19 09:25 Respiratory Rate 18 05/06/19 09:25 Blood Pressure 126/76 05/06/19 09:25 O2 Sat by Pulse Oximetry (%) 100 05/05/19 21:00 Respiratory: Yes: CTA Bilaterally Gastrointestinal Inspection: Yes: Ascites ...Auscultate: Yes: Normoactive Bowel Sounds ...Palpate: Yes: Soft. No: Tenderness Labs: CBC, BMP 05/06/19 07:28 05/06/19 07:28 INR, PTT INR 1.99 (0.83-1.09) H 04/30/19 07:45 Assessment/Plan Rd=350, K=3.7, Cr=0.7 Suspect insufficient spironolactone to minimize ascites. PSE under reasonable control on rifaximin Suggest: 1. Increase spironolactone to 200 mg daily and give 3-4 days to assess effectiveness; can then further increase to 300 mg, and, after 4 more days, can go as high as 400 mg daily, following electrolytes along the way and using furosemide to drive down K (and additionally diurese) as needed. 2. Large volume paracentesis to dry giving 25% albumin if >5 liters taken off and giving at dose of 8 g per liter of ascites removed. 3. Continue with rifaximin for PSE 4. Would NOT give acetaminophen; please discontinue.
[2019-05-06] MEDS ORDERED: SPIRONOLACTONE 25 MG TABLET (FP) PO ONE (13:43)
[2019-05-06] MEDS: LACTULOSE 20 GM/30 ML UDC (FOR ORAL USE ONLY) PO SCH ×2 (14:01→21:02)
--- NOTE | 2019-05-06 15:28 | PN ---
Progress Note, Physician Chief Complaint: ascites 6.2 lb weight gain at [facility] IR for tap 04/29/2019 removed 6.5 L IR for tap 05/04/2019 removed 7 L albumin ordered pain is better ammonia >80, yesterday. 30 today History of Present Illness: 63 year old male with PMH alcoholic cirrhosis., copd, ibs, htn, hyponatremia, gerd presents from [facility] for increased abd girth. - Current Medication List Current Medications: Active Medications Al Hydroxide/Mg Hydroxide (Mylanta Oral Suspension -) 30 ml PO PRN PRN PRN Reason: INDIGESTION Folic Acid (Folic Acid -) 1 mg PO DAILY [facility] Last Admin: 05/06/19 10:03 Dose: 1 mg Furosemide (Lasix -) 40 mg PO DAILY [facility] Last Admin: 05/06/19 10:03 Dose: 40 mg Lactulose (Cephulac (Oral Use)) 20 gm PO TID [facility] Last Admin: 05/06/19 14:01 Dose: 20 gm Multivit/Ca Carb/B Cmplx/FA/Prenat (Nephro-Chris -) 1 tablet PO DAILY [facility] Last Admin: 05/06/19 10:03 Dose: 1 tablet Multivitamins/Minerals/Vitamin C (Tab-A-Vit -) 1 tab PO DAILY [facility] Last Admin: 05/06/19 10:03 Dose: 1 tab Nadolol (Corgard -) 20 mg PO DAILY [facility] Last Admin: 05/06/19 10:03 Dose: 20 mg Pantoprazole Sodium (Protonix -) 40 mg PO BID [facility] Last Admin: 05/06/19 10:03 Dose: 40 mg Rifaximin (Xifaxan -) 550 mg PO BID [facility] Last Admin: 05/06/19 10:03 Dose: 550 mg Spironolactone (Aldactone -) 200 mg PO DAILY [facility] Thiamine HCl (Vitamin B1 -) 100 mg PO DAILY [facility] Last Admin: 05/06/19 10:03 Dose: 100 mg - Objective Vital Signs: Vital Signs Temperature 98.0 F 05/06/19 14:49 Pulse Rate 71 05/06/19 14:49 Respiratory Rate 18 05/06/19 14:49 Blood Pressure 104/57 L 05/06/19 14:49 O2 Sat by Pulse Oximetry (%) 100 05/05/19 21:00 Constitutional: Yes: Well Nourished, No Distress HENT: Yes: Atraumatic, Normocephalic Neck: Yes: Supple Cardiovascular: Yes: Regular Rate and Rhythm Respiratory: Yes: Regular, CTA Bilaterally Gastrointestinal: Yes: Normal Bowel Sounds, Ascites, Distention Genitourinary: Yes: WNL Musculoskeletal: Yes: WNL Extremities: Yes: WNL Edema: No Neurological: Yes: Alert Labs: CBC, BMP 05/06/19 07:28 05/06/19 07:28 INR, PTT INR 1.99 (0.83-1.09) H 04/30/19 07:45 Problem List - Problems (1) Alcoholic cirrhosis of liver Assessment/Plan: GI re-consult appreciated IR for paracentesis done on admission removed 6.5 liters fluid cultures pending??? not sent spironolactone increased, rifampin, nadolol, furosemide trend ammonia, increase lactulose today as ammonia high 2gm sodium controlled diet, 2 L FR monitor serum NA repeat tap done 05/04/2019 took off 7 L IV albumin ordered Code(s): K70.30 - ALCOHOLIC CIRRHOSIS OF LIVER WITHOUT ASCITES Qualifiers: Ascites presence: with ascites Qualified Code(s): K70.31 - Alcoholic cirrhosis of liver with ascites (2) HTN (hypertension) Assessment/Plan: continue home medications tomorrow if BP permits Code(s): I10 - ESSENTIAL (PRIMARY) HYPERTENSION (3) GERD (gastroesophageal reflux disease) Assessment/Plan: continue ppi Code(s): K21.9 - GASTRO-ESOPHAGEAL REFLUX DISEASE WITHOUT ESOPHAGITIS (4) Anemia Assessment/Plan: H & H noted check iron profile- low, venofer check stool occult Code(s): D64.9 - ANEMIA, UNSPECIFIED (5) COPD (chronic obstructive pulmonary disease) Assessment/Plan: continue neb tx incentive spirometer Code(s): J44.9 - CHRONIC OBSTRUCTIVE PULMONARY DISEASE, UNSPECIFIED (6) Hepatic encephalopathy Assessment/Plan: ammonia level >8, increase lactulose monitor mental status Code(s): K72.90 - HEPATIC FAILURE, UNSPECIFIED WITHOUT COMA (7) Hypokalemia Assessment/Plan: k 3.6 on K sparing diuretic mag 2 albumin low Code(s): E87.6 - HYPOKALEMIA
[2019-05-07] MEDS: LACTULOSE 20 GM/30 ML UDC (FOR ORAL USE ONLY) PO SCH ×3 (05:51→21:27)
[2019-05-07 08:04] LABS: BASO % 0.5 % (0-2.0); EOS % 6.2 % (0-4.5); HEMATOCRIT 28.5 % (35.4-49); HEMOGLOBIN 9.7 GM/dL (11.7-16.9); LYMPH % 36.9 % (8-40); MCH 32.6 pg (25.7-33.7); MCHC 34.1 g/dl (32.0-35.9); MEAN CELL VOLUME 95.7 fl (80-96); MEAN PLT VOLUME 8.8 fl (7.5-11.1); MONO % 13.7 % (3.8-10.2); NEUT % 42.7 % (42.8-82.8); PLATELET COUNT 120 K/MM3 (134-434); RBC 2.97 M/mm3 (4.00-5.60); RDW 16.7 % (11.9-15.9); WHITE BLOOD COUNT 6.1 K/mm3 (4.0-10.0)
[2019-05-07] MEDS: SPIRONOLACTONE 25 MG TABLET (FP) PO SCH ×2 (09:01→09:05)
[2019-05-07 09:25] LABS: ALBUMIN 2.2 g/dl (3.4-5.0); BILIRUBIN,TOTAL 1.9 mg/dL (0.2-1); BLOOD UREA NITROGEN 9.1 mg/dL (7-18); CREATININE 0.6 mg/dL (0.55-1.3); MAGNESIUM 1.9 mg/dL (1.8-2.4); POTASSIUM 3.9 mmol/L (3.5-5.1); TOT PROT 5.4 g/dl (6.4-8.2)
[2019-05-07] MEDS: THIAMINE HCL 100 MG TABLET (FP) PO SCH (09:38)
[2019-05-07] MEDS: FUROSEMIDE 40 MG TABLET (FP) PO SCH (09:38)
[2019-05-07] MEDS: MULTIVITAMINS (DAILY MVI) TABLET (FP) PO SCH (09:38)
[2019-05-07] MEDS: NADOLOL 20 MG TABLET (FP) PO SCH (09:38)
[2019-05-07] MEDS: FOLIC ACID 1 MG TABLET (FP) PO SCH (09:38)
[2019-05-07] MEDS: RIFAXIMIN 550 MG TABLET (UD) PO SCH ×2 (09:38→21:27)
[2019-05-07] MEDS: PANTOPRAZOLE 40 MG TABLET PO SCH (09:38)
[2019-05-07] MEDS: VITAMIN B COMP W-C 1 EA TABLET PO SCH (09:38)
--- NOTE | 2019-05-07 13:37 | PN.GI ---
GI Progress Note Subjective: Had large Volume paracentesis this past Saturday. Reaccumulating Denies abdominal pain No focal complaints, States feeling well. - Objective Vital Signs: Vital Signs Temperature 98.4 F 05/07/19 13:22 Pulse Rate 72 05/07/19 13:22 Respiratory Rate 05/07/19 13:22 Blood Pressure 107/60 05/07/19 13:22 O2 Sat by Pulse Oximetry (%) 100 05/06/19 21:00 Constitutional: Moderate Distress Eyes: No: Sclera Icterus Cardiovascular: Yes: Regular Rate and Rhythm. No: Murmur Respiratory: Yes: Diminished (at bases bilaterally with poor insp effort) Gastrointestinal Inspection: Yes: Distention, Other (dressing right abdomen from recent paracentesis) ...Auscultate: Yes: Normoactive Bowel Sounds ...Palpate: Yes: Firm/Rigid. No: Hepatomegaly, Splenomegaly, Tenderness ...Percussion: No: Tympanitic Edema: No (No LE edema) Neurological: Yes: Alert Labs: CBC, BMP 05/07/19 06:35 05/07/19 06:35 INR, PTT INR 1.99 (0.83-1.09) H 04/30/19 07:45 Problem List - Problems (1) Ascites of liver Assessment/Plan: Diuretics being titrated. Consider transfer to liver center for further volume management, evaluation for TIPS given prior history of variceal bleed and rapidly reaccumulating ascites Sodium controlled diet Daily weights, I's and O's Unclear need for BID high dose PPI? ? indication Lactulose / Rifaximin Code(s): R18.8 - OTHER ASCITES
--- NOTE | 2019-05-07 15:51 | PN ---
Progress Note, Physician Chief Complaint: ascites 6.2 lb weight gain at intermediate IR for tap 04/29/2019 removed 6.5 L IR for tap 05/04/2019 removed 7 L pain is better ammonia 68 History of Present Illness: 63 year old male with PMH alcoholic cirrhosis., copd, ibs, htn, hyponatremia, gerd presents from [facility] for increased abd girth. - Current Medication List Current Medications: Active Medications Al Hydroxide/Mg Hydroxide (Mylanta Oral Suspension -) 30 ml PO PRN PRN PRN Reason: INDIGESTION Folic Acid (Folic Acid -) 1 mg PO DAILY [facility] Last Admin: 05/07/19 09:38 Dose: 1 mg Furosemide (Lasix -) 40 mg PO DAILY [facility] Last Admin: 05/07/19 09:38 Dose: 40 mg Lactulose (Cephulac (Oral Use)) 20 gm PO TID [facility] Last Admin: 05/07/19 14:37 Dose: Not Given Multivit/Ca Carb/B Cmplx/FA/Prenat (Nephro-Chris -) 1 tablet PO DAILY [facility] Last Admin: 05/07/19 09:38 Dose: 1 tablet Multivitamins/Minerals/Vitamin C (Tab-A-Vit -) 1 tab PO DAILY [facility] Last Admin: 05/07/19 09:38 Dose: 1 tab Nadolol (Corgard -) 20 mg PO DAILY [facility] Last Admin: 05/07/19 09:38 Dose: 20 mg Rifaximin (Xifaxan -) 550 mg PO BID [facility] Last Admin: 05/07/19 09:38 Dose: 550 mg Spironolactone (Aldactone -) 200 mg PO DAILY [facility] Last Admin: 05/07/19 09:05 Dose: Not Given Thiamine HCl (Vitamin B1 -) 100 mg PO DAILY [facility] Last Admin: 05/07/19 09:38 Dose: 100 mg - Objective Vital Signs: Vital Signs Temperature 98.4 F 05/07/19 13:22 Pulse Rate 72 05/07/19 13:22 Respiratory Rate 20 05/07/19 13:22 Blood Pressure 107/60 05/07/19 13:22 O2 Sat by Pulse Oximetry (%) 100 05/06/19 21:00 Constitutional: Yes: No Distress HENT: Yes: Atraumatic, Normocephalic Neck: Yes: Supple Cardiovascular: Yes: Regular Rate and Rhythm Respiratory: Yes: Regular, CTA Bilaterally Gastrointestinal: Yes: Normal Bowel Sounds, Ascites, Distention Genitourinary: Yes: WNL Musculoskeletal: Yes: WNL Extremities: Yes: WNL Wound/Incision: Yes: Dressing Dry and Intact Neurological: Yes: Alert Labs: CBC, BMP 05/07/19 06:35 05/07/19 06:35 INR, PTT INR 1.99 (0.83-1.09) H 04/30/19 07:45 Problem List - Problems (1) Alcoholic cirrhosis of liver Assessment/Plan: GI following IR for paracentesis done on admission removed 6.5 liters fluid cultures pending??? not sent spironolactone increased, rifampin, nadolol, furosemide trend ammonia, ammonia level still high 2gm sodium controlled diet, 2 L FR monitor serum NA repeat tap done 05/04/2019 took off 7 L received IV albumin GI rec transfer to liver center for TIPS eval and reaccumulating ascites, D/w Dr. De Luna Code(s): K70.30 - ALCOHOLIC CIRRHOSIS OF LIVER WITHOUT ASCITES Qualifiers: Ascites presence: with ascites Qualified Code(s): K70.31 - Alcoholic cirrhosis of liver with ascites (2) HTN (hypertension) Assessment/Plan: continue home medications tomorrow if BP permits Code(s): I10 - ESSENTIAL (PRIMARY) HYPERTENSION (3) GERD (gastroesophageal reflux disease) Assessment/Plan: ppi dc by gi Code(s): K21.9 - GASTRO-ESOPHAGEAL REFLUX DISEASE WITHOUT ESOPHAGITIS (4) Anemia Assessment/Plan: H & H noted check iron profile- low, venofer check stool occult Code(s): D64.9 - ANEMIA, UNSPECIFIED (5) COPD (chronic obstructive pulmonary disease) Assessment/Plan: continue neb tx incentive spirometer Code(s): J44.9 - CHRONIC OBSTRUCTIVE PULMONARY DISEASE, UNSPECIFIED (6) Hepatic encephalopathy Assessment/Plan: ammonia level >8, increase lactulose monitor mental status Code(s): K72.90 - HEPATIC FAILURE, UNSPECIFIED WITHOUT COMA (7) Hypokalemia Assessment/Plan: k 3.9 on K sparing diuretic mag 2 albumin low Code(s): E87.6 - HYPOKALEMIA
[2019-05-08] MEDS: LACTULOSE 20 GM/30 ML UDC (FOR ORAL USE ONLY) PO SCH ×3 (06:01→14:03)
[2019-05-08 08:28] LABS: BASO % 0.5 % (0-2.0); HEMATOCRIT 28.1 % (35.4-49); HEMOGLOBIN 9.6 GM/dL (11.7-16.9); LYMPH % 35.6 % (8-40); MCH 32.7 pg (25.7-33.7); MCHC 34.2 g/dl (32.0-35.9); MEAN CELL VOLUME 95.7 fl (80-96); MEAN PLT VOLUME 8.6 fl (7.5-11.1); MONO % 12.6 % (3.8-10.2); NEUT % 45.3 % (42.8-82.8); PLATELET COUNT 123 K/MM3 (134-434); RBC 2.94 M/mm3 (4.00-5.60); RDW 16.8 % (11.9-15.9); WHITE BLOOD COUNT 6.4 K/mm3 (4.0-10.0)
[2019-05-08 08:32] LABS: BILIRUBIN,TOTAL 1.9 mg/dL (0.2-1); BLOOD UREA NITROGEN 9.4 mg/dL (7-18); CALCIUM 7.1 mg/dL (8.5-10.1); CREATININE 0.8 mg/dL (0.55-1.3); MAGNESIUM 1.6 mg/dL (1.8-2.4); POTASSIUM 3.9 mmol/L (3.5-5.1); TOT PROT 5.4 g/dl (6.4-8.2)
[2019-05-08] MEDS: SPIRONOLACTONE 25 MG TABLET (FP) PO SCH (09:38)
[2019-05-08] MEDS: FOLIC ACID 1 MG TABLET (FP) PO SCH (09:39)
[2019-05-08] MEDS: RIFAXIMIN 550 MG TABLET (UD) PO SCH (09:39)
[2019-05-08] MEDS: VITAMIN B COMP W-C 1 EA TABLET PO SCH (09:39)
[2019-05-08] MEDS: MULTIVITAMINS (DAILY MVI) TABLET (FP) PO SCH (09:39)
[2019-05-08] MEDS: NADOLOL 20 MG TABLET (FP) PO SCH (09:39)
[2019-05-08] MEDS: FUROSEMIDE 40 MG TABLET (FP) PO SCH (09:39)
[2019-05-08] MEDS: THIAMINE HCL 100 MG TABLET (FP) PO SCH (09:39)
--- NOTE | 2019-05-08 15:37 | PN ---
Progress Note, Physician Chief Complaint: ascites 6.2 lb weight gain at [facility] IR for tap 04/29/2019 removed 6.5 L IR for tap 05/04/2019 removed 7 L pain is better ammonia 112!!! refused lactulose all day yesterday History of Present Illness: 63 year old male with PMH alcoholic cirrhosis., copd, ibs, htn, hyponatremia, gerd presents from [facility] for increased abd girth. - Current Medication List Current Medications: Active Medications Al Hydroxide/Mg Hydroxide (Mylanta Oral Suspension -) 30 ml PO PRN PRN PRN Reason: INDIGESTION Folic Acid (Folic Acid -) 1 mg PO DAILY [facility] Last Admin: 05/08/19 09:39 Dose: 1 mg Furosemide (Lasix -) 40 mg PO DAILY [facility] Last Admin: 05/08/19 09:39 Dose: 40 mg Lactulose (Cephulac (Oral Use)) 20 gm PO TID [facility] Last Admin: 05/08/19 14:03 Dose: Not Given Multivit/Ca Carb/B Cmplx/FA/Prenat (Nephro-Chris -) 1 tablet PO DAILY [facility] Last Admin: 05/08/19 09:39 Dose: 1 tablet Multivitamins/Minerals/Vitamin C (Tab-A-Vit -) 1 tab PO DAILY [facility] Last Admin: 05/08/19 09:39 Dose: 1 tab Nadolol (Corgard -) 20 mg PO DAILY [facility] Last Admin: 05/08/19 09:39 Dose: 20 mg Rifaximin (Xifaxan -) 550 mg PO BID [facility] Last Admin: 05/08/19 09:39 Dose: 550 mg Spironolactone (Aldactone -) 200 mg PO DAILY [facility] Last Admin: 05/08/19 09:38 Dose: 200 mg Thiamine HCl (Vitamin B1 -) 100 mg PO DAILY [facility] Last Admin: 05/08/19 09:39 Dose: 100 mg - Objective Vital Signs: Vital Signs Temperature 98.0 F 05/08/19 13:35 Pulse Rate 71 05/08/19 13:35 Respiratory Rate 18 05/08/19 13:35 Blood Pressure 103/57 L 05/08/19 13:35 O2 Sat by Pulse Oximetry (%) 100 05/08/19 09:00 Constitutional: Yes: No Distress, Anxious HENT: Yes: Atraumatic, Normocephalic Neck: Yes: Supple Cardiovascular: Yes: Regular Rate and Rhythm Respiratory: Yes: Regular, CTA Bilaterally Gastrointestinal: Yes: Ascites, Distention, Other (gauze dsg to right abd) Genitourinary: Yes: WNL Edema: No Neurological: Yes: Alert Psychiatric: Yes: Alert Labs: CBC, BMP 05/08/19 06:45 05/08/19 06:45 INR, PTT INR 1.99 (0.83-1.09) H 04/30/19 07:45 Problem List - Problems (1) Alcoholic cirrhosis of liver Assessment/Plan: GI following IR for paracentesis done on admission removed 6.5 liters fluid cultures pending??? not sent spironolactone increased, rifampin, nadolol, furosemide trend ammonia, ammonia level still high 2gm sodium controlled diet, 2 L FR monitor serum NA repeat tap done 05/04/2019 took off 7 L received IV albumin GI rec transfer to liver center for TIPS eval and reaccumulating ascites, D/w Dr. De Luna Code(s): K70.30 - ALCOHOLIC CIRRHOSIS OF LIVER WITHOUT ASCITES Qualifiers: Ascites presence: with ascites Qualified Code(s): K70.31 - Alcoholic cirrhosis of liver with ascites (2) HTN (hypertension) Assessment/Plan: continue home medications tomorrow if BP permits Code(s): I10 - ESSENTIAL (PRIMARY) HYPERTENSION (3) GERD (gastroesophageal reflux disease) Assessment/Plan: ppi dc by gi Code(s): K21.9 - GASTRO-ESOPHAGEAL REFLUX DISEASE WITHOUT ESOPHAGITIS (4) Anemia Assessment/Plan: H & H noted check iron profile- low, venofer check stool occult Code(s): D64.9 - ANEMIA, UNSPECIFIED (5) COPD (chronic obstructive pulmonary disease) Assessment/Plan: continue neb tx incentive spirometer Code(s): J44.9 - CHRONIC OBSTRUCTIVE PULMONARY DISEASE, UNSPECIFIED (6) Hepatic encephalopathy Assessment/Plan: ammonia level 112, PATIENT CANNOT REFUSE LACTULOSE IT IS IMPERATIVE TO TX lactulose tid monitor mental status Code(s): K72.90 - HEPATIC FAILURE, UNSPECIFIED WITHOUT COMA (7) Hypokalemia Assessment/Plan: k 3.9 on K sparing diuretic mag 2 albumin low Code(s): E87.6 - HYPOKALEMIA
--- NOTE | 2019-05-08 17:18 | PN.GI ---
GI Progress Note Subjective: Sitting up, eating dinner No focal complaints No abdominal pain weight 115.5 today, 116.3 yesterday Refuses lactulose - Objective Vital Signs: Vital Signs Temperature 98.0 F 05/08/19 13:35 Pulse Rate 71 05/08/19 13:35 Respiratory Rate 18 05/08/19 13:35 Blood Pressure 103/57 L 05/08/19 13:35 O2 Sat by Pulse Oximetry (%) 100 05/08/19 09:00 Constitutional: Calm Eyes: No: Sclera Icterus Cardiovascular: Yes: Regular Rate and Rhythm Respiratory: Yes: Diminished (at bases bilaterally) Gastrointestinal Inspection: Yes: Distention ...Auscultate: Yes: Normoactive Bowel Sounds ...Palpate: Yes: Firm/Rigid. No: Guarding ...Percussion: No: Tympanitic Edema: No (No LE edema) Neurological: Yes: Alert Labs: CBC, BMP 05/08/19 06:45 05/08/19 06:45 INR, PTT INR 1.99 (0.83-1.09) H 04/30/19 07:45 Problem List - Problems (1) Ascites of liver Assessment/Plan: Ascites does appear to be reaccumulating, however with some weight loss noted today If continued weight loss, improvement in ascites, continue escalated dose of diuretics. Aldactone 200mg, Lasix 40mg BID and will need close monitoring of electrolytes / renal function. Should also be referred to liver center (ie, [facility]) for continued fluid management and TIPs evaluation. If continued rapid accumulation of ascites,however,arrange inpatient transfer. Plan was d/w Dr. De Luna yesterday. Decreased lactulose to once daily Discontinued rifaximin Code(s): R18.8 - OTHER ASCITES
[2019-05-09 06:32] LABS: EPI CELLS 0.9 /HPF (0-5/HPF); HYALINE CASTS 2 /lpf (0-8); PH,URINE >= 9.0 (5.0-8.0); URINE APPEARANCE CLOUDY; URINE BACTERIA 2507.9 /hpf (NEGATIVE); URINE BILIRUBIN NEGATIVE (NEGATIVE); URINE COLOR YELLOW; URINE GLUCOSE (UA) NEGATIVE (NEGATIVE); URINE KETONE NEGATIVE (NEGATIVE); URINE LEUK ESTERASE NEGATIVE (NEGATIVE); URINE NITRITE POSITIVE (NEGATIVE); URINE PROTEIN NEGATIVE (NEGATIVE); URINE RBC 2 /hpf (0-4); URINE WBC 3 /hpf (0-5)
[2019-05-09] MEDS: FUROSEMIDE 40 MG TABLET (FP) PO SCH ×3 (06:57→14:23)
[2019-05-09 08:54] LABS: BASO % 0.4 % (0-2.0); EOS % 6.3 % (0-4.5); HEMATOCRIT 29.5 % (35.4-49); HEMOGLOBIN 10.1 GM/dL (11.7-16.9); LYMPH % 29.4 % (8-40); MCH 32.7 pg (25.7-33.7); MCHC 34.2 g/dl (32.0-35.9); MEAN CELL VOLUME 95.4 fl (80-96); MEAN PLT VOLUME 8.8 fl (7.5-11.1); MONO % 14.7 % (3.8-10.2); NEUT % 49.2 % (42.8-82.8); PLATELET COUNT 126 K/MM3 (134-434); RBC 3.09 M/mm3 (4.00-5.60); RDW 16.5 % (11.9-15.9); WHITE BLOOD COUNT 5.9 K/mm3 (4.0-10.0)
[2019-05-09] MEDS: SPIRONOLACTONE 25 MG TABLET (FP) PO SCH ×2 (08:58→09:08)
[2019-05-09] MEDS: NADOLOL 20 MG TABLET (FP) PO SCH ×2 (08:58→09:08)
[2019-05-09] MEDS: LACTULOSE 20 GM/30 ML UDC (FOR ORAL USE ONLY) PO SCH ×2 (08:58→09:08)
[2019-05-09] MEDS: THIAMINE HCL 100 MG TABLET (FP) PO SCH ×2 (08:58→09:08)
[2019-05-09] MEDS: VITAMIN B COMP W-C 1 EA TABLET PO SCH (08:59)
[2019-05-09] MEDS: MULTIVITAMINS (DAILY MVI) TABLET (FP) PO SCH (08:59)
[2019-05-09] MEDS: FOLIC ACID 1 MG TABLET (FP) PO SCH (09:00)
--- NOTE | 2019-05-09 09:14 | PN ---
Progress Note, Physician Chief Complaint: Liver Cirrhosis Ascites History of Present Illness: Previous notes and events reviewed awake and alert NAD complain of abdominal pain denies chest pain or dizziness repeat Paracentesis with 7L removed, 6.5L removed on admission RN noted that patient has medication in urinal-Psych consult for medication non- compliance - Current Medication List Current Medications: Active Medications Al Hydroxide/Mg Hydroxide (Mylanta Oral Suspension -) 30 ml PO PRN PRN PRN Reason: INDIGESTION Folic Acid (Folic Acid -) 1 mg PO DAILY [facility] Last Admin: 05/09/19 09:00 Dose: 1 mg Furosemide (Lasix -) 40 mg PO BID@0600,1400 [facility] Last Admin: 05/09/19 09:01 Dose: 40 mg Lactulose (Cephulac (Oral Use)) 20 gm PO DAILY [facility] Last Admin: 05/09/19 09:08 Dose: Not Given Multivit/Ca Carb/B Cmplx/FA/Prenat (Nephro-Chris -) 1 tablet PO DAILY [facility] Last Admin: 05/09/19 08:59 Dose: 1 tablet Multivitamins/Minerals/Vitamin C (Tab-A-Vit -) 1 tab PO DAILY [facility] Last Admin: 05/09/19 08:59 Dose: 1 tab Nadolol (Corgard -) 20 mg PO DAILY [facility] Last Admin: 05/09/19 09:08 Dose: Not Given Spironolactone (Aldactone -) 200 mg PO DAILY [facility] Last Admin: 05/09/19 09:08 Dose: Not Given Thiamine HCl (Vitamin B1 -) 100 mg PO DAILY [facility] Last Admin: 05/09/19 09:08 Dose: Not Given - Objective Vital Signs: Vital Signs Temperature 98.6 F 05/09/19 05:41 Pulse Rate 77 05/09/19 05:41 Respiratory Rate 18 05/09/19 05:41 Blood Pressure 111/55 L 05/09/19 05:41 O2 Sat by Pulse Oximetry (%) 97 05/08/19 21:00 Constitutional: Yes: No Distress, Calm, Cachectic Eyes: Yes: Conjunctiva Clear HENT: Yes: Atraumatic Cardiovascular: Yes: Regular Rate and Rhythm Respiratory: Yes: Regular, Diminished Gastrointestinal: Yes: Normal Bowel Sounds, Soft, Ascites, Tenderness (diffuse) Musculoskeletal: Yes: Muscle Weakness Extremities: Yes: WNL Edema: No Neurological: Yes: Alert Psychiatric: Yes: Alert Labs: CBC, BMP 05/09/19 07:05 INR, PTT INR 1.99 (0.83-1.09) H 04/30/19 07:45 Microbiology 04/29/19 16:20 Blood - Peripheral Venous Blood Culture - Final NO GROWTH AFTER 5 DAYS INCUBATION 04/29/19 16:45 Blood - Peripheral Venous Blood Culture - Final NO GROWTH AFTER 5 DAYS INCUBATION Problem List - Problems (1) Ascites of liver Assessment/Plan: GI on board s/p Paracentesis on admission 6.5L removed repeat Paracentesis with 7L removed Abdominal US shows large amount of ascites is seen within upper and lower quadrants bilaterally Lactulose daily weights 1L fluid restriction GI recommendation is if patient continues to have rapid accumulating ascites he should be referred to tertiary center/liver center for fluid management and TIPs procedure Code(s): R18.8 - OTHER ASCITES (2) GERD (gastroesophageal reflux disease) Assessment/Plan: Pantoprazole BID Code(s): K21.9 - GASTRO-ESOPHAGEAL REFLUX DISEASE WITHOUT ESOPHAGITIS (3) HTN (hypertension) Assessment/Plan: monitor BP Nadolol, Spironolactone Code(s): I10 - ESSENTIAL (PRIMARY) HYPERTENSION (4) Alcoholic cirrhosis of liver Assessment/Plan: GI on board s/p Paracentesis on admission 6.5L removed, repeat paracentesis removed 7L Abdominal US shows large amount of ascites is seen within upper and lower quadrants bilaterally consult IR for possible repeat paracentesis Nadolol, Spironolactone, Furosemide Xifaxin discontinued Lactulose HS Ammonia level 81.20 GI recommendation is if patient continues to have rapid accumulating ascites he should be referred to tertiary center/liver center for fluid management and TIPs procedure Code(s): K70.30 - ALCOHOLIC CIRRHOSIS OF LIVER WITHOUT ASCITES Qualifiers: Ascites presence: with ascites Qualified Code(s): K70.31 - Alcoholic cirrhosis of liver with ascites (5) Anemia Assessment/Plan: Hg 10.1 monitor Hg daily transfuse for Hg <7.0 to avoid fluid overload Stool OB Anemia profile shows normal Iron, low TIBC Code(s): D64.9 - ANEMIA, UNSPECIFIED (6) COPD (chronic obstructive pulmonary disease) Assessment/Plan: Bronchodilators keep SpO2 >90% O2 via NC prn for SOB Code(s): J44.9 - CHRONIC OBSTRUCTIVE PULMONARY DISEASE, UNSPECIFIED (7) Hypokalemia Assessment/Plan: K 3.7 resolved KCl 40mEq po x 1 dose monitor electrolyte daily and replete as needed Code(s): E87.6 - HYPOKALEMIA Assessment/Plan see problem list
[2019-05-09 09:32] LABS: ALBUMIN 2.2 g/dl (3.4-5.0); BILIRUBIN,TOTAL 2.5 mg/dL (0.2-1); BLOOD UREA NITROGEN 9.2 mg/dL (7-18); CALCIUM 7.6 mg/dL (8.5-10.1); CREATININE 0.7 mg/dL (0.55-1.3); MAGNESIUM 1.7 mg/dL (1.8-2.4); POTASSIUM 3.7 mmol/L (3.5-5.1)
[2019-05-10] MEDS: FUROSEMIDE 40 MG TABLET (FP) PO SCH ×3 (07:33→17:31)
[2019-05-10 09:17] LABS: HEMATOCRIT 30.2 % (35.4-49); HEMOGLOBIN 10.4 GM/dL (11.7-16.9); MCH 32.9 pg (25.7-33.7); MCHC 34.4 g/dl (32.0-35.9); MEAN CELL VOLUME 95.6 fl (80-96); MEAN PLT VOLUME 8.7 fl (7.5-11.1); PLATELET COUNT 142 K/MM3 (134-434); RBC 3.16 M/mm3 (4.00-5.60); RDW 17.2 % (11.9-15.9); WHITE BLOOD COUNT 6.3 K/mm3 (4.0-10.0)
[2019-05-10 09:43] LABS: ALBUMIN 2.4 g/dl (3.4-5.0); BILIRUBIN,TOTAL 2.5 mg/dL (0.2-1); BLOOD UREA NITROGEN 9.3 mg/dL (7-18); CALCIUM 8.1 mg/dL (8.5-10.1); CREATININE 0.7 mg/dL (0.55-1.3); POTASSIUM 3.8 mmol/L (3.5-5.1); TOT PROT 6.5 g/dl (6.4-8.2)
--- NOTE | 2019-05-10 10:18 | PN ---
Progress Note, Physician Chief Complaint: Liver Cirrhosis Ascites History of Present Illness: Previous notes and events reviewed awake and alert NAD complain of abdominal pain, abdomen appears more distended this morning denies chest pain or dizziness repeat Paracentesis with 7L removed, 6.5L removed on admission - Current Medication List Current Medications: Active Medications Al Hydroxide/Mg Hydroxide (Mylanta Oral Suspension -) 30 ml PO PRN PRN PRN Reason: INDIGESTION Folic Acid (Folic Acid -) 1 mg PO DAILY [facility] Last Admin: 05/09/19 09:00 Dose: 1 mg Furosemide (Lasix -) 40 mg PO BID@0600,1400 [facility] Last Admin: 05/10/19 07:33 Dose: Not Given Lactulose (Cephulac (Oral Use)) 20 gm PO DAILY [facility] Last Admin: 05/09/19 09:08 Dose: Not Given Multivit/Ca Carb/B Cmplx/FA/Prenat (Nephro-Chris -) 1 tablet PO DAILY [facility] Last Admin: 05/09/19 08:59 Dose: 1 tablet Multivitamins/Minerals/Vitamin C (Tab-A-Vit -) 1 tab PO DAILY [facility] Last Admin: 05/09/19 08:59 Dose: 1 tab Nadolol (Corgard -) 20 mg PO DAILY [facility] Last Admin: 05/09/19 09:08 Dose: Not Given Spironolactone (Aldactone -) 200 mg PO DAILY [facility] Last Admin: 05/09/19 09:08 Dose: Not Given Thiamine HCl (Vitamin B1 -) 100 mg PO DAILY [facility] Last Admin: 05/09/19 09:08 Dose: Not Given - Objective Vital Signs: Vital Signs Temperature 98.2 F 05/09/19 20:11 Pulse Rate 80 05/09/19 20:11 Respiratory Rate 18 05/09/19 21:00 Blood Pressure 112/71 05/09/19 20:11 O2 Sat by Pulse Oximetry (%) 97 05/09/19 21:00 Constitutional: Yes: No Distress, Calm, Cachectic Eyes: Yes: Conjunctiva Clear HENT: Yes: Atraumatic Cardiovascular: Yes: Regular Rate and Rhythm Respiratory: Yes: Regular, Diminished Gastrointestinal: Yes: Normal Bowel Sounds, Soft, Ascites Musculoskeletal: Yes: Muscle Weakness Extremities: Yes: WNL Edema: No Neurological: Yes: Alert Psychiatric: Yes: Alert Labs: CBC, BMP 05/10/19 08:45 05/10/19 08:45 INR, PTT INR 1.99 (0.83-1.09) H 04/30/19 07:45 Microbiology 04/29/19 16:20 Blood - Peripheral Venous Blood Culture - Final NO GROWTH AFTER 5 DAYS INCUBATION 04/29/19 16:45 Blood - Peripheral Venous Blood Culture - Final NO GROWTH AFTER 5 DAYS INCUBATION Problem List - Problems (1) Ascites of liver Assessment/Plan: GI on board s/p Paracentesis on admission 6.5L removed repeat Paracentesis with 7L removed Abdominal US shows large amount of ascites is seen within upper and lower quadrants bilaterally Lactulose daily weights 1L fluid restriction GI recommendation is if patient continues to have rapid accumulating ascites he should be referred to tertiary [facility] for fluid management and TIPs procedure repeat Abdominal US as abdomen appears more distended this morning Code(s): R18.8 - OTHER ASCITES (2) GERD (gastroesophageal reflux disease) Assessment/Plan: Pantoprazole BID Code(s): K21.9 - GASTRO-ESOPHAGEAL REFLUX DISEASE WITHOUT ESOPHAGITIS (3) HTN (hypertension) Assessment/Plan: monitor BP Nadolol, Spironolactone Code(s): I10 - ESSENTIAL (PRIMARY) HYPERTENSION (4) Alcoholic cirrhosis of liver Assessment/Plan: GI on board s/p Paracentesis on admission 6.5L removed, repeat paracentesis removed 7L Abdominal US shows large amount of ascites is seen within upper and lower quadrants bilaterally consult IR for possible repeat paracentesis Nadolol, Spironolactone, Furosemide Xifaxin discontinued Lactulose HS Ammonia level 81.20 GI recommendation is if patient continues to have rapid accumulating ascites he should be referred to tertiary center/liver center for fluid management and TIPs procedure Code(s): K70.30 - ALCOHOLIC CIRRHOSIS OF LIVER WITHOUT ASCITES Qualifiers: Ascites presence: with ascites Qualified Code(s): K70.31 - Alcoholic cirrhosis of liver with ascites (5) Anemia Assessment/Plan: Hg 10.4 monitor Hg daily transfuse for Hg <7.0 to avoid fluid overload Stool OB Anemia profile shows normal Iron, low TIBC Code(s): D64.9 - ANEMIA, UNSPECIFIED (6) COPD (chronic obstructive pulmonary disease) Assessment/Plan: Bronchodilators keep SpO2 >90% O2 via NC prn for SOB Code(s): J44.9 - CHRONIC OBSTRUCTIVE PULMONARY DISEASE, UNSPECIFIED (7) Hypokalemia Assessment/Plan: K 3.8 resolved KCl 40mEq po x 1 dose monitor electrolyte daily and replete as needed Code(s): E87.6 - HYPOKALEMIA Assessment/Plan see problem list
[2019-05-10] MEDS: LACTULOSE 20 GM/30 ML UDC (FOR ORAL USE ONLY) PO SCH (10:39)
[2019-05-10] MEDS: SPIRONOLACTONE 25 MG TABLET (FP) PO SCH (10:39)
[2019-05-10] MEDS: FOLIC ACID 1 MG TABLET (FP) PO SCH (10:40)
[2019-05-10] MEDS: THIAMINE HCL 100 MG TABLET (FP) PO SCH (10:40)
[2019-05-10] MEDS: VITAMIN B COMP W-C 1 EA TABLET PO SCH (10:40)
[2019-05-10] MEDS: NADOLOL 20 MG TABLET (FP) PO SCH (10:40)
[2019-05-10] MEDS: MULTIVITAMINS (DAILY MVI) TABLET (FP) PO SCH (10:40)
--- NOTE | 2019-05-10 13:25 | PN.GI ---
GI Progress Note Subjective: Mild abdominal discomfort Question of medication non-compliance - Objective Vital Signs: Vital Signs Temperature 98.2 F 05/09/19 20:11 Pulse Rate 78 05/10/19 10:00 Respiratory Rate 18 05/10/19 10:00 Blood Pressure 120/70 05/10/19 10:00 O2 Sat by Pulse Oximetry (%) 97 05/09/19 21:00 Constitutional: Calm Eyes: No: Sclera Icterus Cardiovascular: Yes: Regular Rate and Rhythm Respiratory: Yes: Diminished (at bases bilaterally) Gastrointestinal Inspection: Yes: Ascites, Distention ...Palpate: Yes: Firm/Rigid. No: Tenderness ...Percussion: No: Tympanitic Edema: No (No LE edema) Neurological: Yes: Alert Labs: CBC, BMP 05/10/19 08:45 05/10/19 08:45 INR, PTT INR 1.99 (0.83-1.09) H 04/30/19 07:45 Problem List - Problems (1) Ascites of liver Assessment/Plan: Ordered LVP for tomorrow fo symptomatic relief. Will need 8g of 25% albumin per liter of ascites removed if >5L removed D/W [employer] Zuhair today. Advised transfer to [facility] for further fluid management and evaluate to assess for TIPS candidacy Lasix 40mg BID Aldactone 200mg daily Daily weights I's and O's 2g sodium controlled diet Vitamin K 10mg SC ordered for today and for 2 more days. May need FFP given prior to paracentesis depending on radiology protocols. Code(s): R18.8 - OTHER ASCITES
[2019-05-10] MEDS: PHYTONADIONE 10 MG/1 ML AMP SQ SCH (18:30)
[2019-05-11] MEDS: FUROSEMIDE 40 MG TABLET (FP) PO SCH ×2 (06:23→14:45)
[2019-05-11 07:12] LABS: HEMOGLOBIN 9.9 GM/dL (11.7-16.9); MCH 32.8 pg (25.7-33.7); MCHC 34.2 g/dl (32.0-35.9); MEAN CELL VOLUME 95.8 fl (80-96); MEAN PLT VOLUME 8.9 fl (7.5-11.1); PLATELET COUNT 124 K/MM3 (134-434); RBC 3.03 M/mm3 (4.00-5.60); RDW 16.7 % (11.9-15.9); WHITE BLOOD COUNT 6.8 K/mm3 (4.0-10.0)
[2019-05-11 07:37] LABS: ALBUMIN 2.2 g/dl (3.4-5.0); BILIRUBIN,TOTAL 2.5 mg/dL (0.2-1); BLOOD UREA NITROGEN 9.8 mg/dL (7-18); CREATININE 0.7 mg/dL (0.55-1.3); POTASSIUM 4.1 mmol/L (3.5-5.1); TOT PROT 5.9 g/dl (6.4-8.2)
[2019-05-11 07:55] LABS: INR 1.5 (0.83-1.09); PROTHROMBIN TIME (PATIENT) 17.8 SEC (9.7-13.0)
--- NOTE | 2019-05-11 09:17 | PN ---
Progress Note, Physician - Current Medication List Current Medications: Active Medications Al Hydroxide/Mg Hydroxide (Mylanta Oral Suspension -) 30 ml PO PRN PRN PRN Reason: INDIGESTION Folic Acid (Folic Acid -) 1 mg PO DAILY [facility] Last Admin: 05/10/19 10:40 Dose: 1 mg Furosemide (Lasix -) 40 mg PO BID@0600,1400 [facility] Last Admin: 05/11/19 06:23 Dose: 40 mg Lactulose (Cephulac (Oral Use)) 20 gm PO DAILY [facility] Last Admin: 05/10/19 10:39 Dose: 20 gm Multivit/Ca Carb/B Cmplx/FA/Prenat (Nephro-Chris -) 1 tablet PO DAILY [facility] Last Admin: 05/10/19 10:40 Dose: 1 tablet Multivitamins/Minerals/Vitamin C (Tab-A-Vit -) 1 tab PO DAILY [facility] Last Admin: 05/10/19 10:40 Dose: 1 tab Nadolol (Corgard -) 20 mg PO DAILY [facility] Last Admin: 05/10/19 10:40 Dose: 20 mg Phytonadione (Aqua Mephyton Injection -) 10 mg SQ DAILY [facility] Stop: 05/13/19 13:29 Last Admin: 05/10/19 18:30 Dose: 10 mg Spironolactone (Aldactone -) 200 mg PO DAILY [facility] Last Admin: 05/10/19 10:39 Dose: 200 mg Thiamine HCl (Vitamin B1 -) 100 mg PO DAILY [facility] Last Admin: 05/10/19 10:40 Dose: 100 mg - Objective Vital Signs: Vital Signs Temperature 98 F 05/11/19 06:00 Pulse Rate 75 05/11/19 06:00 Respiratory Rate 20 05/11/19 06:00 Blood Pressure 124/73 05/11/19 06:00 O2 Sat by Pulse Oximetry (%) 97 05/10/19 21:00 Cardiovascular: Yes: S1, S2 Respiratory: Yes: Regular, CTA Bilaterally Gastrointestinal: Yes: Normal Bowel Sounds, Soft, Ascites, Distention Labs: CBC, BMP 05/11/19 06:15 05/11/19 06:15 INR, PTT INR 1.50 (0.83-1.09) H 05/11/19 06:15 Assessment/Plan - Problems (1) Ascites of liver Assessment/Plan: GI on board s/p Paracentesis on admission 6.5L removed repeat Paracentesis with 7L removed Abdominal US shows large amount of ascites is seen within upper and lower quadrants bilaterally Lactulose daily weights 1L fluid restriction GI recommendation is if patient continues to have rapid accumulating ascites he should be referred to tertiary center/liver center for fluid management and TIPs procedure repeat Abdominal US as abdomen appears more distended this morning Code(s): R18.8 - OTHER ASCITES (2) GERD (gastroesophageal reflux disease) Assessment/Plan: Pantoprazole BID Code(s): K21.9 - GASTRO-ESOPHAGEAL REFLUX DISEASE WITHOUT ESOPHAGITIS (3) HTN (hypertension) Assessment/Plan: monitor BP Nadolol, Spironolactone Code(s): I10 - ESSENTIAL (PRIMARY) HYPERTENSION (4) Alcoholic cirrhosis of liver Assessment/Plan: GI on board s/p Paracentesis on admission 6.5L removed, repeat paracentesis removed 7L Abdominal US shows large amount of ascites is seen within upper and lower quadrants bilaterally consult IR for possible repeat paracentesis Nadolol, Spironolactone, Furosemide Xifaxin discontinued Lactulose HS Ammonia level 81.20 GI recommendation is if patient continues to have rapid accumulating ascites he should be referred to tertiary center/liver center for fluid management and TIPs procedure Code(s): K70.30 - ALCOHOLIC CIRRHOSIS OF LIVER WITHOUT ASCITES Qualifiers: Ascites presence: with ascites Qualified Code(s): K70.31 - Alcoholic cirrhosis of liver with ascites (5) Anemia Assessment/Plan: Hg 10.4 monitor Hg daily transfuse for Hg <7.0 to avoid fluid overload Stool OB Anemia profile shows normal Iron, low TIBC Code(s): D64.9 - ANEMIA, UNSPECIFIED (6) COPD (chronic obstructive pulmonary disease) Assessment/Plan: Bronchodilators keep SpO2 >90% O2 via NC prn for SOB Code(s): J44.9 - CHRONIC OBSTRUCTIVE PULMONARY DISEASE, UNSPECIFIED (7) Hypokalemia Assessment/Plan: K 3.8 resolved KCl 40mEq po x 1 dose monitor electrolyte daily and replete as needed Code(s): E87.6 - HYPOKALEMIA
--- NOTE | 2019-05-11 09:22 | PN.GI ---
GI Progress Note Subjective: Sleepy but reporting no abodminal pain or shortness of breath. - Objective Vital Signs: Vital Signs Temperature 98 F 05/11/19 06:00 Pulse Rate 75 05/11/19 06:00 Respiratory Rate 20 05/11/19 06:00 Blood Pressure 124/73 05/11/19 06:00 O2 Sat by Pulse Oximetry (%) 97 05/10/19 21:00 Respiratory: Yes: Regular, Wheezes Gastrointestinal Inspection: Yes: Ascites ((not tense today)) ...Auscultate: Yes: Normoactive Bowel Sounds ...Palpate: Yes: Soft. No: Mass, Tenderness Labs: CBC, BMP 05/11/19 06:15 05/11/19 06:15 INR, PTT INR 1.50 (0.83-1.09) H 05/11/19 06:15 Assessment/Plan Albumin=2.2 Bilirubin (total)=2.5 INR=1.5 Cr=0.7 Impression Somewhat refractory ascites with mild portosystemic encephalopathy (somnolent but no asterixis) Suggest Advance spironolactone to 300 mg daily (BUN and Cr ok to do so) Keep Lasix at 40 mg dailyl; would only increase for rising K from spironolactone Possible transfer to [facility] Continue lactulose
[2019-05-11] MEDS ORDERED: AMINOPHYLLINE 250 MG/10 ML VIAL ONE (11:53)
[2019-05-11] MEDS ORDERED: ALBUTEROL SO4 0.083% IH SOL 2.5 MG/3 ML VIAL.NEB. NEB ONE (11:58)
[2019-05-11] MEDS ORDERED: methylPREDNISolone NA SUCC 125 MG/2 ML VIAL ONE (12:03)
[2019-05-11] MEDS: FOLIC ACID 1 MG TABLET (FP) PO SCH (12:33)
[2019-05-11] MEDS: MULTIVITAMINS (DAILY MVI) TABLET (FP) PO SCH (12:33)
[2019-05-11] MEDS: SPIRONOLACTONE 25 MG TABLET (FP) PO SCH (12:33)
[2019-05-11] MEDS: VITAMIN B COMP W-C 1 EA TABLET PO SCH (12:33)
[2019-05-11] MEDS: THIAMINE HCL 100 MG TABLET (FP) PO SCH (12:34)
[2019-05-11] MEDS: PHYTONADIONE 10 MG/1 ML AMP SQ SCH (12:34)
--- NOTE | 2019-05-11 12:35 | CONSULT ---
Admitting History and Physical - Primary Care Physician PCP: Paul Moreno - Admission History of Present Illness: 63 year old male with PMH alcoholic cirrhosis., copd, ibs, htn, hyponatremia, gerd presents from [facility] for increased abd girth. Repeat Paracentesis with 7L removed, 6.5L removed on admission Ascites of liver On Mechanical chopped diet and thin liquids in [place]. Selected Entries 05/08/19 05/08/19 05/08/19 09:30 13:35 18:00 Breakfast 75% Lunch 75% 75% Supper 75% Temperature 05/10/19 05/10/19 05/11/19 16:18 20:59 06:00 Breakfast Lunch Supper Temperature 97.5 F L 98 F 98 F Laboratory Tests 05/10/19 05/11/19 08:45 06:15 WBC 6.3 6.8 History Source: Medical Record Limitations to Obtaining History: Clinical Condition, Language Barrier - Past Medical History Cardiovascular: Yes: HTN Pulmonary: Yes: COPD Gastrointestinal: Yes: Ascites, Irritable Bowel Disease Hepatobiliary: Yes: Cirrhosis (Alcoholic) Heme/Onc: Yes: Anemia Psych: Yes: Addictions (alcoholism) - Past Surgical History Past Surgical History: Yes: None - Smoking History Smoking history: Never smoked Have you smoked in the past 12 months: No - Alcohol/Substance Use Hx Alcohol Use: No - Social History ADL: Support Services 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 History of Recent Travel: No History - Admission Reason For Visit: ASCITES - General Mental Status: Awake and Alert, Able to Follow Commands, Vague (resistent, refused po trials) Ability to Follow Directions: Fair Head/Neck Control: Fair - Hearing Hearing: Normal Speech Evaluation - Communication Primary Language: FAROESE Secondary Language: HEBREW Communication: Yes: Within Normal Limits Oral Expression Ability: Yes: No Impairment - Speech Production Able to Make Needs Known: Yes: WNL Intelligibility: Yes: WNL - Speech Characteristics Voice Loudness: Normal Voice Pitch: Yes: Normal Voice Phonatory-based Quality: Yes: Normal, Dysphonia (mild) Speech Pattern: Normal Speech Clarity: < 100% Nasal Resonance: Normal Articulation: Yes: Precise - Language/Auditory Comprehension Follows: Yes: 1 Stage Simple Commands Observation: Able to respond to yes/no queries: Yes, Yes/No Confusion: No, Benefits from Slow Speech: Yes - Language/Verbal Expression Able to Respond to Simple Queries: Yes: WNL Functional Communication Status: Yes: WNL - Swallow Evaluation/Bedside Assessment Current Nutritional Intake: Regular (chopped), Thin Liquids Oral Secretions: Yes: WFL Dentition: Yes: Missing Teeth (poor dentition) Facial Symmetry at Rest: Symmetrical Lingual Speed of Movement: Normal Lingual Movement Strgth Against Opposition: Normal Recommendations - Speech Evaluation, Impression/Plan Impression: Resistent, refused po trials for me. Poor dentition. Reported to be tolerated chopped diet/thin liquids. Looks thin. - Dysphagia Impressions/Plan Swallowing Skills: Impaired Dysphagia Impressions: Mild Impairment - Recommendations Diet Consistency: Other (chopped, soft easy to chew items) Liquids: Thin Liquids Supplement: Magic Cup, Ensure Pudding
[2019-05-11] MEDS: NADOLOL 20 MG TABLET (FP) PO SCH (12:49)
[2019-05-11] MEDS: LACTULOSE 20 GM/30 ML UDC (FOR ORAL USE ONLY) PO SCH (12:49)
[2019-05-11 16:29] LABS: BF WBC & OTHER NUCLEATED CELLS 140 /mm3
[2019-05-11 17:00] VITALS: BMI 17.6
[2019-05-11 17:02] LABS: BODY FLUID MACROPHAGES 35 %; BODY FLUID MESOTHELIAL 2 %; BODY FLUID MONOCYTE 8 %
[2019-05-12] MEDS: FUROSEMIDE 40 MG TABLET (FP) PO SCH (06:44)
--- NOTE | 2019-05-12 08:00 | DS ---
Physical Examination Vital Signs: Vital Signs Temperature 98.0 F 05/12/19 06:48 Pulse Rate 70 05/12/19 06:48 Respiratory Rate 20 05/12/19 06:48 Blood Pressure 114/57 L 05/12/19 06:48 O2 Sat by Pulse Oximetry (%) 97 05/11/19 21:00 Cardiovascular: Yes: S1, S2 Respiratory: Yes: Regular, CTA Bilaterally Gastrointestinal: Yes: Normal Bowel Sounds, Soft, Ascites Labs: CBC, BMP 05/11/19 06:15 05/11/19 06:15 Discharge Summary Problems reviewed: Yes Reason For Visit: ASCITES Current Active Problems Ascites of liver (Acute) GERD (gastroesophageal reflux disease) (Acute) HTN (hypertension) (Acute) Hospital Course: - Problems (1) Ascites of liver Assessment/Plan: GI on board s/p Paracentesis on admission 6.5L removed repeat Paracentesis with 7L removed Abdominal US shows large amount of ascites is seen within upper and lower quadrants bilaterally Lactulose daily weights aldactone to 300 1L fluid restriction GI recommendation is if patient continues to have rapid accumulating ascites he should be referred to tertiary center/liver center for fluid management and TIPs procedure repeat Abdominal US as abdomen appears more distended this morning Code(s): R18.8 - OTHER ASCITES (2) GERD (gastroesophageal reflux disease) Assessment/Plan: Pantoprazole BID Code(s): K21.9 - GASTRO-ESOPHAGEAL REFLUX DISEASE WITHOUT ESOPHAGITIS (3) HTN (hypertension) Assessment/Plan: monitor BP Nadolol, Spironolactone Code(s): I10 - ESSENTIAL (PRIMARY) HYPERTENSION (4) Alcoholic cirrhosis of liver Assessment/Plan: GI on board s/p Paracentesis on admission 6.5L removed, repeat paracentesis removed 7L Abdominal US shows large amount of ascites is seen within upper and lower quadrants bilaterally consult IR for possible repeat paracentesis Nadolol, Spironolactone, Furosemide Xifaxin discontinued Lactulose HS Ammonia level 81.20 GI recommendation is if patient continues to have rapid accumulating ascites he should be referred to tertiary center/liver center for fluid management and TIPs procedure Code(s): K70.30 - ALCOHOLIC CIRRHOSIS OF LIVER WITHOUT ASCITES Qualifiers: Ascites presence: with ascites Qualified Code(s): K70.31 - Alcoholic cirrhosis of liver with ascites (5) Anemia Assessment/Plan: Hg 10.4 monitor Hg daily transfuse for Hg <7.0 to avoid fluid overload Stool OB Anemia profile shows normal Iron, low TIBC Code(s): D64.9 - ANEMIA, UNSPECIFIED (6) COPD (chronic obstructive pulmonary disease) Assessment/Plan: Bronchodilators keep SpO2 >90% O2 via NC prn for SOB Code(s): J44.9 - CHRONIC OBSTRUCTIVE PULMONARY DISEASE, UNSPECIFIED (7) Hypokalemia Assessment/Plan: K 3.8 resolved KCl 40mEq po x 1 dose monitor electrolyte daily and replete as needed Code(s): E87.6 - HYPOKALEMIA tranfer to [facility] initiated Condition: Guarded - Instructions Referrals: Sergio Alcazar MD [Primary Care Provider] - Disposition: [facility] - Home Medications Comprehensive Discharge Medication List: Ambulatory Orders Vit B Comp/C/Folic/Iron/Vit E [Vitamin B Complex Tablet] 1 each PO DAILY Albuterol 0.083% Nebulizer Jacqueline [Ventolin 0.083% Nebulizer Soln -] 1 amp NEB QID PRN amp 03/05/18 Nadolol [Corgard -] 20 mg PO DAILY tablet 03/05/18 Folic Acid - 1 mg PO DAILY tablet 04/13/18 Multivitamins [Multivit (RH Formulary)] 1 tab PO DAILY tab 04/13/18 Thiamine HCl [Vitamin B1 -] 100 mg PO DAILY tablet 04/13/18 Mag Hydrox/Al Hydrox/Simeth [Mylanta Oral Suspension -] 30 ml PO PRN 06/23/18 Furosemide [Lasix -] 40 mg PO BID@0600,1400 tablet 05/12/19 Lactulose (Oral Use) [Cephulac -] 20 gm PO DAILY [facility] 05/12/19 Spironolactone [Aldactone -] 300 mg PO DAILY tablet 05/12/19
[2019-05-12] MEDS: VITAMIN B COMP W-C 1 EA TABLET PO SCH (11:29)
[2019-05-12] MEDS: MULTIVITAMINS (DAILY MVI) TABLET (FP) PO SCH (11:29)
[2019-05-12] MEDS: LACTULOSE 20 GM/30 ML UDC (FOR ORAL USE ONLY) PO SCH (11:30)
[2019-05-12] MEDS: NADOLOL 20 MG TABLET (FP) PO SCH (11:30)
[2019-05-12] MEDS: FOLIC ACID 1 MG TABLET (FP) PO SCH (11:30)
[2019-05-12] MEDS: THIAMINE HCL 100 MG TABLET (FP) PO SCH (11:30)
[2019-05-12] MEDS: PHYTONADIONE 10 MG/1 ML AMP SQ SCH (11:31)
--- NOTE | 2019-05-12 12:38 | PN ---
Progress Note, [employer] - Note Progress Note: Selected Entries 05/12/19 05/12/19 06:48 11:51 Breakfast 100% Diet Tolerated Well Temperature 98.0 F Laboratory Tests 05/11/19 06:15 WBC 6.8 Tolerating diet. Pt taking other pt's food eg pancakes, fish and reportedly tolerating soft solids. Poor cooperation with swallowing assessment.
[2019-05-12 13:08] LABS: ARTERIAL BLD GAS O2 SATURATION 91.3 % (95-98); ARTERIAL BLOOD GAS BASE EXCESS -6.1 meq/l (-2-2); ARTERIAL BLOOD GAS PCO2 33.5 mmHg (35-45); ARTERIAL BLOOD GAS pH 7.35 (7.35-7.45)
[2019-05-12 13:09] LABS: ALLENS TEST POSITIVE
--- NOTE | 2019-05-12 13:19 | RAPID ---
Physical Examination Vital Signs: Vital Signs Temperature 98.0 F 05/12/19 06:48 Pulse Rate 70 05/12/19 06:48 Respiratory Rate 20 05/12/19 06:48 Blood Pressure 114/57 L 05/12/19 06:48 O2 Sat by Pulse Oximetry (%) 97 05/11/19 21:00 Labs: CBC, BMP 05/11/19 06:15 05/11/19 06:15 Rapid Response - Rapid Response Assessment: Rapid response was called overhead. Rapid team to the bedside. Vitals: BP 78/37 HR 100 pulse ox 87 on Venti-mask 40%, unable to appreciate good pulse oxymetry reading Temp 97.2 BP manual 70/40 Patient was complaining of abdominal pain. Nursing noting that the patient was more altered than baseline, clammy, diaphoretic. Patient pointing at his abdomen when asked about pain. Denied nausea, vomiting. Nursing notified rapid team that the patient has not had a bowel movement in 3 days. Documentation noted that the patient has not had a bowel movement since . Spironolactone increased to 300mg, had not received it on this day. PE: General: In acute distress, alert and oriented to self, location, and "Saturday" Eyes: scleral icterus Cardiac: Tachycardic, no murmurs appreciated Respiratory: minor wheezes auscultated Abdomen: soft, non-distended, tenderness to palpation throughout Skin: clammy Recommendations/Interventions: Assessment: Patient with history of cirrhosis with no bowel movements in 3-4 days with possible hyperammonemia causing hepatic encephalopathy. ? aspiration in setting of intermittent confusion Hypotension due to cirrhosis, portal hypertension Primary Physician Notified: Rajesh De Luna Time PMD Notified: 13:20 Plan: PLAN: Started [place] lactulose Labs ordered CBC, CMP, Mag, Phos, lactic, ammonia, troponins, PT/INR, UA ICU consulted for low BP EKG ordered showing sinus tachycardia, peaked T waves, U waves ABG ordered showing pH 7.35, Co2 33.5, O2 72 Cardiology consulted CXR ordered showing clear lungs with old apical disease, sclerotic knob, normal quirino, normal heart, clear angles Primary notified CBC with no acute WBC elevation, anemia stable INR 1.35 No acute changes in CMP troponins negative Ammonia 157, likely from no bowel movements in last several days Lactic acid 6.6, likely from decreased perfusion NS 1L bolus ordered by ICU team Albumin ordered by ICU team
--- NOTE | 2019-05-12 13:26 | EKG ---
Test Reason : Blood Pressure : / mmHG Vent. Rate : 109 BPM Atrial Rate : 109 BPM P-R Int : 134 ms QRS Dur : 086 ms QT Int : 356 ms P-R-T Axes : 052 065 065 degrees QTc Int : 479 ms SINUS TACHYCARDIA NONSPECIFIC ST ABNORMALITY ABNORMAL ECG Confirmed by Rosendo Rivera MD ([id number]) on 05/12/2019 1:25:52 PM Referred By: Rodger BUCK Confirmed By:Rosendo Rivera MD
[2019-05-12] MEDS ORDERED: SODIUM CHLORIDE 1,000 ML IV STA ×2 (13:28→15:08)
[2019-05-12 13:37] LABS: BASO % 0.1 % (0-2.0); EOS % 0.7 % (0-4.5); HEMOGLOBIN 11.5 GM/dL (11.7-16.9); LYMPH % 69.8 % (8-40); MCH 31.7 pg (25.7-33.7); MCHC 32.9 g/dl (32.0-35.9); MEAN CELL VOLUME 96.4 fl (80-96); MEAN PLT VOLUME 8.7 fl (7.5-11.1); MONO % 6.2 % (3.8-10.2); NEUT % 23.2 % (42.8-82.8); PLATELET COUNT 154 K/MM3 (134-434); RBC 3.63 M/mm3 (4.00-5.60); RDW 17.2 % (11.9-15.9); WHITE BLOOD COUNT 6.3 K/mm3 (4.0-10.0)
[2019-05-12] MEDS: SPIRONOLACTONE 25 MG TABLET (FP) PO SCH (13:38)
[2019-05-12 13:56] LABS: INR 1.35 (0.83-1.09)
[2019-05-12 14:00] LABS: ALBUMIN 2.2 g/dl (3.4-5.0); ALK PHOS 119 U/L (45-117); ANION GAP 14 MMOL/L (8-16); BILIRUBIN,TOTAL 1.8 mg/dL (0.2-1); BLOOD UREA NITROGEN 8.9 mg/dL (7-18); CALCIUM 7.8 mg/dL (8.5-10.1); CHLORIDE 103 mmol/L (98-107); CO2 19 mmol/L (21-32); CREATININE 0.9 mg/dL (0.55-1.3); GLUCOSE,RANDOM 84 mg/dL (74-106); MAGNESIUM 1.9 mg/dL (1.8-2.4); PHOSPHOROUS 3.5 mg/dL (2.5-4.9); POTASSIUM 3.6 mmol/L (3.5-5.1); SGOT/AST 35 U/L (15-37); SGPT/ALT 16 U/L (13-61); SODIUM 135 mmol/L (136-145); TOT PROT 6.7 g/dl (6.4-8.2)
[2019-05-12] MEDS ORDERED: LACTULOSE 20 GM/30 ML UDC (FOR RECTAL USE ONLY) PR SCH (14:00)
[2019-05-12] MEDS ORDERED: ALBUMIN HUMAN 25% 12.5 GM/50 ML VIAL IVPB ONE (14:00)
[2019-05-12 14:40] LABS: ANISOCYTOSIS 0; MACROCYTOSIS 0; PLATELET ESTIMATE DECREASED
--- NOTE | 2019-05-12 14:49 | PN ---
Progress Note (short form) - Note Progress Note: Patient is a 63 year old male with PMH of alcoholic cirrhosis, COPD/emphysema, IBS, HTN, hyponatremia, GERD presents who was admitted for was admitted for ascities and hepatic encephalopathy. Underwent paracentesis x2 (6.5L removed on admission and 7L removed yesterday). Pt being treated with nadolol, sprironolaactone, and furosemide. Pt was medically stable for discharge today back to [place]. Tapid response was called on pt due to worsening abd pain, AMS and diaphoretic. Pt has not had a BM in 3 days. When RR team arrived, BP was 78/37. ICU team was consulted for hypotension. Last Vital Signs Temp Pulse Resp BP Pulse Ox 98.2 F 74 16 127/79 97 05/12/19 08:00 05/12/19 08:00 05/12/19 08:00 05/12/19 08:00 05/11/19 21:00 Physical Exam: GEN: AxOx3 appears in mild distress. EYES: Scleral icterus HEART: RRR, S1, S2, no murmurs appreciated LUNGS: Mild wheezes, no accessory muscle use. ABD: Soft, nondistended, diffuse tenderness to palpation, normoactive bowel sounds SKIN: Jaundice, clammy Hypotension and hepatic encephatlopathy -Pt has had 14L removed over past week -BP is fludi responsive >>Received 1L bolus, pressures responding (88/51 MAP:60) -Give 25gm albumin -Cont to monitor hemodynamics -Does not require pressors at this time Dispo: Pt does not require ICU monitoring at this time. Please contact for any further questions or recommendations.
--- NOTE | 2019-05-12 15:31 | CON.CARD ---
Consult Consult Specialty:: Cardiology Referred by:: Dr. Moreno Reason for Consultation:: Abnormal ECG - History of Present Illness Chief Complaint: Weight gain with refractory ascites History of Present Illness: 63 year-old man with a PMHx of alcoholic cirrhosis, portal hypertension, refractory ascites, COPD/emphysema, IBS, HTN, hyponatremia, GERD admitted with weight gain with evidence of large ascites. S/p 6.5 L, 7.0 L and 3.1 L therapeutic paracentesis on 04/30, 05/04/19 and 05/11/19 with evidence of rapid reaccumulation. ECG on 04/29/19 showed sinus rhythm with prolonged QT and normal ST and T. Repeat ECG 05/12/2019 revealed peak T waves in precordial leads and prolonged QT. Potassium is 3.6 today with borderline hyponatremia. Ca and Mg are mildly reduced. The patient has no symptoms of angina. But he has severe hypotension today and received albumin and IV fluid. The patient appears comfortable at the time of exam. He reports no chest pain, shortness of breath, palpitation or dizziness. 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 History of Recent Travel: No Home Medications - Allergies Allergies/Adverse Reactions: Allergies Allergy/AdvReac Type Severity Reaction Status Date / Time No Known Allergies Allergy Unverified 01/04/19 01:23 - Home Medications Home Medications: Ambulatory Orders Vit B Comp/C/Folic/Iron/Vit E [Vitamin B Complex Tablet] 1 each PO DAILY Albuterol 0.083% Nebulizer Jacqueline [Ventolin 0.083% Nebulizer Soln -] 1 amp NEB QID PRN amp 03/05/18 Nadolol [Corgard -] 20 mg PO DAILY tablet 03/05/18 Folic Acid - 1 mg PO DAILY tablet 04/13/18 Multivitamins [Multivit ([facility] Formulary)] 1 tab PO DAILY tab 04/13/18 Thiamine HCl [Vitamin B1 -] 100 mg PO DAILY tablet 04/13/18 Mag Hydrox/Al Hydrox/Simeth [Mylanta Oral Suspension -] 30 ml PO PRN 06/23/18 Furosemide [Lasix -] 40 mg PO BID@0600,1400 tablet 05/12/19 Lactulose (Oral Use) [Cephulac -] 20 gm PO DAILY udc 05/12/19 Spironolactone [Aldactone -] 300 mg PO DAILY tablet 05/12/19 Review of Systems - Review of Systems Constitutional: reports: Lethargy, Loss of Appetite, Malaise, Unintentional Wgt. Loss, Weakness Eyes: reports: No Symptoms HENT: reports: No Symptoms Neck: reports: No Symptoms Cardiovascular: reports: No Symptoms Respiratory: reports: No Symptoms Gastrointestinal: reports: Abdominal Pain Genitourinary: reports: No Symptoms Breasts: reports: No Symptoms Reported Vital Signs: Vital Signs Temperature 97.2 F L 05/12/19 15:22 Pulse Rate 92 H 05/12/19 15:22 Respiratory Rate 18 05/12/19 15:22 Blood Pressure 79/47 L 05/12/19 15:22 O2 Sat by Pulse Oximetry (%) 97 05/11/19 21:00 General: Well developed. Chronic ill and frail. No acute distress. Head: Normocephalic. Atraumatic, Eyes: PERRLA, EOMI. Sclerae icteric. Pale. Neck: Supple. No JVD. No bruits. Heart: Normal S1, S2: Regular rhythm and rate. No murmur. No gallop or rub. Lungs: Symmetrical air entry. Clear to auscultation. No crackles. No wheezing or rhonchi. Abdomen: Distended. Ascites. Soft. Bowel sound positive. Non tender. Extremities: No edema. No clubbing or cyanosis. PD 2+, equal bilaterally. - Other Data Labs, Other Data: CBC, BMP 05/12/19 13:00 05/12/19 13:00 INR, PTT INR 1.35 (0.83-1.09) H 05/12/19 13:00 Troponin, BNP 05/12/19 13:00 Troponin I < 0.02 Troponin, BNP 05/12/19 13:00 Troponin I < 0.02 Assessment/Plan 63 year-old man with a PMHx of alcoholic cirrhosis, portal hypertension, refractory ascites, COPD/emphysema, IBS, HTN, hyponatremia, GERD admitted with weight gain with evidence of large ascites. S/p 6.5 L, 7.0 L and 3.1 L therapeutic paracentesis on 04/30, 05/04/19 and 05/11/19 with evidence of rapid reaccumulation. ECG on 04/29/19 showed sinus rhythm with prolonged QT and normal ST and T. Repeat ECG 05/12/2019 revealed peak T waves in precordial leads and prolonged QT. Potassium is 3.6 today with borderline hyponatremia. Ca and Mg are mildly reduced. The patient has no symptoms of angina. But he has severe hypotension today and received albumin and IV fluid. Abnormal ECG with new peak T waves in precordial leads. Potassium is low normal. It is likely due to myocardial hypoperfusion in the setting of severe hypotension. The patient has no symptoms of angina.
--- NOTE | 2019-05-12 15:33 | PN.GI ---
GI Progress Note Subjective: Patient states abdominal pain improved Had paracentesis: 3100 CC removed yesterday (I called the US dept). Fluid not C/ W SBP Rapid response called for evaluation of hypotension. Received 1 L NS bolus and 25g Albumin SBP 80's-90's currently. - Objective Vital Signs: Vital Signs Temperature 97.2 F L 05/12/19 15:22 Pulse Rate 92 H 05/12/19 15:22 Respiratory Rate 18 05/12/19 15:22 Blood Pressure 79/47 L 05/12/19 15:22 O2 Sat by Pulse Oximetry (%) 97 05/11/19 21:00 Constitutional: Calm Eyes: No: Sclera Icterus Cardiovascular: Yes: Regular Rate and Rhythm Edema: No (No LE edema) Neurological: Yes: Alert Labs: CBC, BMP 05/12/19 13:00 05/12/19 13:00 INR, PTT INR 1.35 (0.83-1.09) H 05/12/19 13:00 Problem List - Problems (1) Ascites of liver Assessment/Plan: Abdomen distention improved. Hypotension this afternoon and is being evaluated. No SBP noted from yesterday' s fluid analysis I suspect with the fluid bolus and diuretics on hold due to relative hypotension , fluid will reaccumulate quicker If blood pressure improves and remains stable, as previous, advise plan for transfer for further fluid management and evaluate for TIPS candidacy. Code(s): R18.8 - OTHER ASCITES
--- NOTE | 2019-05-12 16:29 | PN ---
Progress Note (short form) - Note Progress Note: Called [facility] Transfer Center. Discussed case with Telegraphic Typewriter Operator Chief Dr. Yin. Accepted to medicine service for transfer with liver service to consult. Problem List - Problems (1) Ascites of liver Code(s): R18.8 - OTHER ASCITES
[2019-05-12] MEDS ORDERED: SODIUM CHLORIDE 0.45%/POT 20 MEQ/1,000 ML INFUS.BAG IV SCH (17:45)
--- NOTE | 2019-05-12 17:49 | PN ---
Progress Note (short form) - Note Progress Note: Transfer to [facility] once BP consistently stable. Spoke with transfer center. they need to be called once it is time to initialize transfer [phone] (Spoke to Jj, the transferrer) Problem List - Problems (1) Ascites of liver Code(s): R18.8 - OTHER ASCITES
[2019-05-13 08:30] LABS: BASO % 0.4 % (0-2.0); EOS % 1.1 % (0-4.5); HEMATOCRIT 29.7 % (35.4-49); HEMOGLOBIN 10.1 GM/dL (11.7-16.9); LYMPH % 19.9 % (8-40); MCH 32.5 pg (25.7-33.7); MCHC 34.1 g/dl (32.0-35.9); MEAN CELL VOLUME 95.3 fl (80-96); MEAN PLT VOLUME 9.1 fl (7.5-11.1); MONO % 11.7 % (3.8-10.2); NEUT % 66.9 % (42.8-82.8); PLATELET COUNT 146 K/MM3 (134-434); RBC 3.12 M/mm3 (4.00-5.60); RDW 16.7 % (11.9-15.9); WHITE BLOOD COUNT 9.9 K/mm3 (4.0-10.0)
[2019-05-13 08:58] LABS: ALBUMIN 2.5 g/dl (3.4-5.0); BILIRUBIN,TOTAL 2.5 mg/dL (0.2-1); BLOOD UREA NITROGEN 15.1 mg/dL (7-18); CALCIUM 7.8 mg/dL (8.5-10.1); CREATININE 0.8 mg/dL (0.55-1.3); POTASSIUM 4.2 mmol/L (3.5-5.1); TOT PROT 5.6 g/dl (6.4-8.2)
[2019-05-13] MEDS: MULTIVITAMINS (DAILY MVI) TABLET (FP) PO SCH (09:53)
[2019-05-13] MEDS: THIAMINE HCL 100 MG TABLET (FP) PO SCH (09:53)
[2019-05-13] MEDS: LACTULOSE 20 GM/30 ML UDC (FOR ORAL USE ONLY) PO SCH (09:53)
[2019-05-13] MEDS: NADOLOL 20 MG TABLET (FP) PO SCH (09:53)
[2019-05-13] MEDS: VITAMIN B COMP W-C 1 EA TABLET PO SCH (09:53)
[2019-05-13] MEDS: FOLIC ACID 1 MG TABLET (FP) PO SCH (09:53)
[2019-05-13] MEDS ORDERED: LACTULOSE 20 GM/30 ML UDC (FOR RECTAL USE ONLY) PR SCH (10:00)
[2019-05-13] MEDS: PHYTONADIONE 10 MG/1 ML AMP SQ SCH (10:02)
[2019-05-13 11:58] VITALS: BP 100/62; PULSE 70; TEMP 97.9
--- NOTE | 2019-05-13 12:11 | PN ---
Progress Note, Physician Chief Complaint: Cirrhosis - Current Medication List Current Medications: Active Medications Al Hydroxide/Mg Hydroxide (Mylanta Oral Suspension -) 30 ml PO PRN PRN PRN Reason: INDIGESTION Folic Acid (Folic Acid -) 1 mg PO DAILY [facility] Last Admin: 05/13/19 09:53 Dose: 1 mg Furosemide (Lasix -) 40 mg PO BID@0600,1400 [facility] Last Admin: 05/12/19 06:44 Dose: 40 mg Potassium Chloride/Sodium Chloride (1/2ns+20meq Kcl) 20 meq in 1,000 mls @ 42 mls/hr IV ASDIR [facility] Last Admin: 05/12/19 23:27 Dose: 42 mls/hr Lactulose (Cephulac (Oral Use)) 20 gm PO DAILY [facility] Last Admin: 05/13/19 09:53 Dose: 20 gm Lactulose (Cephulac (Rectal Use)) 200 gm HI DAILY [facility] Last Admin: 05/13/19 09:52 Dose: 200 gm Multivit/Ca Carb/B Cmplx/FA/Prenat (Nephro-Chris -) 1 tablet PO DAILY [facility] Last Admin: 05/13/19 09:53 Dose: 1 tablet Multivitamins/Minerals/Vitamin C (Tab-A-Vit -) 1 tab PO DAILY [facility] Last Admin: 05/13/19 09:53 Dose: 1 tab Nadolol (Corgard -) 20 mg PO DAILY [facility] Last Admin: 05/13/19 09:53 Dose: 20 mg Phytonadione (Aqua Mephyton Injection -) 10 mg SQ DAILY [facility] Stop: 05/13/19 13:29 Last Admin: 05/13/19 10:02 Dose: 10 mg Spironolactone (Aldactone -) 300 mg PO DAILY [facility] Last Admin: 05/12/19 13:38 Dose: Not Given Thiamine HCl (Vitamin B1 -) 100 mg PO DAILY [facility] Last Admin: 05/13/19 09:53 Dose: 100 mg - Objective Vital Signs: Vital Signs Temperature 97.9 F 05/13/19 10:00 Pulse Rate 70 05/13/19 10:00 Respiratory Rate 18 05/13/19 10:00 Blood Pressure 100/62 05/13/19 10:00 O2 Sat by Pulse Oximetry (%) 95 05/13/19 10:00 Constitutional: Yes: Well Nourished, No Distress, Calm Cardiovascular: Yes: Regular Rate and Rhythm Respiratory: Yes: Regular Gastrointestinal: Yes: Normal Bowel Sounds, Soft Musculoskeletal: Yes: Muscle Weakness Extremities: Yes: WNL Edema: No Peripheral Pulses WNL: Yes Neurological: Yes: Alert, Pre-Existing Deficit Psychiatric: Yes: Alert Labs: CBC, BMP 05/13/19 07:55 05/13/19 07:55 INR, PTT INR 1.35 (0.83-1.09) H 05/12/19 13:00 Assessment/Plan (1) Ascites of liver Assessment/Plan: GI on board s/p Paracentesis on admission 6.5L removed repeat Paracentesis with 7L removed Abdominal US shows large amount of ascites is seen within upper and lower quadrants bilaterally Lactulose daily weights 1L fluid restriction GI recommendation is if patient continues to have rapid accumulating ascites he should be referred to tertiary center/liver center for fluid management and TIPs procedure repeat Abdominal US as abdomen appears more distended this morning Code(s): R18.8 - OTHER ASCITES (2) GERD (gastroesophageal reflux disease) Assessment/Plan: Pantoprazole BID Code(s): K21.9 - GASTRO-ESOPHAGEAL REFLUX DISEASE WITHOUT ESOPHAGITIS (3) HTN (hypertension) Assessment/Plan: monitor BP Nadolol, Spironolactone Code(s): I10 - ESSENTIAL (PRIMARY) HYPERTENSION (4) Alcoholic cirrhosis of liver Assessment/Plan: GI on board s/p Paracentesis on admission 6.5L removed, repeat paracentesis removed 7L Abdominal US shows large amount of ascites is seen within upper and lower quadrants bilaterally consult IR for possible repeat paracentesis Nadolol, Spironolactone, Furosemide Xifaxin discontinued Lactulose HS GI recommendation is if patient continues to have rapid accumulating ascites he should be referred to tertiary center/liver center for fluid management and TIPs procedure Transfer to tertiary care center to [facility] Code(s): K70.30 - ALCOHOLIC CIRRHOSIS OF LIVER WITHOUT ASCITES Qualifiers: Ascites presence: with ascites Qualified Code(s): K70.31 - Alcoholic cirrhosis of liver with ascites (5) Anemia Assessment/Plan: monitor Hg daily transfuse for Hg <7.0 to avoid fluid overload Stool OB Anemia profile shows normal Iron, low TIBC Code(s): D64.9 - ANEMIA, UNSPECIFIED (6) COPD (chronic obstructive pulmonary disease) Assessment/Plan: Bronchodilators keep SpO2 >90% O2 via NC prn for SOB Code(s): J44.9 - CHRONIC OBSTRUCTIVE PULMONARY DISEASE, UNSPECIFIED (7) Hypokalemia Assessment/Plan: resolved Code(s): E87.6 - HYPOKALEMIA
[2019-05-13] MEDS: SPIRONOLACTONE 25 MG TABLET (FP) PO SCH (12:43)
[2019-05-13 15:08] LABS: BODY FLUID ALBUMIN 0.7 g/dL (Not Estab.)
--- NOTE | 2019-05-13 17:01 | PATH ---
Cytology Non-Gynecological Report Patient Name: XIMENA SAHU Med. Rec. #: [id number] /Age/Gender: 1955 (Age: 63) / M Account: [id number] Location: [address] [place] [address]/[facility] Taken: 05/11/2019 Received: 05/11/2019 Reported: 05/13/2019 Physicians: Corey Awan M.D. Specimen(s) Received A: PLEURAL FLUID B: PLEURAL FLUID Clinical History Ascites Final Diagnosis A-B. ABDOMINAL FLUID, PARACENTESIS: SATISFACTORY FOR EVALUATION. NO MALIGNANT CELLS IDENTIFIED. MESOTHELIAL CELLS, MACROPHAGES, LYMPHOCYTES, AND RARE NEUTROPHILS PRESENT. Electronically Signed Priscilla Coker M.D. Gross Description A. Approximately 35 cc of yellow fluid received fixed in 50% alcohol. One cytofunnel prepared and Pap stained. One cellblock prepared. B. Approximately 3000 cc of yellow fluid received fresh. One cytofunnel prepared and Pap stained. One cellblock prepared.
== END 2019-05-13 14:21 | DRG 264 ==
LOC: JER 10:04 → JERBED 12:08 → J6S 15:50
PROVIDERS: ADMIT Family Medicine; ATTEND Family Medicine
PROC: 0W9G3ZX Drainage of Peritoneal Cavity, Percutaneous Approach, Diagnostic (ICD-10-PCS; principal; 2019-05-12)
DX: K70.31 Alcoholic cirrhosis of liver with ascites (principal); J44.9 Chronic obstructive pulmonary disease, unspecified; K58.9 Irritable bowel syndrome, unspecified; I10 Essential (primary) hypertension; K21.9 Gastro-esophageal reflux disease without esophagitis; E87.6 Hypokalemia; R10.9 Unspecified abdominal pain; D69.6 Thrombocytopenia, unspecified; D64.9 Anemia, unspecified; K72.90 Hepatic failure, unspecified without coma; I95.9 Hypotension, unspecified; E87.1 Hypo-osmolality and hyponatremia; I85.10 Secondary esophageal varices without bleeding; E87.2 Acidosis; F10.20 Alcohol dependence, uncomplicated
CPT/HCPCS: 36415; 36600; 71045-TC-FY; 71046-TC-FY; 74178-TC; 76700-TC; 76705-TC; 76942-TC; 80053; 81003; 82042; 82140; 82150; 82248; 82465; 82728; 82803; 82945; 83540; 83550; 83605; 83615; 83690; 83735; 83986; 84100; 84157; 84484; 85025; 85027; 85610; 85730; 86850; 86900; 86901; 87040; 87070; 87075; 87102; 87116; 87205; 87206; 87210; 88108; 88305-TC; 93005; 93010; 93970-TC; 94010; 97116-GP; 97161-GP; 99285-25; J1756; J3480; J7030; P9047; Q9967

== ENCOUNTER 2019-09-13 13:42 | Inpatient (IN) | payer OTHER ==
--- NOTE | 2019-09-13 14:26 | PDOC ---
History of Present Illness - General Chief Complaint: Lethargy Stated Complaint: AMS History Source: Patient Past History - Medical History Allergies/Adverse Reactions: Allergies Allergy/AdvReac Type Severity Reaction Status Date / Time No Known Allergies Allergy Unverified 07/13/19 12:36 Home Medications: Ambulatory Orders Vit B Comp/C/Folic/Iron/Vit E [Vitamin B Complex Tablet] 1 each PO DAILY 03/01/18 Albuterol 0.083% Nebulizer Jacqueline [Ventolin 0.083% Nebulizer Soln -] 1 amp NEB QID PRN amp 03/05/18 Nadolol [Corgard -] 20 mg PO DAILY tablet 03/05/18 Folic Acid - 1 mg PO DAILY tablet 04/13/18 Multivitamins [Multivit ([facility] Formulary)] 1 tab PO DAILY tab 04/13/18 Thiamine HCl [Vitamin B1 -] 100 mg PO DAILY tablet 04/13/18 Mag Hydrox/Al Hydrox/Simeth [Mylanta Oral Suspension -] 30 ml PO PRN 06/23/18 Furosemide [Lasix -] 40 mg PO BID@0600,1400 tablet 05/12/19 Spironolactone [Aldactone -] 300 mg PO DAILY tablet 05/12/19 Lactobacillus Acidophilus [Acidophilus] 1 each PO BID 09/13/19 Lactulose (Oral Use) [Cephulac -] 30 gm PO TID 09/13/19 Pantoprazole Sodium [Protonix -] 40 mg PO DAILY 09/13/19 Rifaximin [Xifaxan] 550 mg PO BID 09/13/19 Anemia: No Asthma: No Cancer: No Cardiac Disorders: No CVA: No COPD: Yes (emphysema) CHF: No Dementia: No Diabetes: Yes GI Disorders: (esophageal varices) Disorders: No HTN: Yes Hypercholesterolemia: Yes Liver Disease: Yes (cirrhosis of liver) Seizures: No Thyroid Disease: No Lung CA: No (emphysema) - Surgical History Abdominal Surgery: No Appendectomy: No Cardiac Surgery: No Cholecystectomy: No Lung Surgery: No Neurologic Surgery: No - Immunization History Td Vaccination: Yes TDAP Vaccination: Yes Immunization Up to Date: Yes - Psycho-Social/Smoking History Smoking History: Unknown if ever smoked Have you smoked in the past 12 months: No *Physical Exam - Vital Signs Last Vital Signs Temp Pulse Resp BP Pulse Ox 98.1 F 81 16 119/63 97 07/05/20 14:00 09/13/19 14:00 09/13/19 14:00 09/13/19 14:00 09/13/19 14:00 ED Treatment Course - LABORATORY CBC & Chemistry Diagram: 09/13/19 14:10 09/13/19 14:10
[2019-09-13 14:31] LABS: BASO % 0.5 % (0-2.0); EOS % 0.3 % (0-4.5); HEMATOCRIT 39.4 % (35.4-49); HEMOGLOBIN 12.9 GM/dL (11.7-16.9); LYMPH % 15.2 % (8-40); MCH 30.6 pg (25.7-33.7); MCHC 32.8 g/dl (32.0-35.9); MEAN CELL VOLUME 93.1 fl (80-96); MEAN PLT VOLUME 8.3 fl (7.5-11.1); MONO % 12.2 % (3.8-10.2); NEUT % 71.8 % (42.8-82.8); PLATELET COUNT 155 K/MM3 (134-434); RBC 4.23 M/mm3 (4.00-5.60); RDW 17.8 % (11.9-15.9); WHITE BLOOD COUNT 9.1 K/mm3 (4.0-10.0)
[2019-09-13 14:38] LABS: INR 1.52 (0.83-1.09)
[2019-09-13 14:41] LABS: ACTIVATED PTT 29.9 SECONDS (25.2-36.5)
[2019-09-13] MEDS ORDERED: SODIUM CHLORIDE 1,000 ML IV STA (14:41)
[2019-09-13] MEDS ORDERED: LACTULOSE 20 GM/30 ML UDC (FOR RECTAL USE ONLY) PR ONE (14:44)
[2019-09-13 14:48] LABS: ALBUMIN 3.2 g/dl (3.4-5.0); BLOOD UREA NITROGEN 49.9 mg/dL (7-18); CALCIUM 10.6 mg/dL (8.5-10.1); CREATININE 1.4 mg/dL (0.55-1.3); POTASSIUM 5.6 mmol/L (3.5-5.1); TOT PROT 9.9 g/dl (6.4-8.2)
--- NOTE | 2019-09-13 14:59 | PDOC ---
History of Present Illness - General Chief Complaint: Lethargy Stated Complaint: AMS Time Seen by Provider: 09/13/19 14:26 - History of Present Illness Initial Comments: 09/13/19 14:50 HPI: 64 y/o M with hx of HTN, HLD, COPD, EtOH cirrhosis from [facility] for AMS x6 days. Staff at the [facility] noted that he became increasingly confused and lethargic. At baseline he is able to communicate his needs and participate in activities at the [facility] with assist in ADLs. He now is unable to perform any ADLs, cannot communicate needs, does not follow commands, and with decreased PO. [facility] performed workup and found negative CXR and UA but ammonia in the 200s. Patient currently is not communicating but is awake PMHx: as noted above ROS: as noted SHx: Denies tobacco use; no alcohol use; no rec drugs Allergies: NKDA ROS: limited 2/2 mental status PE: GENERAL: Somnolent, arousable but does not follow commands, cachectic HEAD: No signs of trauma, normocephalic, atraumatic EYES: EOMI, scleral icterus ENT: Auricles normal inspection, hearing grossly normal, nares patent, oropharynx clear without exudates. dry mucosa, sublingual jaundice NECK: Normal ROM, no lymphadenopathy LUNGS: No increased work of breathing, symmetrical chest rise, clear to auscultation bilaterally, no wheezes, crackles or rhonchi HEART: Regular rate, regular rhythm, normal S1 and S2, no murmur, peripheral pulses 2+ and equal bilaterally. ABDOMEN: Soft, nondistended, nontender. No guarding, no rebound. No masses. No CVAT MUSCULOSKELETAL: FROM NEUROLOGICAL: limited 2/2 mental status, does not follow commands SKIN: jaundice Past History - Medical History Allergies/Adverse Reactions: Allergies Allergy/AdvReac Type Severity Reaction Status Date / Time No Known Allergies Allergy Unverified 07/13/19 12:36 Home Medications: Ambulatory Orders Vit B Comp/C/Folic/Iron/Vit E [Vitamin B Complex Tablet] 1 each PO DAILY 03/01/18 Albuterol 0.083% Nebulizer Jacqueline [Ventolin 0.083% Nebulizer Soln -] 1 amp NEB QID PRN amp 03/05/18 Nadolol [Corgard -] 20 mg PO DAILY tablet 03/05/18 Folic Acid - 1 mg PO DAILY tablet 04/13/18 Multivitamins [Multivit ([facility] Formulary)] 1 tab PO DAILY tab 04/13/18 Thiamine HCl [Vitamin B1 -] 100 mg PO DAILY tablet 04/13/18 Mag Hydrox/Al Hydrox/Simeth [Mylanta Oral Suspension -] 30 ml PO PRN 06/23/18 Furosemide [Lasix -] 40 mg PO BID@0600,1400 tablet 05/12/19 Spironolactone [Aldactone -] 300 mg PO DAILY tablet 05/12/19 Lactobacillus Acidophilus [Acidophilus] 1 each PO BID 09/13/19 Lactulose (Oral Use) [Cephulac -] 30 gm PO TID 09/13/19 Pantoprazole Sodium [Protonix -] 40 mg PO DAILY 09/13/19 Rifaximin [Xifaxan] 550 mg PO BID 09/13/19 Anemia: No Asthma: No Cancer: No Cardiac Disorders: No CVA: No COPD: Yes (emphysema) CHF: No Dementia: No Diabetes: Yes GI Disorders: (esophageal varices) Disorders: No HTN: Yes Hypercholesterolemia: Yes Liver Disease: Yes (cirrhosis of liver) Seizures: No Thyroid Disease: No Lung CA: No (emphysema) - Surgical History Abdominal Surgery: No Appendectomy: No Cardiac Surgery: No Cholecystectomy: No Lung Surgery: No Neurologic Surgery: No - Immunization History Td Vaccination: Yes TDAP Vaccination: Yes Immunization Up to Date: Yes - Psycho-Social/Smoking History Smoking History: Unknown if ever smoked Have you smoked in the past 12 months: No *Physical Exam - Vital Signs Last Vital Signs Temp Pulse Resp BP Pulse Ox 98.1 F 81 16 119/63 97 09/13/19 14:00 09/13/19 14:00 09/13/19 14:00 09/13/19 14:00 09/13/19 14:00 ED Treatment Course - LABORATORY CBC & Chemistry Diagram: 09/13/19 14:10 09/13/19 14:10 - ADDITIONAL ORDERS Additional order review: Laboratory Results 09/13/19 09/13/19 09/13/19 14:10 14:10 14:10 PT with INR INR PTT (Actin FS) Sodium 132 L Potassium 5.6 H Chloride 103 Carbon Dioxide 20 L Anion Gap 9 BUN 49.9 H Creatinine 1.4 H Est GFR (CKD-EPI)AfAm 61.53 Est GFR (CKD-EPI)NonAf 53.09 Random Glucose 127 H Calcium 10.6 H Total Bilirubin 3.0 H AST 118 H ALT 45 Alkaline Phosphatase 135 H Ammonia 142.40 H Total Protein 9.9 H Albumin 3.2 L Stool Occult Blood Negative 09/13/19 14:10 PT with INR 18.00 H INR 1.52 H PTT (Actin FS) 29.9 Sodium Potassium Chloride Carbon Dioxide Anion Gap BUN Creatinine Est GFR (CKD-EPI)AfAm Est GFR (CKD-EPI)NonAf Random Glucose Calcium Total Bilirubin AST ALT Alkaline Phosphatase Ammonia Total Protein Albumin Stool Occult Blood - RADIOLOGY Radiology Studies Ordered: Category Date Time Status HEAD CT WITHOUT CONTRAST [CT] Stat CT Scan 09/13/19 14:40 Ordered CXRPORT [CHEST X-RAY PORTABLE*] [RAD] Stat Radiology 09/13/19 14:40 Ordered Medical Decision Making - Medical Decision Making 09/13/19 14:59 64 y/o M with hx of HTN, HLD, COPD, EtOH cirrhosis from [facility] for AMS x6 days found to have amminia 200s. VSS, AF. PE with jaundice and scleral icterus. DDx includes CVA, occult infxn, lyte abnormality, hepatic encephalopathy -cbc, cmp, ua, cxr, ammonia, coags, FOBT, CT head, ekg -ivf, rectal lactulose 09/13/19 15:22 ammonia 142 here Cr 1.4 BUN 49 will admit for mikki and hepatic encephalopathy Discharge - Discharge Information Problems reviewed: Yes Clinical Impression/Diagnosis: Hepatic encephalopathy, MIKKI (acute kidney injury) Condition: Guarded - Admission Yes - Follow up/Referral Referrals: Sahra Mina MD [Primary Care Provider] - - Patient Discharge Instructions - Post Discharge Activity
[2019-09-13 16:05] LABS: EPI CELLS 11 /uL (0-25.1); HYALINE CASTS 1 /uL (0-3.1); PH,URINE 5.5 (5.0-8.0); URINE APPEARANCE CLEAR; URINE BACTERIA 8 /uL (0-1359); URINE BILIRUBIN 1+ (NEGATIVE); URINE COLOR DK YELLOW; URINE GLUCOSE (UA) NEGATIVE (NEGATIVE); URINE KETONE NEGATIVE (NEGATIVE); URINE LEUK ESTERASE NEGATIVE (NEGATIVE); URINE NITRITE NEGATIVE (NEGATIVE); URINE PROTEIN NEGATIVE (NEGATIVE); URINE RBC 869 /uL (0-23.9); URINE WBC 18 /uL (0-25.8)
--- NOTE | 2019-09-13 16:51 | PDOC ---
Documentation entered by Mary Jasmine SCRIBE, acting as scribe for Sarah Faye MD. Sarah Faye MD: This documentation has been prepared by the lloydibeKenroy Ana, SCRIBE, under my direction and personally reviewed by me in its entirety. I confirm that the documentation accurately reflects all work, treatment, procedures, and medical decision making performed by me. Attending Attestation - Resident Resident Name: Jimbo Coffey - ED Attending Attestation I have performed the following: I have examined & evaluated the patient, The case was reviewed & discussed with the resident, I agree w/resident's findings & plan, Exceptions are as noted - HPI HPI: 09/13/19 14:42 64 yo M h/o cirrhosis, HTN, HLD, COPD who presents to the ED, from [facility], with lethargy. Per the [facility] staff, the patient has been lethargic and confused. has been getting lactulose three times daily. no recent trauma. no f/c normally can respons to verbal commands, communicate. today not repsponding and more lethargic. HPI is limited due to the fact that the patient cannot communicate, cannot follow commands, and is not at his baseline. Allergies: NKDA 09/13/19 16:37 - Physicial Exam PE: 09/13/19 16:49 pt somnolent, scleral jaundice. lungs clear bilat heart rrr no mrg abd soft flat, nondistended. ext wwp. thin. nuero pt sleeping, minimally responsive. - Medical Decision Making 09/13/19 16:49 64 yo male h/;o cirrhosis, here with lethargy. per nursing stafff ammonia level elevated 126. likley encephalopathic. differential cva, ich due to likley coagulopathhy from cirrhoiss, plan labs cbc cmp inr/ ptt. r/o infection with cxr and ua. no clinical signs of peritoneal large ascites at this point. likely require admission. pt unable to tolerate PO due to lethargy. 09/13/19 16:53 pt labs noted for elevated potassium 5.6 lvh, milldy elevated t wave on ekg. will treat with insulin, d50 and bicarb. no calcium given as caclium is high . called fam[facility]ly left message to discuss advanced directives. was given 5 units insulin, am dexgtros, amp bicarb. lactulose given OR. ct head was negative for acute pathology. Heart Score/ECG Review #1 General ECG Interpretation: Sinus Rhythm, Normal Rate, Normal Intervals, No acute ischemic changes Compared to previous ECG there are: Other (lvh, mildliy peaked t waves.) Discharge - Discharge Information Problems reviewed: Yes Clinical Impression/Diagnosis: Hepatic encephalopathy, MIKKI (acute kidney injury) Condition: Guarded - Follow up/Referral - Patient Discharge Instructions - Post Discharge Activity
[2019-09-13] MEDS ORDERED: SODIUM BICARBONATE 8.4% 50 MEQ/50 ML DISP.SYRIN IVPUSH ONE (16:55)
[2019-09-13] MEDS ORDERED: DEXTROSE 50%-WATER - 25 GM/50 ML VIAL IVPUSH ONE (16:55)
[2019-09-13] MEDS ORDERED: INSULIN REGULAR HUMAN 100 UNITS/ML *VIAL IVPUSH ONE (16:55)
[2019-09-13] MEDS ORDERED: DEXTROSE 50%-WATER 25 GM/50 ML DISP.SYRIN ONE (17:09)
[2019-09-13] MEDS ORDERED: INSULIN REGULAR HUMAN 100 UNITS/ML *VIAL ONE (17:10)
[2019-09-13] MEDS ORDERED: SODIUM BICARBONATE 8.4% - 50 ML ONE (17:10)
[2019-09-13] MEDS ORDERED: ALBUTEROL SO4 0.083% IH SOL 2.5 MG/3 ML VIAL.NEB. NEB PRN (17:55)
--- NOTE | 2019-09-13 18:06 | HP ---
Admitting History and Physical - Primary Care Physician PCP: Sahra Mina - Admission History of Present Illness: Pt send by me from [facility] for AMS Pt has extensive history --HTN, HLD, COPD, EtOH cirrhosis , Ascitis, varicies - s/p Banding . Given Lactulose [place] for Elevated Ammonia level in Er as no eating Also given fluids for arf D/W Er resident today and had d/w RN at [facility] also To be admitted to floor No bleeding Chart is reviewed. 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 History of Recent Travel: No Home Medications - Allergies Allergies/Adverse Reactions: Allergies Allergy/AdvReac Type Severity Reaction Status Date / Time No Known Allergies Allergy Unverified 07/13/19 12:36 - Home Medications Home Medications: Ambulatory Orders Vit B Comp/C/Folic/Iron/Vit E [Vitamin B Complex Tablet] 1 each PO DAILY 03/01/18 Albuterol 0.083% Nebulizer Jacqueline [Ventolin 0.083% Nebulizer Soln -] 1 amp NEB QID PRN amp 03/05/18 Nadolol [Corgard -] 20 mg PO DAILY tablet 03/05/18 Folic Acid - 1 mg PO DAILY tablet 04/13/18 Multivitamins [Multivit ([facility] Formulary)] 1 tab PO DAILY tab 04/13/18 Thiamine HCl [Vitamin B1 -] 100 mg PO DAILY tablet 04/13/18 Mag Hydrox/Al Hydrox/Simeth [Mylanta Oral Suspension -] 30 ml PO PRN 06/23/18 Furosemide [Lasix -] 40 mg PO BID@0600,1400 tablet 05/12/19 Spironolactone [Aldactone -] 300 mg PO DAILY tablet 05/12/19 Lactobacillus Acidophilus [Acidophilus] 1 each PO BID 09/13/19 Lactulose (Oral Use) [Cephulac -] 30 gm PO TID 09/13/19 Pantoprazole Sodium [Protonix -] 40 mg PO DAILY 09/13/19 Rifaximin [Xifaxan] 550 mg PO BID 09/13/19 Physical Examination Vital Signs: Vital Signs Temperature 98.2 F 09/13/19 18:00 Pulse Rate 82 09/13/19 18:00 Respiratory Rate 18 09/13/19 18:00 Blood Pressure 120/77 09/13/19 18:00 O2 Sat by Pulse Oximetry (%) 99 09/13/19 18:00 Findings/Remarks: Tele-- D/W medical records auditor and Exam noted/ discussed Labs: CBC, BMP 09/13/19 14:10 09/13/19 14:10 Imaging - Results Chest X-ray: Report Reviewed Cat Scan: Report Reviewed Problem List - Problems (1) MIKKI (acute kidney injury) Code(s): N17.9 - ACUTE KIDNEY FAILURE, UNSPECIFIED (2) Hepatic encephalopathy Code(s): K72.90 - HEPATIC FAILURE, UNSPECIFIED WITHOUT COMA (3) Alcoholic cirrhosis of liver Code(s): K70.30 - ALCOHOLIC CIRRHOSIS OF LIVER WITHOUT ASCITES Qualifiers: Ascites presence: with ascites Qualified Code(s): K70.31 - Alcoholic cirrhosis of liver with ascites (4) HTN (hypertension) Code(s): I10 - ESSENTIAL (PRIMARY) HYPERTENSION Assessment/Plan Admit Continue meds including lactulose Monitor labs/ Ammonia level GI consult Prognosis gaurded Will follow
[2019-09-13] MEDS ORDERED: LACTULOSE 20 GM/30 ML UDC (FOR ORAL USE ONLY) ONE (21:59)
[2019-09-13] MEDS: RIFAXIMIN 550 MG TABLET (UD) PO SCH (22:30)
[2019-09-13] MEDS: LACTOBACILLUS ACIDOPHILUS 1 TABLET PO SCH (22:30)
[2019-09-13] MEDS: LACTULOSE 20 GM/30 ML UDC (FOR ORAL USE ONLY) PO SCH (22:30)
[2019-09-14] MEDS ORDERED: LACTULOSE 20 GM/30 ML UDC (FOR ORAL USE ONLY) ONE ×3 (06:29→22:20)
[2019-09-14] MEDS ORDERED: FUROSEMIDE 40 MG TABLET (FP) ONE (06:30)
[2019-09-14] MEDS: LACTULOSE 20 GM/30 ML UDC (FOR ORAL USE ONLY) PO SCH ×3 (06:34→22:31)
[2019-09-14] MEDS: FUROSEMIDE 40 MG TABLET (FP) PO SCH ×2 (06:34→14:24)
[2019-09-14 09:06] LABS: BASO % 0.1 % (0-2.0); EOS % 0.5 % (0-4.5); HEMATOCRIT 37.6 % (35.4-49); HEMOGLOBIN 12.4 GM/dL (11.7-16.9); LYMPH % 20.9 % (8-40); MCH 30.7 pg (25.7-33.7); MCHC 32.9 g/dl (32.0-35.9); MEAN CELL VOLUME 93.2 fl (80-96); MEAN PLT VOLUME 8.2 fl (7.5-11.1); NEUT % 63.5 % (42.8-82.8); PLATELET COUNT 139 K/MM3 (134-434); RBC 4.03 M/mm3 (4.00-5.60); RDW 18.1 % (11.9-15.9); WHITE BLOOD COUNT 7.7 K/mm3 (4.0-10.0)
[2019-09-14 09:09] LABS: INR 1.6 (0.83-1.09)
[2019-09-14 09:40] LABS: ALBUMIN 2.9 g/dl (3.4-5.0); BLOOD UREA NITROGEN 39.5 mg/dL (7-18); CREATININE 1.2 mg/dL (0.55-1.3); POTASSIUM 4.9 mmol/L (3.5-5.1); TOT PROT 8.9 g/dl (6.4-8.2)
[2019-09-14] MEDS: NADOLOL 20 MG TABLET (FP) PO SCH ×2 (10:00→10:11)
[2019-09-14] MEDS: LACTOBACILLUS ACIDOPHILUS 1 TABLET PO SCH ×2 (10:07→22:31)
[2019-09-14] MEDS: RIFAXIMIN 550 MG TABLET (UD) PO SCH ×2 (10:08→22:31)
[2019-09-14] MEDS: FOLIC ACID 1 MG TABLET (FP) PO SCH (10:08)
[2019-09-14] MEDS: VITAMIN B COMP W-C 1 EA TABLET (NEPHRO-VITE) PO SCH (10:08)
[2019-09-14] MEDS: PANTOPRAZOLE 40 MG TABLET PO SCH (10:08)
[2019-09-14] MEDS ORDERED: MULTIVITAMINS (DAILY MVI) TABLET (FP) ONE (10:09)
[2019-09-14] MEDS: THIAMINE HCL 100 MG TABLET (FP) PO SCH (10:10)
[2019-09-14] MEDS ORDERED: THIAMINE HCL 100 MG TABLET (FP) ONE (10:10)
[2019-09-14] MEDS: MULTIVITAMINS (DAILY MVI) TABLET (FP) PO SCH (10:10)
[2019-09-14] MEDS ORDERED: PANTOPRAZOLE 40 MG TABLET ONE (10:10)
--- NOTE | 2019-09-14 10:17 | EKG ---
Test Reason : Blood Pressure : / mmHG Vent. Rate : 081 BPM Atrial Rate : 081 BPM P-R Int : 168 ms QRS Dur : 084 ms QT Int : 394 ms P-R-T Axes : 082 076 076 degrees QTc Int : 457 ms POOR DATA QUALITY, INTERPRETATION MAY BE ADVERSELY AFFECTED NORMAL SINUS RHYTHM POSSIBLE LATERAL INFARCT (CITED ON OR BEFORE 13-JUL-2019) ABNORMAL ECG WHEN COMPARED WITH ECG OF 13-JUL-2019 13:10, NO SIGNIFICANT CHANGE WAS FOUND Confirmed by Davis Light ([id number]) on 09/14/2019 10:17:19 AM Referred By: Confirmed By:Davis Light
--- NOTE | 2019-09-14 12:15 | PN ---
Progress Note, Physician History of Present Illness: Awake No distress Chronic ill appearance cachectic - Current Medication List Current Medications: Active Medications Albuterol Sulfate (Ventolin 0.083% Nebulizer Soln -) 1 amp NEB Q6H PRN PRN Reason: SHORT OF BREATH/WHEEZING Folic Acid (Folic Acid -) 1 mg PO DAILY [facility] Last Admin: 09/14/19 10:08 Dose: 1 mg Documented by: Furosemide (Lasix -) 40 mg PO BID@0600,1400 [facility] Last Admin: 09/14/19 06:34 Dose: 40 mg Documented by: Lactobacillus Acidophilus (Bacid -) 1 tab PO BID [facility] Last Admin: 09/14/19 10:07 Dose: 1 tab Documented by: Lactulose (Cephulac (Oral Use)) 30 gm PO TID [facility] Last Admin: 09/14/19 06:34 Dose: 30 gm Documented by: Multivit/Ca Carb/B Cmplx/FA/Prenat (Nephro-Chris -) 1 tablet PO DAILY [facility] Last Admin: 09/14/19 10:08 Dose: 1 tablet Documented by: Multivitamins/Minerals/Vitamin C (Tab-A-Vit -) 1 tab PO DAILY [facility] Last Admin: 09/14/19 10:10 Dose: 1 tab Documented by: Nadolol (Corgard -) 20 mg PO DAILY [facility] Last Admin: 09/14/19 10:00 Dose: Not Given Documented by: Pantoprazole Sodium (Protonix -) 40 mg PO DAILY [facility] Last Admin: 09/14/19 10:08 Dose: 40 mg Documented by: Rifaximin (Xifaxan -) 550 mg PO BID [facility] Last Admin: 09/14/19 10:08 Dose: 550 mg Documented by: Thiamine HCl (Vitamin B1 -) 100 mg PO DAILY [facility] Last Admin: 09/14/19 10:10 Dose: 100 mg Documented by: - Objective Vital Signs: Vital Signs Temperature 98.6 F 09/14/19 08:56 Pulse Rate 86 09/14/19 11:17 Respiratory Rate 16 09/14/19 11:17 Blood Pressure 95/84 09/14/19 11:17 O2 Sat by Pulse Oximetry (%) 99 09/14/19 11:17 Constitutional: Yes: Cachectic Neck: Yes: Supple Cardiovascular: Yes: Regular Rate and Rhythm Respiratory: Yes: Diminished Gastrointestinal: Yes: Soft Edema: No Labs: CBC, BMP 09/14/19 07:50 09/14/19 07:50 INR, PTT INR 1.60 (0.83-1.09) H 09/14/19 07:50 Problem List - Problems (1) MIKKI (acute kidney injury) Code(s): N17.9 - ACUTE KIDNEY FAILURE, UNSPECIFIED (2) Hepatic encephalopathy Code(s): K72.90 - HEPATIC FAILURE, UNSPECIFIED WITHOUT COMA (3) Alcoholic cirrhosis of liver Code(s): K70.30 - ALCOHOLIC CIRRHOSIS OF LIVER WITHOUT ASCITES Qualifiers: Ascites presence: with ascites Qualified Code(s): K70.31 - Alcoholic cirrhosis of liver with ascites (4) HTN (hypertension) Code(s): I10 - ESSENTIAL (PRIMARY) HYPERTENSION Assessment/Plan Admit Continue meds including lactulose Monitor labs/ Ammonia level GI consult Prognosis gaurded Will follow D/W RN Continue present care GI to follow overall condition very gaurded will follow
--- NOTE | 2019-09-14 14:42 | CON.GI ---
Consult Reason for Consultation:: altered mental status - History of Present Illness History of Present Illness: The patient is a 64 yo male with known cirrhosis of the liver from ETOH abuse. He was admitted in early July with ascites and cirrhosis and seen by the GI service. CT scan in May revealed moderate ascites c/w liver cirrhosis, portal hypertension, varices and no masses He had a paracetnesis during this admission and had 3100ml removed. The patient was referred to [facility] hepatology for a TIPS evaluation. He was sent into [facility] from [facility] for altered mental status. From review of his [facility] records, his mental status has been declining over the past several days. He didn't have any fevers recorded and CXR was WNL. No complaints of abd pain, but the pt remains non-verbal. His appeared to have normal vital signs, no evidence of fevers. - History Source History Provided By: Patient Limitations to Obtaining History: Other (nonverbal) - Past Medical History Cardio/Vascular: Yes: HTN Pulmonary: Yes: COPD, Pulmonary Embolus Gastrointestinal: Yes: Ascites, Esophageal Varices, Irritable Bowel Disease Hepatobiliary: Yes: Cirrhosis (Alcoholic), Cholelithiasis Psych: Yes: Addictions (alcoholism) - Past Surgical History Past Surgical History: Yes: None - Alcohol/Substance Use Hx Alcohol Use: Yes - Smoking History Smoking history: Unknown if ever smoked Have you smoked in the past 12 months: No - Social History Usual Living Arrangement: Jail ( from ) ADL: Support Services 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 History of Recent Travel: No <Miriam Cee - Last Filed: 09/14/19 19:07> Home Medications <Priscilla Vu - Last Filed: 09/14/19 17:51> <Miriam Cee - Last Filed: 09/14/19 19:07> - Allergies Allergies/Adverse Reactions: Allergies Allergy/AdvReac Type Severity Reaction Status Date / Time No Known Allergies Allergy Unverified 07/13/19 12:36 - Home Medications Home Medications: Ambulatory Orders Vit B Comp/C/Folic/Iron/Vit E [Vitamin B Complex Tablet] 1 each PO DAILY 03/01/18 Albuterol 0.083% Nebulizer Jacqueline [Ventolin 0.083% Nebulizer Soln -] 1 amp NEB QID PRN amp 03/05/18 Nadolol [Corgard -] 20 mg PO DAILY tablet 03/05/18 Folic Acid - 1 mg PO DAILY tablet 04/13/18 Multivitamins [Multivit ([facility] Formulary)] 1 tab PO DAILY tab 04/13/18 Thiamine HCl [Vitamin B1 -] 100 mg PO DAILY tablet 04/13/18 Mag Hydrox/Al Hydrox/Simeth [Mylanta Oral Suspension -] 30 ml PO PRN 06/23/18 Furosemide [Lasix -] 40 mg PO BID@0600,1400 tablet 05/12/19 Spironolactone [Aldactone -] 300 mg PO DAILY tablet 05/12/19 Lactobacillus Acidophilus [Acidophilus] 1 each PO BID 09/13/19 Lactulose (Oral Use) [Cephulac -] 30 gm PO TID 09/13/19 Pantoprazole Sodium [Protonix -] 40 mg PO DAILY 09/13/19 Rifaximin [Xifaxan] 550 mg PO BID 09/13/19 Lidocaine 4% Topical [Xylocaine 4% Topical] 1 applic MM DAILY 09/14/19 Physical Exam-GI Vital Signs: Vital Signs Temperature 98.6 F 09/14/19 13:23 Pulse Rate 98 H 09/14/19 17:01 Respiratory Rate 16 09/14/19 17:01 Blood Pressure 107/91 09/14/19 17:01 O2 Sat by Pulse Oximetry (%) 98 09/14/19 17:01 Labs: CBC, BMP 09/14/19 07:50 09/14/19 07:50 INR, PTT INR 1.60 (0.83-1.09) H 09/14/19 07:50 <Priscilla Vu - Last Filed: 09/14/19 17:51> Vital Signs: Vital Signs Temperature 98.6 F 09/14/19 13:23 Pulse Rate 79 09/14/19 13:23 Respiratory Rate 16 09/14/19 13:23 Blood Pressure 90/63 09/14/19 13:23 O2 Sat by Pulse Oximetry (%) 99 09/14/19 13:23 Constitutional: Yes: Cachectic Eyes: Yes: Conjunctiva Clear. No: Sclera Icterus HENT: Yes: Atraumatic, Normocephalic Cardiovascular: Yes: WNL, Regular Rate and Rhythm Respiratory: Yes: WNL, Regular, CTA Bilaterally Gastrointestinal Inspection: No: Distention ...Auscultate: Yes: Normoactive Bowel Sounds ...Palpate: No: Guarding, Tenderness Extremities: Yes: Other (contracted b/l) Edema: No Peripheral Pulses WNL: Yes Integumentary: Yes: Bruising (to upper ext) Neurological: Yes: Alert (nonverbal) Labs: CBC, BMP 09/14/19 07:50 09/14/19 07:50 INR, PTT INR 1.60 (0.83-1.09) H 09/14/19 07:50 Laboratory Tests 03/01/18 09/13/19 09/13/19 14:30 14:10 14:10 Ammonia 142.40 H Urine Color Urine Appearance Urine pH Ur Specific [place] Urine Protein Urine Glucose (UA) Urine Ketones Urine Blood Urine Nitrite Urine Bilirubin Urine Urobilinogen Ur Leukocyte Esterase Urine WBC (Auto) Urine RBC (Auto) Urine Casts (Auto) U Epithel Cells (Auto) Urine Bacteria (Auto) Stool Occult Blood Negative COVID-19 (KARIN) Hepatitis A IgM Ab Negative Hep Bs Antigen Negative Hep B Core IgM Ab Negative Hepatitis C Antibody 0.1 09/13/19 09/14/19 09/14/19 15:25 07:50 11:30 Ammonia 49.00 H Urine Color Dk yellow Urine Appearance Clear Urine pH 5.5 D Ur Specific [place] 1.023 Urine Protein Negative Urine Glucose (UA) Negative Urine Ketones Negative Urine Blood 2+ H Urine Nitrite Negative Urine Bilirubin 1+ H Urine Urobilinogen 1.0 Ur Leukocyte Esterase Negative Urine WBC (Auto) 18 Urine RBC (Auto) 869 Urine Casts (Auto) 1 U Epithel Cells (Auto) 11 Urine Bacteria (Auto) 8 Stool Occult Blood COVID-19 (KARIN) Pending Hepatitis A IgM Ab Hep Bs Antigen Hep B Core IgM Ab Hepatitis C Antibody <JayeMiriam - Last Filed: 09/14/19 19:07> Imaging - Results X-ray: Other (portion of the lungs/visulazied without any eivdence of lung diease) Cat Scan: Other (of the head negative for acute pathology) <MetdionisioMiriam - Last Filed: 09/14/19 19:07> Problem List - Problems (1) Hepatic encephalopathy Assessment/Plan: Pt with elevated ammonia level upon admission with improved level today, recommend to continue lactulose oral dose 20mg TID orally, (pt received [place] dose while in the ER) May also begin rifaximin 550mg oral BID. Monitor mental status and repeat ammonia level in the am Pt afebrile upon admission with normal WBC. Rule out any infectious causes for an altered mental status. Recommend blood and urine cultures. UA negative CXR without infiltrates. Avoid sedative medications/benzodiazepines Code(s): K72.90 - HEPATIC FAILURE, UNSPECIFIED WITHOUT COMA (2) Alcoholic cirrhosis of liver Assessment/Plan: Continue nadolol PPI Hepatic/renal diet. IF evidence of ascites, paracenteis as needed and recommend to r/o SBP. F/u sonogram. Holding lasix currently, pt with evidence of MIKKI. BUN/CRET elevated since admission D/w Dr. Vu Code(s): K70.30 - ALCOHOLIC CIRRHOSIS OF LIVER WITHOUT ASCITES Qualifiers: Ascites presence: with ascites Qualified Code(s): K70.31 - Alcoholic cirrhosis of liver with ascites <Miriam Cee - Last Filed: 09/14/19 19:07> Assessment/Plan AGREE WITH ASSESSMENT AND PLAN OUTLINED ABOVE. - LACTULOSE / RIFAXIMIN - NADOLOL - R/O INFECTIOUS ETIOLOGY OF ENCEPHELOPATHY - MONITOR H/H WHILE HOSPITALIZED - DIURETICS ON HOLD TODAY - REASSESS VOLUME STATUS AND CREATININE IN THE AM - ABD SONOGRAM - IS ASCITES REC DIAGNOSTIC PARACENTESIS R/O SBP <Priscilla Vu - Last Filed: 09/14/19 17:51>
[2019-09-15] MEDS: FUROSEMIDE 40 MG TABLET (FP) PO SCH ×2 (06:24→13:40)
[2019-09-15] MEDS: LACTULOSE 20 GM/30 ML UDC (FOR ORAL USE ONLY) PO SCH ×3 (06:26→21:18)
--- NOTE | 2019-09-15 10:20 | PN.GI ---
GI Progress Note Subjective: No acute events Awake, looking around, not responding verbally to my questions - Objective Vital Signs: Vital Signs Temperature 98.2 F 09/15/19 08:31 Pulse Rate 87 09/15/19 08:31 Respiratory Rate 16 09/15/19 08:31 Blood Pressure 84/57 L 09/15/19 08:31 O2 Sat by Pulse Oximetry (%) 100 09/15/19 08:31 Constitutional: Calm Eyes: No: Sclera Icterus Cardiovascular: Yes: Regular Rate and Rhythm Respiratory: Yes: Diminished (at bases bilaterally with poor insp effort) Gastrointestinal Inspection: No: Distention ...Auscultate: Yes: Normoactive Bowel Sounds ...Palpate: No: Tenderness (No grimacing upon palpation) Edema: No (No LE edema) Neurological: Yes: Other (Awake) Labs: CBC, BMP 09/14/19 07:50 09/14/19 07:50 INR, PTT INR 1.60 (0.83-1.09) H 09/14/19 07:50 Problem List - Problems (1) Confusion Assessment/Plan: Ammonia level improved, however, awake but non-communicative Continue Lactulose 20g TID for now. Titrate to 3-4 loose BM's per day Continue Rifaximin 550mg PO BID Evaluation of alternate causes of confusion per PMD Continue nadolol 20mg once daily Q 6 month hepatic US to screen for HCC Goals of care? consider palliative care evaluation Code(s): R41.0 - DISORIENTATION, UNSPECIFIED
[2019-09-15] MEDS: PANTOPRAZOLE 40 MG TABLET PO SCH (10:22)
[2019-09-15] MEDS: FOLIC ACID 1 MG TABLET (FP) PO SCH (10:22)
[2019-09-15] MEDS: THIAMINE HCL 100 MG TABLET (FP) PO SCH (10:23)
[2019-09-15] MEDS: RIFAXIMIN 550 MG TABLET (UD) PO SCH ×2 (10:23→21:17)
[2019-09-15] MEDS: NADOLOL 20 MG TABLET (FP) PO SCH (10:23)
[2019-09-15] MEDS: LACTOBACILLUS ACIDOPHILUS 1 TABLET PO SCH ×2 (10:23→21:18)
[2019-09-15] MEDS: MULTIVITAMINS (DAILY MVI) TABLET (FP) PO SCH (10:23)
[2019-09-15] MEDS: VITAMIN B COMP W-C 1 EA TABLET (NEPHRO-VITE) PO SCH (10:23)
--- NOTE | 2019-09-15 11:48 | PN ---
Progress Note (short form) - Note Progress Note: Pt examined I reviewed his NH notes in the NH EMR Pt is usually alert and makes his needs known- though he has dementia He is no verbal here in the hospital Not eating much Vital Signs - 24 hr 09/14/19 09/14/19 09/14/19 13:23 17:01 18:28 Temperature 98.6 F Pulse Rate Pulse Rate [ 79 98 H 114 H Right] Respiratory 16 16 16 Rate Blood Pressure Blood Pressure 90/63 107/91 97/67 [Right Arm] O2 Sat by Pulse 99 98 98 Oximetry (%) 09/14/19 09/15/19 09/15/19 22:15 00:03 00:08 Temperature 97.8 F Pulse Rate 93 H Pulse Rate [ 96 H Right] Respiratory 16 20 Rate Blood Pressure 90/53 L Blood Pressure 96/67 [Right Arm] O2 Sat by Pulse 100 100 Oximetry (%) 09/15/19 09/15/19 09/15/19 06:00 06:42 08:31 Temperature 97.5 F L 98.2 F Pulse Rate 85 86 87 Pulse Rate [ Right] Respiratory 20 20 16 Rate Blood Pressure 87/61 L 92/65 84/57 L Blood Pressure [Right Arm] O2 Sat by Pulse 100 Oximetry (%) Current Medications Generic Name Dose Route Start Last Admin Trade Name Frejeny PRN Reason Stop Dose Admin Albuterol Sulfate 1 amp 09/13/19 17:55 Ventolin 0.083% Nebulizer Soln - NEB Q6H PRN SHORT OF BREATH/WHEEZING Folic Acid 1 mg 09/14/19 10:00 09/15/19 10:22 Folic Acid - PO 1 mg DAILY ALINA Administration Furosemide 40 mg 09/14/19 06:00 09/15/19 06:24 Lasix - PO Not Given BID@0600,1400 ALINA Lactobacillus Acidophilus 1 tab 09/13/19 22:00 09/15/19 10:23 Bacid - PO 1 tab BID ALINA Administration Lactulose 30 gm 09/13/19 22:00 09/15/19 06:26 Cephulac (Oral Use) PO 30 gm TID ALINA Administration Multivit/Ca Carb/B Cmplx/FA/Prenat 1 tablet 09/14/19 10:00 09/15/19 10:23 Nephro-Chris - PO 1 tablet DAILY ALINA Administration Multivitamins/Minerals/Vitamin C 1 tab 09/14/19 10:00 09/15/19 10:23 Tab-A-Vit - PO 1 tab DAILY ALINA Administration Nadolol 20 mg 09/14/19 10:00 09/15/19 10:23 Corgard - PO Not Given DAILY ALINA Pantoprazole Sodium 40 mg 09/14/19 10:00 09/15/19 10:22 Protonix - PO 40 mg DAILY ALINA Administration Rifaximin 550 mg 09/13/19 22:00 09/15/19 10:23 Xifaxan - PO 550 mg BID ALINA Administration Thiamine HCl 100 mg 09/14/19 10:00 09/15/19 10:23 Vitamin B1 - PO 100 mg DAILY ALINA Administration S1 S2 RRR Lungs clear Abd- soft, NT, ND No edema Cachetic A/P acute metabolic encephalopathy Hepatic encephalopathy H/O Alcohol abuse alcohol cirrhosis severe protein malnutrition -- downgrade diet to puree -- add supplements -- GI eval noted -- will check for septic causes of AMS-- will panculture -- CT head negative -- palliative care eval Problem List - Problems (1) MIKKI (acute kidney injury) Code(s): N17.9 - ACUTE KIDNEY FAILURE, UNSPECIFIED (2) Confusion Code(s): R41.0 - DISORIENTATION, UNSPECIFIED (3) Hepatic encephalopathy Code(s): K72.90 - HEPATIC FAILURE, UNSPECIFIED WITHOUT COMA (4) Alcoholic cirrhosis of liver Code(s): K70.30 - ALCOHOLIC CIRRHOSIS OF LIVER WITHOUT ASCITES Qualifiers: Ascites presence: with ascites Qualified Code(s): K70.31 - Alcoholic cirrhosis of liver with ascites (5) Alcoholism /alcohol abuse Code(s): F10.20 - ALCOHOL DEPENDENCE, UNCOMPLICATED (6) Anemia Code(s): D64.9 - ANEMIA, UNSPECIFIED
[2019-09-15 13:18] VITALS: BMI 17.2
[2019-09-15] MEDS ORDERED: SODIUM CHLORIDE 1,000 ML IV STA (20:54)
[2019-09-16] MEDS ORDERED: SODIUM CHLORIDE 250 ML IV STA (05:36)
[2019-09-16] MEDS: LACTULOSE 20 GM/30 ML UDC (FOR ORAL USE ONLY) PO SCH ×3 (05:56→21:37)
[2019-09-16] MEDS: FUROSEMIDE 40 MG TABLET (FP) PO SCH (05:56)
[2019-09-16 09:24] LABS: HEMATOCRIT 34.3 % (35.4-49); MCH 30.6 pg (25.7-33.7); MCHC 32.2 g/dl (32.0-35.9); MEAN CELL VOLUME 95.2 fl (80-96); MEAN PLT VOLUME 8.7 fl (7.5-11.1); PLATELET COUNT 62 K/MM3 (134-434); RBC 3.61 M/mm3 (4.00-5.60); RDW 19.6 % (11.9-15.9); WHITE BLOOD COUNT 6.9 K/mm3 (4.0-10.0)
[2019-09-16] MEDS: NADOLOL 20 MG TABLET (FP) PO SCH (09:54)
[2019-09-16] MEDS: MULTIVITAMINS (DAILY MVI) TABLET (FP) PO SCH (09:55)
[2019-09-16] MEDS: VITAMIN B COMP W-C 1 EA TABLET (NEPHRO-VITE) PO SCH (09:55)
[2019-09-16] MEDS: FOLIC ACID 1 MG TABLET (FP) PO SCH (09:55)
[2019-09-16] MEDS: PANTOPRAZOLE 40 MG TABLET PO SCH (09:55)
[2019-09-16] MEDS: LACTOBACILLUS ACIDOPHILUS 1 TABLET PO SCH ×2 (09:55→21:37)
[2019-09-16 09:56] LABS: ALBUMIN 2.2 g/dl (3.4-5.0); BLOOD UREA NITROGEN 49.1 mg/dL (7-18); CALCIUM 9.1 mg/dL (8.5-10.1); POTASSIUM 4.4 mmol/L (3.5-5.1)
[2019-09-16] MEDS: RIFAXIMIN 550 MG TABLET (UD) PO SCH ×2 (09:58→21:37)
[2019-09-16] MEDS: THIAMINE HCL 100 MG TABLET (FP) PO SCH (09:58)
[2019-09-16 09:59] LABS: BILIRUBIN,TOTAL 2.8 mg/dL (0.2-1); CREATININE 1.5 mg/dL (0.55-1.3); TOT PROT 7.1 g/dl (6.4-8.2)
[2019-09-16] MEDS ORDERED: SODIUM CHLORIDE 500 ML IV STA (12:33)
--- NOTE | 2019-09-16 12:36 | PN ---
Progress Note (short form) - Note Progress Note: Pt examined I reviewed his NH notes in the NH EMR Pt is usually alert and makes his needs known- though he has dementia He is not verbal ate his breakfast per RN Vital Signs - 24 hr 09/15/19 09/15/19 09/15/19 17:00 21:00 22:00 Temperature 98.5 F 97.6 F Pulse Rate 91 H 105 H Respiratory 20 20 20 Rate Blood Pressure 79/55 L 78/48 L O2 Sat by Pulse 98 Oximetry (%) 09/15/19 09/16/19 09/16/19 22:30 01:16 06:40 Temperature 98.4 F 988.6 F H Pulse Rate 100 H 103 H 112 H Respiratory 20 20 20 Rate Blood Pressure 90/58 L 94/54 L 107/43 L O2 Sat by Pulse Oximetry (%) 09/16/19 09/16/19 09:00 09:06 Temperature 98.2 F Pulse Rate 103 H Respiratory 20 20 Rate Blood Pressure 76/44 L O2 Sat by Pulse 98 Oximetry (%) Current Medications Generic Name Dose Route Start Last Admin Trade Name Freq PRN Reason Stop Dose Admin Albuterol Sulfate 1 amp 09/13/19 17:55 Ventolin 0.083% Nebulizer Soln - NEB Q6H PRN SHORT OF BREATH/WHEEZING Folic Acid 1 mg 09/14/19 10:00 09/16/19 09:55 Folic Acid - PO 1 mg DAILY ALINA Administration Sodium Chloride 500 mls @ 500 mls/hr 09/16/19 12:33 Normal Saline - IV 09/16/19 13:32 ASDIR STA Sodium Chloride 1,000 mls @ 60 mls/hr 09/16/19 12:45 Normal Saline - IV ASDIR ALINA Lactobacillus Acidophilus 1 tab 09/13/19 22:00 09/16/19 09:55 Bacid - PO 1 tab BID ALINA Administration Lactulose 30 gm 09/13/19 22:00 09/16/19 05:56 Cephulac (Oral Use) PO 30 gm TID ALINA Administration Multivit/Ca Carb/B Cmplx/FA/Prenat 1 tablet 09/14/19 10:00 09/16/19 09:55 Nephro-Chris - PO 1 tablet DAILY ALINA Administration Multivitamins/Minerals/Vitamin C 1 tab 09/14/19 10:00 09/16/19 09:55 Tab-A-Vit - PO 1 tab DAILY ALINA Administration Nadolol 20 mg 09/14/19 10:00 09/16/19 09:54 Corgard - PO Not Given DAILY ALINA Pantoprazole Sodium 40 mg 09/14/19 10:00 09/16/19 09:55 Protonix - PO 40 mg DAILY ALINA Administration Rifaximin 550 mg 09/13/19 22:00 09/16/19 09:58 Xifaxan - PO 550 mg BID ALINA Administration Thiamine HCl 100 mg 09/14/19 10:00 09/16/19 09:58 Vitamin B1 - PO 100 mg DAILY ALINA Administration Laboratory Results - last 24 hr 09/14/19 09/16/19 09/16/19 11:30 07:43 07:43 WBC 6.9 RBC 3.61 L Hgb 11.0 L Hct 34.3 L MCV 95.2 MCH 30.6 MCHC 32.2 RDW 19.6 H Plt Count 62 L D MPV 8.7 Sodium 146 H Potassium 4.4 Chloride 120 H Carbon Dioxide 17 L Anion Gap 10 BUN 49.1 H Creatinine 1.5 H Est GFR (CKD-EPI)AfAm 56.61 Est GFR (CKD-EPI)NonAf 48.84 Random Glucose 92 Calcium 9.1 Total Bilirubin 2.8 H AST 181 H ALT 60 Alkaline Phosphatase 158 H Total Protein 7.1 Albumin 2.2 L COVID-19 ([facility]AR[facility]) Not detected S1 S2 RRR Lungs clear Abd- soft, NT, ND No edema Cachetic A/P acute metabolic encephalopathy Hepatic encephalopathy H/O Alcohol abuse alcohol cirrhosis severe protein malnutrition hypotension -- downgrade diet to puree -- add supplements -- GI eval noted -- will check for septic causes of AMS-- will panculture -- CT head negative -- palliative care eval -- dc lasix for now-- appears dehydrated- abd is scaphoid-- received a 250cc NS bolus at around 5:30 AM for hypotension- BP still is 73/40-- will give 500cc NS bolus and keep on low dose maintenance fluids -- renal eval Problem List - Problems (1) MIKKI (acute kidney injury) Code(s): N17.9 - ACUTE KIDNEY FAILURE, UNSPECIFIED (2) Confusion Code(s): R41.0 - DISORIENTATION, UNSPECIFIED (3) Hepatic encephalopathy Code(s): K72.90 - HEPATIC FAILURE, UNSPECIFIED WITHOUT COMA (4) Alcoholic cirrhosis of liver Code(s): K70.30 - ALCOHOLIC CIRRHOSIS OF LIVER WITHOUT ASCITES Qualifiers: Ascites presence: with ascites Qualified Code(s): K70.31 - Alcoholic cirrhosis of liver with ascites (5) Alcoholism /alcohol abuse Code(s): F10.20 - ALCOHOL DEPENDENCE, UNCOMPLICATED (6) Anemia Code(s): D64.9 - ANEMIA, UNSPECIFIED
[2019-09-16] MEDS ORDERED: SODIUM CHLORIDE 1,000 ML IV SCH (12:45)
--- NOTE | 2019-09-16 20:14 | CONSULT ---
Consult Consult Specialty:: Nephrology Reason for Consultation:: MIKKI - History of Present Illness Chief Complaint: sent in for altered mental status History of Present Illness: Pt is a 64 year old male with pmhx of liver cirrhosis, hld, htn, copd, etoh abu se, ascites, and esophageal varicies who was sent in for change in mental status. He was found to be in MIKKI. He has not been eating or drinking and has had increased lethargy. He is unable to give much history. He denies shortness of breath. He still has poor PO intake. I was called to evaluate him for MIKKI. 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 History of Recent Travel: No Home Medications - Allergies Allergies/Adverse Reactions: Allergies Allergy/AdvReac Type Severity Reaction Status Date / Time No Known Allergies Allergy Unverified 07/13/19 12:36 - Home Medications Home Medications: Ambulatory Orders Vit B Comp/C/Folic/Iron/Vit E [Vitamin B Complex Tablet] 1 each PO DAILY 03/01/18 Albuterol 0.083% Nebulizer Jacqueline [Ventolin 0.083% Nebulizer Soln -] 1 amp NEB QID PRN amp 03/05/18 Nadolol [Corgard -] 20 mg PO DAILY tablet 03/05/18 Folic Acid - 1 mg PO DAILY tablet 04/13/18 Multivitamins [Multivit ([facility] Formulary)] 1 tab PO DAILY tab 04/13/18 Thiamine HCl [Vitamin B1 -] 100 mg PO DAILY tablet 04/13/18 Mag Hydrox/Al Hydrox/Simeth [Mylanta Oral Suspension -] 30 ml PO PRN 06/23/18 Furosemide [Lasix -] 40 mg PO BID@0600,1400 tablet 05/12/19 Spironolactone [Aldactone -] 300 mg PO DAILY tablet 05/12/19 Lactobacillus Acidophilus [Acidophilus] 1 each PO BID 09/13/19 Lactulose (Oral Use) [Cephulac -] 30 gm PO TID 09/13/19 Pantoprazole Sodium [Protonix -] 40 mg PO DAILY 09/13/19 Rifaximin [Xifaxan] 550 mg PO BID 09/13/19 Lidocaine 4% Topical [Xylocaine 4% Topical] 1 applic MM DAILY 09/14/19 Family Medical History Family History: Denies Review of Systems - Review of Systems Constitutional: reports: Lethargy, Loss of Appetite, Malaise, Weakness Eyes: reports: No Symptoms HENT: reports: No Symptoms Neck: reports: No Symptoms Gastrointestinal: reports: No Symptoms Genitourinary: reports: No Symptoms Musculoskeletal: reports: No Symptoms Integumentary: reports: No Symptoms Neurological: reports: No Symptoms Endocrine: reports: No Symptoms Hematology/Lymphatic: reports: No Symptoms Psychiatric: reports: No Symptoms Physical Exam Vital Signs: Vital Signs Temperature 97.9 F 09/16/19 18:00 Pulse Rate 84 09/16/19 18:00 Respiratory Rate 18 09/16/19 18:00 Blood Pressure 92/54 L 09/16/19 18:00 O2 Sat by Pulse Oximetry (%) 98 09/16/19 09:00 Constitutional: Yes: Calm, Cachectic HENT: Yes: Atraumatic Neck: Yes: Supple Cardiovascular: Yes: S1, S2 Respiratory: Yes: On Nasal O2 Gastrointestinal: Yes: Soft Renal/: Yes: Incontinence Musculoskeletal: Yes: Muscle Weakness Edema: No Neurological: Yes: Other (awake) Labs: CBC, BMP 09/16/19 07:43 09/16/19 07:43 Laboratory Tests 09/13/19 09/14/19 09/14/19 14:10 07:50 11:30 Sodium 136 Potassium 5.6 H Creatinine 1.4 H 1.2 COVID-19 (KARIN) Not detected 09/16/19 07:43 Sodium 146 H Potassium Creatinine 1.5 H COVID-19 (KARIN) Imaging - Results Ultrasound: Report Reviewed Problem List - Problems (1) MIKKI (acute kidney injury) Code(s): N17.9 - ACUTE KIDNEY FAILURE, UNSPECIFIED (2) Confusion Code(s): R41.0 - DISORIENTATION, UNSPECIFIED (3) Hepatic encephalopathy Code(s): K72.90 - HEPATIC FAILURE, UNSPECIFIED WITHOUT COMA Assessment/Plan Current Medications Generic Name Dose Route Start Last Admin Trade Name Zenon PRN Reason Stop Dose Admin Albuterol Sulfate 1 amp 09/13/19 17:55 Ventolin 0.083% Nebulizer Soln - NEB Q6H PRN SHORT OF BREATH/WHEEZING Folic Acid 1 mg 09/14/19 10:00 09/16/19 09:55 Folic Acid - PO 1 mg DAILY ALINA Administration Sodium Chloride 1,000 mls @ 60 mls/hr 09/16/19 12:45 09/16/19 12:51 Normal Saline - IV 60 mls/hr ASDIR ALINA Administration Lactobacillus Acidophilus 1 tab 09/13/19 22:00 09/16/19 09:55 Bacid - PO 1 tab BID ALINA Administration Lactulose 30 gm 09/13/19 22:00 09/16/19 14:27 Cephulac (Oral Use) PO 30 gm TID ALINA Administration Multivit/Ca Carb/B Cmplx/FA/Prenat 1 tablet 09/14/19 10:00 09/16/19 09:55 Nephro-Chris - PO 1 tablet DAILY ALINA Administration Multivitamins/Minerals/Vitamin C 1 tab 09/14/19 10:00 09/16/19 09:55 Tab-A-Vit - PO 1 tab DAILY ALINA Administration Nadolol 20 mg 09/14/19 10:00 09/16/19 09:54 Corgard - PO Not Given DAILY ALINA Pantoprazole Sodium 40 mg 09/14/19 10:00 09/16/19 09:55 Protonix - PO 40 mg DAILY ALINA Administration Rifaximin 550 mg 09/13/19 22:00 09/16/19 09:58 Xifaxan - PO 550 mg BID ALINA Administration Thiamine HCl 100 mg 09/14/19 10:00 09/16/19 09:58 Vitamin B1 - PO 100 mg DAILY ALINA Administration Impression 1. MIKKI 2. liver cirrhosis 3. hypotension 4. copd 5. hld Plan - check urine lytes and severity of illness coordinator - cont fluids - encourage po intake - monitor ammonia levels - mental status slowly improving - agree with bolus - mikki likely from pre-renal disease
--- NOTE | 2019-09-16 20:34 | PN.GI ---
GI Progress Note Subjective: STATUS UNCHANGED - OPENS EYES AWAKE HOWEVER DOES NOT RESPOND TO QUESTIONS. NO MELENA / BRBR PER RN - Objective Vital Signs: Vital Signs Temperature 97.9 F 09/16/19 18:00 Pulse Rate 84 09/16/19 18:00 Respiratory Rate 18 09/16/19 18:00 Blood Pressure 92/54 L 09/16/19 18:00 O2 Sat by Pulse Oximetry (%) 98 09/16/19 09:00 Constitutional: No Distress, Calm Respiratory: Yes: WNL, Regular, CTA Bilaterally Gastrointestinal Inspection: Yes: WNL ...Auscultate: Yes: Normoactive Bowel Sounds Edema: No Labs: CBC, BMP 09/16/19 07:43 09/16/19 07:43 INR, PTT INR 1.60 (0.83-1.09) H 09/14/19 07:50 Assessment/Plan - C/W LACTULOSE / RIFAXIMIN FOR PRESUMED PSE - NADOLOL - R/O INFECTIOUS ETIOLOGY OF ENCEPHELOPATHY - PANCULTURE - MONITOR H/H WHILE HOSPITALIZED -ABDOMINAL SONOGRAM REVIEWED - MONITOR DAILY WEIGHTS AND I/O'S
[2019-09-16] MEDS: SODIUM CHLORIDE 0.45% 1,000 ML IV SCH (20:47)
[2019-09-16 22:17] LABS: EPI CELLS >36 /uL (0-25.1); HYALINE CASTS 6 /uL (0-3.1); PH,URINE >= 9.0 (5.0-8.0); URINE APPEARANCE CLOUDY; URINE BILIRUBIN NEGATIVE (NEGATIVE); URINE COLOR DK YELLOW; URINE GLUCOSE (UA) NEGATIVE (NEGATIVE); URINE KETONE NEGATIVE (NEGATIVE); URINE LEUK ESTERASE 3+ (NEGATIVE); URINE NITRITE POSITIVE (NEGATIVE); URINE PROTEIN 2+ (NEGATIVE); URINE RBC 10 /uL (0-23.9); URINE WBC 57 /uL (0-25.8)
[2019-09-17] MEDS: LACTULOSE 20 GM/30 ML UDC (FOR ORAL USE ONLY) PO SCH ×3 (05:40→22:24)
[2019-09-17 08:27] LABS: BILIRUBIN,TOTAL 2.2 mg/dL (0.2-1); BLOOD UREA NITROGEN 42.5 mg/dL (7-18); CALCIUM 8.2 mg/dL (8.5-10.1); TOT PROT 6.2 g/dl (6.4-8.2)
[2019-09-17] MEDS: SODIUM CHLORIDE 0.45% 1,000 ML IV SCH (09:08)
[2019-09-17] MEDS: MULTIVITAMINS (DAILY MVI) TABLET (FP) PO SCH (09:51)
[2019-09-17] MEDS: THIAMINE HCL 100 MG TABLET (FP) PO SCH (09:51)
[2019-09-17] MEDS: FOLIC ACID 1 MG TABLET (FP) PO SCH (09:52)
[2019-09-17] MEDS: PANTOPRAZOLE 40 MG TABLET PO SCH (09:53)
[2019-09-17] MEDS: VITAMIN B COMP W-C 1 EA TABLET (NEPHRO-VITE) PO SCH (09:56)
[2019-09-17] MEDS: LACTOBACILLUS ACIDOPHILUS 1 TABLET PO SCH ×2 (09:56→22:23)
[2019-09-17] MEDS: RIFAXIMIN 550 MG TABLET (UD) PO SCH ×2 (09:56→22:23)
[2019-09-17] MEDS: NADOLOL 20 MG TABLET (FP) PO SCH (09:59)
[2019-09-17] MEDS ORDERED: FUROSEMIDE 40 MG TABLET (FP) PO SCH (10:00)
[2019-09-17] MEDS ORDERED: DEXTROSE 5%-WATER - 50 ML IVPB ONE (12:11)
[2019-09-17] MEDS: CEFTRIAXONE 2 GM in DEXTROSE 5%-WATER - 50 ML IVPB SCH (12:14)
--- NOTE | 2019-09-17 14:13 | PN ---
Progress Note (short form) - Note Progress Note: Pt examined I reviewed his NH notes in the NH EMR Pt is usually alert and makes his needs known- though he has dementia he is speaking today Vital Signs - 24 hr 09/16/19 09/16/19 09/16/19 15:52 18:00 20:00 Temperature 98.1 F 97.9 F 97.7 F Pulse Rate 83 84 81 Respiratory 20 18 16 Rate Blood Pressure 85/57 L 92/54 L 104/67 O2 Sat by Pulse Oximetry (%) 09/16/19 09/16/19 09/17/19 21:00 22:00 05:52 Temperature 97.8 F 97.6 F Pulse Rate 93 H 91 H Respiratory 18 18 Rate Blood Pressure 120/60 123/60 O2 Sat by Pulse 100 Oximetry (%) 09/17/19 09/17/19 09/17/19 09:00 09:27 13:12 Temperature 98.2 F Pulse Rate 100 H Respiratory 18 Rate Blood Pressure 91/57 L O2 Sat by Pulse 100 100 Oximetry (%) Current Medications Generic Name Dose Route Start Last Admin Trade Name Freq PRN Reason Stop Dose Admin Albuterol Sulfate 1 amp 09/13/19 17:55 Ventolin 0.083% Nebulizer Soln - NEB Q6H PRN SHORT OF BREATH/WHEEZING Folic Acid 1 mg 09/14/19 10:00 09/17/19 09:52 Folic Acid - PO 1 mg DAILY ALINA Administration Sodium Chloride 1,000 mls @ 100 mls/hr 09/16/19 20:15 09/17/19 09:08 1/2 Normal Saline IV 100 mls/hr ASDIR ALINA Administration Ceftriaxone Sodium 2 gm/ 50 mls @ 100 mls/hr 09/17/19 12:15 09/17/19 12:14 Dextrose IVPB 100 mls/hr DAILY ALINA Administration Lactobacillus Acidophilus 1 tab 09/13/19 22:00 09/17/19 09:56 Bacid - PO 1 tab BID ALINA Administration Lactulose 30 gm 09/13/19 22:00 09/17/19 05:40 Cephulac (Oral Use) PO 30 gm TID ALINA Administration Multivit/Ca Carb/B Cmplx/FA/Prenat 1 tablet 09/14/19 10:00 09/17/19 09:56 Nephro-Chris - PO 1 tablet DAILY ALINA Administration Multivitamins/Minerals/Vitamin C 1 tab 09/14/19 10:00 09/17/19 09:51 Tab-A-Vit - PO 1 tab DAILY ALINA Administration Nadolol 20 mg 09/14/19 10:00 09/17/19 09:59 Corgard - PO Not Given DAILY ALINA Pantoprazole Sodium 40 mg 09/14/19 10:00 09/17/19 09:53 Protonix - PO 40 mg DAILY ALINA Administration Rifaximin 550 mg 09/13/19 22:00 09/17/19 09:56 Xifaxan - PO 550 mg BID ALINA Administration Thiamine HCl 100 mg 09/14/19 10:00 09/17/19 09:51 Vitamin B1 - PO 100 mg DAILY ALINA Administration Laboratory Results - last 24 hr 09/16/19 09/16/19 09/16/19 21:57 21:57 21:57 Sodium Potassium Chloride Carbon Dioxide Anion Gap BUN Creatinine Est GFR (CKD-EPI)AfAm Est GFR (CKD-EPI)NonAf Random Glucose Calcium Total Bilirubin AST ALT Alkaline Phosphatase Total Protein Albumin Urine Color Dk yellow Urine Appearance Cloudy Urine pH >= 9.0 H D Ur Specific [place] 1.021 Urine Protein 2+ H Urine Glucose (UA) Negative Urine Ketones Negative Urine Blood 3+ H Urine Nitrite Positive H Urine Bilirubin Negative Urine Urobilinogen 1.0 Ur Leukocyte Esterase 3+ H Urine WBC (Auto) 57 Urine RBC (Auto) 10 Urine Casts (Auto) 6 U Epithel Cells (Auto) >36 Urine Bacteria (Auto) >10,000 Ur Random Creatinine 71.0 Ur Random Sodium 39 L Ur Random Potassium 47.0 Ur Random Chloride 65 L 09/17/19 07:17 Sodium 141 Potassium 4.0 Chloride 117 H Carbon Dioxide 18 L Anion Gap 6 L BUN 42.5 H Creatinine 1.0 Est GFR (CKD-EPI)AfAm 92.42 Est GFR (CKD-EPI)NonAf 79.75 Random Glucose 107 H Calcium 8.2 L Total Bilirubin 2.2 H AST 199 H ALT 71 H Alkaline Phosphatase 119 H Total Protein 6.2 L Albumin 2.0 L Urine Color Urine Appearance Urine pH Ur Specific [place] Urine Protein Urine Glucose (UA) Urine Ketones Urine Blood Urine Nitrite Urine Bilirubin Urine Urobilinogen Ur Leukocyte Esterase Urine WBC (Auto) Urine RBC (Auto) Urine Casts (Auto) U Epithel Cells (Auto) Urine Bacteria (Auto) Ur Random Creatinine Ur Random Sodium Ur Random Potassium Ur Random Chloride Microbiology 09/15/19 22:30 Urine Culture - Preliminary Urine - Urine Clean Catch Proteus Species Group D Strep Or Entero Coccus 09/15/19 14:50 Blood Culture - Preliminary Blood - Peripheral Venous NO GROWTH OBTAINED AFTER 24 HOURS, INCUBATION TO CONTINUE FOR 4 DAYS. 09/15/19 14:50 Blood Culture - Preliminary Blood - Peripheral Venous NO GROWTH OBTAINED AFTER 24 HOURS, INCUBATION TO CONTINUE FOR 4 DAYS. S1 S2 RRR Lungs clear Abd- soft, NT, ND No edema Cachetic A/P acute metabolic encephalopathy Hepatic encephalopathy H/O Alcohol abuse alcohol cirrhosis severe protein malnutrition hypotension -- downgrade diet to puree -- add supplements -- has UTI -- start ceftriaxone today -- CT head negative -- palliative care eval -- renal eval appreciated-- likley dehydrated-- clinically improving -- holding off lasix for now Problem List - Problems (1) MIKKI (acute kidney injury) Code(s): N17.9 - ACUTE KIDNEY FAILURE, UNSPECIFIED (2) Confusion Code(s): R41.0 - DISORIENTATION, UNSPECIFIED (3) Hepatic encephalopathy Code(s): K72.90 - HEPATIC FAILURE, UNSPECIFIED WITHOUT COMA (4) Alcoholic cirrhosis of liver Code(s): K70.30 - ALCOHOLIC CIRRHOSIS OF LIVER WITHOUT ASCITES Qualifiers: Ascites presence: with ascites Qualified Code(s): K70.31 - Alcoholic cirrhosis of liver with ascites (5) Alcoholism /alcohol abuse Code(s): F10.20 - ALCOHOL DEPENDENCE, UNCOMPLICATED (6) Anemia Code(s): D64.9 - ANEMIA, UNSPECIFIED
[2019-09-17] MEDS ORDERED: SODIUM CHLORIDE 0.45% 1,000 ML IV SCH (15:15)
--- NOTE | 2019-09-17 15:17 | PN ---
Progress Note, Physician History of Present Illness: Pt seen and examined at bedside. He is a little more awake today. - Current Medication List Current Medications: Active Medications Albuterol Sulfate (Ventolin 0.083% Nebulizer Soln -) 1 amp NEB Q6H PRN PRN Reason: SHORT OF BREATH/WHEEZING Folic Acid (Folic Acid -) 1 mg PO DAILY [facility] Last Admin: 09/17/19 09:52 Dose: 1 mg Documented by: Ceftriaxone Sodium 2 gm/ (Dextrose) 50 mls @ 100 mls/hr IVPB DAILY [facility] Last Admin: 09/17/19 12:14 Dose: 100 mls/hr Documented by: Sodium Chloride (1/2 Normal Saline) 1,000 mls @ 75 mls/hr IV ASDIR ALINA Lactobacillus Acidophilus (Bacid -) 1 tab PO BID [facility] Last Admin: 09/17/19 09:56 Dose: 1 tab Documented by: Lactulose (Cephulac (Oral Use)) 30 gm PO TID [facility] Last Admin: 09/17/19 14:24 Dose: 30 gm Documented by: Multivit/Ca Carb/B Cmplx/FA/Prenat (Nephro-Chris -) 1 tablet PO DAILY [facility] Last Admin: 09/17/19 09:56 Dose: 1 tablet Documented by: Multivitamins/Minerals/Vitamin C (Tab-A-Vit -) 1 tab PO DAILY [facility] Last Admin: 09/17/19 09:51 Dose: 1 tab Documented by: Nadolol (Corgard -) 20 mg PO DAILY [facility] Last Admin: 09/17/19 09:59 Dose: Not Given Documented by: Pantoprazole Sodium (Protonix -) 40 mg PO DAILY [facility] Last Admin: 09/17/19 09:53 Dose: 40 mg Documented by: Rifaximin (Xifaxan -) 550 mg PO BID [facility] Last Admin: 09/17/19 09:56 Dose: 550 mg Documented by: Thiamine HCl (Vitamin B1 -) 100 mg PO DAILY [facility] Last Admin: 09/17/19 09:51 Dose: 100 mg Documented by: - Objective Vital Signs: Vital Signs Temperature 98.2 F 09/17/19 09:27 Pulse Rate 100 H 09/17/19 09:27 Respiratory Rate 18 09/17/19 09:27 Blood Pressure 91/57 L 09/17/19 09:27 O2 Sat by Pulse Oximetry (%) 100 09/17/19 13:12 Constitutional: Yes: Calm, Cachectic Eyes: Yes: Conjunctiva Clear Cardiovascular: Yes: S1, S2 Respiratory: Yes: CTA Bilaterally Gastrointestinal: Yes: Soft Genitourinary: Yes: Incontinence Musculoskeletal: Yes: Muscle Weakness Edema: No Neurological: Yes: Other (awake but sluggish) Labs: CBC, BMP 09/16/19 07:43 09/17/19 07:17 INR, PTT INR 1.60 (0.83-1.09) H 09/14/19 07:50 Problem List - Problems (1) MIKKI (acute kidney injury) Code(s): N17.9 - ACUTE KIDNEY FAILURE, UNSPECIFIED (2) Confusion Code(s): R41.0 - DISORIENTATION, UNSPECIFIED (3) Hepatic encephalopathy Code(s): K72.90 - HEPATIC FAILURE, UNSPECIFIED WITHOUT COMA Assessment/Plan Current Medications Generic Name Dose Route Start Last Admin Trade Name Freq PRN Reason Stop Dose Admin Albuterol Sulfate 1 amp 09/13/19 17:55 Ventolin 0.083% Nebulizer Soln - NEB Q6H PRN SHORT OF BREATH/WHEEZING Folic Acid 1 mg 09/14/19 10:00 09/17/19 09:52 Folic Acid - PO 1 mg DAILY ALINA Administration Ceftriaxone Sodium 2 gm/ 50 mls @ 100 mls/hr 09/17/19 12:15 09/17/19 12:14 Dextrose IVPB 100 mls/hr DAILY ALINA Administration Sodium Chloride 1,000 mls @ 75 mls/hr 09/17/19 15:15 1/2 Normal Saline IV ASDIR ALINA Lactobacillus Acidophilus 1 tab 09/13/19 22:00 09/17/19 09:56 Bacid - PO 1 tab BID ALINA Administration Lactulose 30 gm 09/13/19 22:00 09/17/19 14:24 Cephulac (Oral Use) PO 30 gm TID ALINA Administration Multivit/Ca Carb/B Cmplx/FA/Prenat 1 tablet 09/14/19 10:00 09/17/19 09:56 Nephro-Chris - PO 1 tablet DAILY ALINA Administration Multivitamins/Minerals/Vitamin C 1 tab 09/14/19 10:00 09/17/19 09:51 Tab-A-Vit - PO 1 tab DAILY ALINA Administration Nadolol 20 mg 09/14/19 10:00 09/17/19 09:59 Corgard - PO Not Given DAILY ALINA Pantoprazole Sodium 40 mg 09/14/19 10:00 09/17/19 09:53 Protonix - PO 40 mg DAILY ALINA Administration Rifaximin 550 mg 09/13/19 22:00 09/17/19 09:56 Xifaxan - PO 550 mg BID ALINA Administration Thiamine HCl 100 mg 09/14/19 10:00 09/17/19 09:51 Vitamin B1 - PO 100 mg DAILY ALINA Administration Impression 1. MIKKI 2. liver cirrhosis 3. hypotension 4. copd 5. hld Plan - renal function is improving - mental status is improving - repeat labs in am - cont fluids, will decrease rate to 75 - monitor lytes - mikki likely from pre-renal disease
--- NOTE | 2019-09-17 18:27 | PN.GI ---
GI Progress Note Subjective: arousable, confused - Objective Vital Signs: Vital Signs Temperature 98.2 F 09/17/19 09:27 Pulse Rate 100 H 09/17/19 09:27 Respiratory Rate 18 09/17/19 09:27 Blood Pressure 91/57 L 09/17/19 09:27 O2 Sat by Pulse Oximetry (%) 100 09/17/19 13:12 Gastrointestinal Inspection: No: Ascites ...Palpate: Yes: Soft. No: Firm/Rigid, Guarding, Hepatomegaly, Mass, Pulsatile Mass, Splenomegaly Labs: CBC, BMP 09/16/19 07:43 09/17/19 07:17 INR, PTT INR 1.60 (0.83-1.09) H 09/14/19 07:50 Problem List - Problems (1) Hepatic encephalopathy Assessment/Plan: R> continue Lactulose and Xifaxan agree with pureed diet Code(s): K72.90 - HEPATIC FAILURE, UNSPECIFIED WITHOUT COMA
[2019-09-18] MEDS: LACTULOSE 20 GM/30 ML UDC (FOR ORAL USE ONLY) PO SCH ×3 (05:39→22:15)
[2019-09-18] MEDS ORDERED: DEXTROSE 5%-WATER - 50 ML IVPB ONE (09:46)
[2019-09-18] MEDS: NADOLOL 20 MG TABLET (FP) PO SCH (10:01)
[2019-09-18] MEDS: PANTOPRAZOLE 40 MG TABLET PO SCH (10:02)
[2019-09-18] MEDS: LACTOBACILLUS ACIDOPHILUS 1 TABLET PO SCH ×2 (10:02→22:14)
[2019-09-18] MEDS: VITAMIN B COMP W-C 1 EA TABLET (NEPHRO-VITE) PO SCH (10:02)
[2019-09-18] MEDS: FOLIC ACID 1 MG TABLET (FP) PO SCH (10:02)
[2019-09-18] MEDS: MULTIVITAMINS (DAILY MVI) TABLET (FP) PO SCH (10:02)
[2019-09-18] MEDS: THIAMINE HCL 100 MG TABLET (FP) PO SCH (10:02)
[2019-09-18] MEDS: RIFAXIMIN 550 MG TABLET (UD) PO SCH ×2 (10:02→22:14)
[2019-09-18] MEDS: CEFTRIAXONE 2 GM in DEXTROSE 5%-WATER - 50 ML IVPB SCH (10:02)
--- NOTE | 2019-09-18 10:34 | PN ---
Progress Note, Physician History of Present Illness: Awake No distress Chronic ill appearance cachectic. more awake Answers simple question - Current Medication List Current Medications: Active Medications Albuterol Sulfate (Ventolin 0.083% Nebulizer Soln -) 1 amp NEB Q6H PRN PRN Reason: SHORT OF BREATH/WHEEZING Folic Acid (Folic Acid -) 1 mg PO DAILY [facility] Last Admin: 09/18/19 10:02 Dose: 1 mg Documented by: Ceftriaxone Sodium 2 gm/ (Dextrose) 50 mls @ 100 mls/hr IVPB DAILY [facility] Last Admin: 09/18/19 10:02 Dose: 100 mls/hr Documented by: Sodium Chloride (1/2 Normal Saline) 1,000 mls @ 75 mls/hr IV ASDIR ALINA Lactobacillus Acidophilus (Bacid -) 1 tab PO BID [facility] Last Admin: 09/18/19 10:02 Dose: 1 tab Documented by: Lactulose (Cephulac (Oral Use)) 30 gm PO TID [facility] Last Admin: 09/18/19 05:39 Dose: 30 gm Documented by: Multivit/Ca Carb/B Cmplx/FA/Prenat (Nephro-Chris -) 1 tablet PO DAILY [facility] Last Admin: 09/18/19 10:02 Dose: 1 tablet Documented by: Multivitamins/Minerals/Vitamin C (Tab-A-Vit -) 1 tab PO DAILY [facility] Last Admin: 09/18/19 10:02 Dose: 1 tab Documented by: Nadolol (Corgard -) 20 mg PO DAILY [facility] Last Admin: 09/18/19 10:01 Dose: Not Given Documented by: Pantoprazole Sodium (Protonix -) 40 mg PO DAILY [facility] Last Admin: 09/18/19 10:02 Dose: 40 mg Documented by: Rifaximin (Xifaxan -) 550 mg PO BID [facility] Last Admin: 09/18/19 10:02 Dose: 550 mg Documented by: Thiamine HCl (Vitamin B1 -) 100 mg PO DAILY [facility] Last Admin: 09/18/19 10:02 Dose: 100 mg Documented by: - Objective Vital Signs: Vital Signs Temperature 97.8 F 09/18/19 08:30 Pulse Rate 81 09/18/19 08:30 Respiratory Rate 18 09/18/19 08:30 Blood Pressure 90/63 09/18/19 08:30 O2 Sat by Pulse Oximetry (%) 100 09/17/19 21:00 Constitutional: Yes: No Distress, Cachectic Eyes: Yes: Conjunctiva Clear Neck: Yes: Supple Cardiovascular: Yes: Regular Rate and Rhythm Respiratory: Yes: Diminished Gastrointestinal: Yes: Soft Edema: No Neurological: Yes: Other (more awake) Labs: CBC, BMP 09/16/19 07:43 09/17/19 07:17 INR, PTT INR 1.60 (0.83-1.09) H 09/14/19 07:50 Problem List - Problems (1) MIKKI (acute kidney injury) Code(s): N17.9 - ACUTE KIDNEY FAILURE, UNSPECIFIED (2) Hepatic encephalopathy Code(s): K72.90 - HEPATIC FAILURE, UNSPECIFIED WITHOUT COMA (3) Alcoholic cirrhosis of liver Code(s): K70.30 - ALCOHOLIC CIRRHOSIS OF LIVER WITHOUT ASCITES Qualifiers: Ascites presence: with ascites Qualified Code(s): K70.31 - Alcoholic cirrhosis of liver with ascites (4) HTN (hypertension) Code(s): I10 - ESSENTIAL (PRIMARY) HYPERTENSION Assessment/Plan Better Continue meds including lactulose Prognosis gaurded Will follow Palliative care consult Abx
--- NOTE | 2019-09-18 14:24 | PN ---
Progress Note, Physician History of Present Illness: Pt seen and examined at bedside. He is awake and more alert today. He denies shortness of breath. - Current Medication List Current Medications: Active Medications Albuterol Sulfate (Ventolin 0.083% Nebulizer Soln -) 1 amp NEB Q6H PRN PRN Reason: SHORT OF BREATH/WHEEZING Folic Acid (Folic Acid -) 1 mg PO DAILY [facility] Last Admin: 09/18/19 10:02 Dose: 1 mg Documented by: Ceftriaxone Sodium 2 gm/ (Dextrose) 50 mls @ 100 mls/hr IVPB DAILY [facility] Last Admin: 09/18/19 10:02 Dose: 100 mls/hr Documented by: Sodium Chloride (1/2 Normal Saline) 1,000 mls @ 75 mls/hr IV ASDIR ALINA Lactobacillus Acidophilus (Bacid -) 1 tab PO BID [facility] Last Admin: 09/18/19 10:02 Dose: 1 tab Documented by: Lactulose (Cephulac (Oral Use)) 30 gm PO TID [facility] Last Admin: 09/18/19 14:11 Dose: 30 gm Documented by: Multivit/Ca Carb/B Cmplx/FA/Prenat (Nephro-Chris -) 1 tablet PO DAILY [facility] Last Admin: 09/18/19 10:02 Dose: 1 tablet Documented by: Multivitamins/Minerals/Vitamin C (Tab-A-Vit -) 1 tab PO DAILY [facility] Last Admin: 09/18/19 10:02 Dose: 1 tab Documented by: Nadolol (Corgard -) 20 mg PO DAILY [facility] Last Admin: 09/18/19 10:01 Dose: Not Given Documented by: Pantoprazole Sodium (Protonix -) 40 mg PO DAILY [facility] Last Admin: 09/18/19 10:02 Dose: 40 mg Documented by: Rifaximin (Xifaxan -) 550 mg PO BID [facility] Last Admin: 09/18/19 10:02 Dose: 550 mg Documented by: Thiamine HCl (Vitamin B1 -) 100 mg PO DAILY [facility] Last Admin: 09/18/19 10:02 Dose: 100 mg Documented by: - Objective Vital Signs: Vital Signs Temperature 97.4 F L 09/18/19 13:52 Pulse Rate 80 09/18/19 13:52 Respiratory Rate 18 09/18/19 13:52 Blood Pressure 126/79 09/18/19 13:52 O2 Sat by Pulse Oximetry (%) 100 09/18/19 09:00 Constitutional: Yes: Calm, Cachectic Eyes: Yes: Conjunctiva Clear HENT: Yes: Atraumatic Neck: Yes: Supple Cardiovascular: Yes: S1, S2 Respiratory: Yes: CTA Bilaterally Gastrointestinal: Yes: Soft Genitourinary: Yes: Incontinence Musculoskeletal: Yes: Muscle Weakness Neurological: Yes: Oriented Labs: CBC, BMP 09/16/19 07:43 09/17/19 07:17 INR, PTT INR 1.60 (0.83-1.09) H 09/14/19 07:50 Problem List - Problems (1) MIKKI (acute kidney injury) Code(s): N17.9 - ACUTE KIDNEY FAILURE, UNSPECIFIED (2) Confusion Code(s): R41.0 - DISORIENTATION, UNSPECIFIED (3) Hepatic encephalopathy Code(s): K72.90 - HEPATIC FAILURE, UNSPECIFIED WITHOUT COMA Assessment/Plan Current Medications Generic Name Dose Route Start Last Admin Trade Name Freq PRN Reason Stop Dose Admin Albuterol Sulfate 1 amp 09/13/19 17:55 Ventolin 0.083% Nebulizer Soln - NEB Q6H PRN SHORT OF BREATH/WHEEZING Folic Acid 1 mg 09/14/19 10:00 09/18/19 10:02 Folic Acid - PO 1 mg DAILY ALINA Administration Ceftriaxone Sodium 2 gm/ 50 mls @ 100 mls/hr 09/17/19 12:15 09/18/19 10:02 Dextrose IVPB 100 mls/hr DAILY ALINA Administration Sodium Chloride 1,000 mls @ 75 mls/hr 09/17/19 15:15 1/2 Normal Saline IV ASDIR ALINA Lactobacillus Acidophilus 1 tab 09/13/19 22:00 09/18/19 10:02 Bacid - PO 1 tab BID ALINA Administration Lactulose 30 gm 09/13/19 22:00 09/18/19 14:11 Cephulac (Oral Use) PO 30 gm TID ALINA Administration Multivit/Ca Carb/B Cmplx/FA/Prenat 1 tablet 09/14/19 10:00 09/18/19 10:02 Nephro-Chris - PO 1 tablet DAILY ALINA Administration Multivitamins/Minerals/Vitamin C 1 tab 09/14/19 10:00 09/18/19 10:02 Tab-A-Vit - PO 1 tab DAILY ALINA Administration Nadolol 20 mg 09/14/19 10:00 09/18/19 10:01 Corgard - PO Not Given DAILY ALINA Pantoprazole Sodium 40 mg 09/14/19 10:00 09/18/19 10:02 Protonix - PO 40 mg DAILY ALINA Administration Rifaximin 550 mg 09/13/19 22:00 09/18/19 10:02 Xifaxan - PO 550 mg BID ALINA Administration Thiamine HCl 100 mg 09/14/19 10:00 09/18/19 10:02 Vitamin B1 - PO 100 mg DAILY [facility]INA Administration Impression 1. MIKKI 2. liver cirrhosis 3. hypotension 4. copd 5. hld Plan - renal function improving - can decrease rate of fluids - monitor lytes - mikki likely from pre-renal disease - will follow PRN
[2019-09-18] MEDS ORDERED: SODIUM CHLORIDE 0.45% 1,000 ML IV SCH (14:30)
--- NOTE | 2019-09-18 14:53 | CONSULT ---
Consult Consult Specialty:: Palliative Care Referred by:: Sahra Mina Reason for Consultation:: Goals of care - History of Present Illness Chief Complaint: ETOH cirrhosis, Hepatic encephalopathy History of Present Illness: The patient is a 64 yo male with known cirrhosis of the liver from ETOH abuse. CT scan in May showed moderate ascites c/w liver cirrhosis, portal hypertension, varices and no masses He had a paracentesis during that admission and had 3100ml removed. The patient was referred to [facility] hepatology for a TIPS evaluation at that time. He has been in [facility] and was sent into [place] from [facility] for altered mental status on 09/12. From review of his [facility] records, his mental status has been declining over the past several days. He didn't have any fevers recorded and CXR was WNL. No complaints of abd pain, but the pt remains non-verbal. His appeared to have normal vital signs, no evidence of fevers. His PMHx includes HTN, HLD< COPD He is s/p banding for varices in the past. He was lethargic and somnolent on admission with hyperammonemia- treated with lactulose and rifaximin with some improvement. He was also found to have MIKKI and diuretics held. He has severe Protein calorie malnutrition with a BMI of 17. He is currently on dysphagia diet. He is also being treated for UTI. Palliative care consult called for [facility]. - History Source History Provided By: Medical Record Limitations to Obtaining History: Language Barrier - Past Medical History Cardio/Vascular: Yes: HTN, Hyperlipdemia Pulmonary: Yes: COPD, Pulmonary Embolus Gastrointestinal: Yes: Ascites, Esophageal Varices, Irritable Bowel Disease Hepatobiliary: Yes: Cirrhosis (Alcoholic), Cholelithiasis Psych: Yes: Addictions (alcoholism) - Past Surgical History Past Surgical History: Yes: None - Alcohol/Substance Use Hx Alcohol Use: Yes - Smoking History Smoking history: Unknown if ever smoked Have you smoked in the past 12 months: No - Social History Usual Living Arrangement: Residential ( from ) ADL: Support Services 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 History of Recent Travel: No Home Medications - Allergies Allergies/Adverse Reactions: Allergies Allergy/AdvReac Type Severity Reaction Status Date / Time No Known Allergies Allergy Unverified 07/13/19 12:36 - Home Medications Home Medications: Ambulatory Orders Vit B Comp/C/Folic/Iron/Vit E [Vitamin B Complex Tablet] 1 each PO DAILY 03/01/18 Albuterol 0.083% Nebulizer Jacqueline [Ventolin 0.083% Nebulizer Soln -] 1 amp NEB QID PRN amp 03/05/18 Nadolol [Corgard -] 20 mg PO DAILY tablet 03/05/18 Folic Acid - 1 mg PO DAILY tablet 04/13/18 Multivitamins [Multivit ([facility] Formulary)] 1 tab PO DAILY tab 04/13/18 Thiamine HCl [Vitamin B1 -] 100 mg PO DAILY tablet 04/13/18 Mag Hydrox/Al Hydrox/Simeth [Mylanta Oral Suspension -] 30 ml PO PRN 06/23/18 Furosemide [Lasix -] 40 mg PO BID@0600,1400 tablet 05/12/19 Spironolactone [Aldactone -] 300 mg PO DAILY tablet 05/12/19 Lactobacillus Acidophilus [Acidophilus] 1 each PO BID 09/13/19 Lactulose (Oral Use) [Cephulac -] 30 gm PO TID 09/13/19 Pantoprazole Sodium [Protonix -] 40 mg PO DAILY 09/13/19 Rifaximin [Xifaxan] 550 mg PO BID 09/13/19 Lidocaine 4% Topical [Xylocaine 4% Topical] 1 applic MM DAILY 09/14/19 Family Medical History Family History: Unable to Obtain Review of Systems - Review of Systems Constitutional: reports: Lethargy, Loss of Appetite, Weakness Neurological: reports: Confusion Physical Exam Vital Signs: Vital Signs Temperature 97.4 F L 09/18/19 13:52 Pulse Rate 80 09/18/19 13:52 Respiratory Rate 18 09/18/19 13:52 Blood Pressure 126/79 09/18/19 13:52 O2 Sat by Pulse Oximetry (%) 100 09/18/19 09:00 Constitutional: Yes: Cachectic, Thin Eyes: Yes: Sclera Icterus HENT: Yes: Atraumatic, Normocephalic Neck: Yes: Supple Cardiovascular: Yes: Regular Rate and Rhythm Respiratory: Yes: Regular Gastrointestinal: Yes: Soft Neurological: Yes: Alert, Confusion Labs: CBC, BMP 09/16/19 07:43 09/17/19 07:17 Imaging - Results Chest X-ray: Report Reviewed Cat Scan: Report Reviewed Ultrasound: Report Reviewed Problem List - Problems (1) MIKKI (acute kidney injury) Code(s): N17.9 - ACUTE KIDNEY FAILURE, UNSPECIFIED (2) Confusion Code(s): R41.0 - DISORIENTATION, UNSPECIFIED (3) Hepatic encephalopathy Code(s): K72.90 - HEPATIC FAILURE, UNSPECIFIED WITHOUT COMA (4) Alcoholic cirrhosis of liver Code(s): K70.30 - ALCOHOLIC CIRRHOSIS OF LIVER WITHOUT ASCITES Qualifiers: Ascites presence: with ascites Qualified Code(s): K70.31 - Alcoholic cirrhosis of liver with ascites Assessment/Plan The patient is a 64 yo male with known cirrhosis of the liver from ETOH abuse. CT scan in May showed moderate ascites c/w liver cirrhosis, portal hypertension, varices and no masses He had a paracentesis during that admission and had 3100ml removed. The patient was referred to [facility] hepatology for a TIPS evaluation at that time. He has been in [facility] and was sent into [place] from [facility] for altered mental status on 09/12. From review of his [facility] records, his mental status has been declining over the past several days. He didn't have any fevers recorded and CXR was WNL. No complaints of abd pain, but the pt remains non-verbal. His appeared to have normal vital signs, no evidence of fevers. His PMHx includes HTN, HLD< COPD He is s/p banding for varices in the past. He was lethargic and somnolent on admission with hyperammonemia- treated with lactulose and rifaximin with some improvement. He was also found to have MIKKI and diuretics held. He has severe Protein calorie malnutrition with a BMI of 17. He is currently on dysphagia diet. He is also being treated for UTI. Palliative care consult called for [facility]. end stage liver disease with decompensated cirrhosis and hepatic encephalopathy Child Berger class C ( score 11) with a MELD score of 15 Prognosis is guarded. He does not have a HCP or advanced directives. I spoke to pt's brother but communication limited by language barrier- will try again using linter saw sharpener. There are multiple siblings in [place] and [place] has a 35 year old daughter whom they have had no contact with for over 10 years. Her name is Radha Wiley Mejiaesteban Allen last known to be living in [place] and also a son about 20 Sammy Allen. Patient remains a full code for now. Cont supportive care. check viral serologies and vaccinate as needed. avoid hepatotoxins, sedative/ hypnotics Will follow. Thankyou for allowing me to participate in the care of this patient. Please call with questions. Dandy Cazares MD [phone] Total time for chart review, examination, conference and coordination of care- 50 minutes
--- NOTE | 2019-09-18 18:28 | PN.GI ---
GI Progress Note Subjective: GI NOte ( covering Dr. Saravia) Still encephalopathic but is attempting to verbalize responses. Alex Sam's note is appreciated - Objective Vital Signs: Vital Signs Temperature 97.4 F L 09/18/19 13:52 Pulse Rate 80 09/18/19 13:52 Respiratory Rate 18 09/18/19 13:52 Blood Pressure 126/79 09/18/19 13:52 O2 Sat by Pulse Oximetry (%) 100 09/18/19 09:00 Laboratory Tests 09/13/19 09/14/19 09/16/19 14:10 07:50 07:43 Plt Count 62 L D PT with INR 19.00 H Total Bilirubin 3.0 H AST 118 H ALT 45 Alkaline Phosphatase 135 H 09/16/19 09/17/19 07:43 07:17 Plt Count PT with INR Total Bilirubin 2.8 H 2.2 H AST 199 H ALT 71 H Alkaline Phosphatase 119 H Laboratory Tests 09/13/19 09/17/19 14:10 07:17 BUN 49.9 H 42.5 H Creatinine 1.4 H 1.0 Constitutional: Calm ...Auscultate: Yes: Normoactive Bowel Sounds ...Palpate: Yes: Other (nontender) Labs: CBC, BMP 09/16/19 07:43 09/17/19 07:17 INR, PTT INR 1.60 (0.83-1.09) H 09/14/19 07:50 Assessment/Plan IMpression: Alcoholic cirrhosis with hepatic encephalopathy Plan: -- Continue Lactulose and Xifaxan -- Serial LFTs, ammonia level and BUN/Creat -- Lee resume diuretics when BUN is lower Problem List - Problems (1) MIKKI (acute kidney injury) Code(s): N17.9 - ACUTE KIDNEY FAILURE, UNSPECIFIED (2) Hepatic encephalopathy Code(s): K72.90 - HEPATIC FAILURE, UNSPECIFIED WITHOUT COMA (3) Alcoholic cirrhosis of liver Code(s): K70.30 - ALCOHOLIC CIRRHOSIS OF LIVER WITHOUT ASCITES Qualifiers: Ascites presence: with ascites Qualified Code(s): K70.31 - Alcoholic cirrhosis of liver with ascites (4) Alcoholism /alcohol abuse Code(s): F10.20 - ALCOHOL DEPENDENCE, UNCOMPLICATED
[2019-09-19] MEDS: LACTULOSE 20 GM/30 ML UDC (FOR ORAL USE ONLY) PO SCH ×4 (05:06→22:32)
[2019-09-19 08:41] LABS: BASO % 0.2 % (0-2.0); EOS % 1.7 % (0-4.5); HEMATOCRIT 28.4 % (35.4-49); HEMOGLOBIN 9.6 GM/dL (11.7-16.9); LYMPH % 18.2 % (8-40); MCH 31.3 pg (25.7-33.7); MCHC 33.8 g/dl (32.0-35.9); MEAN CELL VOLUME 92.6 fl (80-96); MEAN PLT VOLUME 8.6 fl (7.5-11.1); MONO % 14.2 % (3.8-10.2); NEUT % 65.7 % (42.8-82.8); RBC 3.07 M/mm3 (4.00-5.60); RDW 19.2 % (11.9-15.9); WHITE BLOOD COUNT 5.9 K/mm3 (4.0-10.0)
[2019-09-19 08:44] LABS: PLATELET COUNT 36 K/MM3 (134-434)
[2019-09-19 09:14] LABS: ALBUMIN 1.8 g/dl (3.4-5.0); BILIRUBIN,TOTAL 2.9 mg/dL (0.2-1); CALCIUM 8.1 mg/dL (8.5-10.1); CREATININE 0.6 mg/dL (0.55-1.3); POTASSIUM 4.2 mmol/L (3.5-5.1); TOT PROT 5.8 g/dl (6.4-8.2)
[2019-09-19] MEDS ORDERED: DEXTROSE 5%-WATER - 50 ML IVPB ONE (09:52)
[2019-09-19] MEDS: PANTOPRAZOLE 40 MG TABLET PO SCH ×2 (10:12→10:46)
[2019-09-19] MEDS: FOLIC ACID 1 MG TABLET (FP) PO SCH ×2 (10:12→10:45)
[2019-09-19] MEDS: RIFAXIMIN 550 MG TABLET (UD) PO SCH ×3 (10:12→22:20)
[2019-09-19] MEDS: VITAMIN B COMP W-C 1 EA TABLET (NEPHRO-VITE) PO SCH ×2 (10:12→10:45)
[2019-09-19] MEDS: NADOLOL 20 MG TABLET (FP) PO SCH ×2 (10:12→10:45)
[2019-09-19] MEDS: MULTIVITAMINS (DAILY MVI) TABLET (FP) PO SCH ×2 (10:12→10:46)
[2019-09-19] MEDS: THIAMINE HCL 100 MG TABLET (FP) PO SCH ×2 (10:13→10:46)
[2019-09-19] MEDS: CEFTRIAXONE 2 GM in DEXTROSE 5%-WATER - 50 ML IVPB SCH (10:13)
[2019-09-19] MEDS: LACTOBACILLUS ACIDOPHILUS 1 TABLET PO SCH ×3 (10:13→22:20)
--- NOTE | 2019-09-19 11:29 | PN ---
Progress Note (short form) - Note Progress Note: Pt remains cachectic, confused. No abdominal tenderness. Platelet count too low to allow passage of NG tube or creation of gastrostomy tube for enteral feeding. BUN, creatinine have come down; full recovery from presumed hepatorenal episode. No clinically detectable ascites. Continue to encourage pt to take p.o., hold diuretics until evidence of some fluid reaccumulation.
[2019-09-19 12:18] LABS: ANISOCYTOSIS 1+; PLATELET ESTIMATE DECREASED; TOXIC GRANULATION 2+
--- NOTE | 2019-09-19 13:32 | PN ---
Progress Note, Physician History of Present Illness: More awake no distress Cachetic Eating a little now afebrile All f/u and consult noted/ appreciated. - Current Medication List Current Medications: Active Medications Folic Acid (Folic Acid -) 1 mg PO DAILY [facility] Last Admin: 09/19/19 10:45 Dose: Not Given Documented by: Ceftriaxone Sodium 2 gm/ (Dextrose) 50 mls @ 100 mls/hr IVPB DAILY [facility] Last Admin: 09/19/19 10:13 Dose: 100 mls/hr Documented by: Sodium Chloride (1/2 Normal Saline) 1,000 mls @ 30 mls/hr IV ASDIR ALINA Stop: 09/19/19 14:24 Last Admin: 09/18/19 22:15 Dose: 30 mls/hr Documented by: Lactobacillus Acidophilus (Bacid -) 1 tab PO BID [facility] Last Admin: 09/19/19 10:44 Dose: Not Given Documented by: Lactulose (Cephulac (Oral Use)) 30 gm PO TID [facility] Last Admin: 09/19/19 05:06 Dose: 30 gm Documented by: Multivit/Ca Carb/B Cmplx/FA/Prenat (Nephro-Chris -) 1 tablet PO DAILY [facility] Last Admin: 09/19/19 10:45 Dose: Not Given Documented by: Multivitamins/Minerals/Vitamin C (Tab-A-Vit -) 1 tab PO DAILY [facility] Last Admin: 09/19/19 10:46 Dose: Not Given Documented by: Nadolol (Corgard -) 20 mg PO DAILY [facility] Last Admin: 09/19/19 10:45 Dose: Not Given Documented by: Pantoprazole Sodium (Protonix -) 40 mg PO DAILY [facility] Last Admin: 09/19/19 10:46 Dose: Not Given Documented by: Rifaximin (Xifaxan -) 550 mg PO BID [facility] Last Admin: 09/19/19 10:46 Dose: Not Given Documented by: Thiamine HCl (Vitamin B1 -) 100 mg PO DAILY [facility] Last Admin: 09/19/19 10:46 Dose: Not Given Documented by: - Objective Vital Signs: Vital Signs Temperature 98.5 F 09/19/19 10:00 Pulse Rate 80 09/19/19 10:00 Respiratory Rate 18 09/19/19 10:00 Blood Pressure 101/65 09/19/19 10:00 O2 Sat by Pulse Oximetry (%) 100 09/19/19 09:00 Constitutional: Yes: Cachectic Eyes: Yes: Conjunctiva Clear Neck: Yes: Supple Cardiovascular: Yes: Regular Rate and Rhythm Respiratory: Yes: Diminished Gastrointestinal: Yes: Soft Edema: No Labs: CBC, BMP 09/19/19 06:58 09/19/19 06:58 INR, PTT INR 1.60 (0.83-1.09) H 09/14/19 07:50 Problem List - Problems (1) MIKKI (acute kidney injury) Code(s): N17.9 - ACUTE KIDNEY FAILURE, UNSPECIFIED (2) Hepatic encephalopathy Code(s): K72.90 - HEPATIC FAILURE, UNSPECIFIED WITHOUT COMA (3) Alcoholic cirrhosis of liver Code(s): K70.30 - ALCOHOLIC CIRRHOSIS OF LIVER WITHOUT ASCITES Qualifiers: Ascites presence: with ascites Qualified Code(s): K70.31 - Alcoholic cir rhosis of liver with ascites (4) HTN (hypertension) Code(s): I10 - ESSENTIAL (PRIMARY) HYPERTENSION Assessment/Plan Slowly improving. Continue meds including lactulose monitor labs Consider Climix tomorrow if eating not improved Prognosis remains gaurded Platlets low Will follow
[2019-09-20] MEDS ORDERED: SODIUM CHLORIDE 500 ML IV STA (01:00)
[2019-09-20] MEDS: LACTULOSE 20 GM/30 ML UDC (FOR ORAL USE ONLY) PO SCH ×3 (05:42→22:39)
[2019-09-20 08:19] LABS: BASO % 0.4 % (0-2.0); EOS % 2.3 % (0-4.5); HEMATOCRIT 28.1 % (35.4-49); HEMOGLOBIN 9.3 GM/dL (11.7-16.9); LYMPH % 24.6 % (8-40); MCH 30.7 pg (25.7-33.7); MEAN CELL VOLUME 92.9 fl (80-96); MEAN PLT VOLUME 8.5 fl (7.5-11.1); MONO % 13.5 % (3.8-10.2); NEUT % 59.2 % (42.8-82.8); PLATELET COUNT 39 K/MM3 (134-434); RBC 3.02 M/mm3 (4.00-5.60); RDW 19.8 % (11.9-15.9); WHITE BLOOD COUNT 5.6 K/mm3 (4.0-10.0)
[2019-09-20] MEDS ORDERED: DEXTROSE 5%-WATER - 50 ML IVPB ONE (08:43)
[2019-09-20 08:51] LABS: ALBUMIN 1.7 g/dl (3.4-5.0); BILIRUBIN,TOTAL 2.4 mg/dL (0.2-1); BLOOD UREA NITROGEN 14.6 mg/dL (7-18); CALCIUM 7.6 mg/dL (8.5-10.1); CREATININE 0.5 mg/dL (0.55-1.3); POTASSIUM 4.1 mmol/L (3.5-5.1); TOT PROT 5.6 g/dl (6.4-8.2)
[2019-09-20] MEDS: CEFTRIAXONE 2 GM in DEXTROSE 5%-WATER - 50 ML IVPB SCH (09:12)
[2019-09-20] MEDS: RIFAXIMIN 550 MG TABLET (UD) PO SCH ×2 (09:13→10:28)
[2019-09-20] MEDS: MULTIVITAMINS (DAILY MVI) TABLET (FP) PO SCH ×2 (09:13→10:27)
[2019-09-20] MEDS: FOLIC ACID 1 MG TABLET (FP) PO SCH ×2 (09:13→10:27)
[2019-09-20] MEDS: NADOLOL 20 MG TABLET (FP) PO SCH ×2 (09:13→09:15)
[2019-09-20] MEDS: VITAMIN B COMP W-C 1 EA TABLET (NEPHRO-VITE) PO SCH ×2 (09:13→10:27)
[2019-09-20] MEDS: PANTOPRAZOLE 40 MG TABLET PO SCH ×2 (09:13→10:27)
[2019-09-20] MEDS: LACTOBACILLUS ACIDOPHILUS 1 TABLET PO SCH ×3 (09:13→22:39)
[2019-09-20] MEDS: THIAMINE HCL 100 MG TABLET (FP) PO SCH ×2 (09:14→10:28)
--- NOTE | 2019-09-20 09:59 | PN ---
Progress Note (short form) - Note Progress Note: Pt remains awake, noncommunicative. He has developed significant throm bocytopenia during this admission. The only medication he was given that would normally be considered suspect is ceftriaxone, but the thrombocytopenia had begun before ceftriaxone was instituted. His thrombocytopenia appears to have leveled off; possibly it was secondary to infection, although that seems unlikely. Yesterday's platelet count was 39K; today's is pending. If it drops again this could be particularly hazardous in the context of advanced cirrhosis.
--- NOTE | 2019-09-20 10:40 | PN ---
Progress Note, Physician History of Present Illness: awake no distress Cachectic Eating a little now afebrile All f/u and consult noted/ appreciated. able to answer simple questions. - Current Medication List Current Medications: Active Medications Folic Acid (Folic Acid -) 1 mg PO DAILY [facility] Last Admin: 09/20/19 10:27 Dose: Not Given Documented by: Ceftriaxone Sodium 2 gm/ (Dextrose) 50 mls @ 100 mls/hr IVPB DAILY [facility] Last Admin: 09/20/19 09:12 Dose: 100 mls/hr Documented by: Lactobacillus Acidophilus (Bacid -) 1 tab PO BID [facility] Last Admin: 09/20/19 10:26 Dose: Not Given Documented by: Lactulose (Cephulac (Oral Use)) 30 gm PO TID [facility] Last Admin: 09/20/19 05:42 Dose: Not Given Documented by: Multivit/Ca Carb/B Cmplx/FA/Prenat (Nephro-Chris -) 1 tablet PO DAILY [facility] Last Admin: 09/20/19 10:27 Dose: Not Given Documented by: Multivitamins/Minerals/Vitamin C (Tab-A-Vit -) 1 tab PO DAILY [facility] Last Admin: 09/20/19 10:27 Dose: Not Given Documented by: Nadolol (Corgard -) 20 mg PO DAILY [facility] Last Admin: 09/20/19 09:15 Dose: Not Given Documented by: Pantoprazole Sodium (Protonix -) 40 mg PO DAILY [facility] Last Admin: 09/20/19 10:27 Dose: Not Given Documented by: Rifaximin (Xifaxan -) 550 mg PO BID [facility] Last Admin: 09/20/19 10:28 Dose: Not Given Documented by: Thiamine HCl (Vitamin B1 -) 100 mg PO DAILY [facility] Last Admin: 09/20/19 10:28 Dose: Not Given Documented by: - Objective Vital Signs: Vital Signs Temperature 98.1 F 09/20/19 05:00 Pulse Rate 77 09/20/19 05:00 Respiratory Rate 16 09/20/19 05:00 Blood Pressure 96/61 09/20/19 05:00 O2 Sat by Pulse Oximetry (%) 97 09/19/19 21:00 Constitutional: Yes: Cachectic, Other Neck: Yes: Supple Cardiovascular: Yes: Regular Rate and Rhythm Respiratory: Yes: Diminished Gastrointestinal: Yes: Soft Edema: No Labs: CBC, BMP 09/20/19 07:00 09/20/19 07:00 INR, PTT INR 1.60 (0.83-1.09) H 09/14/19 07:50 Problem List - Problems (1) MIKKI (acute kidney injury) Code(s): N17.9 - ACUTE KIDNEY FAILURE, UNSPECIFIED (2) Hepatic encephalopathy Code(s): K72.90 - HEPATIC FAILURE, UNSPECIFIED WITHOUT COMA (3) Alcoholic cirrhosis of liver Code(s): K70.30 - ALCOHOLIC CIRRHOSIS OF LIVER WITHOUT ASCITES Qualifiers: Ascites presence: with ascites Qualified Code(s): K70.31 - Alcoholic cirrhosis of liver with ascites (4) HTN (hypertension) Code(s): I10 - ESSENTIAL (PRIMARY) HYPERTENSION (5) Thrombocytopenia Code(s): D69.6 - THROMBOCYTOPENIA, UNSPECIFIED Assessment/Plan Condition same. Continue meds including lactulose. monitor labs/ platlet Prognosis remains gaurded Will follow
[2019-09-20] MEDS: AMINO ACIDS 4.25%/D5W 1,000 ML IV SCH (11:54)
[2019-09-21] MEDS: LACTULOSE 20 GM/30 ML UDC (FOR ORAL USE ONLY) PO SCH ×3 (05:52→21:26)
[2019-09-21 08:36] LABS: BASO % 0.4 % (0-2.0); EOS % 2.6 % (0-4.5); HEMATOCRIT 27.3 % (35.4-49); HEMOGLOBIN 9.3 GM/dL (11.7-16.9); LYMPH % 24.7 % (8-40); MCH 31.6 pg (25.7-33.7); MCHC 34.2 g/dl (32.0-35.9); MEAN CELL VOLUME 92.4 fl (80-96); MEAN PLT VOLUME 8.5 fl (7.5-11.1); MONO % 13.6 % (3.8-10.2); NEUT % 58.7 % (42.8-82.8); PLATELET COUNT 51 K/MM3 (134-434); RBC 2.95 M/mm3 (4.00-5.60); RDW 19.4 % (11.9-15.9); WHITE BLOOD COUNT 5.5 K/mm3 (4.0-10.0)
[2019-09-21 08:56] LABS: ALBUMIN 1.7 g/dl (3.4-5.0); BILIRUBIN,TOTAL 2.4 mg/dL (0.2-1); CALCIUM 7.7 mg/dL (8.5-10.1); CREATININE 0.4 mg/dL (0.55-1.3); POTASSIUM 4.1 mmol/L (3.5-5.1); TOT PROT 5.7 g/dl (6.4-8.2)
[2019-09-21] MEDS ORDERED: DEXTROSE 5%-WATER - 50 ML IVPB ONE (09:29)
[2019-09-21] MEDS: CEFTRIAXONE 2 GM in DEXTROSE 5%-WATER - 50 ML IVPB SCH (09:36)
[2019-09-21] MEDS: MULTIVITAMINS (DAILY MVI) TABLET (FP) PO SCH (09:40)
[2019-09-21] MEDS: LACTOBACILLUS ACIDOPHILUS 1 TABLET PO SCH ×2 (09:40→21:20)
[2019-09-21] MEDS: PANTOPRAZOLE 40 MG TABLET PO SCH (09:40)
[2019-09-21] MEDS: NADOLOL 20 MG TABLET (FP) PO SCH (09:40)
[2019-09-21] MEDS: FOLIC ACID 1 MG TABLET (FP) PO SCH (09:40)
[2019-09-21] MEDS: VITAMIN B COMP W-C 1 EA TABLET (NEPHRO-VITE) PO SCH (09:40)
[2019-09-21] MEDS: THIAMINE HCL 100 MG TABLET (FP) PO SCH (09:41)
[2019-09-21] MEDS: AMINO ACIDS 4.25%/D5W 1,000 ML IV SCH ×2 (11:07→13:57)
--- NOTE | 2019-09-21 11:11 | PN ---
Problem List - Problems (1) MIKKI (acute kidney injury) Code(s): N17.9 - ACUTE KIDNEY FAILURE, UNSPECIFIED (2) Confusion Code(s): R41.0 - DISORIENTATION, UNSPECIFIED (3) Hepatic encephalopathy Code(s): K72.90 - HEPATIC FAILURE, UNSPECIFIED WITHOUT COMA (4) Alcoholic cirrhosis of liver Code(s): K70.30 - ALCOHOLIC CIRRHOSIS OF LIVER WITHOUT ASCITES Qualifiers: Ascites presence: with ascites Qualified Code(s): K70.31 - Alcoholic cirrhosis of liver with ascites
--- NOTE | 2019-09-21 13:27 | PN ---
Progress Note, Physician History of Present Illness: Pt seen and examined at bedside. He has poor PO intake. He denies shortness of breath. - Current Medication List Current Medications: Active Medications Folic Acid (Folic Acid -) 1 mg PO DAILY [facility] Last Admin: 09/21/19 09:40 Dose: 1 mg Documented by: Ceftriaxone Sodium 2 gm/ (Dextrose) 50 mls @ 100 mls/hr IVPB DAILY [facility] Last Admin: 09/21/19 09:36 Dose: 100 mls/hr Documented by: Amino Acids (Clinimix -) 1,000 mls @ 42 mls/hr IV Q24H [facility] Last Admin: 09/21/19 11:07 Dose: 42 mls/hr Documented by: Lactobacillus Acidophilus (Bacid -) 1 tab PO BID [facility] Last Admin: 09/21/19 09:40 Dose: 1 tab Documented by: Lactulose (Cephulac (Oral Use)) 30 gm PO TID [facility] Last Admin: 09/21/19 05:52 Dose: Not Given Documented by: Multivit/Ca Carb/B Cmplx/FA/Prenat (Nephro-Chris -) 1 tablet PO DAILY [facility] Last Admin: 09/21/19 09:40 Dose: 1 tablet Documented by: Multivitamins/Minerals/Vitamin C (Tab-A-Vit -) 1 tab PO DAILY [facility] Last Admin: 09/21/19 09:40 Dose: 1 tab Documented by: Nadolol (Corgard -) 20 mg PO DAILY [facility] Last Admin: 09/21/19 09:40 Dose: Not Given Documented by: Pantoprazole Sodium (Protonix -) 40 mg PO DAILY [facility] Last Admin: 09/21/19 09:40 Dose: 40 mg Documented by: Thiamine HCl (Vitamin B1 -) 100 mg PO DAILY [facility] Last Admin: 09/21/19 09:41 Dose: 100 mg Documented by: - Objective Vital Signs: Vital Signs Temperature 98.7 F 09/21/19 08:46 Pulse Rate 85 09/21/19 08:46 Respiratory Rate 18 09/21/19 08:46 Blood Pressure 103/64 09/21/19 08:46 O2 Sat by Pulse Oximetry (%) 99 09/21/19 09:00 Constitutional: Yes: Calm HENT: Yes: Atraumatic Neck: Yes: Supple Cardiovascular: Yes: S1, S2 Respiratory: Yes: CTA Bilaterally Gastrointestinal: Yes: Soft Genitourinary: Yes: Sherman Present Musculoskeletal: Yes: Muscle Weakness Edema: No Neurological: Yes: Confusion Labs: CBC, BMP 09/21/19 07:14 09/21/19 07:14 INR, PTT INR 1.60 (0.83-1.09) H 09/14/19 07:50 Problem List - Problems (1) MIKKI (acute kidney injury) Code(s): N17.9 - ACUTE KIDNEY FAILURE, UNSPECIFIED (2) Confusion Code(s): R41.0 - DISORIENTATION, UNSPECIFIED (3) Hepatic encephalopathy Code(s): K72.90 - HEPATIC FAILURE, UNSPECIFIED WITHOUT COMA Assessment/Plan Current Medications Generic Name Dose Route Start Last Admin Trade Name Zenon PRN Reason Stop Dose Admin Folic Acid 1 mg 09/14/19 10:00 09/21/19 09:40 Folic Acid - PO 1 mg DAILY [facility] Administration Ceftriaxone Sodium 2 gm/ 50 mls @ 100 mls/hr 09/17/19 12:15 09/21/19 09:36 Dextrose IVPB 100 mls/hr DAILY [facility] Administration Amino Acids 1,000 mls @ 42 mls/hr 09/20/19 10:45 09/21/19 11:07 Clinimix - IV 42 mls/hr Q24H [facility] Administration Lactobacillus Acidophilus 1 tab 09/13/19 22:00 09/21/19 09:40 Bacid - PO 1 tab BID [facility] Administration Lactulose 30 gm 09/13/19 22:00 09/21/19 05:52 Cephulac (Oral Use) PO Not Given TID [facility] Multivit/Ca Carb/B Cmplx/FA/Prenat 1 tablet 09/14/19 10:00 09/21/19 09:40 Nephro-Chris - PO 1 tablet DAILY [facility] Administration Multivitamins/Minerals/Vitamin C 1 tab 09/14/19 10:00 09/21/19 09:40 Tab-A-Vit - PO 1 tab DAILY [facility] Administration Nadolol 20 mg 09/14/19 10:00 09/21/19 09:40 Corgard - PO Not Given DAILY [facility] Pantoprazole Sodium 40 mg 09/14/19 10:00 09/21/19 09:40 Protonix - PO 40 mg DAILY [facility] Administration Thiamine HCl 100 mg 09/14/19 10:00 09/21/19 09:41 Vitamin B1 - PO 100 mg DAILY [facility] Administration Impression 1. MIKKI 2. liver cirrhosis 3. hypotension 4. copd 5. hld Plan - cont to monitor sodium closely while on clinimix - repeat labs in am - encourage po intake - will decrease rate of fluids - mikki likely from pre-renal disease
--- NOTE | 2019-09-21 14:35 | PN ---
Progress Note, Physician History of Present Illness: awake no distress Cachectic Eating a little afebrile All f/u and consult noted/ appreciated. able to answer simple questions. fluids/ Clinimix being adjusted by renal platlets stabilizing no bleeding - Current Medication List Current Medications: Active Medications Folic Acid (Folic Acid -) 1 mg PO DAILY [facility] Last Admin: 09/21/19 09:40 Dose: 1 mg Documented by: Ceftriaxone Sodium 2 gm/ (Dextrose) 50 mls @ 100 mls/hr IVPB DAILY [facility] Last Admin: 09/21/19 09:36 Dose: 100 mls/hr Documented by: Amino Acids (Clinimix -) 1,000 mls @ 35 mls/hr IV Q24H [facility] Last Admin: 09/21/19 13:57 Dose: 35 mls/hr Documented by: Lactobacillus Acidophilus (Bacid -) 1 tab PO BID [facility] Last Admin: 09/21/19 09:40 Dose: 1 tab Documented by: Lactulose (Cephulac (Oral Use)) 30 gm PO TID [facility] Last Admin: 09/21/19 13:57 Dose: Not Given Documented by: Multivit/Ca Carb/B Cmplx/FA/Prenat (Nephro-Chris -) 1 tablet PO DAILY [facility] Last Admin: 09/21/19 09:40 Dose: 1 tablet Documented by: Multivitamins/Minerals/Vitamin C (Tab-A-Vit -) 1 tab PO DAILY [facility] Last Admin: 09/21/19 09:40 Dose: 1 tab Documented by: Nadolol (Corgard -) 20 mg PO DAILY [facility] Last Admin: 09/21/19 09:40 Dose: Not Given Documented by: Pantoprazole Sodium (Protonix -) 40 mg PO DAILY [facility] Last Admin: 09/21/19 09:40 Dose: 40 mg Documented by: Thiamine HCl (Vitamin B1 -) 100 mg PO DAILY [facility] Last Admin: 09/21/19 09:41 Dose: 100 mg Documented by: - Objective Vital Signs: Vital Signs Temperature 98.7 F 09/21/19 08:46 Pulse Rate 85 09/21/19 08:46 Respiratory Rate 18 09/21/19 08:46 Blood Pressure 103/64 09/21/19 08:46 O2 Sat by Pulse Oximetry (%) 99 09/21/19 09:00 Constitutional: Yes: Cachectic Neck: Yes: Supple Cardiovascular: Yes: Regular Rate and Rhythm Respiratory: Yes: Diminished Gastrointestinal: Yes: Soft Edema: No Labs: CBC, BMP 09/21/19 07:14 09/21/19 07:14 INR, PTT INR 1.60 (0.83-1.09) H 09/14/19 07:50 Problem List - Problems (1) MIKKI (acute kidney injury) Code(s): N17.9 - ACUTE KIDNEY FAILURE, UNSPECIFIED (2) Hepatic encephalopathy Code(s): K72.90 - HEPATIC FAILURE, UNSPECIFIED WITHOUT COMA (3) Alcoholic cirrhosis of liver Code(s): K70.30 - ALCOHOLIC CIRRHOSIS OF LIVER WITHOUT ASCITES Qualifiers: Ascites presence: with ascites Qualified Code(s): K70.31 - Alcoholic cirrhosis of liver with ascites (4) HTN (hypertension) Code(s): I10 - ESSENTIAL (PRIMARY) HYPERTENSION (5) Thrombocytopenia Code(s): D69.6 - THROMBOCYTOPENIA, UNSPECIFIED Assessment/Plan Overall Condition same. Continue meds including lactulose. monitor labs/ platlets d/c abx in am d/c planning in am if improves eating. overall prognosis remains poor/ very gaurded Palliative team following Will follow
--- NOTE | 2019-09-21 18:24 | PN.GI ---
GI Progress Note Subjective: NO NEW COMPLAINTS - AWAKE ALERT PER RN NO REPORT OF N/V/GI BLEED - Objective Vital Signs: Vital Signs Temperature 98.7 F 09/21/19 08:46 Pulse Rate 85 09/21/19 08:46 Respiratory Rate 18 09/21/19 08:46 Blood Pressure 103/64 09/21/19 08:46 O2 Sat by Pulse Oximetry (%) 99 09/21/19 09:00 Constitutional: No Distress, Calm Respiratory: Yes: WNL, Regular, CTA Bilaterally Gastrointestinal Inspection: Yes: WNL ...Auscultate: Yes: Normoactive Bowel Sounds Edema: No Labs: CBC, BMP 09/21/19 07:14 09/21/19 07:14 INR, PTT INR 1.60 (0.83-1.09) H 09/14/19 07:50 Problem List - Problems (1) MIKKI (acute kidney injury) Assessment/Plan: C/W LACTULOSE TITRATE TO THREE TO FOUR BM'S DAILY C/W NADALOL MONITOR WEIGHTS - HE APPEARS EUVOLEMIC AT THIS TIME THEREFORE WOULD HOLD OFF ON DIURESIS - REASSESS IN THE AM AVOID NSAID PPI Code(s): N17.9 - ACUTE KIDNEY FAILURE, UNSPECIFIED (2) Hepatic encephalopathy Code(s): K72.90 - HEPATIC FAILURE, UNSPECIFIED WITHOUT COMA (3) Thrombocytopenia Code(s): D69.6 - THROMBOCYTOPENIA, UNSPECIFIED (4) Alcoholic cirrhosis of liver Code(s): K70.30 - ALCOHOLIC CIRRHOSIS OF LIVER WITHOUT ASCITES Qualifiers: Ascites presence: with ascites Qualified Code(s): K70.31 - Alcoholic cirrhosis of liver with ascites (5) Alcoholism /alcohol abuse Code(s): F10.20 - ALCOHOL DEPENDENCE, UNCOMPLICATED
[2019-09-22] MEDS: LACTULOSE 20 GM/30 ML UDC (FOR ORAL USE ONLY) PO SCH ×3 (05:34→21:36)
[2019-09-22 08:31] LABS: ALBUMIN 1.8 g/dl (3.4-5.0); BLOOD UREA NITROGEN 15.5 mg/dL (7-18); CALCIUM 7.4 mg/dL (8.5-10.1); CREATININE 0.4 mg/dL (0.55-1.3); MAGNESIUM 1.6 mg/dL (1.8-2.4); PHOSPHOROUS 1.9 mg/dL (2.5-4.9); TOT PROT 5.9 g/dl (6.4-8.2)
[2019-09-22 08:46] LABS: BILIRUBIN,TOTAL 2.7 mg/dL (0.2-1)
[2019-09-22] MEDS ORDERED: DEXTROSE 5%-WATER - 50 ML IVPB ONE (10:17)
[2019-09-22] MEDS: MULTIVITAMINS (DAILY MVI) TABLET (FP) PO SCH (10:20)
[2019-09-22] MEDS: FOLIC ACID 1 MG TABLET (FP) PO SCH (10:21)
[2019-09-22] MEDS: THIAMINE HCL 100 MG TABLET (FP) PO SCH (10:21)
[2019-09-22] MEDS: NADOLOL 20 MG TABLET (FP) PO SCH (10:21)
[2019-09-22] MEDS: LACTOBACILLUS ACIDOPHILUS 1 TABLET PO SCH ×2 (10:21→21:33)
[2019-09-22] MEDS: PANTOPRAZOLE 40 MG TABLET PO SCH (10:21)
[2019-09-22] MEDS: CEFTRIAXONE 2 GM in DEXTROSE 5%-WATER - 50 ML IVPB SCH (10:22)
[2019-09-22] MEDS: VITAMIN B COMP W-C 1 EA TABLET (NEPHRO-VITE) PO SCH (10:22)
[2019-09-22] MEDS ORDERED: SODIUM CHLORIDE 1 GM TABLET PO ONE (10:36)
--- NOTE | 2019-09-22 11:22 | PN ---
Progress Note (short form) - Note Progress Note: Pt examined eating better with assistance Vital Signs - 24 hr 09/21/19 09/21/19 09/22/19 19:52 21:00 06:00 Temperature 98.8 F 98 F Pulse Rate 95 H 87 Respiratory 18 Rate Blood Pressure 99/63 150/56 L O2 Sat by Pulse 99 Oximetry (%) 09/22/19 09/22/19 09:00 09:14 Temperature 98.4 F Pulse Rate 84 Respiratory 18 Rate Blood Pressure 97/59 L O2 Sat by Pulse 99 Oximetry (%) Current Medications Generic Name Dose Route Start Last Admin Trade Name Jesseq PRN Reason Stop Dose Admin Folic Acid 1 mg 09/14/19 10:00 09/22/19 10:21 Folic Acid - PO 1 mg DAILY ALINA Administration Ceftriaxone Sodium 2 gm/ 50 mls @ 100 mls/hr 09/17/19 12:15 09/22/19 10:22 Dextrose IVPB 100 mls/hr DAILY ALINA Administration Amino Acids 1,000 mls @ 35 mls/hr 09/21/19 13:27 09/21/19 13:57 Clinimix - IV 35 mls/hr Q24H ALINA Administration Lactobacillus Acidophilus 1 tab 09/13/19 22:00 09/22/19 10:21 Bacid - PO 1 tab BID ALINA Administration Lactulose 30 gm 09/13/19 22:00 09/22/19 05:34 Cephulac (Oral Use) PO Not Given TID ALINA Multivit/Ca Carb/B Cmplx/FA/Prenat 1 tablet 09/14/19 10:00 09/22/19 10:22 Nephro-Chris - PO 1 tablet DAILY ALINA Administration Multivitamins/Minerals/Vitamin C 1 tab 09/14/19 10:00 09/22/19 10:20 Tab-A-Vit - PO 1 tab DAILY ALINA Administration Nadolol 20 mg 09/14/19 10:00 09/22/19 10:21 Corgard - PO 20 mg DAILY ALINA Administration Pantoprazole Sodium 40 mg 09/14/19 10:00 09/22/19 10:21 Protonix - PO 40 mg DAILY ALINA Administration Thiamine HCl 100 mg 09/14/19 10:00 09/22/19 10:21 Vitamin B1 - PO 100 mg DAILY ALINA Administration Laboratory Results - last 24 hr 09/22/19 06:50 Sodium 133 L Potassium 4.0 Chloride 107 Carbon Dioxide 19 L Anion Gap 7 L BUN 15.5 Creatinine 0.4 L Est GFR (CKD-EPI)AfAm 146.51 Est GFR (CKD-EPI)NonAf 126.41 Random Glucose 90 Calcium 7.4 L Phosphorus 1.9 L Magnesium 1.6 L Total Bilirubin 2.7 H AST 62 H ALT 53 Alkaline Phosphatase 115 Total Protein 5.9 L Albumin 1.8 L S1 S2 RRR Lungs clear Abd- soft, NT, ND No edema Cachetic A/P acute metabolic encephalopathy Hepatic encephalopathy H/O Alcohol abuse alcohol cirrhosis severe protein malnutrition hypotension UTI -- add supplements -- has UTI -- complete ceftriaxone tomorrow -- CT head negative -- palliative care eval noted --renal function better -- on clinimix low dose -- holding off lasix as pt is euvolemic now -- dc plan to NH in AM after completion of antibiotics Problem List - Problems (1) MIKKI (acute kidney injury) Code(s): N17.9 - ACUTE KIDNEY FAILURE, UNSPECIFIED (2) Confusion Code(s): R41.0 - DISORIENTATION, UNSPECIFIED (3) Hepatic encephalopathy Code(s): K72.90 - HEPATIC FAILURE, UNSPECIFIED WITHOUT COMA (4) Alcoholic cirrhosis of liver Code(s): K70.30 - ALCOHOLIC CIRRHOSIS OF LIVER WITHOUT ASCITES Qualifiers: Ascites presence: with ascites Qualified Code(s): K70.31 - Alcoholic cirrhosis of liver with ascites (5) Alcoholism /alcohol abuse Code(s): F10.20 - ALCOHOL DEPENDENCE, UNCOMPLICATED (6) Anemia Code(s): D64.9 - ANEMIA, UNSPECIFIED
[2019-09-22] MEDS: AMINO ACIDS 4.25%/D5W 1,000 ML IV SCH (13:19)
--- NOTE | 2019-09-22 14:04 | PN ---
Progress Note (short form) - Note Progress Note: Palliative care f/up 64 yo male with known cirrhosis of the liver from ETOH abuse. CT scan in May showed moderate ascites c/w liver cirrhosis, portal hypertension, varices and no masses He had a paracentesis during that admission and had 3100ml removed. [facility] for a [facility] evaluation at that time. He has been in [facility] and was sent into [place] from [facility] for altered mental status on 09/12. From review of his [facility] records, his mental status has been declining over the past several days. He didn't have any fevers recorded and CXR was WNL. No complaints of abd pain, but the pt remains non- verbal. His PMHx includes HTN, HLD, COPD He is s/p banding for varices in the past. He was lethargic and somnolent on admission with hyperammonemia- treated with lactulose and rifaximin with some improvement. He was also found to have MIKKI and diuretics held. He has severe Protein calorie malnutrition with a BMI of 17. He is currently on dysphagia diet. He is also being treated for UTI. Palliative care consult called for GOC. VSS non verbal confused cachectic borderline low BP end stage liver disease with decompensated cirrhosis and hepatic encephalopathy - resolving with treatment MIKKI- resolved malnutrition + hyponatremia, hypomagnasemia, hypophosphatemia thrombocytopenia MELD- Na score of 20 Prognosis is guarded. He does not have a HCP or advanced directives. I spoke to pt's brother- There are multiple siblings in [place] and [place] has a 35 year old daughter whom they have had no contact with for over 10 years. Her name is Radha Shabazz last known to be living in [place] and also a son about 20 Sammy [place]. Patient remains a full code for now. Cont supportive care. check viral serologies and vaccinate as needed. avoid hepatotoxins, sedative/ hypnotics nutritional supplements- avoid high protein diet supplement lytes Problem List - Problems (1) MIKKI (acute kidney injury) Code(s): N17.9 - ACUTE KIDNEY FAILURE, UNSPECIFIED (2) Confusion Code(s): R41.0 - DISORIENTATION, UNSPECIFIED (3) Hepatic encephalopathy Code(s): K72.90 - HEPATIC FAILURE, UNSPECIFIED WITHOUT COMA (4) Alcoholic cirrhosis of liver Code(s): K70.30 - ALCOHOLIC CIRRHOSIS OF LIVER WITHOUT ASCITES Qualifiers: Ascites presence: with ascites Qualified Code(s): K70.31 - Alcoholic cirrhosis of liver with ascites
[2019-09-22] MEDS ORDERED: SODIUM PHOSPHATE - 20 MM in SODIUM CHLORIDE 500 ML IVPB ONE (16:46)
--- NOTE | 2019-09-22 16:46 | PN ---
Progress Note, Physician History of Present Illness: Pt seen and examined at bedside. He appears weak. - Current Medication List Current Medications: Active Medications Folic Acid (Folic Acid -) 1 mg PO DAILY [facility] Last Admin: 09/22/19 10:21 Dose: 1 mg Documented by: Ceftriaxone Sodium 2 gm/ (Dextrose) 50 mls @ 100 mls/hr IVPB DAILY [facility] Last Admin: 09/22/19 10:22 Dose: 100 mls/hr Documented by: Amino Acids (Clinimix -) 1,000 mls @ 35 mls/hr IV Q24H [facility] Last Admin: 09/22/19 13:19 Dose: 35 mls/hr Documented by: Lactobacillus Acidophilus (Bacid -) 1 tab PO BID [facility] Last Admin: 09/22/19 10:21 Dose: 1 tab Documented by: Lactulose (Cephulac (Oral Use)) 30 gm PO TID [facility] Last Admin: 09/22/19 13:20 Dose: Not Given Documented by: Multivit/Ca Carb/B Cmplx/FA/Prenat (Nephro-Chris -) 1 tablet PO DAILY [facility] Last Admin: 09/22/19 10:22 Dose: 1 tablet Documented by: Multivitamins/Minerals/Vitamin C (Tab-A-Vit -) 1 tab PO DAILY [facility] Last Admin: 09/22/19 10:20 Dose: 1 tab Documented by: Nadolol (Corgard -) 20 mg PO DAILY [facility] Last Admin: 09/22/19 10:21 Dose: 20 mg Documented by: Pantoprazole Sodium (Protonix -) 40 mg PO DAILY [facility] Last Admin: 09/22/19 10:21 Dose: 40 mg Documented by: Thiamine HCl (Vitamin B1 -) 100 mg PO DAILY [facility] Last Admin: 09/22/19 10:21 Dose: 100 mg Documented by: - Objective Vital Signs: Vital Signs Temperature 99.0 F 09/22/19 14:44 Pulse Rate 75 09/22/19 14:44 Respiratory Rate 18 09/22/19 14:44 Blood Pressure 83/57 L 09/22/19 14:44 O2 Sat by Pulse Oximetry (%) 99 09/22/19 09:00 Constitutional: Yes: Calm, Cachectic Cardiovascular: Yes: S1, S2 Gastrointestinal: Yes: Soft Genitourinary: Yes: Sherman Present Musculoskeletal: Yes: Muscle Weakness Edema: No Neurological: Yes: Oriented Labs: CBC, BMP 09/21/19 07:14 09/22/19 06:50 INR, PTT INR 1.60 (0.83-1.09) H 09/14/19 07:50 Problem List - Problems (1) MIKKI (acute kidney injury) Code(s): N17.9 - ACUTE KIDNEY FAILURE, UNSPECIFIED (2) Confusion Code(s): R41.0 - DISORIENTATION, UNSPECIFIED (3) Hepatic encephalopathy Code(s): K72.90 - HEPATIC FAILURE, UNSPECIFIED WITHOUT COMA Assessment/Plan Current Medications Generic Name Dose Route Start Last Admin Trade Name Freq PRN Reason Stop Dose Admin Folic Acid 1 mg 09/14/19 10:00 09/22/19 10:21 Folic Acid - PO 1 mg DAILY ALINA Administration Ceftriaxone Sodium 2 gm/ 50 mls @ 100 mls/hr 09/17/19 12:15 09/22/19 10:22 Dextrose IVPB 100 mls/hr DAILY ALINA Administration Amino Acids 1,000 mls @ 35 mls/hr 09/21/19 13:27 09/22/19 13:19 Clinimix - IV 35 mls/hr Q24H ALINA Administration Lactobacillus Acidophilus 1 tab 09/13/19 22:00 09/22/19 10:21 Bacid - PO 1 tab BID ALINA Administration Lactulose 30 gm 09/13/19 22:00 09/22/19 13:20 Cephulac (Oral Use) PO Not Given TID ALINA Multivit/Ca Carb/B Cmplx/FA/Prenat 1 tablet 09/14/19 10:00 09/22/19 10:22 Nephro-Chris - PO 1 tablet DAILY ALINA Administration Multivitamins/Minerals/Vitamin C 1 tab 09/14/19 10:00 09/22/19 10:20 Tab-A-Vit - PO 1 tab DAILY ALINA Administration Nadolol 20 mg 09/14/19 10:00 09/22/19 10:21 Corgard - PO 20 mg DAILY ALINA Administration Pantoprazole Sodium 40 mg 09/14/19 10:00 09/22/19 10:21 Protonix - PO 40 mg DAILY ALINA Administration Thiamine HCl 100 mg 09/14/19 10:00 09/22/19 10:21 Vitamin B1 - PO 100 mg DAILY ALINA Administration Laboratory Tests 09/22/19 06:50 Sodium 133 L Phosphorus 1.9 L Magnesium 1.6 L Impression 1. MIKKI 2. liver cirrhosis 3. hypotension 4. copd 5. hld Plan - cont clinimix - replace phos - replace mag - repeat labs in am - encourage po intake - mikki likely from pre-renal disease
[2019-09-22] MEDS ORDERED: MAGNESIUM SULF 50% (8.12 MEQ/2 ML-1 GM VIAL) IVPB ONE (16:47)
[2019-09-22] MEDS: NAPH,MB-DB/K PH,MBDB POWDER PACKET PO SCH (21:33)
[2019-09-23] MEDS: AMINO ACIDS 4.25%/D5W 1,000 ML IV SCH ×2 (01:14→13:54)
[2019-09-23] MEDS: LACTULOSE 20 GM/30 ML UDC (FOR ORAL USE ONLY) PO SCH ×2 (05:05→15:18)
[2019-09-23 08:52] LABS: ALBUMIN 1.8 g/dl (3.4-5.0); BILIRUBIN,TOTAL 2.5 mg/dL (0.2-1); BLOOD UREA NITROGEN 13.7 mg/dL (7-18); CALCIUM 7.4 mg/dL (8.5-10.1); CREATININE 0.4 mg/dL (0.55-1.3); MAGNESIUM 2.1 mg/dL (1.8-2.4); PHOSPHOROUS 2.2 mg/dL (2.5-4.9); POTASSIUM 3.9 mmol/L (3.5-5.1); TOT PROT 5.7 g/dl (6.4-8.2)
[2019-09-23] MEDS ORDERED: DEXTROSE 5%-WATER - 50 ML IVPB ONE (09:53)
[2019-09-23] MEDS: CEFTRIAXONE 2 GM in DEXTROSE 5%-WATER - 50 ML IVPB SCH (09:57)
[2019-09-23] MEDS: PANTOPRAZOLE 40 MG TABLET PO SCH (09:59)
[2019-09-23] MEDS: MULTIVITAMINS (DAILY MVI) TABLET (FP) PO SCH (09:59)
[2019-09-23] MEDS: FOLIC ACID 1 MG TABLET (FP) PO SCH (09:59)
[2019-09-23] MEDS: VITAMIN B COMP W-C 1 EA TABLET (NEPHRO-VITE) PO SCH (10:00)
[2019-09-23] MEDS: NAPH,MB-DB/K PH,MBDB POWDER PACKET PO SCH (10:00)
[2019-09-23] MEDS: LACTOBACILLUS ACIDOPHILUS 1 TABLET PO SCH (10:00)
[2019-09-23] MEDS: NADOLOL 20 MG TABLET (FP) PO SCH (10:00)
[2019-09-23] MEDS: THIAMINE HCL 100 MG TABLET (FP) PO SCH (10:00)
[2019-09-23 10:15] VITALS: TEMP 98.3
--- NOTE | 2019-09-23 12:01 | DS ---
Physical Examination Vital Signs: Vital Signs Temperature 98.3 F 09/23/19 09:00 Pulse Rate 73 09/23/19 09:00 Respiratory Rate 20 09/23/19 09:00 Blood Pressure 93/59 L 09/23/19 09:00 O2 Sat by Pulse Oximetry (%) 100 09/23/19 09:00 Constitutional: Yes: No Distress, Calm, Cachectic Cardiovascular: Yes: Regular Rate and Rhythm Respiratory: Yes: Diminished Gastrointestinal: Yes: Normal Bowel Sounds, Soft. No: Tenderness Edema: No Labs: CBC, BMP 09/21/19 07:14 09/23/19 06:00 Discharge Summary Problems reviewed: Yes Reason For Visit: ACUTE KIDNEY INJURY,HEPATATIC ENCEPHALOPATHY Current Active Problems MIKKI (acute kidney injury) (Acute) Confusion (Acute) Hepatic encephalopathy (Acute) Thrombocytopenia (Acute) Hospital Course: Admitting History and Physical - Primary Care Physician PCP: Sahra Mina - Admission History of Present Illness: Pt send by me from [facility] for AMS Pt has extensive history --HTN, HLD, COPD, EtOH cirrhosis , Ascitis, varicies - s/p Banding . Given Lactulose MD for Elevated Ammonia level in Er as no eating Also given fluids for arf D/W Er resident today and had d/w RN at [facility] also To be admitted to floor No bleeding Chart is reviewed. HOSPITAL COURSE pt examined by GI and Renal Has UTI-- on antibiotics feeding encouraged needs assistance to eat COVID [address] head negative Lasix and aldactone dc as pt was dehydrated He was started on gentle hydration - renal function imprving electrolytes improved with replacements stable for dc to NH Condition: Improved - Instructions Referrals: Sahra Mina MD [Primary Care Provider] - Disposition: [facility] - Home Medications Comprehensive Discharge Medication List: Ambulatory Orders Vit B Comp/C/Folic/Iron/Vit E [Vitamin B Complex Tablet] 1 each PO DAILY 03/01/18 Albuterol 0.083% Nebulizer Jacqueline [Ventolin 0.083% Nebulizer Soln -] 1 amp NEB QID PRN amp 03/05/18 Nadolol [Corgard -] 20 mg PO DAILY tablet 03/05/18 Folic Acid - 1 mg PO DAILY tablet 04/13/18 Multivitamins [Multivit ([facility] Formulary)] 1 tab PO DAILY tab 04/13/18 Thiamine HCl [Vitamin B1 -] 100 mg PO DAILY tablet 04/13/18 Lactobacillus Acidophilus [Acidophilus] 1 each PO BID 09/13/19 Lactulose (Oral Use) [Cephulac -] 30 gm PO TID 09/13/19 Pantoprazole Sodium [Protonix -] 40 mg PO DAILY 09/13/19 Rifaximin [Xifaxan -] 550 mg PO BID 09/13/19 Lidocaine 4% Topical [Xylocaine 4% Topical -] 1 applic MM DAILY 09/14/19
--- NOTE | 2019-09-23 12:42 | PN ---
Progress Note, Physician History of Present Illness: Pt seen and examined at bedside. He is awake but appears weak. - Current Medication List Current Medications: Active Medications Folic Acid (Folic Acid -) 1 mg PO DAILY [facility] BEDS AT [facility] Last Admin: 09/23/19 09:59 Dose: 1 mg Documented by: Ceftriaxone Sodium 2 gm/ (Dextrose) 50 mls @ 100 mls/hr IVPB DAILY [facility] 234 BEDS AT THE [facility] Last Admin: 09/23/19 09:57 Dose: 100 mls/hr Documented by: Amino Acids (Clinimix -) 1,000 mls @ 35 mls/hr IV Q24H [facility]S [facility]CLUDE 234 BEDS AT THE [facility] Last Admin: 09/23/19 01:14 Dose: 35 mls/hr Documented by: Lactobacillus Acidophilus (Bacid -) 1 tab PO BID [facility]S INCLUDE 234 BEDS AT THE [facility] Last Admin: 09/23/19 10:00 Dose: 1 tab Documented by: Lactulose (Cephulac (Oral Use)) 30 gm PO TID [facility]S [facility]CLUDE 234 BEDS AT THE [facility] Last Admin: 09/23/19 05:05 Dose: Not Given Documented by: Multivit/Ca Carb/B Cmplx/FA/Prenat (Nephro-Chris -) 1 tablet PO DAILY [facility] 234 BEDS AT [facility] Last Admin: 09/23/19 10:00 Dose: 1 tablet Documented by: Multivitamins/Minerals/Vitamin C (Tab-A-Vit -) 1 tab PO DAILY [facility]CLUDE 234 BEDS AT [facility] Last Admin: 09/23/19 09:59 Dose: 1 tab Documented by: Nadolol (Corgard -) 20 mg PO DAILY [facility]CLUDE 234 BEDS AT [facility] Last Admin: 09/23/19 10:00 Dose: Not Given Documented by: Pantoprazole Sodium (Protonix -) 40 mg PO DAILY [facility]CLUDE 234 BEDS AT THE [facility] Last Admin: 09/23/19 09:59 Dose: 40 mg Documented by: Potassium Phos/Sodium Phos (Phos-Nak Packet -) 1 packet PO BID [facility]CLUDE 234 BEDS AT [facility] Last Admin: 09/23/19 10:00 Dose: 1 packet Documented by: Thiamine HCl (Vitamin B1 -) 100 mg PO DAILY [facility]CLUDE 234 BEDS AT [facility] Last Admin: 09/23/19 10:00 Dose: 100 mg Documented by: - Objective Vital Signs: Vital Signs Temperature 98.3 F 09/23/19 09:00 Pulse Rate 73 09/23/19 09:00 Respiratory Rate 20 09/23/19 09:00 Blood Pressure 93/59 L 09/23/19 09:00 O2 Sat by Pulse Oximetry (%) 100 09/23/19 09:00 Constitutional: Yes: Calm HENT: Yes: Atraumatic Neck: Yes: Supple Cardiovascular: Yes: S1, S2 Respiratory: Yes: CTA Bilaterally Gastrointestinal: Yes: Soft Genitourinary: Yes: Incontinence Musculoskeletal: Yes: Muscle Weakness Edema: No Integumentary: Yes: WNL Neurological: Yes: Oriented Psychiatric: Yes: Oriented Labs: CBC, BMP 09/21/19 07:14 09/23/19 06:00 INR, PTT INR 1.60 (0.83-1.09) H 09/14/19 07:50 Problem List - Problems (1) MIKKI (acute kidney injury) Code(s): N17.9 - ACUTE KIDNEY FAILURE, UNSPECIFIED (2) Confusion Code(s): R41.0 - DISORIENTATION, UNSPECIFIED (3) Hepatic encephalopathy Code(s): K72.90 - HEPATIC FAILURE, UNSPECIFIED WITHOUT COMA Assessment/Plan Current Medications Generic Name Dose Route Start Last Admin Trade Name Jesseq PRN Reason Stop Dose Admin Folic Acid 1 mg 09/14/19 10:00 09/23/19 09:59 Folic Acid - PO 1 mg DAILY ALINA Administration Ceftriaxone Sodium 2 gm/ 50 mls @ 100 mls/hr 09/17/19 12:15 09/23/19 09:57 Dextrose IVPB 100 mls/hr DAILY ALINA Administration Amino Acids 1,000 mls @ 35 mls/hr 09/21/19 13:27 09/23/19 01:14 Clinimix - IV 35 mls/hr Q24H ALINA Administration Sodium Phosphate 20 mm/ Sodium 256.6667 mls @ 62.5 mls/hr 09/23/19 12:39 Chloride IVPB 09/23/19 16:45 ONCE ONE Lactobacillus Acidophilus 1 tab 09/13/19 22:00 09/23/19 10:00 Bacid - PO 1 tab BID ALINA Administration Lactulose 30 gm 09/13/19 22:00 09/23/19 05:05 Cephulac (Oral Use) PO Not Given TID ALINA Multivit/Ca Carb/B Cmplx/FA/Prenat 1 tablet 09/14/19 10:00 09/23/19 10:00 Nephro-Chris - PO 1 tablet DAILY ALINA Administration Multivitamins/Minerals/Vitamin C 1 tab 09/14/19 10:00 09/23/19 09:59 Tab-A-Vit - PO 1 tab DAILY ALINA Administration Nadolol 20 mg 09/14/19 10:00 09/23/19 10:00 Corgard - PO Not Given DAILY ALINA Pantoprazole Sodium 40 mg 09/14/19 10:00 09/23/19 09:59 Protonix - PO 40 mg DAILY ALINA Administration Potassium Phos/Sodium Phos 1 packet 09/22/19 22:00 09/23/19 10:00 Phos-Nak Packet - PO 1 packet BID ALINA Administration Thiamine HCl 100 mg 09/14/19 10:00 09/23/19 10:00 Vitamin B1 - PO 100 mg DAILY ALINA Administration Impression 1. MIKKI 2. liver cirrhosis 3. hypotension 4. copd 5. hld Plan - replace lytes - monitor renal function - diuretics on hold - discussed with medical team - mikki likely from pre-renal disease
[2019-09-23] MEDS ORDERED: NAPH,MB-DB/K PH,MBDB POWDER PACKET PO ONE (13:00)
[2019-09-23] MEDS ORDERED: SODIUM PHOSPHATE - 20 MM in SODIUM CHLORIDE 250 ML IVPB ONE (13:30)
[2019-09-23 13:43] VITALS: BP 89/47; PULSE 87
== END 2019-09-23 17:51 | DRG 280 ==
LOC: JER 13:42 → JERBED 16:13 → J6WEST-2 09-14 23:36 → J6S 09-17 11:34
PROVIDERS: ADMIT Internal Medicine; ATTEND Internal Medicine
DX: K70.31 Alcoholic cirrhosis of liver with ascites (principal); E78.5 Hyperlipidemia, unspecified; J44.9 Chronic obstructive pulmonary disease, unspecified; N39.0 Urinary tract infection, site not specified; B95.2 Enterococcus as the cause of diseases classified elsewhere; E43 Unspecified severe protein-calorie malnutrition; N17.9 Acute kidney failure, unspecified; K72.90 Hepatic failure, unspecified without coma; E83.39 Other disorders of phosphorus metabolism; E83.42 Hypomagnesemia; E87.1 Hypo-osmolality and hyponatremia; D69.6 Thrombocytopenia, unspecified; R64 Cachexia
CPT/HCPCS: 36415; 70450-TC; 71045-TC-FY; 76705-TC; 80053; 81003; 82140; 82272; 82436; 82565; 83735; 84100; 84133; 84300; 85025; 85027; 85610; 85730; 87040; 87086; 87186; 93005; 93010; 99285-25; U0003